=== PATIENT | female | born 1965 | race African-American/Black ===

== ENCOUNTER 2017-12-21 11:00 | Emergency (ER) | payer OTHER, SELFPAY ==
--- OUTSIDE RECORDS SUMMARY | 2017-12-21 11:02 | XMS REPORT | Clinical Summary ---
:[address] [facility] Address [address] [place] [address] Phone Care Team Providers Name Role Phone Unavailable Primary Care Provider Unavailable Allergies No Known Allergies Current Medications Prescription Sig. Disp. Refills Start Date End Date Status amLODIPine (NORVASC) Take 10 mg by Active 10 MG mouth daily. tabletIndications: hypertension losartan (COZAAR) 100 Take 100 mg by Active MG tablet mouth daily. metoprolol Take 1 tablet 720 tablet 0 07/14/2016 07/14/2017 (LOPRESSOR) 100 MG (100 mg total) tablet by mouth 2 (two) times daily. 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
[2017-12-21] MEDS ORDERED: HYDROCODONE/APAP 5/325 MG TAB ONE (12:19)
--- NOTE | 2017-12-21 13:07 | RAD REPORT ---
EXAM DESCRIPTION: VAS - Extremity Venous Uni Ltd - 12/21/2017 12:47 pm CLINICAL HISTORY: Leg swelling and edema. COMPARISON: 08/17/2015 FINDINGS: Right lower extremity venous system was interrogated with Doppler technique. Normal flow, compressibility and augmentation was noted. There is no DVT present. IMPRESSION: No evidence of right lower extremity deep venous thrombosis.
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
--- NOTE | 2017-12-21 13:32 | ER ---
Nurse's Notes [facility] Name: Cristy Price Age: 52 yrs Sex: Female : 1965 Arrival Date: 12/21/2017 Time: 11:04 Bed 10 Private MD: Sanchez Ricketts Diagnosis: Pain in right foot Presentation: 12/21 11:50 Presenting complaint:. ae1 11:50 Presenting complaint: Patient states: Patient reports pain to her right foot starting ae1 in the toes as "tingling" that radiates up to her right calf. Patient states pain started about a month ago and today she just "couldn't take the pain". Transition of care: patient was not received from another setting of care. Onset of symptoms was November 26, 2017. Risk Assessment: Do you want to hurt yourself or someone else? Patient reports no desire to harm self or others. 11:50 Method Of Arrival: Ambulatory ae1 11:50 Acuity: DACIA 4 ae1 12:30 Initial Sepsis Screen: Does the patient meet any 2 criteria? No. Patient's initial ae1 sepsis screen is negative. Does the patient have a suspected source of infection? No. Patient's initial sepsis screen is negative. Care prior to arrival: None. Triage Assessment: 11:55 General: Appears in no apparent distress. uncomfortable, well groomed, Behavior is ae1 calm, cooperative. Pain: Complains of pain in dorsum of right foot, right first toe, right second toe, right third toe, right fourth toe, Right first toenail, Right second toenail, Right third toenail, Right fourth toenail and Right fifth toenail Pain currently is 8 out of 10 on a pain scale. Neuro: Level of Consciousness is awake, alert, obeys commands, Oriented to person, place, time, situation. Respiratory: Airway is patent. Musculoskeletal: No visible injury, swelling or redness to the right foot. 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 - Social history:: Smoking status: Patient/guardian denies using tobacco. - Ebola Screening: : Patient negative for fever greater than or equal to 101.5 degrees Fahrenheit, and additional compatible Ebola Virus Disease symptoms Patient denies exposure to infectious person. Screenin:30 Abuse screen: Denies threats or abuse. Denies injuries from another. Nutritional ae1 screening: No deficits noted. Tuberculosis screening: No symptoms or risk factors identified. Fall Risk None identified. Assessment: 13:00 Reassessment: Patient appears in no apparent distress at this time. Patient and/or iw family updated on plan of care and expected duration. Pain level reassessed. Patient is alert, oriented x 3, equal unlabored respirations, skin warm/dry/pink. Vital Signs: 11:53 BP 146 / 88; Pulse 76; Resp 18; Temp 98.1(O); Pulse Ox 97% on R/A; Weight 68.49 kg (R); ae1 Pain 8/10; ED Course: 11:04 Patient arrived in ED. mr 11:04 Sanchez Ricketts MD is Private Physician. mr 11:52 Triage completed. ae1 11:54 Arm band placed on right wrist. ae1 11:59 Joseline Yan FNP-C [facility]. snw 12:00 Emiliano Hidalgo MD is Attending Physician. snw 12:03 Dotty Gonzalez, ZACARIAS is Primary Nurse. iw 12:15 Call light in reach. Patient sitting in recliner. Pulse ox on. ae1 12:33 Ultrasound completed. Patient tolerated well. sg3 12:48 US Extremity Venous Unilateral Ltd In Process Unspecified. EDMS 13:00 No provider procedures requiring assistance completed. Patient did not have IV access ae1 during this emergency room visit. 13:27 Sanchez Ricketts MD is Referral Physician. snw 13:27 Stu Jones MD is Referral Physician. snw 13:37 Referral Physician role handed off by Stu Jones MD snw 13:39 Sanchez Ricketts MD is Referral Physician. snw 14:21 Sanchez Ricketts MD is Referral Physician. snw 14:22 Sanchez Ricketts MD is Referral Physician. snw Administered Medications: 12:20 Drug: [place] 5 mg-325 mg 1 tabs Route: PO; ae1 12:29 Follow up: Response: No adverse reaction; Pain is decreased rv 12:43 Follow up: Response: Pain is decreased rv Outcome: 13:32 Discharge ordered by MD. snw 13:40 Discharge ordered by MD. snw 14:22 Discharge ordered by MD. snw 14:22 Discharge ordered by MD. snw 14:35 Discharged to home via wheelchair. ae1 14:35 Condition: stable 14:35 Discharge instructions given to patient, Instructed on discharge instructions, follow up and referral plans. Demonstrated understanding of instructions. 14:41 Patient left the ED. ae1 Signatures: Dispatcher [employer] EDMS Joseline Yan, RECREATIONAL SPORTS DIRECTOR-C RECREATIONAL SPORTS DIRECTOR-[place] Aicha Simms Irene, RN RN iw Donis Jacob RN RN ae1 Vidhi Rodríguez 3 Herman Hall RN RN rv
[2017-12-21 14:48] VITALS: BP 146/88; TEMP 98.1; O2SAT 97
== END 2017-12-21 14:41 | disposition home or self-care (01) ==
LOC: ER 11:00
DX: M79.671 Pain in right foot (principal)
CPT/HCPCS: 93971; 99283

== ENCOUNTER 2018-05-26 18:56 | Emergency (ER) | payer OTHER ==
--- OUTSIDE RECORDS SUMMARY | 2018-05-26 18:58 | XMS REPORT | Clinical Summary ---
:1965 Author Organization [facility] Address [address] [place] [address] Care Team Providers Name Role Phone Sanchez Ricketts Primary Care Provider Allergies No Known Allergies Medications Medication Sig Dispensed Refills Start Date End Date Status amLODIPine (NORVASC) Take 10 mg by 0 Active 10 MG mouth daily. tabletIndications: hypertension losartan (COZAAR) 100 Take 100 mg by 0 Active MG tablet mouth daily. metoprolol Take [...] Assigned at Date Recorded Not on file Job Start Date Occupation Industry Not on file Not on file Not on file Travel History Travel Start Travel End No recent travel history available. Last Filed Vital Signs Not on file Plan of Treatment Not on file Results Not on fileafter 05/25/2017 Insurance Payer Benefit Plan / Group Subscriber ID Type Phone Address OTHER-COMMERCIAL GENERIC COMMERCIAL xxxxxxxxx Advance Directives For more information, please contact:[address] [place], [place] [phone] Code Status Date Activated Date Inactivated Comments Full Code 07/05/2016 9:32 PM 07/14/2016 6:56 PM This code status was determined by: Patient
[2018-05-26] MEDS ORDERED: ONDANSETRON 4 MG (ODT) TAB ONE (20:00)
--- NOTE | 2018-05-26 20:48 | RAD REPORT ---
EXAM DESCRIPTION: RAD - Chest Pa And Lat (2 Views) - 05/26/2018 8:34 pm CLINICAL HISTORY: Cough and congestion COMPARISON: December 2016 TECHNIQUE: PA and lateral views of the chest were obtained. FINDINGS: The lungs are clear. Lung markings are similar to the comparison. Heart size is normal an d central vasculature is within normal limits. No pleural effusion or pneumothorax seen. No acute b anju finding noted. No aortic abnormality. IMPRESSION: No acute cardiopulmonary process. No significant interval change.
[2018-05-26 21:35] LABS: Urine Blood NEGATIVE (NEG); Urine Glucose NEGATIVE (NEG); Urine Protein NEGATIVE (NEG); Urine Specific Gravity 1.015 (1.005-1.030)
--- NOTE | 2018-05-26 21:36 | ER ---
Nurse's Notes [facility] Name: Cristy Price Age: 53 yrs Sex: Female : 1965 Arrival Date: 05/26/2018 Time: 18:59 Bed 20 Private MD: Diagnosis: Bronchitis, not specified as acute or chronic Presentation: 05/26 19:02 Presenting complaint: Patient states: cough, congestion X2 days. Transition of care: ak1 patient was not received from another setting of care. Onset of symptoms is unknown. Risk Assessment: Do you want to hurt yourself or someone else? Patient reports no desire to harm self or others. Initial Sepsis Screen: Does the patient meet any 2 criteria? No. Patient's initial sepsis screen is negative. Does the patient have a suspected source of infection? No. Patient's initial sepsis screen is negative. Care prior to arrival: None. 19:02 Method Of Arrival: Ambulatory ak1 19:02 Acuity: DACIA 3 ak1 Triage Assessment: 19:03 Headache History: The patient has had previous headaches and this one is similar to ak1 previous episodes. General: Appears uncomfortable, Behavior is calm, cooperative. Pain: Complains of pain in chest. 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 - Social history:: Smoking status: Patient/guardian denies using tobacco. - Ebola Screening: : No symptoms or risks identified at this time. Screenin:12 Abuse screen: Denies threats or abuse. Nutritional screening: No deficits noted. jb4 Tuberculosis screening: No symptoms or risk factors identified. Fall Risk None identified. Assessment: 19:12 General: Appears in no apparent distress. uncomfortable, Behavior is calm, cooperative, jb4 appropriate for age. Pain: Complains of pain in Headache. Pain does not radiate. Pain currently is 4 out of 10 on a pain scale. at worst was 8 out of 10 on a pain scale. Quality of pain is described as throbbing. Neuro: Level of Consciousness is awake, alert, obeys commands, Oriented to person, place, time, situation. Cardiovascular: Heart tones S1 S2 present Patient's skin is warm and dry. Respiratory: Airway is patent Respiratory effort is even, unlabored, Respiratory pattern is regular, symmetrical, Breath sounds are clear bilaterally. GI: Abdomen is non-distended, obese, Bowel sounds present X 4 quads. Abd is soft and non tender X 4 quads. : No signs and/or symptoms were reported regarding the genitourinary system. EENT: No signs and/or symptoms were reported regarding the EENT system. Derm: Skin is intact, Skin is dry, Skin is normal, Skin temperature is warm. Musculoskeletal: Circulation, motion, and sensation intact. 20:25 Reassessment: Patient appears in no apparent distress at this time. Patient and/or jb4 family updated on plan of care and expected duration. Pain level reassessed. Patient is alert, oriented x 3, equal unlabored respirations, skin warm/dry/pink. Pt wheeled to X-Ray. 21:29 Reassessment: Patient appears in no apparent distress at this time. Patient and/or jb4 family updated on plan of care and expected duration. Pain level reassessed. Patient is alert, oriented x 3, equal unlabored respirations, skin warm/dry/pink. Vital Signs: 19:03 BP 176 / 100; Pulse 130; Resp 18; Temp 98; Pulse Ox 99% on R/A; Weight 65.77 kg (R); ak1 Height 4 ft. 9 in. (144.78 cm); Pain 10/10; 20:00 BP 144 / 89; Pulse 93; Resp 18; Pulse Ox 98% ; jb4 21:00 BP 135 / 80; Pulse 73; Resp 18; Pulse Ox 100% on R/A; jb4 21:56 BP 154 / 84; Pulse 86; Resp 18; Pulse Ox 100% on R/A; jb4 19:03 Body Mass Index 31.38 (65.77 kg, 144.78 cm) ak1 ED Course: 18:59 Patient arrived in ED. as 19:02 Triage completed. ak1 19:03 Arm band placed on Patient placed in an exam room, on a stretcher, Patient notified of ak1 wait time. 19:08 Bryan Solorzano, RN is Primary Nurse. jb4 19:12 Patient has correct armband on for positive identification. Bed in low position. Call jb4 light in reach. Side rails up X 1. Pulse ox on. NIBP on. 19:36 Joseline Yan FNP-C is PHCP. snw 19:36 Rohan Flores MD is Attending Physician. snw 20:30 Chest Pa And Lat (2 Views) XRAY In Process Unspecified. EDMS 21:56 No provider procedures requiring assistance completed. Patient did not have IV access jb4 during this emergency room visit. Administered Medications: 19:56 Drug: Zofran 4 mg Route: PO; jb4 21:39 Follow up: Response: No adverse reaction; Nausea is decreased jb4 21:40 Drug: Tussionex Pennkinetic ER 5 ml Route: PO; jb4 21:55 Follow up: Response: No adverse reaction jb4 21:40 Drug: Decadron - Dexamethasone 10 mg Route: IVP; Site: Other; jb4 21:56 Follow up: Response: No adverse reaction jb4 Outcome: 21:36 Discharge ordered by . snw 21:56 Discharged to home ambulatory. jb4 21:56 Condition: stable 21:56 Discharge instructions given to patient, Instructed on discharge instructions, follow up and referral plans. medication usage, Demonstrated understanding of instructions, follow-up care, medications, Prescriptions given X 3. 21:57 Patient left the ED. jb4 Signatures: Dispatcher [employer] EDMT Joseline Yan FNP-C BACK SHOE OPERATOR-Macy Avina Amber, RN RN ak1 Bryan Solorzano, RN RN jb4
--- NOTE | 2018-05-26 21:36 | EDPHYS ---
Physician Documentation [facility] Name: Cristy Price Age: 53 yrs Sex: Female : 1965 Arrival Date: 05/26/2018 Time: 18:59 Bed 20 Private MD: ED Physician Rohan Flores HPI: 05/26 21:51 This 53 yrs old Black Female presents to ER via Ambulatory with complaints of snw Dizziness, Headache, Congestion. 21:51 The patient presents with feeling faint, lightheadedness. Onset: The symptoms/episode snw began/occurred suddenly, this morning. Context: just prior to the episode the patient experienced no apparent symptoms. Modifying factors: The symptoms are alleviated by nothing, the symptoms are aggravated by cough. Associated signs and symptoms: Pertinent positives: headache, nausea, cough. Severity of symptoms: At their worst the symptoms were moderate in the emergency department the symptoms are unchanged. It is unknown whether or not the patient has had similar symptoms in the past. The patient has not recently seen a physician. 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 - Social history:: Smoking status: Patient/guardian denies using tobacco. - Ebola Screening: : No symptoms or risks identified at this time. ROS: 21:51 Eyes: Negative for injury, pain, redness, and discharge, ENT: Negative for injury, snw pain, and discharge, Neck: Negative for injury, pain, and swelling, Cardiovascular: Negative for chest pain, palpitations, and edema. 21:51 Back: Negative for injury and pain, : Negative for injury, bleeding, discharge, and swelling, MS/Extremity: Negative for injury and deformity, Skin: Negative for injury, rash, and discoloration, Neuro: Negative for headache, weakness, numbness, tingling, and seizure. 21:51 Constitutional: Positive for body aches, fatigue, malaise. 21:51 Respiratory: Positive for cough. 21:51 Abdomen/GI: Positive for nausea. Exam: 21:49 Constitutional: This is a well developed, well nourished patient who is awake, alert, snw and in no acute distress. Head/Face: Normocephalic, atraumatic. Eyes: Pupils equal round and reactive to light, extra-ocular motions intact. Lids and lashes normal. Conjunctiva and sclera are non-icteric and not injected. Cornea within normal limits. Periorbital areas with no swelling, redness, or edema. ENT: Nares patent. No nasal discharge, no septal abnormalities noted. Tympanic membranes are normal and external auditory canals are clear. Oropharynx with no redness, swelling, or masses, exudates, or evidence of obstruction, uvula midline. Mucous membranes moist. Neck: Trachea midline, no thyromegaly or masses palpated, and no cervical lymphadenopathy. Supple, full range of motion without nuchal rigidity, or vertebral point tenderness. No Meningismus. Chest/axilla: Normal chest wall appearance and motion. Nontender with no deformity. No lesions are appreciated. 21:49 Abdomen/GI: Soft, non-tender, with normal bowel sounds. No distension or tympany. No guarding or rebound. No evidence of tenderness throughout. Back: No spinal tenderness. No costovertebral tenderness. Full range of motion. Skin: Warm, dry with normal turgor. Normal color with no rashes, no lesions, and no evidence of cellulitis. MS/ Extremity: Pulses equal, no cyanosis. Neurovascular intact. Full, normal range of motion. Neuro: Awake and alert, GCS 15, oriented to person, place, time, and situation. Cranial nerves II-XII grossly intact. Motor strength 5/5 in all extremities. Sensory grossly intact. Cerebellar exam normal. Normal gait. 21:49 Cardiovascular: Rate: tachycardic, Heart sounds: normal. 21:49 Respiratory: the patient does not display signs of respiratory distress, Respirations: no acute changes, Breath sounds: are clear throughout, Bronchitic cough. Vital Signs: 19:03 BP 176 / 100; Pulse 130; Resp 18; Temp 98; Pulse Ox 99% on R/A; Weight 65.77 kg (R); ak1 Height 4 ft. 9 in. (144.78 cm); Pain 10/10; 20:00 BP 144 / 89; Pulse 93; Resp 18; Pulse Ox 98% ; jb4 21:00 BP 135 / 80; Pulse 73; Resp 18; Pulse Ox 100% on R/A; jb4 21:56 BP 154 / 84; Pulse 86; Resp 18; Pulse Ox 100% on R/A; jb4 19:03 Body Mass Index 31.38 (65.77 kg, 144.78 cm) ak1 MDM: 19:38 Patient medically screened. snw 21:50 Data reviewed: vital signs, nurses notes. Data interpreted: Pulse oximetry: on room air snw is 100 %. Interpretation: normal. Counseling: I had a detailed discussion with the patient and/or guardian regarding: the historical points, exam findings, and any diagnostic results supporting the discharge/admit diagnosis, lab results, the need for outpatient follow up, to return to the emergency department if symptoms worsen or persist or if there are any questions or concerns that arise at home. Special discussion: Based on the history and exam findings, there is no indication for further emergent testing or inpatient evaluation. I discussed with the patient/guardian the need to see the primary care provider for further evaluation of the symptoms. 05/26 19:19 Order name: Flu; Complete Time: 20:39 snw 05/26 21:21 Order name: Urine Dipstick--Ancillary (enter results); Complete Time: 21:39 ds4 05/26 19:45 Order name: Chest Pa And Lat (2 Views) XRAY; Complete Time: 21:01 snw 05/26 21:10 Order name: Urine Dipstick-Ancillary (obtain specimen); Complete Time: 21:20 snw Administered Medications: 19:56 Drug: Zofran 4 mg Route: PO; jb4 21:39 Follow up: Response: No adverse reaction; Nausea is decreased jb4 21:40 Drug: Tussionex Pennkinetic ER 5 ml Route: PO; jb4 21:55 Follow up: Response: No adverse reaction jb4 21:40 Drug: Decadron - Dexamethasone 10 mg Route: IVP; Site: Other; jb4 21:56 Follow up: Response: No adverse reaction jb4 Disposition: 05/26/18 21:36 Discharged to Home. Impression: Bronchitis, not specified as acute or chronic. - Condition is Stable. - Discharge Instructions: Acute Bronchitis, Adult, Fever, Adult, Hypertension, Cool Mist Vaporizer, Rehydration, Adult. - Prescriptions for Prednisone 20 mg Oral Tablet - take 2 tablet by ORAL route once daily for 5 days; 10 tablet. Albuterol Sulfate 90 mcg/actuation - inhale 1-2 puff by INHALATION route every 4-6 hours; 1 Inhaler. Pepcid 20 mg Oral Tablet - take 1 tablet by ORAL route once daily; 20 tablet. - Work release form, Medication Reconciliation Form, Thank You Letter, Antibiotic Education, Prescription Opioid Use form. - Follow up: Private Physician; When: 2 - 3 days; Reason: Recheck today's complaints, Continuance of care, Re-evaluation by your physician. Follow up: Emergency Department; When: As needed; Reason: Worsening of condition. Addendum: 06/02/2018 11:49 Co-signature as Attending Physician, Rohan Flores MD. g s Signatures: Dispatcher [employer] EDMS Joseline Yan, DERMATOLOGIST MANAGING PARTNER-C DERMATOLOGIST MANAGING PARTNER-Csnw Shital Hope RN RN ak1 Bryan Solorzano RN RN jb4 Rohan Flores MD MD Corrections: (The following items were deleted from the chart) 05/26 21:57 21:36 05/26/2018 21:36 Discharged to Home. Impression: Bronchitis, not specified as jb4 acute or chronic. Condition is Stable. Forms are Medication Reconciliation Form, Thank You Letter, Antibiotic Education, Prescription Opioid Use. Follow up: Private Physician; When: 2 - 3 days; Reason: Recheck today's complaints, Continuance of care, Re-evaluation by your physician. Follow up: Emergency Department; When: As needed; Reason: Worsening of condition. snw
[2018-05-26] MEDS ORDERED: DEXAMETHASONE 10 MG/ML VIAL ONE (21:50)
[2018-05-26] MEDS ORDERED: HYDROCODONE/CHLORPHEN 5 ML/OSYR ONE (21:50)
[2018-05-26 22:28] VITALS: TEMP 98
[2018-05-26 22:31] VITALS: O2SAT 100
[2018-05-26 22:32] VITALS: BP 154/84
== END 2018-05-26 21:57 | disposition home or self-care (01) ==
LOC: ER 18:56
DX: J40 Bronchitis, not specified as acute or chronic (principal); I10 Essential (primary) hypertension
CPT/HCPCS: 71046; 81003; 87804; 96374; 99284; J1100

== ENCOUNTER 2018-08-14 13:41 | Inpatient (IN) | payer OTHER ==
--- OUTSIDE RECORDS SUMMARY | 2018-08-14 13:43 | XMS REPORT | Clinical Summary ---
:[address] [facility] Address [address] [place] [address] Care Team Providers Name Role Phone Sanchez Ricketts Primary Care Provider Allergies No Known Allergies Medications Medication Sig Dispensed Refills Start Date End Date Status amLODIPine (NORVASC) 10 Take 10 mg by 0 Active MG tabletIndications: mouth daily. hypertension losartan (COZAAR) 100 MG Take 100 mg by 0 Active tablet mouth daily. Active Problems Problem Noted Date Small [...] Not on file Results Not on fileafter 08/13/2017 Insurance Payer Benefit Plan / Group Subscriber ID Type Phone Address OTHER-COMMERCIAL GENERIC COMMERCIAL xxxxxxxxx Advance Directives For more information, please contact:[facility] [place], [place] [phone] Code Status Date Activated Date Inactivated Comments Full Code 07/05/2016 9:32 PM 07/14/2016 6:56 PM This code status was determined by: Patient
[2018-08-14] MEDS ORDERED: NA CHLORIDE 0.9% 1,000 ML ONE (17:07)
--- NOTE | 2018-08-14 17:31 | ER ---
Nurse's Notes [facility] Name: Cristy Price Age: 53 yrs Sex: Female : 1965 Arrival Date: 08/14/2018 Time: 13:42 Bed 14 Private MD: Sanchez Ricketts Diagnosis: Acute kidney failure, unspecified Presentation: 08/14 13:49 Presenting complaint: Patient states: "I had blood drawn here this morning, Dr. Saul hb called and told me my kidney function was down and to come to ER immediately.". Transition of care: patient was not received from another setting of care. Onset of symptoms was August 14, 2018. Risk Assessment: Do you want to hurt yourself or someone else? Patient reports no desire to harm self or others. Care prior to arrival: None. 13:49 Method Of Arrival: Ambulatory hb 13:49 Acuity: DACIA 3 hb 15:45 Initial Sepsis Screen: Does the patient meet any 2 criteria? No. Patient's initial rb1 sepsis screen is negative. Does the patient have a suspected source of infection? No. Patient's initial sepsis screen is negative. 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 - Social history:: Smoking status: Patient/guardian denies using tobacco. - Ebola Screening: : No symptoms or risks identified at this time. Screenin:45 Abuse screen: Denies threats or abuse. Nutritional screening: No deficits noted. rb1 Tuberculosis screening: No symptoms or risk factors identified. Fall Risk None identified. Assessment: 15:45 General: Appears in no apparent distress. comfortable, Behavior is calm, cooperative, rb1 Denies fever. Pain: Complains of pain in abdomen Pain currently is 7 out of 10 on a pain scale. Neuro: Level of Consciousness is awake, alert, obeys commands, Oriented to person, place, time, situation. Cardiovascular: Capillary refill < 3 seconds is brisk in bilateral fingers. Respiratory: Airway is patent Respiratory effort is even, unlabored, Respiratory pattern is regular, symmetrical. GI: Reports nausea, x 2 days. : Reports burning with urination. Derm: Skin is dry, Skin is normal, Skin temperature is warm. Musculoskeletal: Range of motion: intact in all extremities. 16:45 Reassessment: Patient appears in no apparent distress at this time. No changes from rb1 previously documented assessment. Son at bedside. 17:45 Reassessment: Patient appears in no apparent distress at this time. Patient and/or rb1 family updated on plan of care and expected duration. Pain level reassessed. Patient is alert, oriented x 3, equal unlabored respirations, skin warm/dry/pink. Pt. ambulated to the restroom without difficulty. 18:45 Reassessment: Patient appears in no apparent distress at this time. No changes from rb1 previously documented assessment. Family at bedside. 19:10 Reassessment: Patient appears in no apparent distress at this time. Patient and/or jb4 family updated on plan of care and expected duration. Pain level reassessed. Patient is alert, oriented x 3, equal unlabored respirations, skin warm/dry/pink. Attempted NG tube. Pt did not tolerate procedure. Refused further attempts. 20:00 Reassessment: Patient appears in no apparent distress at this time. Patient and/or jb4 family updated on plan of care and expected duration. Pain level reassessed. Patient is alert, oriented x 3, equal unlabored respirations, skin warm/dry/pink. Patient denies pain at this time. Vital Signs: 13:50 BP 131 / 96; Pulse 94; Resp 16; Temp 97.4; Pulse Ox 100% on R/A; Pain 7/10; hb 15:45 BP 107 / 81; Pulse 85; Resp 17; Pulse Ox 98% on R/A; rb1 16:45 BP 126 / 92; Pulse 98; Resp 16; Pulse Ox 98% on R/A; rb1 17:45 BP 139 / 92; Pulse 95; Resp 19; Pulse Ox 98% ; Pain 6/10; rb1 20:45 BP 125 / 80; Pulse 95; Resp 16; Pulse Ox 98% on R/A; jb4 ED Course: 13:42 Patient arrived in ED. rg4 13:43 Sanchez Ricketts MD is Private Physician. rg4 13:50 Triage completed. hb 13:51 Arm band placed on right wrist. hb 15:39 Joseline Yan, EDEN[facility]C [facility]. snw 15:40 Emiliano Hidalgo MD is Attending Physician. snw 15:45 Patient has correct armband on for positive identification. Bed in low position. Call rb1 light in reach. Side rails up X 1. Pulse ox on. NIBP on. Warm blanket given. 15:51 Kya Mayes RN is Primary Nurse. rb1 16:40 Inserted saline lock: 22 gauge in left antecubital area, using aseptic technique. Blood rb1 collected. 17:30 Tarik Womack MD is Hospitalizing Provider. snw 17:[address] via wheelchair. vm2 17:51 CT Abd/Pelvis - Without Cont In Process Unspecified. EDMS 18:55 Report given to ZACAIRAS Weiss. rb1 21:08 No provider procedures requiring assistance completed. Patient admitted, IV remains in jb4 place. Administered Medications: 17:00 Drug: NS 0.9% 1000 ml Route: IV; Rate: 125 ml/hr; Site: left antecubital; rb1 20:48 Follow up: Response: No adverse reaction; IV Status: Infusion continued upon admission jb4 19:56 Drug: Mefoxin 1 grams {Note: Given IVP per pharmacy protocol..} Route: IVPB; Infused jb4 Over: 30 mins; Site: left antecubital; 19:58 Follow up: Response: No adverse reaction; IV Status: Completed infusion jb4 19:59 Drug: fentaNYL (PF) 25 mcg Route: IVP; Site: left antecubital; jb4 20:47 Follow up: Response: No adverse reaction; Pain is decreased jb4 20:00 Drug: Ativan 0.5 mg Route: IVP; Site: left antecubital; jb4 20:48 Follow up: Response: No adverse reaction; Pain is decreased; Anxiety decreased jb4 20:05 Drug: Flagyl 500 mg Volume: 100 ml; Route: IVPB; Rate: 200 ml/hr; Infused Over: 30 jb4 mins; Site: left antecubital; 20:35 Follow up: Response: No adverse reaction; IV Status: Completed infusion jb4 Outcome: 17:31 Decision to Hospitalize by Provider. snw 21:08 Admitted to Med/surg accompanied by tech, via wheelchair, room 224, with chart, Report jb4 called to ZACARIAS Leyva 21:08 Condition: stable 21:08 Discharge instructions given to patient, family, Instructed on the need for admit, Demonstrated understanding of instructions. 21:10 Patient left the ED. jb4 Signatures: Dispatcher [employer] EDMS Joseline Yan, SHELLFISH SHUCKER-C SHELLFISH SHUCKER-Csnw Kya Mayes RN RN rb1 Darcy Saenz RN RN hb Garcia, [place] 4 Bryan Solorzano RN RN jb4 Teodora Astorga [facility]
--- NOTE | 2018-08-14 17:32 | EDPHYS ---
Physician Documentation [facility] Name: Cristy Price Age: 53 yrs Sex: Female : 1965 Arrival Date: 08/14/2018 Time: 13:42 Bed 14 Private MD: Sanchez Ricketts ED Physician BalEmiliano singh HPI: 08/14 17:17 This 53 yrs old Black Female presents to ER via Ambulatory with complaints of Abnormal snw Lab Results. 17:17 Pt went to PCP for abdominal dicomfort, hx of bowel obstruction at age 18yr. Pt then snw developed a hernia. Lately her abd has been hurting more frequently in central area. Saw Dr. Ricketts. Labs today indicate renal failure. sent to ED for exam. 17:33 Onset: The symptoms/episode began/occurred at an unknown time. Severity of symptoms: At snw their worst the symptoms were moderate. The patient has not experienced similar symptoms in the past. The patient has been recently seen by a physician: the patient's primary care provider, Dr. Ricketts. Pt has been seen recently for Bronchitis and has rec'd steroid courses x 2. 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 - Social history:: Smoking status: Patient/guardian denies using tobacco. - Ebola Screening: : No symptoms or risks identified at this time. ROS: 17:33 Constitutional: Negative for fever, chills, and weight loss, Eyes: Negative for injury, snw pain, redness, and discharge, ENT: Negative for injury, pain, and discharge, Neck: Negative for injury, pain, and swelling, Cardiovascular: Negative for chest pain, palpitations, and edema, Respiratory: Negative for shortness of breath, cough, wheezing, and pleuritic chest pain, Back: Negative for injury and pain, : Negative for injury, bleeding, discharge, and swelling, MS/Extremity: Negative for injury and deformity, Skin: Negative for injury, rash, and discoloration, Neuro: Negative for headache, weakness, numbness, tingling, and seizure. 17:33 Abdomen/GI: Positive for abdominal pain, denies N/V/D, fever, edema. Exam: 17:32 Constitutional: This is a well developed, well nourished patient who is awake, alert, snw and in no acute distress. Head/Face: Normocephalic, atraumatic. Eyes: Pupils equal round and reactive to light, extra-ocular motions intact. Lids and lashes normal. Conjunctiva and sclera are non-icteric and not injected. Cornea within normal limits. Periorbital areas with no swelling, redness, or edema. ENT: Nares patent. No nasal discharge, no septal abnormalities noted. Tympanic membranes are normal and external auditory canals are clear. Oropharynx with no redness, swelling, or masses, exudates, or evidence of obstruction, uvula midline. Mucous membranes moist. Neck: Trachea midline, no thyromegaly or masses palpated, and no cervical lymphadenopathy. Supple, full range of motion without nuchal rigidity, or vertebral point tenderness. No Meningismus. Chest/axilla: Normal chest wall appearance and motion. Nontender with no deformity. No lesions are appreciated. Cardiovascular: Regular rate and rhythm with a normal S1 and S2. No gallops, murmurs, or rubs. Normal PMI, no JVD. No pulse deficits. Respiratory: Lungs have equal breath sounds bilaterally, clear to auscultation and percussion. No rales, rhonchi or wheezes noted. No increased work of breathing, no retractions or nasal flaring. Back: No spinal tenderness. No costovertebral tenderness. Full range of motion. Skin: Warm, dry with normal turgor. Normal color with no rashes, no lesions, and no evidence of cellulitis. MS/ Extremity: Pulses equal, no cyanosis. Neurovascular intact. Full, normal range of motion. Neuro: Awake and alert, GCS 15, oriented to person, place, time, and situation. Cranial nerves II-XII grossly intact. Motor strength 5/5 in all extremities. Sensory grossly intact. Cerebellar exam normal. Normal gait. 17:32 Abdomen/GI: Inspection: distension, that is moderate, Bowel sounds: normal, Palpation: moderate abdominal tenderness, in the umbilical area and left upper quadrant. Vital Signs: 13:50 BP 131 / 96; Pulse 94; Resp 16; Temp 97.4; Pulse Ox 100% on R/A; Pain 7/10; hb 15:45 BP 107 / 81; Pulse 85; Resp 17; Pulse Ox 98% on R/A; rb1 16:45 BP 126 / 92; Pulse 98; Resp 16; Pulse Ox 98% on R/A; rb1 17:45 BP 139 / 92; Pulse 95; Resp 19; Pulse Ox 98% ; Pain 6/10; rb1 20:45 BP 125 / 80; Pulse 95; Resp 16; Pulse Ox 98% on R/A; jb4 MDM: 16:40 Patient medically screened. snw 17:31 Data reviewed: vital signs, nurses notes. Data interpreted: Pulse oximetry: on room air snw is 100 %. Interpretation: normal. Counseling: I had a detailed discussion with the patient and/or guardian regarding: the historical points, exam findings, and any diagnostic results supporting the discharge/admit diagnosis, lab results, the need for further work-up and treatment in the hospital. Physician consultation: Tarik Womack MD was called at 17:32, was contacted at 17:32, regarding admission, to the telemetry unit. 08/14 16:11 Order name: Phosphorus; Complete Time: 18:49 snw 08/14 16:11 Order name: LDH; Complete Time: 18:49 snw 08/14 16:11 Order name: Misc. Lab Test [facility] 08/14 16:11 Order name: Hepatitis Panel [facility] 08/14 17:12 Order name: Urine Dipstick--Ancillary (enter results); Complete Time: 19:03 [facility] 08/14 17:12 Order name: Urine Microscopic Only; Complete Time: 19:11 [facility] 08/14 15:56 Order name: CT Abd/Pelvis - Without Cont; Complete Time: 18:49 snw 08/14 17:12 Order name: Urine Culture em1 08/14 19:04 Order name: Lactate; Complete Time: 20:30 [facility] 08/14 19:04 Order name: Procalcitonin [facility] 08/14 17:12 Order name: Urine Dipstick-Ancillary (obtain specimen); Complete Time: 17:13 [facility] 08/14 19:05 Order name: Misc. Order: NG tube only prn vomiting; Complete Time: 20:09 snw 08/14 19:05 Order name: NPO; Complete Time: 19:25 snw Administered Medications: 17:00 Drug: NS 0.9% 1000 ml Route: IV; Rate: 125 ml/hr; Site: left antecubital; rb1 20:48 Follow up: Response: No adverse reaction; IV Status: Infusion continued upon admission jb4 19:56 Drug: Mefoxin 1 grams {Note: Given IVP per pharmacy protocol..} Route: IVPB; Infused jb4 Over: 30 mins; Site: left antecubital; 19:58 Follow up: Response: No adverse reaction; IV Status: Completed infusion jb4 19:59 Drug: fentaNYL (PF) 25 mcg Route: IVP; Site: left antecubital; jb4 20:47 Follow up: Response: No adverse reaction; Pain is decreased jb4 20:00 Drug: Ativan 0.5 mg Route: IVP; Site: left antecubital; jb4 20:48 Follow up: Response: No adverse reaction; Pain is decreased; Anxiety decreased jb4 20:05 Drug: Flagyl 500 mg Volume: 100 ml; Route: IVPB; Rate: 200 ml/hr; Infused Over: 30 jb4 mins; Site: left antecubital; 20:35 Follow up: Response: No adverse reaction; IV Status: Completed infusion jb4 Disposition: 08/14/18 17:31 Hospitalization ordered by Tarik Womack for Observation. Preliminary diagnosis is Acute kidney failure, unspecified. - Bed requested for Telemetry/MedSurg (observation). - Status is Observation. jb4 - Condition is Stable. - Problem is new. - Symptoms are unchanged. UTI on Admission? No Addendum: 08/21/2018 09:34 Co-signature as Attending Physician, Emiliano Hidalgo MD I agree with the assessment and k dr plan of care. Signatures: Dispatcher [employer] EDNC Sondra Moreau RN RN mw Rittger, Kevin, MD MD [facility] Joseline Yan, [facility] Mike Drake em1 Kya Mayes, RN RN rb1 Darcy Saenz RN RN Bryan Solorzano, RN RN jb4 Corrections: (The following items were deleted from the chart) 08/14 19:42 17:31 Hospitalization Ordered by Tarik Womack MD for Observation. Preliminary diagnosis mw is Acute kidney failure, unspecified. Bed requested for Telemetry/MedSurg (observation). Status is Observation. Condition is Stable. Problem is new. Symptoms are unchanged. UTI on Admission? No. snw 20:08 18:51 NG Tube ordered. [facility] jb4 21:10 19:42 08/14/2018 17:31 Hospitalization Ordered by Tarik Womack MD for Observation. jb4 Preliminary diagnosis is Acute kidney failure, unspecified. Bed requested for Telemetry/MedSurg (observation). Status is Observation. Condition is Stable. Problem is new. Symptoms are unchanged. UTI on Admission? No. mw
--- NOTE | 2018-08-14 18:18 | RAD REPORT ---
EXAM DESCRIPTION: CT - Abdomen Pelvis Wo Contrast - 08/14/2018 5:48 pm CLINICAL HISTORY: Abdominal pain COMPARISON: 2016 TECHNIQUE: Computed axial tomography of the abdomen and pelvis was obtained. IV was not requested. O ral contrast was given. Coronal reconstructions performed. All CT scans are performed using dose optimization technique as appropriate and may include automated exposure control or mA/KV adjustment according to patient size. FINDINGS: The evaluation of solid organs and vessels is limited secondary to the lack of contrast a dministration. Fatty liver Spleen, pancreas, adrenals and kidneys appear grossly normal. The abdominal mass has been resected since the prior examination. A paraumbilical hernia with a neck 4.9 centimeters contains small bowel. A ventral hernia within the upper pelvis has a neck of 4.3 centimeters and contains small bowel. A couple of additional ventral h ernias are present. Several loops of small bowel are mildly to moderately dilated. The distal small b owel is decompressed. There is no evidence of diverticulitis. IMPRESSION: Multiple ventral hernias some of which contain small bowel. There are several loops of mildly to moderately dilated small bowel. A partial small bowel obstruction is suspected. The exact s ite of obstruction is difficult to ascertain,. It may be due to an adhesion
[2018-08-14 18:37] LABS: Phosphorus 4.6 mg/dL (2.5-4.9)
[2018-08-14 18:55] LABS: Urine Blood TRACE (NEG); Urine Glucose NEGATIVE (NEG); Urine Protein NEGATIVE (NEG); Urine Specific Gravity <1.005 (1.005-1.030); Urine pH 5.5 (5.0-7.0)
[2018-08-14 19:05] LABS: Urine Bacteria 20-50 /HPF (<20); Urine Culture Reflex Order NOT NEEDED; Urine RBC <5 /HPF (NONE SEEN)
[2018-08-14] MEDS ORDERED: LORazepam 2 MG/ML VIAL ONE (19:39)
[2018-08-14] MEDS ORDERED: FENTANYL CITR 100 MCG/2 ML ONE (19:40)
[2018-08-14] MEDS ORDERED: METRONIDAZOLE 500mg IVPB 500 MG/100 ML BAG IV ONE (19:41)
[2018-08-14] MEDS ORDERED: CEFOXITIN/SWI 1gm 1 GM/10 ML SYR ONE (19:41)
[2018-08-14] MEDS ORDERED: ACETAMINOPHEN 500 MG TAB PO PRN (20:53)
[2018-08-14] MEDS ORDERED: ONDANSETRON 4 MG/2 ML VIAL IV PRN (20:53)
[2018-08-14] MEDS: NA CHLORIDE 0.9% 1,000 ML IV SCH (21:00)
[2018-08-14] MEDS ORDERED: D5 0.45 NS 1,000 ML IV SCH (21:16)
[2018-08-14] MEDS ORDERED: CEFOXITIN 1 GM in NA CHLORIDE 0.9% 100 ML IVPB SCH (21:16)
[2018-08-14] MEDS ORDERED: FENTANYL CITR 100 MCG/2 ML IV PRN (21:16)
--- NOTE | 2018-08-14 23:55 | CON ---
Date of Consultation: 08/14/2018 Reason For Consultation: Abdominal pain. History Of Present Illness: The patient is a 53-year-old female who came in with some abdominal disc omfort. However, she was referred by her PCP, Dr. Ricketts, for a sudden increase in her creatinine. She states that she is able to eat. She is having bowel movements. She is passing gas. She has occ asional nausea. She has had multiple surgeries in her abdomen for obstruction, she states, the last one being couple of years ago and first one being at the age of 18. She is known to have hernias as well. She is awake, alert, in no acute distress. Denies any blood in her stool. No dysuria or kaleb turia. No sore throat, runny nose, cough, headaches, or dizziness. No chest pain. No fever or chil ls. Review of Systems: Otherwise, unremarkable. Past Medical History: Significant for hypertension. Past Surgical History: Significant for hysterectomy, exploratory laparotomy for bowel obstruction x2 . Allergies: NO ALLERGIES. Social History: She denies using tobacco. Physical Examination: Vital signs: Stable. She is afebrile. General: She is awake, alert, and oriented x3. Head and Neck: Cranial nerves 2 through 12 are grossly within normal limits. No neck masses. No JV D. Throat is clear. Neck is supple. Chest: Clear. Heart: S1 and S2. Abdomen: Soft, nondistended. Minimal tenderness in the lower left abdomen. No rebound, rigidity, o r guarding. I can palpate bowel in the hernia and can be easily reduced. Does not appear to be inca rcerated, certainly not strangulated. Extremities: Adequately perfused. Nontender. Neurologic: Nonfocal. Diagnostic Studies: CT of the abdomen and pelvis was reviewed with Dr. Juarez and reveals repaired umbilical hernia with a 5-cm neck almost; and a ventral hernia within the upper pelvis has a neck a 4.3 cm, contains bowel. A couple of additional ventral hernias are present. Several loops of small bowel are [id number] dilated. The distal small bowel is decompressed. Laboratory Data: Shows white count 11.7. There is no left shift. As far as neutrophil percentage, absolute neutrophils are slightly elevated. Coags are normal. Chemistry reveals a potassium at 3.0, BUN of 26, and creatinine of 2.94 which is markedly elevated from her previous one. A1c is 6.1. T is 63. Assessment: A 53-year-old female with acute renal insufficiency and also with multiple ventral herni as with probably a partial bowel obstruction, intermittent in nature. Recommendations: At this time, the patient needs to be admitted for her acute renal insufficiency an d have Nephrology evaluate the patient. She does not need any acute surgical intervention. If she v omits, then we will put an NG tube in her, keep her n.p.o., IV fluids, antibiotics. Should she not n eed surgery during this admission, then we can refer her back to her surgeons in [facility] where she can get definitive treatment for hernia surgery there; and we will follow this deepti elmore while in the hospital. MAGDALENA/MODL Voice ID: [id number] Report ID: [id number]
[2018-08-15] MEDS: NA CHLORIDE 0.9% 1,000 ML IV SCH ×3 (00:06→23:52)
[2018-08-15] MEDS: HYDROMORPHONE HCL 1 MG/ML INJ IV PRN ×2 (00:30→08:31)
[2018-08-15 01:00] VITALS: BMI 31.8
[2018-08-15 01:40] LABS: Urine Protein/Creatinine Ratio 0.07 ratio (<0.15)
[2018-08-15] MEDS ORDERED: CEFOXITIN/SWI 1gm 1 GM/10 ML SYR ONE (04:06)
--- NOTE | 2018-08-15 05:21 | P.HP ---
Certification for Inpatient Patient admitted to: Inpatient With expected LOS: >2 Midnights Patient will require the following post-hospital care: None Practitioner: I am a practitioner with admitting privileges, knowledge of patient current condition, hospital course, and medical plan of care. Services: Services provided to patient in accordance with Admission requirements found in Title 42 Section 412.3 of the Code of Federal Regulations Patient History Date of Service: 08/14/18 Reason for admission: Small bowel obstruction History of Present Illness: Patient is a 53-year-old female who was admitted to the hospital with abdominal pain and distention. On CT scan it appears she has a small-bowel obstruction with multiple ventral hernias. She was given IV hydration and started on IV antibiotics in the ER. When I spoke to her she does state that she has flatus. She also has a bowel movement earlier today. I do not believe she has a small-bowel obstruction. She may have a partial small bowel obstruction which will need to evaluate. She has nausea with no appetite. She has not been eating or drinking well. This could also explain the reason for her acute on chronic kidney failure. She will be admitted to the hospital for further treatment. Allergies No Known Allergies Allergy (Unverified 08/14/18 21:24) Home Medications: Gabapentin [Neurontin*] 300 mg PO BID 08/14/18 Losartan/Hydrochlorothiazide [Losartan-Hctz 100-25 mg Tab] 1 tab PO DAILY - Past Medical/Surgical History Has patient received pneumonia vaccine in the past: No Diabetic: No -: HTN -: Bowel Obstruction -: Chronic kidney disease -: Hysterectomy - Family History Father Medical History: Diabetes Mother Medical History: Diabetes - Social History Smoking Status: Never smoker Alcohol use: Yes CD- Drugs: No Caffeine use: No Place of Residence: Home Review of Systems 10-point ROS is otherwise unremarkable Physical Examination - Vital Signs Temperature: 97.1 F Blood Pressure: 140/87 Pulse: 90 Respirations: 18 Pulse Ox (%): 97 - Physical Exam General: Alert, In no apparent distress, Oriented x3 HEENT: Atraumatic, PERRLA, Mucous membr. moist/pink, EOMI, Sclerae nonicteric Neck: Supple, 2+ carotid pulse no bruit, No LAD, Without JVD or thyroid abnormality Respiratory: Clear to auscultation bilaterally, Normal air movement Cardiovascular: Regular rate/rhythm, Normal S1 S2, No murmurs Gastrointestinal: Normal bowel sounds, Soft and benign, Non-distended, No tenderness Musculoskeletal: No clubbing, No swelling, No tenderness Integumentary: No rashes Neurological: Normal gait, Normal speech, Normal strength at 5/5 x4 extr, Normal tone, Sensation intact, Cranial nerves 3-12 intact, Normal affect Lymphatics: No axilla or inguinal lymphadenopathy - Studies Laboratory Data (last 24 hrs) 08/14/18 16:40: Phosphorus 4.6 Assessment & Plan - Problems (Diagnosis) (1) Abdominal pain Current Visit: Yes Status: Acute (2) Ventral hernia Current Visit: Yes Status: Acute (3) Acute on chronic kidney failure Current Visit: Yes Status: Acute - Plan Plan: 1. IV fluids and IV antibiotics 2. surgery consultation 3. outpatient GI consultation 4. Pain control 5. renal ultrasound and recheck renal function 6. Repeat abdominal film if pain worsens to rule out perforation 7. GI and DVT prophylaxis Discharge Plan: Home Plan to discharge in: 48 Hours - Advance Directives Does patient have a Living Will: No Does patient have a Durable POA for Healthcare: No - Code Status/Comfort Care Code Status Assessed: Yes Code Status: Full Code Critical Care: No Time Spent Managing PTS Care (In Minutes): 50
[2018-08-15 05:57] LABS: Albumin 3.1 g/dL (3.4-5.0); Bilirubin Direct 0.1 mg/dL (0-0.2); Bilirubin Total 0.3 mg/dL (0.2-1.0); Magnesium 2.4 mg/dL (1.8-2.4); Phosphorus 4.5 mg/dL (2.5-4.9); Potassium 3.4 mmol/L (3.5-5.1)
[2018-08-15] MEDS ORDERED: CEFOXITIN/SWI 1gm 1 GM/10 ML SYR IV SCH ×2 (06:00→21:00)
[2018-08-15] MEDS ORDERED: CEFOXITIN 1 GM in NA CHLORIDE 0.9% 100 ML IVPB SCH (06:00)
[2018-08-15] MEDS: KCL 20 MEQ/100 mL IVPB 20 MEQ/100 ML BAG IV SCH ×2 (06:36→11:28)
[2018-08-15] MEDS: METRONIDAZOLE 500mg IVPB 500 MG/100 ML BAG IV SCH ×2 (08:31→21:20)
[2018-08-15] MEDS: ENOXAPARIN 30 MG/0.3 ML SQ SCH (08:32)
--- NOTE | 2018-08-15 08:58 | RAD REPORT ---
EXAM DESCRIPTION: US - Renal Ultrasound-Complete - 08/15/2018 8:11 am CLINICAL HISTORY: EUSEBIO COMPARISON: No comparisons FINDINGS: Both kidneys are normal in size, shape and echotexture. The right kidney measures 9.6 x 5.2 x 4.1 cm. No hydronephrosis, focal mass or perinephric fluid. The left kidney measures 8.5 x 4.6 x 4.4 cm. No hydronephrosis, focal mass or perinephric fluid. The urinary bladder is incompletely distended without gross abnormality seen. IMPRESSION: Unremarkable renal sonogram.
--- NOTE | 2018-08-15 09:03 | RAD REPORT ---
EXAM DESCRIPTION: RAD - Abdomen Acute Series - 08/15/2018 8:16 am CLINICAL HISTORY: SBO COMPARISON: Chest Pa And Lat (2 Views) dated 05/26/2018; Chest Pa And Lat (2 Views) dated 01/17/2017; Chest Single View dated 11/17/2015; CHEST SINGLE VIEW dated 09/11/2015 FINDINGS: The lungs are clear. No subdiaphragmatic free air. Cardiac size is normal. No bowel obstruction is seen. Contrast is present in the colon. No pathologic calcifications seen. IMPRESSION: No evidence of small-bowel obstruction.
--- NOTE | 2018-08-15 10:44 | P.CNS ---
Date of Consult: 08/15/18 Reason for Consult: EUSEBIO Chief Complaint: Small bowel obstruction History of Present Illness: A 53-year-old woman with PMHx of Pre-DM on diet control, neuropathy on neurontin , HTN on Losartan and Hx of small bowel obstruction with multiple surgeries pt was sent to ER for abnormal RFT last CMP was ~1yr ago, with Cr ~1.0 , no other labs since then pt went to her PCP for F/u , was complaining ofd hand and feet tingling, some abdominal discomfort, mild nausea no vomiting, diarrhea, constipatio, chest pain denied any NSAID, herbal medication or contrast exposure Cr 2.9 at PCP office Allergies No Known Allergies Allergy (Unverified 08/14/18 21:24) Home Medications: Gabapentin [Neurontin*] 300 mg PO BID 08/14/18 Losartan/Hydrochlorothiazide [Losartan-Hctz 100-25 mg Tab] 1 tab PO DAILY - Past Medical/Surgical History Diabetic: No -: HTN -: Bowel Obstruction -: Chronic kidney disease -: Hysterectomy - Family History Father Medical History: Diabetes Mother Medical History: Diabetes - Social History Smoking Status: Unknown if ever smoked Alcohol use: Yes CD- Drugs: No Caffeine use: No Place of Residence: Home Physical Examination Temp Pulse Resp BP Pulse Ox 97.1 F 90 18 140/87 97 08/15/18 10:08 08/15/18 10:08 08/15/18 10:08 08/15/18 10:08 08/15/18 10:08 General: In no apparent distress, Oriented x3 HEENT: Atraumatic Neck: Supple, Without JVD or thyroid abnormality Respiratory: Clear to auscultation bilaterally Cardiovascular: No edema, Regular rate/rhythm, Normal S1 S2 Gastrointestinal: Normal bowel sounds, Soft and benign, Distended Integumentary: No rashes Laboratory Data (last 24 hrs) 08/14/18 16:40: Phosphorus 4.6 - Problems (1) Acute on chronic kidney failure Onset Date: 08/15/18 Current Visit: Yes Status: Acute Conclusions/Impression: A 53-year-old woman with PMHx of Pre-DM on diet control, neuropathy on neurontin , HTN on Losartan and Hx of small bowel obstruction with multiple surgeries pt was sent to ER for abnormal RFT last CMP was ~1yr ago, with Cr ~1.0 , no other labs since then pt went to her PCP for F/u , was complaining ofd hand and feet tingling, some abdominal discomfort, mild nausea no vomiting, diarrhea, constipatio, chest pain denied any NSAID, herbal medication or contrast exposure Cr 2.9 at PCP office EUSEBIO renal US : no hydro likely prerenal Cr down to 2.4 on IVF cont IVF agree to hold losartan UA trace bld, no prot, UOC 0.07 F/U hep panel will send for LIDIA, ANCA , C,C3 and urine eos Hypokalemia Mg ok replaced pt not on diuretics, denied diarrhea or vomiting will check TSH BP controlled pre-DM check A1c
--- NOTE | 2018-08-15 14:51 | PN ---
Date of Progress Note: 08/15/2018 Subjective: The patient is awake and alert, having bowel movements, passing gas. No abdominal pain. Objective: Vital Signs: Stable, afebrile. Abdomen: Soft, nondistended, and nontender. Positive bowel sounds. Laboratory Data: Reviewed. Abdominal x-ray shows no evidence of bowel obstruction. Assessment: Small bowel obstruction, partial, resolved. Recommendations: Advance diet as tolerated. We will start her on clear liquids today. Renal workup is in progress. Once they clear the patient for discharge, she can be discharged. She was advised to follow up with her surgeon that she had the recent surgery in [facility] for hernia repair . Re-consult jose elias NICHOLS/KAYLIE Voice ID: [id number] Report ID: [id number]
--- NOTE | 2018-08-15 15:39 | P.PN ---
Subjective Date of Service: 08/15/18 Chief Complaint: Small bowel obstruction Subjective: No C/O voiced, Improving Patient seen and examined at bedside. No family at bedside. Chart reviewed and case discussed with nursing staff. Review of Systems 10-point ROS is otherwise unremarkable Physical Examination - Vital Signs Temperature: 97.0 F Blood Pressure: 140/67 Pulse: 75 Respirations: 76 Pulse Ox (%): 96 - Physical Exam General: Alert, In no apparent distress, Oriented x3 HEENT: Atraumatic, PERRLA, EOMI Neck: Supple, JVD not distended Respiratory: Clear to auscultation bilaterally, Normal air movement Cardiovascular: Regular rate/rhythm, Normal S1 S2 Gastrointestinal: Normal bowel sounds, Tenderness (Mild) Musculoskeletal: No tenderness Integumentary: No rashes Neurological: Normal speech, Normal tone, Normal affect Lymphatics: No axilla or inguinal lymphadenopathy - Studies Laboratory Data (last 24 hrs) 08/14/18 16:40: Phosphorus 4.6 Assessment And Plan - Current Problems (Diagnosis) (1) Acute kidney injury Current Visit: No Status: Acute (2) Partial small bowel obstruction Current Visit: No Status: Acute (3) Abdominal pain Onset Date: 08/15/18 Current Visit: Yes Status: Resolved (4) Ventral hernia Onset Date: 08/15/18 Current Visit: Yes Status: Chronic - Plan This is a 53-year-old female with: Acute kidney injury (Acute) N17.9 improving Patient admitted for acute kidney injury. Patient with no prior history of any kidney disease. Creatinine elevated to 2.9 and primary care office, now improved to 2.46 Continue IV fluids, continue avoiding nephrotoxic drugs. Monitor via a.m. labs. Nephrology consulted, recommendations appreciated Partial small bowel obstruction (Acute) No small bowel obstruction noted on abdominal x-ray. General surgery consulted, recommendations appreciated No surgical intervention. Clear liquid diet started. Advanced as tolerated. Ventral hernia (Chronic 08/15/18) K43.9 Per surgery, patient to follow up with her surgeon who did her recent surgery in [facility] for her ventral hernia repair Hypertension, essential Stable Hold home losartan for AKA. DVT prophylaxis: Lovenox GI prophylaxis: None Diet: Renal Disposition: Pending symptomatic improvement. Will recheck creatinine levels in the morning, discharge home if normal with outpatient follow up. Time Spent Managing PTS Care (In Minutes): 35
[2018-08-15] MEDS: CEFOXITIN/SWI 1gm 1 GM/10 ML SYR IV SCH (17:13)
[2018-08-15] MEDS ORDERED: POTASSIUM CL SA 10 MEQ TAB PO ONE (21:21)
[2018-08-16] MEDS: CEFOXITIN/SWI 1gm 1 GM/10 ML SYR IV SCH (05:02)
[2018-08-16 05:51] LABS: Potassium 4.2 mmol/L (3.5-5.1)
[2018-08-16] MEDS: ENOXAPARIN 30 MG/0.3 ML SQ SCH (08:46)
[2018-08-16] MEDS: METRONIDAZOLE 500mg IVPB 500 MG/100 ML BAG IV SCH (08:46)
[2018-08-16 09:46] VITALS: O2SAT 98
[2018-08-16 09:59] VITALS: BP 135/66; TEMP 98.2
--- NOTE | 2018-08-16 15:15 | PN ---
Date of Progress Note: 08/16/2018 Chief Complaint: Acute kidney injury, small bowel obstruction. The patient developed acute kidney injury secondary to prerenal azotemia, renal hypoperfusion, compli cated by angiotensin receptor huey effect. The patient is on IV fluids. The patient is admitted for a small-bowel obstruction. She has underlying hypertension, hypertensive heart and kidney diseas e, and chronic kidney disease. Renal function had improved yesterday. The patient is hemodynamicall y stable. Review of creatinine level showed improvement from 2.94 on August 14 to 1.02 on July 29. Yesterday, creatinine was 2.46. Back in 2017, baseline creatinine level was ranging from 0.74 to 1.09. The patient is undergoing workup for possible lupus, although proteinuria screen showed 1+, rbc in th e urine less than 5 and WBC ranging from 10 to 20. Serology tests were obtained during this admissio n to rule out infected hepatitis and to screen for lupus. Pending LIDIA screen and ANCA as well as ___ . Review of Systems: Denies fever or chills. Physical Examination: Lungs: Clear to auscultation bilaterally. Heart: S1, S2. Abdomen: Soft, benign. Extremities: No edema. Impression And Plan: 1.Acute kidney injury. Renal function is improving with IV fluids, responding to hydration. 2.Small-bowel obstruction. Follow up with attending and primary team. Hypoalbuminemia. 3.Proteinuria. Workup is pending to rule out any evidence of nephritis. 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 ANANT/MODL Voice ID: [id number] Report ID: [id number]
[2018-08-20 04:26] LABS: HBsAG Nonreactive (Nonreactive); Hepatitis A IgM Antibody Nonreactive
== END 2018-08-16 12:39 | disposition home or self-care (01) | DRG 389 ==
LOC: ER 13:41 → ERHOLD 20:22 → 2ND 20:56
PROVIDERS: ADMIT Family Medicine; ATTEND Family Medicine
DX: K56.690 Other partial intestinal obstruction (principal); N17.9 Acute kidney failure, unspecified; G62.9 Polyneuropathy, unspecified; E87.6 Hypokalemia; R73.03 Prediabetes; K43.9 Ventral hernia without obstruction or gangrene; E88.09 Other disorders of plasma-protein metabolism, not elsewhere classified; R80.9 Proteinuria, unspecified; I12.9 Hypertensive chronic kidney disease with stage 1 through stage 4 chronic kidney disease, or unspecified chronic kidney disease; N18.9 Chronic kidney disease, unspecified
CPT/HCPCS: 36415; 74022; 74176; 76770; 80048; 80053; 80074; 80076; 81003; 81015; 82570; 83036; 83605; 83615; 83690; 83735; 84100; 84132; 84145; 84156; 84443; 85025; 86021; 86038; 86160; 87077; 87086; 87088; 87186; J0694; J1170; J1650; J3010; J7030

== ENCOUNTER 2018-09-03 16:53 | Emergency (ER) | payer OTHER ==
--- OUTSIDE RECORDS SUMMARY | 2018-09-03 16:56 | XMS REPORT | Clinical Summary ---
:1965 Author Organization [facility] Address [address] [place] [address] Care Team Providers Name Role Phone Sanchez [...] Not on file Results Not on fileafter 09/02/2017 Insurance Payer Benefit Plan / Group Subscriber ID Type Phone Address OTHER-COMMERCIAL GENERIC COMMERCIAL xxxxxxxxx Advance Directives For more information, please contact:[facility] [place], [place] [phone] Code Status Date Activated Date Inactivated Comments Full Code 07/05/2016 9:32 PM 07/14/2016 6:56 PM This code status was determined by: Patient
[2018-09-03 19:12] LABS: Albumin 4.1 g/dL (3.4-5.0); Bilirubin Total 0.3 mg/dL (0.2-1.0); Potassium 3.5 mmol/L (3.5-5.1); Protein, Total 8.7 g/dL (6.4-8.2)
[2018-09-03 19:16] LABS: Absolute Lymphocytes (CBC) 1.8 K/uL (0.7-4.9); Absolute Monocytes 0.4 K/uL (0.1-1.3); Absolute Neutrophil 7.4 K/uL (1.8-8.0); Basophils % 0.6 % (0-1.3); Eosinophils % 0.7 % (0-4.4); Hematocrit 39.5 % (36.0-45.0); Lymphocytes % 18.7 % (15.3-44.8); MPV 10.1 fL (7.6-11.3); Monocytes % 4.5 % (3.3-12.3); RBC Red Blood Cell Count 4.48 M/uL (3.86-4.86)
--- NOTE | 2018-09-03 19:44 | ER ---
Nurse's Notes [facility] Name: Cristy Price Age: 53 yrs Sex: Female : 1965 Arrival Date: 09/03/2018 Time: 16:56 Bed 16 Private MD: Sanchez Ricketts Diagnosis: Paresthesia of skin Presentation: 09/03 17:07 Presenting complaint: Patient states: "my creatinine was high about 2 weeks ago and my aa5 body is tingling all over since this morning so I just want to make sure my Creatinine is not high again". Pt reports she has an appointment with a academic counselor for September 24. Transition of care: patient was not received from another setting of care. Onset of symptoms was September 03, 2018. Risk Assessment: Do you want to hurt yourself or someone else? Patient reports no desire to harm self or others. Initial Sepsis Screen: Does the patient meet any 2 criteria? No. Patient's initial sepsis screen is negative. Does the patient have a suspected source of infection? No. Patient's initial sepsis screen is negative. Care prior to arrival: None. 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 - Social history:: Smoking status: Patient/guardian denies using tobacco. - Ebola Screening: : No symptoms or risks identified at this time. Screenin:37 Abuse screen: Denies threats or abuse. Denies injuries from another. Nutritional jl7 screening: No deficits noted. Tuberculosis screening: No symptoms or risk factors identified. Fall Risk IV access (20 points). Total Lawrence Fall Scale indicates No Risk (0-24 pts). Assessment: 18:37 General: Appears in no apparent distress. uncomfortable, Behavior is calm, cooperative, jl7 appropriate for age. Pain: Denies pain. Neuro: Level of Consciousness is awake, alert, obeys commands, Oriented to person, place, time, situation, Milieu Technician are equal bilaterally Moves all extremities. Full function Gait is steady, Speech is normal, Facial symmetry appears normal, Tingling in all over. Cardiovascular: Patient's skin is warm and dry. Respiratory: Airway is patent Respiratory effort is even, unlabored, Respiratory pattern is regular, symmetrical. GI: No signs and/or symptoms were reported involving the gastrointestinal system. : No signs and/or symptoms were reported regarding the genitourinary system. EENT: No signs and/or symptoms were reported regarding the EENT system. Derm: Skin is pink, warm \\T\\ dry. Musculoskeletal: No signs and/or symptoms reported regarding the musculoskeletal system. 19:28 General: Appears in no apparent distress. comfortable, Behavior is calm, cooperative, rr5 appropriate for age. Pain: Denies pain. Neuro: Level of Consciousness is awake, alert, obeys commands, Oriented to person, place, time, situation, Appropriate for age Milieu Technician are equal bilaterally Moves all extremities. Full function Gait is steady, Speech is normal, Facial symmetry appears normal, Reports tingling sensation. Cardiovascular: Capillary refill < 3 seconds Patient's skin is warm and dry. Respiratory: Airway is patent Respiratory effort is even, unlabored, Respiratory pattern is regular, symmetrical. GI: No signs and/or symptoms were reported involving the gastrointestinal system. : No signs and/or symptoms were reported regarding the genitourinary system. EENT: No signs and/or symptoms were reported regarding the EENT system. Derm: Skin is intact, Skin is pink, warm \\T\\ dry. Musculoskeletal: Capillary refill < 3 seconds, Range of motion: intact in all extremities. 20:15 Reassessment: Patient appears in no apparent distress at this time. Patient is alert, rr5 oriented x 3, equal unlabored respirations, skin warm/dry/pink. discharge instruction given and explained without complaints made. Patient denies pain at this time. Patient states feeling better. Patient states symptoms have improved. Vital Signs: 17:09 BP 176 / 105; Pulse 85; Resp 16 S; Temp 98.9(TE); Pulse Ox 100% on R/A; Weight 66.22 kg aa5 (R); Height 4 ft. 9 in. (144.78 cm) (R); Pain 0/10; 18:54 BP 186 / 96; Pulse 69; Resp 16 S; Pulse Ox 100% on R/A; jl7 19:30 BP 172 / 102; Pulse 75; Resp 16; Temp 99; Pulse Ox 98% ; Pain 0/10; rr5 20:15 BP 169 / 95; Pulse 70; Resp 17; Pulse Ox 99% ; rr5 17:09 Body Mass Index 31.59 (66.22 kg, 144.78 cm) aa5 ED Course: 16:56 Patient arrived in ED. mr 16:56 Sanchez Ricketts MD is Private Physician. mr 17:07 Arm band placed on. aa5 17:08 Triage completed. aa5 18:08 Piper Orellana, ZACARIAS is Primary Nurse. jl7 18:10 Celio Delatorre NP is PHCP. pm1 18:10 Karel Parmar MD is Attending Physician. pm1 18:37 Patient has correct armband on for positive identification. Bed in low position. Call jl7 light in reach. Side rails up X 1. Pulse ox on. NIBP on. 18:37 Warm blanket given. jl7 18:37 Initial lab(s) drawn, by me, sent to lab. Flu and/or RSV swab sent to lab. Inserted jl7 saline lock: 20 gauge in left antecubital area, using aseptic technique. Blood collected. 20:15 No provider procedures requiring assistance completed. IV discontinued, intact, rr5 bleeding controlled, No redness/swelling at site. Pressure dressing applied. Administered Medications: No medications were administered Outcome: 19:44 Discharge ordered by MD. pm1 20:15 Discharged to home ambulatory, with family. rr5 20:15 Condition: stable 20:15 Discharge instructions given to patient, Instructed on discharge instructions, follow up and referral plans. Demonstrated understanding of instructions, follow-up care. 20:16 Patient left the ED. rr5 Signatures: June Simms mr AguayoGin, RN RN aa5 Celio Delatorre, MYNOR PAYROLL LEAD pm1 Piper Orellana RN RN jl7 Mohit Hall RN RN rr5 Corrections: (The following items were deleted from the chart) 17:10 17:07 Presenting complaint: Patient states: "my creatinine was high about 2 weeks ago aa5 and my body is tingling all over since this morning so I just want to make sure my Creatinine is not high again" aa5
--- NOTE | 2018-09-03 19:45 | EDPHYS ---
Physician Documentation [facility] Name: Cristy Price Age: 53 yrs Sex: Female : 1965 Arrival Date: 09/03/2018 Time: 16:56 Bed 16 Private MD: Sanchez Ricketts ED Physician Karel Parmar HPI: 09/03 18:30 This 53 yrs old Black Female presents to ER via Ambulatory with complaints of tingling pm1 all over. 18:30 Patient presenting to the ER with complaints of tingling all over her body. Patient pm1 reports a similar sensation when her kidney function is elevated. Patient has a follow up with nephrology at he end of the month and is concerned that her kidney function might be elevated again. Onset: The symptoms/episode began/occurred today. Severity of symptoms: in the emergency department the symptoms are unchanged. The patient has experienced a previous episode, approximately 2 weeks ago. The patient has not recently seen a physician, has an appointment scheduled, with Dr. Mayes in two weeks. 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 - Social history:: Smoking status: Patient/guardian denies using tobacco. - Ebola Screening: : No symptoms or risks identified at this time. ROS: 18:30 Constitutional: Negative for fever, chills, and weight loss, Eyes: Negative for injury, pm1 pain, redness, and discharge, ENT: Negative for injury, pain, and discharge, Neck: Negative for injury, pain, and swelling, Cardiovascular: Negative for chest pain, palpitations, and edema, Respiratory: Negative for shortness of breath, cough, wheezing, and pleuritic chest pain, Abdomen/GI: Negative for abdominal pain, nausea, vomiting, diarrhea, and constipation, Back: Negative for injury and pain, : Negative for injury, bleeding, discharge, and swelling, MS/Extremity: Negative for injury and deformity, Skin: Negative for injury, rash, and discoloration. 18:30 Neuro: Positive for tingling, of the diffusely, Negative for altered mental status, dizziness, headache, weakness. Exam: 18:30 Constitutional: This is a well developed, well nourished patient who is awake, alert, pm1 and in no acute distress. Head/Face: Normocephalic, atraumatic. Eyes: Pupils equal round and reactive to light, extra-ocular motions intact. Lids and lashes normal. Conjunctiva and sclera are non-icteric and not injected. Cornea within normal limits. Periorbital areas with no swelling, redness, or edema. ENT: Nares patent. No nasal discharge, no septal abnormalities noted. Tympanic membranes are normal and external auditory canals are clear. Oropharynx with no redness, swelling, or masses, exudates, or evidence of obstruction, uvula midline. Mucous membranes moist. Neck: Trachea midline, no thyromegaly or masses palpated, and no cervical lymphadenopathy. Supple, full range of motion without nuchal rigidity, or vertebral point tenderness. No Meningismus. Chest/axilla: Normal chest wall appearance and motion. Nontender with no deformity. No lesions are appreciated. Cardiovascular: Regular rate and rhythm with a normal S1 and S2. No gallops, murmurs, or rubs. Normal PMI, no JVD. No pulse deficits. Respiratory: Lungs have equal breath sounds bilaterally, clear to auscultation and percussion. No rales, rhonchi or wheezes noted. No increased work of breathing, no retractions or nasal flaring. Abdomen/GI: Soft, non-tender, with normal bowel sounds. No distension or tympany. No guarding or rebound. No evidence of tenderness throughout. Back: No spinal tenderness. No costovertebral tenderness. Full range of motion. Skin: Warm, dry with normal turgor. Normal color with no rashes, no lesions, and no evidence of cellulitis. MS/ Extremity: Pulses equal, no cyanosis. Neurovascular intact. Full, normal range of motion. 18:30 Neuro: Orientation: is normal, Cranial nerves: CN II- XII are normal as tested, Motor: moves all fours, Sensation: is normal, no obvious gross deficits, Gait: is steady, at a normal pace, without difficulty. Vital Signs: 17:09 BP 176 / 105; Pulse 85; Resp 16 S; Temp 98.9(TE); Pulse Ox 100% on R/A; Weight 66.22 kg aa5 (R); Height 4 ft. 9 in. (144.78 cm) (R); Pain 0/10; 18:54 BP 186 / 96; Pulse 69; Resp 16 S; Pulse Ox 100% on R/A; jl7 19:30 BP 172 / 102; Pulse 75; Resp 16; Temp 99; Pulse Ox 98% ; Pain 0/10; rr5 20:15 BP 169 / 95; Pulse 70; Resp 17; Pulse Ox 99% ; rr5 17:09 Body Mass Index 31.59 (66.22 kg, 144.78 cm) aa5 MDM: 18:11 Patient medically screened. pm1 19:43 Data reviewed: vital signs. Data interpreted: Pulse oximetry: on room air is 98 %. pm1 Interpretation: normal. Counseling: I had a detailed discussion with the patient and/or guardian regarding: the historical points, exam findings, and any diagnostic results supporting the discharge/admit diagnosis, the need for outpatient follow up, to return to the emergency department if symptoms worsen or persist or if there are any questions or concerns that arise at home. 09/03 18:30 Order name: CBC with Diff; Complete Time: 19:31 pm1 09/03 18:30 Order name: CMP; Complete Time: 19:31 pm1 09/03 18:30 Order name: Flu; Complete Time: 19:31 pm1 Administered Medications: No medications were administered Disposition: 09/03/18 19:44 Discharged to Home. Impression: Paresthesia of skin. - Condition is Stable. - Discharge Instructions: Paresthesia. - Medication Reconciliation Form, Thank You Letter, Antibiotic Education, Prescription Opioid Use form. - Follow up: Emergency Department; When: As needed; Reason: Worsening of condition. Follow up: Private Physician; When: 2 - 3 days; Reason: Recheck today's complaints, Continuance of care, Re-evaluation by your physician. - Problem is new. - Symptoms have improved. Addendum: 09/06/2018 07:17 Co-signature as Attending Physician, Karel Parmar MD. r n Signatures: Dispatcher [employer] EDMS Karel Parmar MD MD rn Calderon, Audri, RN RN aa5 Celio Delatorre, MYNOR AXLE AND FRAME MECHANIC pm1 Mohit Hall RN RN rr5 Corrections: (The following items were deleted from the chart) 09/03 20:16 19:44 09/03/2018 19:44 Discharged to Home. Impression: Paresthesia of skin. Condition rr5 is Stable. Forms are Medication Reconciliation Form, Thank You Letter, Antibiotic Education, Prescription Opioid Use. Follow up: Emergency Department; When: As needed; Reason: Worsening of condition. Follow up: Private Physician; When: 2 - 3 days; Reason: Recheck today's complaints, Continuance of care, Re-evaluation by your physician. Problem is new. Symptoms have improved. pm1
[2018-09-03 21:26] VITALS: TEMP 99
[2018-09-03 21:27] VITALS: BP 169/95; O2SAT 99
== END 2018-09-03 20:16 | disposition home or self-care (01) ==
LOC: ER 16:53
DX: R20.2 Paresthesia of skin (principal); I10 Essential (primary) hypertension
CPT/HCPCS: 36415; 80053; 85025; 87804; 99284

== ENCOUNTER 2018-09-15 23:49 | Emergency (ER) | payer OTHER ==
--- OUTSIDE RECORDS SUMMARY | 2018-09-15 23:51 | XMS REPORT | Clinical Summary ---
:1965 Author Organization [facility] Address [address] [place] [address] Care Team Providers Name Role Phone Sanchez [...] Not on file Results Not on fileafter 09/14/2017 Insurance Payer Benefit Plan / Group Subscriber ID Type Phone Address OTHER-COMMERCIAL GENERIC COMMERCIAL xxxxxxxxx Advance Directives For more information, please contact:[facility] [place], [place] [phone] Code Status Date Activated Date Inactivated Comments Full Code 07/05/2016 9:32 PM 07/14/2016 6:56 PM This code status was determined by: Patient
[2018-09-16] MEDS ORDERED: METOCLOPRAMIDE 10 MG/2mL INJ ONE (00:45)
[2018-09-16] MEDS ORDERED: KETOROLAC 30 MG/ML INJ ONE (00:46)
[2018-09-16] MEDS ORDERED: NA CHLORIDE 0.9% 1,000 ML ONE (00:46)
[2018-09-16] MEDS ORDERED: DIPHENHYDRAMINE 50 MG/ML VIAL ONE ×2 (00:46→00:59)
[2018-09-16 01:01] LABS: Absolute Lymphocytes (CBC) 2.5 K/uL (0.7-4.9); Absolute Monocytes 0.4 K/uL (0.1-1.3); Absolute Neutrophil 4.8 K/uL (1.8-8.0); Basophils % 0.7 % (0-1.3); Eosinophils % 1.9 % (0-4.4); MPV 9.8 fL (7.6-11.3); Monocytes % 5.5 % (3.3-12.3); RBC Red Blood Cell Count 4.38 M/uL (3.86-4.86)
[2018-09-16 01:22] LABS: ALT/SGPT 32 U/L (12-78); AST/SGOT 24 U/L (15-37); Albumin 3.6 g/dL (3.4-5.0); Alkaline Phosphatase 61 U/L (45-117); BUN Blood Urea Nitrogen 12 mg/dL (7-18); Bicarbonate 28 mmol/L (21-32); Bilirubin Direct < 0.1 mg/dL (0-0.2); Bilirubin Total 0.2 mg/dL (0.2-1.0); Glucose Level 175 mg/dL (74-106); Lipase 125 U/L (73-393); Potassium 3.3 mmol/L (3.5-5.1); Protein, Total 7.6 g/dL (6.4-8.2); Sodium Level 141 mmol/L (136-145)
[2018-09-16 01:49] LABS: Urine Blood NEGATIVE (NEG); Urine Glucose NEGATIVE (NEG); Urine Protein NEGATIVE (NEG)
[2018-09-16] MEDS ORDERED: AZITHROMYCIN 250 MG TAB ONE ×2 (02:47→02:49)
--- NOTE | 2018-09-16 03:06 | ER ---
Nurse's Notes [facility] Name: Cristy Price Age: 53 yrs Sex: Female : 1965 Arrival Date: 09/15/2018 Time: 23:50 Bed 7 Private MD: Sanchez Ricketts Diagnosis: Pneumonia due to other specified infectious organisms Presentation: 09/16 00:06 Presenting complaint: Patient states: she is feeling dizzy and nauseous and coughing up bb phlegm started an hour ago, denies fever, vomiting, diarrhea. Transition of care: patient was not received from another setting of care. Onset of symptoms was September 16, 2018. Risk Assessment: Do you want to hurt yourself or someone else? Patient reports no desire to harm self or others. Initial Sepsis Screen: Does the patient meet any 2 criteria? No. Patient's initial sepsis screen is negative. Does the patient have a suspected source of infection? No. Patient's initial sepsis screen is negative. Care prior to arrival: None. 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 - Social history:: Smoking status: Patient/guardian denies using tobacco, Patient uses alcohol, occasionally. Patient/guardian denies using street drugs, Patient/guardian denies using alcohol, The patient lives with family. - Ebola Screening: : No symptoms or risks identified at this time. - Family history:: not pertinent. - Hospitalizations: : No recent hospitalization is reported. Screenin:20 Abuse screen: Denies threats or abuse. Denies injuries from another. Nutritional aa1 screening: No deficits noted. Tuberculosis screening: No symptoms or risk factors identified. Fall Risk None identified. Assessment: 00:20 General: Appears in no apparent distress. comfortable, Behavior is calm, cooperative, aa1 appropriate for age. Pain: Denies pain. Neuro: Level of Consciousness is awake, alert, obeys commands, Oriented to person, place, time, situation, Moves all extremities. Full function Gait is steady, Speech is normal, Facial symmetry appears normal, Reports dizziness. Cardiovascular: Heart tones S1 S2 present Rhythm is regular. Respiratory: Airway is patent Respiratory effort is even, unlabored, Respiratory pattern is regular, symmetrical, Breath sounds are clear bilaterally. GI: Abdomen is non-distended, Bowel sounds present X 4 quads. Reports nausea, Patient currently denies constipation, diarrhea, vomiting. : No signs and/or symptoms were reported regarding the genitourinary system. EENT: No signs and/or symptoms were reported regarding the EENT system. Derm: Skin is intact, is healthy with good turgor, Skin is pink, warm \T\ dry. Musculoskeletal: Circulation, motion, and sensation intact. Capillary refill < 3 seconds. 01:18 Reassessment: Patient appears in no apparent distress at this time. Patient and/or aa1 family updated on plan of care and expected duration. Pain level reassessed. Patient is alert, oriented x 3, equal unlabored respirations, skin warm/dry/pink. Pt taken to x-ray at this time. 02:04 Reassessment: Patient appears in no apparent distress at this time. Patient and/or aa1 family updated on plan of care and expected duration. Pain level reassessed. Patient is alert, oriented x 3, equal unlabored respirations, skin warm/dry/pink. Awaiting lab results. 03:28 Reassessment: Patient appears in no apparent distress at this time. Patient is alert, aa1 oriented x 3, equal unlabored respirations, skin warm/dry/pink. Discussed d/c \T\ f/u instructions with pt \T\ spouse; denies questions or concerns at this time Patient denies pain at this time. Patient states feeling better. Vital Signs: 00:08 BP 131 / 92; Pulse 120; Resp 18 S; Temp 98.8(O); Pulse Ox 100% on R/A; Weight 66.22 kg bb (R); Height 4 ft. 9 in. (144.78 cm) (R); Pain 0/10; 01:18 BP 148 / 99; Pulse 124; Resp 20; Pulse Ox 100% on R/A; aa1 02:04 BP 114 / 68; Pulse 117; Resp 18; Pulse Ox 100% on R/A; Pain 0/10; aa1 03:28 BP 116 / 71; Pulse 92; Resp 18; Temp 98.7; Pulse Ox 99% on R/A; Pain 0/10; aa1 00:08 Body Mass Index 31.59 (66.22 kg, 144.78 cm) bb ED Course: 09/15 23:50 Patient arrived in ED. es 23:51 Sanchez Ricketts MD is Private Physician. es 09/16 00:07 Triage completed. bb 00:08 Arm band placed on Patient placed in an exam room, on a stretcher, on pulse oximetry. bb Family accompanied patient. 00:11 Kelley Yeboah MD is Attending Physician. ma2 00:20 Patient has correct armband on for positive identification. Placed in gown. Bed in low aa1 position. Call light in reach. Pulse ox on. NIBP on. Warm blanket given. 00:22 Bethany Muller, RN is Primary Nurse. aa1 00:35 Urine collected: clean catch specimen, clear. aa1 00:44 Inserted saline lock: 20 gauge in right antecubital area, using aseptic technique. aa1 ,using aseptic technique. by Itzel Velasco. 01:05 EKG done, by ED staff, reviewed by Kelley Yeboah MD. aa1 01:25 Patient moved to radiology via wheelchair. kw 01:25 X-ray completed. Patient tolerated procedure well. kw 01:25 Patient moved back from radiology. kw 01:27 Chest Pa And Lat (2 Views) XRAY In Process Unspecified. EDMS 03:28 No provider procedures requiring assistance completed. IV discontinued, intact, aa1 bleeding controlled, No redness/swelling at site. Pressure dressing applied. Administered Medications: 00:45 Drug: NS 0.9% 1000 ml Route: IV; Rate: 1 bolus; Site: right antecubital; aa1 00:45 Drug: Reglan 10 mg Route: IVP; Site: right antecubital; aa1 01:45 Follow up: Response: No adverse reaction; Marked relief of symptoms aa1 00:47 Drug: TORadol 30 mg Route: IVP; Site: right antecubital; aa1 01:45 Follow up: Response: No adverse reaction; Marked relief of symptoms aa1 00:49 Drug: Benadryl 50 mg Route: IVP; Site: right antecubital; aa1 02:41 Follow up: Response: No adverse reaction; Marked relief of symptoms aa1 02:41 Drug: AZITHromycin 500 mg Route: PO; aa1 Outcome: 03:05 Discharge ordered by . [email or web address] 03:28 Discharged to home ambulatory, with significant other. aa1 03:28 Condition: good 03:28 Discharge instructions given to patient, significant other, Instructed on discharge instructions, follow up and referral plans. medication usage, Demonstrated understanding of instructions, follow-up care, medications, Prescriptions given X 1. 03:30 Patient left the ED. aa1 Signatures: Dispatcher [employer] Bethany Layton RN RN aa1 Pilar Denis Brenda, RN RN bb Whitley, Kimberlee kw Alzahri, Mohammad, MD MD ma2
--- NOTE | 2018-09-16 03:06 | EDPHYS ---
Physician Documentation [facility] Name: Cristy Price Age: 53 yrs Sex: Female : 1965 Arrival Date: 09/15/2018 Time: 23:50 Bed 7 Private MD: Sanchez Ricketts ED Physician Kelley Yeboah HPI: 09/16 00:43 This 53 yrs old Black Female presents to ER via Ambulatory with complaints of ma2 Dizziness, Cough, Nausea, Dry mouth. 00:43 Onset: The symptoms/episode began/occurred gradually, 1 day(s) ago. Associated signs ma2 and symptoms: Pertinent positives: cough, Pertinent negatives: chest pain, diaphoresis, focal weakness, seizure, syncope. Severity of symptoms: At their worst the symptoms were moderate in the emergency department the symptoms are unchanged. 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 - Social history:: Smoking status: Patient/guardian denies using tobacco, Patient uses alcohol, occasionally. Patient/guardian denies using street drugs, Patient/guardian denies using alcohol, The patient lives with family. - Ebola Screening: : No symptoms or risks identified at this time. - Family history:: not pertinent. - Hospitalizations: : No recent hospitalization is reported. ROS: 00:43 Constitutional: Negative for fever, chills, and weight loss, Respiratory: Negative for ma2 shortness of breath, cough, wheezing, and pleuritic chest pain, Abdomen/GI: Negative for abdominal pain, nausea, diarrhea, and constipation. 00:43 Constitutional: Positive for malaise, Negative for fatigue, weight loss. 00:43 All other systems are negative. Exam: 00:43 Constitutional: This is a well developed, well nourished patient who is awake, alert, ma2 and in no acute distress. Chest/axilla: Normal chest wall appearance and motion. Nontender with no deformity. No lesions are appreciated. Cardiovascular: Regular rate and rhythm with a normal S1 and S2. No gallops, murmurs, or rubs. Normal PMI, no JVD. No pulse deficits. Respiratory: Lungs have equal breath sounds bilaterally, clear to auscultation and percussion. No rales, rhonchi or wheezes noted. No increased work of breathing, no retractions or nasal flaring. Abdomen/GI: Soft, non-tender, with normal bowel sounds. No distension or tympany. No guarding or rebound. No evidence of tenderness throughout. MS/ Extremity: Pulses equal, no cyanosis. Neurovascular intact. Full, normal range of motion. Neuro: Awake and alert, GCS 15, oriented to person, place, time, and situation. Cranial nerves II-XII grossly intact. Motor strength 5/5 in all extremities. Sensory grossly intact. Cerebellar exam normal. Normal gait. Vital Signs: 00:08 BP 131 / 92; Pulse 120; Resp 18 S; Temp 98.8(O); Pulse Ox 100% on R/A; Weight 66.22 kg bb (R); Height 4 ft. 9 in. (144.78 cm) (R); Pain 0/10; 01:18 BP 148 / 99; Pulse 124; Resp 20; Pulse Ox 100% on R/A; aa1 02:04 BP 114 / 68; Pulse 117; Resp 18; Pulse Ox 100% on R/A; Pain 0/10; aa1 03:28 BP 116 / 71; Pulse 92; Resp 18; Temp 98.7; Pulse Ox 99% on R/A; Pain 0/10; aa1 00:08 Body Mass Index 31.59 (66.22 kg, 144.78 cm) MDM: 00:11 Patient medically screened. ok2 00:43 Differential diagnosis: hypovolemia, uti, pneumonia. ok2 03:01 Data reviewed: vital signs, nurses notes. Counseling: I had a detailed discussion with ma2 the patient and/or guardian regarding: the historical points, exam findings, and any diagnostic results supporting the discharge/admit diagnosis, the presence of at least one elevated blood pressure reading (>120/80) during this emergency department visit, the need for outpatient follow up. Response to treatment: the patient's symptoms have markedly improved after treatment. 03:04 ED course: pulse is normal . ok2 09/16 00:26 Order name: Basic Metabolic Panel; Complete Time: 01:52 ma09/16 00:26 Order name: CBC with Diff; Complete Time: ok09/16 00:26 Order name: Creatinine for Radiology; Complete Time: ok09/16 00:26 Order name: Hepatic Function; Complete Time: ok09/16 00:26 Order name: Lipase; Complete Time: : ok09/16 00:30 Order name: Influenza Screen (a \T\ B); Complete Time: ok09/16 00:30 Order name: Chest Pa And Lat (2 Views) XRAY [facility] 09/16 00:30 Order name: Strep; Complete Time: [facility] 09/16 00:50 Order name: Urine Dipstick--Ancillary (enter results); Complete Time: : 09/16 01:35 Order name: Throat Culture [facility] 09/16 00:26 Order name: IV Saline Lock; Complete Time: : ok09/16 00:26 Order name: Labs collected and sent; Complete Time: ok09/16 00:26 Order name: Urine Dipstick-Ancillary (obtain specimen); Complete Time: : Administered Medications: 00:45 Drug: NS 0.9% 1000 ml Route: IV; Rate: 1 bolus; Site: right antecubital; aa1 00:45 Drug: Reglan 10 mg Route: IVP; Site: right antecubital; aa1 01:45 Follow up: Response: No adverse reaction; Marked relief of symptoms aa1 00:47 Drug: TORadol 30 mg Route: IVP; Site: right antecubital; aa1 01:45 Follow up: Response: No adverse reaction; Marked relief of symptoms aa1 00:49 Drug: Benadryl 50 mg Route: IVP; Site: right antecubital; aa1 02:41 Follow up: Response: No adverse reaction; Marked relief of symptoms aa1 02:41 Drug: AZITHromycin 500 mg Route: PO; aa1 Disposition: 09/16/18 03:05 Discharged to Home. Impression: Pneumonia due to other specified infectious organisms. - Condition is Stable. - Discharge Instructions: Community-Acquired Pneumonia, Adult. - Prescriptions for Zithromax Z- Andriy 250 mg Oral Tablet - take 1 tablet by ORAL route as directed for 5 days Day 1 - take two (2) tablets one time. Day 2, 3, 4 , 5 take one (1) tablet once daily.; 6 tablet. - Medication Reconciliation Form, Thank You Letter, Antibiotic Education, Prescription Opioid Use form. - Follow up: Private Physician; When: Tomorrow; Reason: Continuance of care. Signatures: Dispatcher [employer] EDSC Bethany Muller RN RN aa1 Christie Ortega RN RN bb Kelley Yeboah MD MD ma2 Corrections: (The following items were deleted from the chart) 03:30 03:05 09/16/2018 03:05 Discharged to Home. Impression: Pneumonia due to other specified aa1 infectious organisms. Condition is Stable. Discharge Instructions: Community-Acquired Pneumonia, Adult. Prescriptions for Zithromax Z-Andriy 250 mg Oral Tablet - take 1 tablet by ORAL route as directed for 5 days Day 1 - take two (2) tablets one time. Day 2, 3, 4 , 5 take one (1) tablet once daily.; 6 tablet. and Forms are Medication Reconciliation Form, Thank You Letter, Antibiotic Education, Prescription Opioid Use. Follow up: Private Physician; When: Tomorrow; Reason: Continuance of care. ma2
[2018-09-16 03:41] VITALS: TEMP 98.8; O2SAT 100
[2018-09-16 03:44] VITALS: BP 114/68
--- NOTE | 2018-09-16 08:22 | RAD REPORT ---
EXAM DESCRIPTION: RAD - Chest Pa And Lat (2 Views) - 09/16/2018 1:28 am CLINICAL HISTORY: CONGESTION Chest pain. COMPARISON: Abdomen Acute Series dated 08/15/2018; Chest Pa And Lat (2 Views) dated 05/26/2018; Chest Pa And Lat (2 Views) dated 01/17/2017; Chest Single View dated 11/17/2015 FINDINGS: Mildly prominent interstitial markings which could indicate underlying viral pneumonitis o r bronchitis. No focal consolidation typical of pneumonia. The heart is normal in size. No displaced fractures.
--- NOTE | 2018-09-16 08:47 | EKG ---
Test Date: 2018-09-16 Test Time: 01:01:49 Superintendent Mechanical: JUDAH MEASUREMENT RESULTS: Intervals: Rate: 157 MT: 56 QRSD: 130 QT: 316 QTc: 510 [place]: P: MT: 56 QRS: 52 T: 218 INTERPRETIVE STATEMENTS: Sinus tachycardia with short MT Nonspecific intraventricular block Inferior infarct, age undetermined Anterolateral infarct, age undetermined Abnormal ECG Compared to ECG 01/17/2017 11:01:06 Short MT interval now present Myocardial infarct finding now present Sinus rhythm no longer present Electronically Signed On 09-16-18 08:45:56 FLIGHT OPERATIONS COORDINATOR by Saturnino Carson
== END 2018-09-16 03:30 | disposition home or self-care (01) ==
LOC: ER 23:49
DX: J16.8 Pneumonia due to other specified infectious organisms (principal); I10 Essential (primary) hypertension
CPT/HCPCS: 36415; 71046; 80048; 80076; 81003; 83690; 85025; 87070; 87081; 87804; 93005; 96374; 96375; 99284; J2765; J7030

== ENCOUNTER 2018-11-21 08:46 | Emergency (ER) | payer OTHER ==
--- OUTSIDE RECORDS SUMMARY | 2018-11-21 08:50 | XMS REPORT | Clinical Summary ---
:1965 Author Organization [facility] Address [address] [place] [address] Care Team Providers Name Role Phone Sanchez [...] Not on file Results Not on fileafter 11/20/2017 Insurance Payer Benefit Plan / Group Subscriber ID Type Phone Address OTHER-COMMERCIAL GENERIC COMMERCIAL xxxxxxxxx Advance Directives For more information, please contact:[facility] [place], [place] [phone] Code Status Date Activated Date Inactivated Comments Full Code 07/05/2016 9:32 PM 07/14/2016 6:56 PM This code status was determined by: Patient
[2018-11-21 09:11] LABS: Urine Blood NEGATIVE (NEG); Urine Glucose NEGATIVE (NEG); Urine Protein TRACE (NEG); Urine Specific Gravity 1.015 (1.005-1.030)
[2018-11-21] MEDS ORDERED: NA CHLORIDE 0.9% 1,000 ML ONE (09:12)
--- NOTE | 2018-11-21 09:40 | RAD REPORT ---
EXAM DESCRIPTION: CT - Stone Protocol - 11/21/2018 9:25 am CLINICAL HISTORY: Abdominal pain, right flank pain COMPARISON: CT July 2018 TECHNIQUE: Axial 5 mm thick images were obtained without oral or IV contrast. The [id number] span s the entirety of the system partially obscuring uppermost abdomen and lung bases. All CT scans are performed using dose optimization technique as appropriate and may include automated exposure control or mA/KV adjustment according to patient size. FINDINGS: No hydronephrosis is present and no obstructing ureteral calculi. No suspicious renal mass es. Isodense masses and pyelonephritis are not excluded on a stone protocol CT scan. No urinary bladd er suspicious finding. No significant adrenal finding. Uterus is absent. Ovaries are atrophic. No adn exal abnormality. Imaged portions of the liver, spleen and pancreas show no suspicious findings on non-contrast imaging . No gallbladder or biliary tree abnormality. No gastric dilatation or wall thickening. No dilated large or small bowel. No acute GI process is linda ntifiable. Patient has a large periumbilical hernia consisting of several chambers. This contains multiple loops of bowel. Hernia is approximately 12 cm in maximum dimension with a 5 centimeter neck. No congestion or edematous fat. No free air, free fluid or inflammatory stranding. No significant bony abnormality. IMPRESSION: No hydronephrosis, obstructing calculus or acute finding identifiable. Isodense masses and pyelonephritis are not excluded on stone protocol technique. No acute GI process seen. Patient has a large complex periumbilical hernia containing multiple loops of bowel. No congested or edematous bowel wall or fat. The hernia is not substantially different from the July study.
[2018-11-21 09:42] LABS: Urine Bacteria NONE SEEN /HPF (<20); Urine Culture Reflex Order NOT NEEDED; Urine RBC NONE SEEN /HPF (NONE SEEN)
[2018-11-21 09:46] LABS: Potassium 2.9 mmol/L (3.5-5.1)
[2018-11-21] MEDS ORDERED: POTASSIUM 25 MEQ EFFERV TAB ONE (10:10)
[2018-11-21 10:22] LABS: Absolute Lymphocytes (CBC) 2.2 K/uL (0.7-4.9); Absolute Monocytes 0.6 K/uL (0.1-1.3); Absolute Neutrophil 6.7 K/uL (1.8-8.0); Basophils % 0.8 % (0-1.3); Eosinophils % 1.7 % (0-4.4); Hematocrit 38.2 % (36.0-45.0); Lymphocytes % 22.5 % (15.3-44.8); MPV 9.9 fL (7.6-11.3); RBC Red Blood Cell Count 4.43 M/uL (3.86-4.86)
--- NOTE | 2018-11-21 10:59 | EDPHYS ---
Physician Documentation [facility] Name: Cristy Dixon Age: 53 yrs Sex: Female : 1965 Arrival Date: 11/21/2018 Time: 08:48 Bed 7 Private MD: ED Physician Kelley Yeboah HPI: 11/21 10:19 This 53 yrs old Black Female presents to ER via EMS with complaints of Flank Pain, Pain kb With Urination. 10:19 The patient complains of pain in the right flank. The pain radiates to the right lower kb quadrant. Modifying factors: The symptoms are alleviated by nothing. the symptoms are aggravated by palpation/percussion. 10:20 Onset: The symptoms/episode began/occurred yesterday. Associated signs and symptoms: kb Pertinent positives: urinary frequency, Pertinent negatives: diarrhea, dizziness, dysuria, fever, headache, hematuria, nausea, pain radiating to the lower extremities, vomiting. Severity of pain: At its worst the pain was moderate in the emergency department the pain is unchanged. The patient has not experienced similar symptoms in the past. The patient has not recently seen a physician. 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 - Social history:: Smoking status: Patient/guardian denies using tobacco. - Ebola Screening: : Patient negative for fever greater than or equal to 101.5 degrees Fahrenheit, and additional compatible Ebola Virus Disease symptoms Patient denies exposure to infectious person Patient denies travel to an Ebola-affected area in the 21 days before illness onset No symptoms or risks identified at this time. ROS: 09:54 Constitutional: Negative for fever, chills, and weight loss, Cardiovascular: Negative kb for chest pain, palpitations, and edema, Respiratory: Negative for shortness of breath, cough, wheezing, and pleuritic chest pain, Abdomen/GI: Negative for abdominal pain, nausea, vomiting, diarrhea, and constipation, MS/Extremity: Negative for injury and deformity, Skin: Negative for injury, rash, and discoloration, Neuro: Negative for headache, weakness, numbness, tingling, and seizure. 09:54 Back: Positive for flank pain, on the right, Negative for injury or acute deformity, decreased range of motion, pain at rest, pain with movement, radiated pain. Exam: 09:54 Constitutional: This is a well developed, well nourished patient who is awake, alert, kb and in no acute distress. Head/Face: Normocephalic, atraumatic. Chest/axilla: Normal chest wall appearance and motion. Nontender with no deformity. No lesions are appreciated. Cardiovascular: Regular rate and rhythm with a normal S1 and S2. No gallops, murmurs, or rubs. Normal PMI, no JVD. No pulse deficits. Respiratory: Lungs have equal breath sounds bilaterally, clear to auscultation and percussion. No rales, rhonchi or wheezes noted. No increased work of breathing, no retractions or nasal flaring. Abdomen/GI: Soft, non-tender, with normal bowel sounds. No distension or tympany. No guarding or rebound. No evidence of tenderness throughout. Back: No spinal tenderness. No costovertebral tenderness. Full range of motion. Skin: Warm, dry with normal turgor. Normal color with no rashes, no lesions, and no evidence of cellulitis. MS/ Extremity: Pulses equal, no cyanosis. Neurovascular intact. Full, normal range of motion. Neuro: Awake and alert, GCS 15, oriented to person, place, time, and situation. Cranial nerves II-XII grossly intact. Motor strength 5/5 in all extremities. Sensory grossly intact. Cerebellar exam normal. Normal gait. Vital Signs: 08:51 BP 179 / 96; Pulse 119; Resp 18; Temp 97.3; Pulse Ox 100% ; Weight 66.22 kg; Height 4 bp ft. 9 in. (144.78 cm); 10:04 BP 165 / 94; Pulse 105; Resp 16; Pulse Ox 100% ; bp 11:00 BP 140 / 81; Pulse 71; Resp 16; Pulse Ox 100% ; bp 08:51 Body Mass Index 31.59 (66.22 kg, 144.78 cm) bp MDM: 08:48 Patient medically screened. kb 09:54 Data reviewed: vital signs, nurses notes. Data interpreted: Pulse oximetry: on room air vicenta is 100 %. Interpretation: normal. 10:57 Counseling: I had a detailed discussion with the patient and/or guardian regarding: the kb historical points, exam findings, and any diagnostic results supporting the discharge/admit diagnosis, lab results, radiology results, the need for outpatient follow up, a family practitioner, to return to the emergency department if symptoms worsen or persist or if there are any questions or concerns that arise at home. 11/21 08:49 Order name: Urine Microscopic Only; Complete Time: 09:43 kb 11/21 08:49 Order name: CBC with Diff; Complete Time: 10:25 kb 11/21 08:49 Order name: Basic Metabolic Panel; Complete Time: 09:46 kb 11/21 08:59 Order name: CT Stone Protocol; Complete Time: 09:41 kb 11/21 09:00 Order name: Urine Dipstick--Ancillary (enter results); Complete Time: 09:17 eb 11/21 08:49 Order name: Urine Dipstick-Ancillary (obtain specimen); Complete Time: 09:05 kb 11/21 08:49 Order name: IV Start; Complete Time: 09:05 kb 11/21 09:48 Order name: Labs - recollect needed: CBC; Complete Time: 10:05 iw Administered Medications: 09:00 Drug: NS 0.9% 1000 ml Route: IV; Rate: 1000 ml; Site: right antecubital; bp 11:19 Follow up: IV Status: Completed infusion iw 10:00 Drug: Potassium Chloride 40 mEq Route: PO; bp 10:05 Follow up: Response: No adverse reaction bp Disposition: 17:15 Co-signature as Attending Physician, Kelley Yeboah MD. ma2 Disposition: 11/21/18 10:58 Discharged to Home. Impression: Lower abdominal pain, unspecified. - Condition is Stable. - Discharge Instructions: Abdominal Pain, Adult, [id number], Urinary Frequency, Adult. - Prescriptions for Diclofenac Sodium 75 mg Oral Tablet, Delayed Release (E.C.) - take 1 tablet by ORAL route 2 times per day As needed; 30 tablet. - Medication Reconciliation Form, Thank You Letter, Antibiotic Education, Prescription Opioid Use form. - Follow up: Emergency Department; When: As needed; Reason: Worsening of condition. Follow up: Private Physician; When: 2 - 3 days; Reason: Recheck today's complaints, Continuance of care, Re-evaluation by your physician. Signatures: Dispatcher [employer] EDPamela Beard, EDEN-C DIRECTOR OF GRADUATE MEDICAL EDUCATION-Dotty Bursh, RN RN Juan Car RN RN Kelley Malik MD MD ma2 Corrections: (The following items were deleted from the chart) 11:20 10:58 11/21/2018 10:58 Discharged to Home. Impression: Lower abdominal pain, iw unspecified. Condition is Stable. Forms are Medication Reconciliation Form, Thank You Letter, Antibiotic Education, Prescription Opioid Use. Follow up: Emergency Department; When: As needed; Reason: Worsening of condition. Follow up: Private Physician; When: 2 - 3 days; Reason: Recheck today's complaints, Continuance of care, Re-evaluation by your physician. kb
--- NOTE | 2018-11-21 10:59 | ER ---
Nurse's Notes [facility] Name: Cristy Dixon Age: 53 yrs Sex: Female : 1965 Arrival Date: 11/21/2018 Time: 08:48 Bed 7 Private MD: Diagnosis: Lower abdominal pain, unspecified Presentation: 11/21 08:48 Presenting complaint: EMS states: R FLANK PAIN, DYSURIA, POLYURIA SINCE LAST PM. bp Transition of care: patient was not received from another setting of care. Onset of symptoms was November 20, 2018. Risk Assessment: Do you want to hurt yourself or someone else? Patient reports no desire to harm self or others. Initial Sepsis Screen: Does the patient meet any 2 criteria? HR > 90 bpm. No. Patient's initial sepsis screen is negative. Does the patient have a suspected source of infection? Yes: Dysuria/Frequency/Urgency/UTI. Care prior to arrival: None. 08:48 Method Of Arrival: EMS: [facility] bp 08:48 Acuity: DACIA 3 bp Triage Assessment: 08:50 General: Appears in no apparent distress. comfortable, obese, Behavior is calm, bp cooperative, appropriate for age. Pain: Complains of pain in posterior aspect of right lateral abdomen and right lower quadrant. EENT: No deficits noted. Neuro: Level of Consciousness is awake, alert, obeys commands, Oriented to person, place, time, situation, Appropriate for age. Cardiovascular: No deficits noted. Respiratory: Airway is patent Respiratory effort is even, unlabored, Respiratory pattern is regular, symmetrical. GI: No signs and/or symptoms were reported involving the gastrointestinal system. : Reports burning with urination, pain in right flank(s). Derm: No deficits noted. Musculoskeletal: Circulation, motion, and sensation intact. Range of motion: intact in all extremities. 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 - Social history:: Smoking status: Patient/guardian denies using tobacco. - Ebola Screening: : Patient negative for fever greater than or equal to 101.5 degrees Fahrenheit, and additional compatible Ebola Virus Disease symptoms Patient denies exposure to infectious person Patient denies travel to an Ebola-affected area in the 21 days before illness onset No symptoms or risks identified at this time. Screenin:00 Abuse screen: Denies threats or abuse. Denies injuries from another. Nutritional bp screening: No deficits noted. Tuberculosis screening: No symptoms or risk factors identified. Fall Risk None identified. Assessment: 09:00 General: SEE TRIAGE NOTE. bp 10:06 Reassessment: ALL CURRENT ORDERS COMPLETED, IVF INFUSING. RESULTS PENDING FOR DISPO. bp 11:15 Reassessment: PT D/C HOME AMBULATORY WITH FAMILY, DX WITH UNSPECIFIC ABDOMINAL PAIN. bp Vital Signs: 08:51 BP 179 / 96; Pulse 119; Resp 18; Temp 97.3; Pulse Ox 100% ; Weight 66.22 kg; Height 4 bp ft. 9 in. (144.78 cm); 10:04 BP 165 / 94; Pulse 105; Resp 16; Pulse Ox 100% ; bp 11:00 BP 140 / 81; Pulse 71; Resp 16; Pulse Ox 100% ; bp 08:51 Body Mass Index 31.59 (66.22 kg, 144.78 cm) bp ED Course: 08:48 Patient arrived in ED. bp 08:48 Pamela Ramos FNP-C is PHCP. kb 08:48 Kelley Yeboah MD is Attending Physician. kb 08:50 Triage completed. bp 08:51 Arm band placed on. bp 09:00 Patient has correct armband on for positive identification. Bed in low position. Call bp light in reach. Side rails up X2. Adult w/ patient. 09:00 Inserted saline lock: 18 gauge in right antecubital area, using aseptic technique. bp Blood collected. 09:09 Juan Huber, ZACARIAS is Primary Nurse. bp 09:[address] kw1 09:24 CT completed. Patient tolerated procedure well. Patient moved to CT via wheelchair. sj Patient moved back from CT. 09:25 CT Stone Protocol In Process Unspecified. EDMS 10:00 IV discontinued, intact, bleeding controlled, No redness/swelling at site. Pressure bp dressing applied. 10:05 Inserted saline lock: 20 gauge in left antecubital area, using aseptic technique. Blood bp collected. 10:12 CBC with Diff Sent. ds4 11:19 No provider procedures requiring assistance completed. iw 11:19 IV discontinued, intact, bleeding controlled, No redness/swelling at site. Pressure iw dressing applied. Administered Medications: 09:00 Drug: NS 0.9% 1000 ml Route: IV; Rate: 1000 ml; Site: right antecubital; bp 11:19 Follow up: IV Status: Completed infusion iw 10:00 Drug: Potassium Chloride 40 mEq Route: PO; bp 10:05 Follow up: Response: No adverse reaction bp Outcome: 10:58 Discharge ordered by MD. kb 11:19 Discharged to home ambulatory, with family. iw 11:19 Condition: good 11:19 Discharge instructions given to patient, family, Instructed on discharge instructions, follow up and referral plans. medication usage, Demonstrated understanding of instructions, follow-up care, medications, Prescriptions given X 1. 11:20 Patient left the ED. iw Signatures: Dispatcher [employer] EDMS Pamela Ramos, BESTC EDEN-Lima Winslow Irene, ZACARIAS RN iw Giancarlo Mondragon ds4 Juan Huber RN RN bp Yoana Jimenez kw1
[2018-11-21 11:34] VITALS: TEMP 97.3; O2SAT 100
[2018-11-21 11:35] VITALS: BP 165/94
== END 2018-11-21 11:20 | disposition home or self-care (01) ==
LOC: ER 08:46
DX: R10.30 Lower abdominal pain, unspecified (principal); I10 Essential (primary) hypertension; Z88.8 Allergy status to other drugs, medicaments and biological substances
CPT/HCPCS: 36415; 74176; 76377; 80048; 81003; 81015; 85025; 96360; 96361; 99284; J7030

== ENCOUNTER 2019-01-12 23:53 | Emergency (ER) | payer OTHER ==
--- OUTSIDE RECORDS SUMMARY | 2019-01-12 23:56 | XMS REPORT | Clinical Summary ---
:1965 Author Organization [facility] Address [address] [place] [address] Care Team Providers Name Role Phone Sanchez [...] Not on file Results Not on fileafter 01/11/2018 Insurance Payer Benefit Plan / Group Subscriber ID Type Phone Address OTHER-COMMERCIAL GENERIC COMMERCIAL xxxxxxxxx Advance Directives For more information, please contact:[facility] [place], [place] [phone] Code Status Date Activated Date Inactivated Comments Full Code 07/05/2016 9:32 PM 07/14/2016 6:56 PM This code status was determined by: Patient
[2019-01-13 01:13] LABS: Protime INR 0.97
[2019-01-13 01:14] LABS: Absolute Lymphocytes (CBC) 3.4 K/uL (0.7-4.9); Basophils % 0.9 % (0-1.3); Eosinophils % 2.1 % (0-4.4); Hematocrit 34.5 % (36.0-45.0); Lymphocytes % 34.3 % (15.3-44.8); MPV 11.1 fL (7.6-11.3); Monocytes % 5.5 % (3.3-12.3)
[2019-01-13 01:26] LABS: ALT/SGPT 36 U/L (12-78); AST/SGOT 37 U/L (15-37); Albumin 3.4 g/dL (3.4-5.0); Alkaline Phosphatase 76 U/L (45-117); BUN Blood Urea Nitrogen 11 mg/dL (7-18); Bicarbonate 23 mmol/L (21-32); Bilirubin Direct < 0.1 mg/dL (0-0.2); Bilirubin Total 0.2 mg/dL (0.2-1.0); Glucose Level 137 mg/dL (74-106); Magnesium 1.8 mg/dL (1.8-2.4); NT PRO-BNP 1256 pg/mL (<125); Potassium 3.3 mmol/L (3.5-5.1); Protein, Total 7.3 g/dL (6.4-8.2); Sodium Level 140 mmol/L (136-145); Troponin (Emerg Dept Use Only) < 0.02 ng/mL (0.0-0.045)
--- NOTE | 2019-01-13 06:04 | ER ---
Nurse's Notes [facility] Name: Cristy Dixon Age: 53 yrs Sex: Female : 1965 Arrival Date: 01/12/2019 Time: 23:56 Bed 2 Private MD: Sanchez Ricketts Diagnosis: Chest pain, unspecified Presentation: 01/13 00:03 Presenting complaint: Patient states: she woke up about 2230 and CP and SOB. C/O int R aa1 upper CP 02/04. Transition of care: patient was not received from another setting of care. Onset of symptoms was January 12, 2019 at 22:30. Risk Assessment: Do you want to hurt yourself or someone else? Patient reports no desire to harm self or others. Initial Sepsis Screen: Does the patient meet any 2 criteria? No. Patient's initial sepsis screen is negative. Does the patient have a suspected source of infection? No. Patient's initial sepsis screen is negative. Care prior to arrival: None. 00:03 Method Of Arrival: Ambulatory aa1 00:03 Acuity: DACIA 2 aa1 Triage Assessment: 00:06 General: Appears in no apparent distress. comfortable, Behavior is calm, cooperative, aa1 appropriate for age. 00:21 Respiratory: Onset: The symptoms/episode began/occurred this morning, the patient has tl2 mild shortness of breath. 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 - Social history:: Smoking status: Patient/guardian denies using tobacco. - Ebola Screening: : No symptoms or risks identified at this time. Screenin:19 Abuse screen: Denies threats or abuse. Nutritional screening: No deficits noted. tl2 Tuberculosis screening: No symptoms or risk factors identified. Fall Risk None identified. Assessment: 00:19 General: Appears in no apparent distress. comfortable, Behavior is calm, cooperative, tl2 appropriate for age. Pain: Complains of pain in anterior aspect of right upper chest Pain does not radiate. Neuro: Level of Consciousness is awake, alert, obeys commands, Oriented to person, place, time, situation. Cardiovascular: Rhythm is sinus rhythm. Respiratory: Reports shortness of breath cough that is Airway is patent Respiratory effort is even, unlabored, Respiratory pattern is regular, symmetrical, Breath sounds are clear bilaterally. GI: No signs and/or symptoms were reported involving the gastrointestinal system. : No signs and/or symptoms were reported regarding the genitourinary system. Derm: Skin is pink, warm \T\ dry. 02:00 Reassessment: Patient appears in no apparent distress at this time. Patient and/or tl2 family updated on plan of care and expected duration. Pain level reassessed. Patient is alert, oriented x 3, equal unlabored respirations, skin warm/dry/pink. 03:00 Reassessment: Patient appears in no apparent distress at this time. Patient and/or tl2 family updated on plan of care and expected duration. Pain level reassessed. Patient is alert, oriented x 3, equal unlabored respirations, skin warm/dry/pink. will redraw Trop at 0430. 04:49 Reassessment: Patient appears in no apparent distress at this time. Patient and/or tl2 family updated on plan of care and expected duration. Pain level reassessed. Patient is alert, oriented x 3, equal unlabored respirations, skin warm/dry/pink. Patient states feeling better. 06:16 Reassessment: Patient appears in no apparent distress at this time. Patient and/or tl2 family updated on plan of care and expected duration. Pain level reassessed. Patient is alert, oriented x 3, equal unlabored respirations, skin warm/dry/pink. pt verbalized understanding of discharge instructions, and need for follow up. Vital Signs: 00:06 BP 174 / 92; Pulse 99; Resp 18; Temp 97.7; Pulse Ox 100% on R/A; Weight 65.77 kg; aa1 Height 4 ft. 11 in. (149.86 cm); Pain 7/10; 00:52 BP 155 / 84; Pulse 94; Resp 22; Pulse Ox 100% on R/A; tl2 01:17 BP 156 / 96; Pulse 86; Resp 20; Pulse Ox 100% on R/A; tl2 01:46 BP 161 / 95; Pulse 85; Resp 22; Pulse Ox 100% on R/A; tl2 04:48 BP 168 / 92; Pulse 74; Resp 18; Pulse Ox 100% on R/A; tl2 05:35 BP 144 / 79; Pulse 79; Resp 18; Pulse Ox 100% on R/A; tl2 00:06 Body Mass Index 29.29 (65.77 kg, 149.86 cm) aa1 ED Course: 01/12 23:56 Patient arrived in ED. es 23:56 Sanchez Ricketts MD is Private Physician. es 06 00:04 Triage completed. aa1 00:06 Arm band placed on right wrist. aa1 00:15 EKG done, by ED staff. tl2 00:18 Inserted saline lock: 20 gauge in right antecubital area, using aseptic technique. tl2 Blood collected. 00:18 Initial lab(s) drawn, by pa, sent to lab. tl2 00:21 Patient has correct armband on for positive identification. Placed in gown. Bed in low tl2 position. Call light in reach. Side rails up X2. 00:41 Michelle Silverman RN is Primary Nurse. tl2 00:41 Rohan Flores MD is Attending Physician. gs 01:02 X-ray completed. Portable x-ray completed in exam room. Patient tolerated procedure kw well. 01:05 XRAY Chest (1 view) In Process Unspecified. EDMS 06:02 Ruben Butler MD is Referral Physician. gs 06:16 No provider procedures requiring assistance completed. IV discontinued, intact, tl2 bleeding controlled, No redness/swelling at site. Pressure dressing applied. Administered Medications: No medications were administered Outcome: 06:02 Discharge ordered by . gs 06:16 Discharged to home ambulatory, with family. tl2 06:16 Condition: stable 06:16 Discharge instructions given to patient, family, Instructed on discharge instructions, follow up and referral plans. Demonstrated understanding of instructions, follow-up care. 06:18 Patient left the ED. tl2 Signatures: Dispatcher [employer] EDIN Bethany Rojo RN RN aa1 Pilar Denis Kimberlee Michelle Silverman RN RN tl2 Rohan Flores MD MD gs
--- NOTE | 2019-01-13 06:04 | EDPHYS ---
Physician Documentation [facility] Name: Crisyt Dixon Age: 53 yrs Sex: Female : 1965 Arrival Date: 01/12/2019 Time: 23:56 Bed 2 Private MD: Sanchez Ricketts ED Physician Rohan Flores REDUCER: 01/13 00:06 LMP N/A - Hysterectomy aa1 Historical: - Allergies: 00:06 Benadryl; aa1 - Home Meds: 00:06 losartan Oral [Active]; Atenolol Oral [Active]; Hydralazine Oral [Active]; aa1 - PMHx: 00:06 bowel obstruction; Hernia; Hypertension; aa1 - PSHx: 00:06 Hysterectomy; aa1 - Immunization history:: Flu vaccine is up to date. - Social history:: Smoking status: Patient/guardian denies using tobacco. - Ebola Screening: : No symptoms or risks identified at this time. Vital Signs: 00:06 BP 174 / 92; Pulse 99; Resp 18; Temp 97.7; Pulse Ox 100% on R/A; Weight 65.77 kg; aa1 Height 4 ft. 11 in. (149.86 cm); Pain 7/10; 00:52 BP 155 / 84; Pulse 94; Resp 22; Pulse Ox 100% on R/A; tl2 01:17 BP 156 / 96; Pulse 86; Resp 20; Pulse Ox 100% on R/A; tl2 01:46 BP 161 / 95; Pulse 85; Resp 22; Pulse Ox 100% on R/A; tl2 04:48 BP 168 / 92; Pulse 74; Resp 18; Pulse Ox 100% on R/A; tl2 05:35 BP 144 / 79; Pulse 79; Resp 18; Pulse Ox 100% on R/A; tl2 00:06 Body Mass Index 29.29 (65.77 kg, 149.86 cm) aa1 MDM: 00:58 Patient medically screened. 01/13 00:42 Order name: Basic Metabolic Panel; Complete Time: 04:08 01/13 00:42 Order name: CBC with Diff; Complete Time: 04:08 01/13 00:42 Order name: LFT's; Complete Time: 04:08 01/13 00:42 Order name: Magnesium; Complete Time: 04:08 01/13 00:42 Order name: NT PRO-BNP; Complete Time: 04:08 01/13 00:42 Order name: PT-INR; Complete Time: 04:08 01/13 00:42 Order name: Troponin (emerg Dept Use Only); Complete Time: 04:08 01/13 00:44 Order name: Basic Metabolic Panel tl2 01/13 00:44 Order name: CBC with Diff tl2 01/13 00:42 Order name: XRAY Chest (1 view) gs 01/13 00:42 Order name: Cardiac monitoring; Complete Time: 00:51 01/13 00:42 Order name: EKG - Nurse/Tech; Complete Time: 00:51 01/13 00:42 Order name: IV Saline Lock; Complete Time: 00:51 01/13 00:42 Order name: Labs collected and sent; Complete Time: 00:51 01/13 00:42 Order name: O2 Per Protocol; Complete Time: 00:51 01/13 00:42 Order name: O2 Sat Monitoring; Complete Time: 00:51 01/13 00:44 Order name: EKG; Complete Time: 00:54 tl2 01/13 00:44 Order name: Cardiac monitoring; Complete Time: 00:44 tl2 01/13 00:44 Order name: EKG - Nurse/Tech; Complete Time: 00:44 tl2 01/13 00:44 Order name: IV Saline Lock; Complete Time: 00:44 tl2 01/13 04:19 Order name: Troponin (emerg Dept Use Only); Complete Time: 06:02 01/13 00:44 Order name: Labs collected and sent; Complete Time: 00:44 tl2 01/13 00:44 Order name: O2 Per Protocol; Complete Time: 00:45 tl2 01/13 00:44 Order name: O2 Sat Monitoring; Complete Time: 00:45 tl2 Administered Medications: No medications were administered Disposition: 01/13/19 06:02 Discharged to Home. Impression: Chest pain, unspecified. - Condition is Stable. - Discharge Instructions: Nonspecific Chest Pain. - Medication Reconciliation Form, Thank You Letter, Antibiotic Education, Prescription Opioid Use form. - Follow up: Private Physician; When: 2 - 3 days; Reason: Re-evaluation by your physician. Follow up: Ruben Butler MD; When: 2 - 3 days; Reason: Re-evaluation by your physician. Signatures: Dispatcher [employer] [facility] Bethany Rojo, RN RN aa1 Michelle Silverman RN RN tl2 Rohan Flores MD MD Corrections: (The following items were deleted from the chart) 01:00 00:54 Chest Single View+RAD.RAD.BRZ ordered. [facility] 01:08 00:54 CBC with Automated Diff ordered. [facility] 01:08 00:54 PROTIME (+INR)+COAG.LAB.BRZ ordered. [facility] 01: 00:54 Basic Metabolic Panel ordered. [facility] 01: 00:54 HEPATIC FUNCTION+C.LAB.BRZ ordered. [facility] 01: 00:54 MAGNESIUM+C.LAB.BRZ ordered. [facility] 01: 00:54 PROBNP+C.LAB.BRZ ordered. [facility] 01: 00:54 TROPONIN (EMERG DEPT USE ONLY)+C.LAB.BRZ ordered. [facility] 06:18 06:02 01/13/2019 06:02 Discharged to Home. Impression: Chest pain, unspecified. tl2 Condition is Stable. Forms are Medication Reconciliation Form, Thank You Letter, Antibiotic Education, Prescription Opioid Use. Follow up: Private Physician; When: 2 - 3 days; Reason: Re-evaluation by your physician. Follow up: Ruben Butler; When: 2 - 3 days; Reason: Re-evaluation by your physician. gs
[2019-01-13 06:23] VITALS: TEMP 97.7; O2SAT 100
[2019-01-13 06:29] VITALS: BP 144/79
--- NOTE | 2019-01-13 08:09 | RAD REPORT ---
EXAM DESCRIPTION: RAD - Chest Single View - 01/13/2019 1:04 am CLINICAL HISTORY: Chest pain, shortness of breath COMPARISON: August 2018 TECHNIQUE: AP portable chest image was obtained 0104 hours . FINDINGS: Lungs are clear. Heart and vasculature are normal. No measurable pleural effusion and no p neumothorax. No acute bony abnormality seen. No acute aortic findings suspected. IMPRESSION: No acute cardiopulmonary process.
--- NOTE | 2019-01-13 12:11 | EKG ---
Test Date: 2019-01-13 Test Time: 00:05:00 Rubber Compounder: MELODIE MEASUREMENT RESULTS: Intervals: Rate: 96 ND: 142 QRSD: 80 QT: 374 QTc: 472 [place]: P: 38 ND: 142 QRS: 56 T: 8 INTERPRETIVE STATEMENTS: Normal sinus rhythm Nonspecific ST abnormality Abnormal ECG No previous ECG available for comparison Electronically Signed On 01-13-19 12:10:17 CDT by Saturnino Carson
== END 2019-01-13 06:18 | disposition home or self-care (01) ==
LOC: ER 23:53
DX: R07.9 Chest pain, unspecified (principal); I10 Essential (primary) hypertension
CPT/HCPCS: 36415; 71045; 80048; 80076; 83735; 83880; 84484; 85025; 85610; 93005; 99284

== ENCOUNTER 2019-02-03 08:16 | Emergency (ER) | payer OTHER ==
--- OUTSIDE RECORDS SUMMARY | 2019-02-03 08:44 | XMS REPORT | Clinical Summary ---
:1965 Author Organization [facility] Address [address] [place] [address] Care Team Providers Name Role Phone Sanchez [...] Not on file Results Not on fileafter 02/02/2018 Insurance Payer Benefit Plan / Group Subscriber ID Type Phone Address OTHER-COMMERCIAL GENERIC COMMERCIAL xxxxxxxxx Advance Directives For more information, please contact:[facility], [place] [phone] Code Status Date Activated Date Inactivated Comments Full Code 07/05/2016 9:32 PM 07/14/2016 6:56 PM This code status was determined by: Patient
--- NOTE | 2019-02-03 09:29 | RAD REPORT ---
EXAM DESCRIPTION: [place] Single View02/03/2019 9:13 am CLINICAL HISTORY: Chest pain COMPARISON: December 2018 FINDINGS: The lungs appear clear of acute infiltrate. The heart is normal size IMPRESSION: No acute abnormalities displayed
[2019-02-03] MEDS ORDERED: ASPIRIN 81 MG CHEWABLE TABLET ONE (09:42)
[2019-02-03] MEDS ORDERED: NA CHLORIDE 0.9% 1,000 ML ONE (09:42)
[2019-02-03 09:55] LABS: ALT/SGPT 27 U/L (12-78); AST/SGOT 23 U/L (15-37); Albumin 4.7 g/dL (3.4-5.0); Alkaline Phosphatase 101 U/L (45-117); BUN Blood Urea Nitrogen 16 mg/dL (7-18); Bicarbonate 25 mmol/L (21-32); Bilirubin Direct 0.1 mg/dL (0-0.2); Bilirubin Total 0.3 mg/dL (0.2-1.0); Glucose Level 101 mg/dL (74-106); Lipase 153 U/L (73-393); Magnesium 2.2 mg/dL (1.8-2.4); NT PRO-BNP 88 pg/mL (<125); Protein, Total 9.9 g/dL (6.4-8.2); Sodium Level 137 mmol/L (136-145); Troponin (Emerg Dept Use Only) < 0.02 ng/mL (0.0-0.045)
[2019-02-03 10:04] LABS: Absolute Lymphocytes (CBC) 1.8 K/uL (0.7-4.9); Basophils % 0.6 % (0-1.3); Eosinophils % 1.7 % (0-4.4); Hematocrit 40.8 % (36.0-45.0); Lymphocytes % 18.1 % (15.3-44.8); MPV 9.8 fL (7.6-11.3); Monocytes % 4.9 % (3.3-12.3); RBC Red Blood Cell Count 4.67 M/uL (3.86-4.86)
[2019-02-03] MEDS ORDERED: METOPROLOL TAR 50 MG TAB ONE (10:04)
[2019-02-03] MEDS ORDERED: NIFEdipine 10 MG CAP ONE (10:04)
[2019-02-03 10:18] LABS: Protime INR 0.95
--- NOTE | 2019-02-03 10:59 | ER ---
Nurse's Notes [facility] Name: Cristy Dixon Age: 53 yrs Sex: Female : 1965 Arrival Date: 02/03/2019 Time: 08:19 Bed 18 Private MD: Sanchez Ricketts Diagnosis: Chest pain, unspecified;Essential (primary) hypertension Presentation: 02/03 08:38 Presenting complaint: Patient states: That this morning when checking her blood tr5 pressure it was a bit elevated, despite taking her blood pressure medications. She was also having some pain in her right arm. She thought it would just be best to come in and get checked out. Transition of care: patient was not received from another setting of care. Onset of symptoms was February 03, 2019. Risk Assessment: Do you want to hurt yourself or someone else? Patient reports no desire to harm self or others. Initial Sepsis Screen: Does the patient meet any 2 criteria? HR > 90 bpm. No. Patient's initial sepsis screen is negative. Does the patient have a suspected source of infection? No. Patient's initial sepsis screen is negative. Care prior to arrival: None. 08:38 Method Of Arrival: Ambulatory tr5 08:38 Acuity: DACIA 3 tr5 Triage Assessment: 09:31 General: Appears in no apparent distress. Behavior is calm, cooperative, appropriate tr5 for age. Pain: Complains of pain in right arm Pain does not radiate. Pain currently is 5 out of 10 on a pain scale. Pain began 2 hours ago. EENT: No signs and/or symptoms were reported regarding the EENT system. Neuro: Oriented to person, place, time, Motor Coach Driver are equal bilaterally Moves all extremities. Gait is steady. Cardiovascular: Heart tones present Bruits absent Capillary refill < 3 seconds. Respiratory: Airway is patent Trachea midline Breath sounds are clear bilaterally. GI: No signs and/or symptoms were reported involving the gastrointestinal system. : No signs and/or symptoms were reported regarding the genitourinary system. Derm: Skin is intact, Skin is dry, Skin is pink, warm \T\ dry. Skin temperature is warm. Musculoskeletal: Capillary refill < 3 seconds, Range of motion: intact in all extremities. Historical: - Allergies: 09:39 Benadryl; tr5 - Home Meds: 09:39 Atenolol Oral [Active]; gabapentin Oral [Active]; Hydralazine Oral [Active]; losartan tr5 Oral [Active]; - PMHx: 09:39 Hypertension; Hernia; bowel obstruction; tr5 - Immunization history:: Adult Immunizations up to date. - Social history:: Smoking status: Patient/guardian denies using tobacco, never smoked. - Family history:: not pertinent. - Ebola Screening: : No symptoms or risks identified at this time. Screenin:00 Abuse screen: Denies threats or abuse. Nutritional screening: No deficits noted. tr5 Tuberculosis screening: No symptoms or risk factors identified. Fall Risk No fall in past 12 months (0 pts). No secondary diagnosis (0 pts). IV access (20 points). Ambulatory Aid- None/Bed Rest/Nurse Assist (0 pts). Gait- Normal/Bed Rest/Wheelchair (0 pts) Mental Status- Oriented to own ability (0 pts). Total Lawrence Fall Scale indicates No Risk (0-24 pts). Assessment: 09:00 Reassessment: Patient appears in no apparent distress at this time. Patient is alert, tr5 oriented x 3, equal unlabored respirations, skin warm/dry/pink. 10:02 Reassessment: Patient and/or family updated on plan of care and expected duration. Pain tr5 level reassessed. 11:19 Reassessment: Patient appears in no apparent distress at this time. Patient and/or tr5 family updated on plan of care and expected duration. Pain level reassessed. Patient states feeling better. 12:26 Reassessment: Patient appears in no apparent distress at this time. Patient and/or tr5 family updated on plan of care and expected duration. Pain level reassessed. Patient is alert, oriented x 3, equal unlabored respirations, skin warm/dry/pink. Vital Signs: 08:40 BP 135 / 113; Pulse 91; Resp 18; Temp 98.4; Pulse Ox 100% on R/A; tr5 09:10 BP 145 / 92; Pulse 86; Resp 18; Pulse Ox 99% on R/A; tr5 10:01 BP 136 / 86; Pulse 90; Resp 18; Pulse Ox 99% on R/A; tr5 11:19 BP 113 / 56; Pulse 67; Resp 16; Pulse Ox 100% on R/A; tr5 12:25 BP 133 / 77; Pulse 70; Resp 16; Pulse Ox 99% on R/A; tr5 ED Course: 08:19 Patient arrived in ED. as 08:20 Sanchez Ricketts MD is Private Physician. as 08:26 Stu Bynum MD is Attending Physician. [facility] 08:30 Inserted saline lock: 20 gauge in right antecubital area, using aseptic technique. [facility] 08:43 Scot Cano, RN is Primary Nurse. tr5 08:46 Triage completed. tr5 09:00 Arm band placed on left wrist. tr5 09:00 Patient has correct armband on for positive identification. Placed in gown. Bed in low tr5 position. Call light in reach. 09:11 X-ray completed. Portable x-ray completed in exam room. Patient tolerated procedure jb2 well. 09:41 Benitez Maloney MD is Hospitalizing Provider. [facility] 11:02 Chest Single View In Process Unspecified. EDOH 12:18 Lab(s) recollected, by me, sent to lab. [facility] 12:26 Awaiting lab results. tr5 12:56 Sanchez Ricketts MD is Referral Physician. [place] 12:56 Jeremy Jones MD is Referral Physician. [place] Administered Medications: 09:31 Drug: NS 0.9% 1000 ml Route: IV; Rate: 75 ml/hr; Site: right antecubital; tr5 09:31 Drug: Aspirin 162 mg Route: PO; tr5 10:00 Follow up: Response: No adverse reaction tr5 09:59 Drug: Procardia 10 mg Route: PO; tr5 11:16 Follow up: Response: No adverse reaction tr5 09:59 Drug: Lopressor (metoprolol TARTRATE) 50 mg Route: PO; tr5 11:16 Follow up: Response: No adverse reaction tr5 Outcome: 09:42 Decision to Hospitalize by Provider. [place] 12:57 Discharge ordered by . [place] 13:07 Patient left the ED. tr5 Signatures: Dispatcher [employer] EDMS Stu Bynum MD MD cha Buechter, Jesse jb2 Macy Drake Audri, RN RN 5 Shayy Aranda 3 Scot Cano RN RN tr5
--- NOTE | 2019-02-03 10:59 | EDPHYS ---
Physician Documentation [facility] Name: Cristy Dixon Age: 53 yrs Sex: Female : 1965 Arrival Date: 02/03/2019 Time: 08:19 Bed 18 Private MD: Sanchez Ricketts ED Physician Stu Bynum HPI: 02/03 08:36 This 53 yrs old Black Female presents to ER via Unassigned with complaints of High charlotet Blood Pressure, Arm Pain. 08:36 The patient has elevated blood pressure and discovered this at home. Onset: The charlotte symptoms/episode began/occurred this morning. Modifying factors: The symptoms are aggravated by activity, The symptoms are alleviated by remaining still. Associated signs and symptoms: Pertinent positives: chest pain, lightheadedness, weakness. Severity of symptoms: At its worst the blood pressure was moderate, in the emergency department the blood pressure is unchanged. The patient has not experienced similar symptoms in the past. Historical: - Allergies: 09:39 Benadryl; tr5 - Home Meds: 09:39 Atenolol Oral [Active]; gabapentin Oral [Active]; Hydralazine Oral [Active]; losartan tr5 Oral [Active]; - PMHx: 09:39 Hypertension; Hernia; bowel obstruction; tr5 - Immunization history:: Adult Immunizations up to date. - Social history:: Smoking status: Patient/guardian denies using tobacco, never smoked. - Family history:: not pertinent. - Ebola Screening: : No symptoms or risks identified at this time. ROS: 08:36 Constitutional: Negative for fever, chills, and weight loss, Eyes: Negative for injury, charlotte pain, redness, and discharge, ENT: Negative for injury, pain, and discharge, Neck: Negative for injury, pain, and swelling, Respiratory: Negative for shortness of breath, cough, wheezing, and pleuritic chest pain, Abdomen/GI: Negative for abdominal pain, nausea, vomiting, diarrhea, and constipation, Back: Negative for injury and pain, : Negative for injury, bleeding, discharge, and swelling, MS/Extremity: Negative for injury and deformity, Skin: Negative for injury, rash, and discoloration, Neuro: Negative for headache, weakness, numbness, tingling, and seizure, Psych: Negative for depression, anxiety, suicide ideation, homicidal ideation, and hallucinations, Allergy/Immunology: Negative for hives, rash, and allergies, Endocrine: Negative for neck swelling, polydipsia, polyuria, polyphagia, and marked weight changes, Hematologic/Lymphatic: Negative for swollen nodes, abnormal bleeding, and unusual bruising. 08:36 Cardiovascular: Positive for chest pain. Exam: 08:36 Constitutional: This is a well developed, well nourished patient who is awake, alert, charlotte and in no acute distress. Head/Face: Normocephalic, atraumatic. Eyes: Pupils equal round and reactive to light, extra-ocular motions intact. Lids and lashes normal. Conjunctiva and sclera are non-icteric and not injected. Cornea within normal limits. Periorbital areas with no swelling, redness, or edema. ENT: Nares patent. No nasal discharge, no septal abnormalities noted. Tympanic membranes are normal and external auditory canals are clear. Oropharynx with no redness, swelling, or masses, exudates, or evidence of obstruction, uvula midline. Mucous membranes moist. Neck: Trachea midline, no thyromegaly or masses palpated, and no cervical lymphadenopathy. Supple, full range of motion without nuchal rigidity, or vertebral point tenderness. No Meningismus. Chest/axilla: Normal chest wall appearance and motion. Nontender with no deformity. No lesions are appreciated. Cardiovascular: Regular rate and rhythm with a normal S1 and S2. No gallops, murmurs, or rubs. Normal PMI, no JVD. No pulse deficits. Respiratory: Lungs have equal breath sounds bilaterally, clear to auscultation and percussion. No rales, rhonchi or wheezes noted. No increased work of breathing, no retractions or nasal flaring. Abdomen/GI: Soft, non-tender, with normal bowel sounds. No distension or tympany. No guarding or rebound. No evidence of tenderness throughout. Back: No spinal tenderness. No costovertebral tenderness. Full range of motion. Female : Normal external genitalia. Skin: Warm, dry with normal turgor. Normal color with no rashes, no lesions, and no evidence of cellulitis. MS/ Extremity: Pulses equal, no cyanosis. Neurovascular intact. Full, normal range of motion. Neuro: Awake and alert, GCS 15, oriented to person, place, time, and situation. Cranial nerves II-XII grossly intact. Motor strength 5/5 in all extremities. Sensory grossly intact. Cerebellar exam normal. Normal gait. Psych: Awake, alert, with orientation to person, place and time. Behavior, mood, and affect are within normal limits. Vital Signs: 08:40 BP 135 / 113; Pulse 91; Resp 18; Temp 98.4; Pulse Ox 100% on R/A; tr5 09:10 BP 145 / 92; Pulse 86; Resp 18; Pulse Ox 99% on R/A; tr5 10:01 BP 136 / 86; Pulse 90; Resp 18; Pulse Ox 99% on R/A; tr5 11:19 BP 113 / 56; Pulse 67; Resp 16; Pulse Ox 100% on R/A; tr5 12:25 BP 133 / 77; Pulse 70; Resp 16; Pulse Ox 99% on R/A; tr5 MDM: 08:28 Patient medically screened. [facility] 08:38 Data reviewed: vital signs, nurses notes, lab test result(s), EKG, radiologic studies, charlotte plain films. 02/03 08:27 Order name: CBC with Diff [facility] 02/03 08:27 Order name: PT-INR [facility] 02/03 08:38 Order name: D-Dimer [facility] 02/03 09:19 Order name: Urine Dipstick--Ancillary (enter results) ok 02/03 10:49 Order name: Basic Metabolic Panel [facility] 02/03 10:49 Order name: Liver (Hepatic) Function [facility] 02/03 10:49 Order name: Troponin (Emerg Dept Use Only) [facility] 02/03 08:27 Order name: XRAY Chest (1 view) [facility] 02/03 08:27 Order name: EKG; Complete Time: 10:57 [facility] 02/03 10:49 Order name: NT PRO-BNP [facility] 02/03 10:49 Order name: Magnesium [facility] 02/03 10:49 Order name: Lipase [facility] 02/03 10:49 Order name: Thyroid Stimulating Hormone [facility] 02/03 10:52 Order name: CBC with Automated Diff [facility] 02/03 10:54 Order name: Troponin (emerg Dept Use Only); Complete Time: 12:55 [facility] 02/03 10:55 Order name: Protime (+INR) [facility] 02/03 10:55 Order name: D-Dimer [facility] 02/03 10:59 Order name: Chest Single View [facility] 02/03 11:14 Order name: Urine Dipstick-Ancillary; Complete Time: 11:42 [facility] 02/03 08:27 Order name: Cardiac monitoring; Complete Time: 08:43 [facility] 02/03 08:27 Order name: EKG - Nurse/Tech; Complete Time: 08:44 [facility] 02/03 08:27 Order name: IV Saline Lock; Complete Time: 09:14 [facility] 02/03 08:27 Order name: Labs collected and sent; Complete Time: 09:14 [facility] 02/03 08:27 Order name: O2 Per Protocol; Complete Time: 08:44 [facility] 02/03 08:27 Order name: O2 Sat Monitoring; Complete Time: 08:44 [facility] 02/03 08:27 Order name: Urine Dipstick-Ancillary (obtain specimen); Complete Time: 09:14 [facility] 02/03 09:28 Order name: Labs - recollect needed; Complete Time: 09:59 ms 02/03 11:50 Order name: Labs - recollect needed; Complete Time: 12:16 ms Administered Medications: 09:31 Drug: NS 0.9% 1000 ml Route: IV; Rate: 75 ml/hr; Site: right antecubital; tr5 09:31 Drug: Aspirin 162 mg Route: PO; tr5 10:00 Follow up: Response: No adverse reaction tr5 09:59 Drug: Procardia 10 mg Route: PO; tr5 11:16 Follow up: Response: No adverse reaction tr5 09:59 Drug: Lopressor (metoprolol TARTRATE) 50 mg Route: PO; tr5 11:16 Follow up: Response: No adverse reaction tr5 Disposition: 02/03/19 12:57 Discharged to Home. Impression: Chest pain, unspecified, Essential (primary) hypertension. - Condition is Stable. - Discharge Instructions: Nonspecific Chest Pain, Hypertension, Nonspecific Chest Pain, Sksz-xe-Bcus, Hypertension, [id number], How to Take Your Blood Pressure, [id number], Aspirin and Your Heart, Managing Your Hypertension. - Medication Reconciliation Form, Thank You Letter, Antibiotic Education, Prescription Opioid Use, Work release form form. - Follow up: Sanchez Ricketts MD; When: 2 - 3 days; Reason: Recheck today's complaints, Continuance of care, Re-evaluation by your physician. Follow up: Jeremy Jones MD; When: 1 - 2 days; Reason: Recheck today's complaints, Re-evaluation by your physician. - Problem is new. - Symptoms have improved. Signatures: Dispatcher [employer] Stu Ash MD MD cha Solis, Maria ms Rodriguez, Tommie, RN RN tr5 Corrections: (The following items were deleted from the chart) 12:56 09:42 Hospitalization Ordered by Benitez Maloney MD for Observation. Preliminary diagnosis charlotte is Chest pain, unspecified; Essential (primary) hypertension; Tachycardia, unspecified. Bed requested for Telemetry/MedSurg (observation). Status is Observation. Condition is Stable. Problem is new. Symptoms have improved. UTI on Admission? No. charlotte 13:07 12:57 02/03/2019 12:57 Discharged to Home. Impression: Chest pain, unspecified; tr5 Essential (primary) hypertension. Condition is Stable. Forms are Medication Reconciliation Form, Thank You Letter, Antibiotic Education, Prescription Opioid Use. Follow up: Sanchez Ricketts; When: 2 - 3 days; Reason: Recheck today's complaints, Continuance of care, Re-evaluation by your physician. Follow up: Jeremy Jones; When: 1 - 2 days; Reason: Recheck today's complaints, Re-evaluation by your physician. Problem is new. Symptoms have improved. charlotte
[2019-02-03 11:01] LABS: Urine Blood NEGATIVE (NEG); Urine Glucose NEGATIVE (NEG); Urine Protein NEGATIVE (NEG); Urine Specific Gravity 1.015 (1.005-1.030)
--- NOTE | 2019-02-03 11:12 | P.CNS ---
Date of Consult: 02/03/19 Reason for Consult: elevated blood pressure Primary Care Provider: Dr. Ricketts Chief Complaint: uncontrolled BP History of Present Illness: Pt is a 53 yo F w PMhx of HTN comes in with complaints of malaise. Found her BP to be elevated at 150 systolic. No chest pain, SOB, fever, chills, palpitations , or diaphoresis. Did report some nausea. Patients symptoms are constant, mild, non radiating. She reported some heaviness of her right shoulder and arm. In the ER her workup was unremarkable. Troponin negative, EKG NSR, CXR clear. Hospitalist service consulted for further eval. In the ER her BP had improved and she did not complain of any shoulder pain at the time or any chest pain. Allergies No Known Allergies Allergy (Unverified 08/14/18 21:24) Home medications list reviewed: Yes Home Medications: Gabapentin [Neurontin*] 300 mg PO BID 08/14/18 - Past Medical/Surgical History Diabetic: No -: HTN -: Bowel Obstruction -: Hysterectomy - Family History Father Medical History: Diabetes Mother Medical History: Diabetes - Social History Smoking Status: Never smoker Alcohol use: Yes CD- Drugs: No Caffeine use: No Review of Systems 10-point ROS is otherwise unremarkable Physical Examination General: Alert, In no apparent distress, Oriented x3 HEENT: Atraumatic, PERRLA, Mucous membr. moist/pink, EOMI, Sclerae nonicteric Neck: Supple, 2+ carotid pulse no bruit, No LAD, Without JVD or thyroid abnormality Respiratory: Clear to auscultation bilaterally, Normal air movement Cardiovascular: No edema, Normal pulses, Regular rate/rhythm, Normal S1 S2 Gastrointestinal: Normal bowel sounds, Soft and benign, Non-distended, No tenderness Musculoskeletal: No clubbing, No tenderness Integumentary: No rashes Neurological: Normal gait, Normal speech, Normal tone, Normal affect Laboratory Data (last 24 hrs) 02/03/19 09:54: PT 11.2, INR 0.95 02/03/19 09:54: WBC 10.0, Hgb 13.3, Hct 40.8, Plt Count 256 02/03/19 09:10: Sodium 137, Potassium 4.0, BUN 16, Creatinine 0.97, Glucose 101 , Magnesium 2.2, Total Bilirubin 0.3, AST 23, ALT 27, Alkaline Phosphatase 101, Lipase 153 02/03/19 08:27: PT Cancelled, INR Cancelled 02/03/19 08:27: WBC Cancelled, Hgb Cancelled, Hct Cancelled, Plt Count Cancelled Imagings Data: CXR clear - Problems (1) HTN (hypertension) Current Visit: Yes Status: Acute Qualifiers: Hypertension type: essential hypertension Qualified Code(s): I10 - Essential (primary) hypertension (2) Right shoulder pain Current Visit: Yes Status: Acute Qualifiers: Chronicity: acute Qualified Code(s): M25.511 - Pain in right shoulder Conclusions/Impression: Patients blood pressure more stable now with systolic in the 120s. No complaints of chest pain. Patient has her BP meds. Recommend following up with PCP in am and monitor BP closely. If greater than 160 systolic return to ER. Pt has appt scheduled with Dr. Benitez in 1 week. Return to ER for worsening condition
[2019-02-03 13:58] VITALS: TEMP 98.4
[2019-02-03 14:03] VITALS: BP 133/77; O2SAT 99
--- NOTE | 2019-02-04 09:58 | EKG ---
Test Date: 2019-02-03 Test Time: 08:40:31 Figure Refinisher And Repairer: TR MEASUREMENT RESULTS: Intervals: Rate: 97 NC: 116 QRSD: 72 QT: 370 QTc: 469 [place]: P: 53 NC: 116 QRS: 62 T: 21 INTERPRETIVE STATEMENTS: Normal sinus rhythm Nonspecific ST abnormality Abnormal ECG Compared to ECG 01/13/2019 00:05:00 No significant changes Electronically Signed On 02-04-19 09:57:40 CDT by Ruben Butler
== END 2019-02-03 13:07 | disposition home or self-care (01) ==
LOC: ER 08:16
DX: I10 Essential (primary) hypertension (principal); M25.511 Pain in right shoulder
CPT/HCPCS: 36415; 71045; 80048; 80076; 81003; 83690; 83735; 83880; 84443; 84484; 85025; 85379; 85610; 93005; 99284; J7030

== ENCOUNTER 2019-02-16 14:59 | Emergency (ER) | payer OTHER ==
--- OUTSIDE RECORDS SUMMARY | 2019-02-16 15:01 | XMS REPORT | Clinical Summary ---
:1965 Author Organization [facility] Address [address] [place] [address] Care Team Providers Name Role Phone Sanchez [...] Not on file Results Not on fileafter 02/15/2018 Insurance Payer Benefit Plan / Group Subscriber ID Type Phone Address OTHER-COMMERCIAL GENERIC COMMERCIAL xxxxxxxxx Advance Directives For more information, please contact:[facility], [place] [phone] Code Status Date Activated Date Inactivated Comments Full Code 07/05/2016 9:32 PM 07/14/2016 6:56 PM This code status was determined by: Patient
[2019-02-16 16:53] LABS: Absolute Lymphocytes (CBC) 2.1 K/uL (0.7-4.9); Basophils % 0.5 % (0-1.3); Hematocrit 36.8 % (36.0-45.0); Lymphocytes % 17.5 % (15.3-44.8); MPV 9.6 fL (7.6-11.3); RBC Red Blood Cell Count 4.24 M/uL (3.86-4.86)
--- NOTE | 2019-02-16 17:01 | RAD REPORT ---
EXAM DESCRIPTION: RAD - Chest Single View - 02/16/2019 4:53 pm CLINICAL HISTORY: CHEST PAIN Chest pain. COMPARISON: <Comparisons> FINDINGS: Portable technique limits examination quality. The lungs are grossly clear. The heart is upper limit of normal in size. No displaced fractures.
[2019-02-16 17:10] LABS: BUN Blood Urea Nitrogen 27 mg/dL (7-18); Bicarbonate 26 mmol/L (21-32); Glucose Level 93 mg/dL (74-106); Potassium 3.4 mmol/L (3.5-5.1); Sodium Level 141 mmol/L (136-145); Troponin (Emerg Dept Use Only) < 0.02 ng/mL (0.0-0.045)
[2019-02-16] MEDS ORDERED: NA CHLORIDE 0.9% 1,000 ML ONE (17:43)
--- NOTE | 2019-02-16 17:56 | ER ---
Nurse's Notes [facility] Name: Cristy Dixon Age: 53 yrs Sex: Female : 1965 Arrival Date: 02/16/2019 Time: 15:01 Bed 6 Private MD: Diagnosis: Chest pain, unspecified Presentation: 02/16 15:07 Presenting complaint: Patient states: "last Saturday I had chest pain and it lasted for aa5 3 days but then today I bent over to pick something up and the chest pain started again". Pt currently denies nausea. Transition of care: patient was not received from another setting of care. Onset of symptoms was February 16, 2019. Risk Assessment: Do you want to hurt yourself or someone else? Patient reports no desire to harm self or others. Initial Sepsis Screen: Does the patient meet any 2 criteria? No. Patient's initial sepsis screen is negative. Does the patient have a suspected source of infection? No. Patient's initial sepsis screen is negative. Care prior to arrival: None. 15:07 Acuity: DACIA 3 aa5 15:07 Method Of Arrival: Ambulatory aa5 ADOBE ARCHITECT: 15:09 LMP N/A - Hysterectomy aa5 Historical: - Allergies: 15:09 Benadryl; aa5 - PMHx: 15:09 bowel obstruction; Hernia; Hypertension; aa5 - PSHx: 15:09 Hysterectomy; bowel resection; aa5 - Immunization history:: Flu vaccine is up to date. - Social history:: Smoking status: Patient/guardian denies using tobacco. - Ebola Screening: : No symptoms or risks identified at this time. - Family history:: not pertinent. - Hospitalizations: : No recent hospitalization is reported. Screenin:47 Abuse screen: Denies threats or abuse. Denies injuries from another. Nutritional ss screening: No deficits noted. Tuberculosis screening: Never had TB. Fall Risk None identified. Assessment: 16:47 General: Appears in no apparent distress. comfortable, Behavior is calm, cooperative, ss Denies fever, feeling ill, fatigue, chills. Pain: Complains of pain in chest Pain does not radiate. Pain currently is 0 out of 10 on a pain scale. at worst was 7 out of 10 on a pain scale. Pain began 6 days ago, is intermittent. Patient reports episode that occurred yesterday when she bent down she felt pressure in her chest last lasted only a few moments. Is continuous. Neuro: Level of Consciousness is awake, alert, obeys commands, Oriented to person, place, time, situation. Cardiovascular: Heart tones S1 S2 present Capillary refill < 3 seconds is brisk in bilateral fingers Patient's skin is warm and dry. Respiratory: Airway is patent Respiratory effort is even, unlabored, Respiratory pattern is regular, symmetrical. GI: Abdomen is non-distended. : No signs and/or symptoms were reported regarding the genitourinary system. EENT: Nares are clear Oral mucosa is moist. Throat is clear. Derm: Skin is intact, is healthy with good turgor, Skin is dry, Skin is pink, warm \\T\\ dry. normal. Musculoskeletal: Circulation, motion, and sensation intact. Range of motion: intact in all extremities, Swelling absent. 17:45 Reassessment: Patient appears in no apparent distress at this time. Patient and/or ph family updated on plan of care and expected duration. Pain level reassessed. Patient is alert, oriented x 3, equal unlabored respirations, skin warm/dry/pink. 18:42 Reassessment: Patient appears in no apparent distress at this time. Patient and/or ph family updated on plan of care and expected duration. Pain level reassessed. Patient is alert, oriented x 3, equal unlabored respirations, skin warm/dry/pink. Pt d/c home w/ SO. Vital Signs: 15:09 BP 164 / 82; Pulse 64; Resp 16 S; Temp 98.4(TE); Pulse Ox 97% on R/A; Weight 63.96 kg aa5 (R); Height 4 ft. 9 in. (144.78 cm) (R); Pain 7/10; 16:30 BP 135 / 62; Pulse 64; Resp 16; Pulse Ox 98% on R/A; ph 16:30 BP 157 / 78; Pulse 67; Resp 18; Pulse Ox 99% on R/A; ph 18:44 BP 122 / 55; Pulse 65; Resp 18; Temp 97.8; Pulse Ox 99% on R/A; ph 15:09 Body Mass Index 30.51 (63.96 kg, 144.78 cm) aa5 ED Course: 15:01 Patient arrived in ED. as 15:07 Arm band placed on. aa5 15:08 Triage completed. aa5 15:11 EKG completed in triage. Results shown to MD. aa5 15:17 EKG done, by school bus technician. reviewed by Karel Parmar MD. 3 16:25 Karel Parmar MD is Attending Physician. rn 16:31 Suzanna Ramsay, ZACARIAS is Primary Nurse. ss 16:45 Inserted saline lock: 22 gauge in right antecubital area, using aseptic technique. ss Blood collected. Patient maintains SpO2 saturation greater than 95% on room air. 16:47 Patient has correct armband on for positive identification. Bed in low position. Call ss light in reach. bundler on. Pulse ox on. NIBP on. 16:55 XRAY Chest (1 view) In Process Unspecified. EDOK 17:36 Repeat EKG was done. 3 17:54 Ruben Butler MD is Referral Physician. rn 18:46 No provider procedures requiring assistance completed. IV discontinued, intact, ph bleeding controlled, No redness/swelling at site. Pressure dressing applied. Administered Medications: 17:28 Drug: NS 0.9% 1000 ml Route: IV; Rate: 1000 ml; Site: right antecubital; ss 18:47 Follow up: Response: No adverse reaction; IV Status: Completed infusion; IV Intake: ph 1000ml Intake: 18:47 IV: 1000ml; Total: 1000ml. ph Outcome: 17:54 Discharge ordered by MD. rn 18:46 Discharged to home ambulatory, with significant other. ph 18:46 Condition: good 18:46 Discharge instructions given to patient, Instructed on discharge instructions, follow up and referral plans. Demonstrated understanding of instructions, follow-up care. 18:47 Patient left the ED. ph Signatures: Dispatcher [employer] EDMS Macy Drake Roman, MD MD rn Calderon, Audri, RN RN aa5 Suzanna Ramsay RN RN Tanvi Chou RN RN Za Dozier 3 Corrections: (The following items were deleted from the chart) 15:12 15:09 BP 164 / 82; Pulse 84bpm; Resp 16bpm; Spontaneous; Pulse Ox 97% RA; Temp 98.4F aa5 Temporal; 63.96 kg Reported; Height 4 ft. 9 in. Reported; BMI: 30.5; aa5
--- NOTE | 2019-02-16 17:56 | EDPHYS ---
Physician Documentation [facility] Name: Cristy Dixon Age: 53 yrs Sex: Female : 1965 Arrival Date: 02/16/2019 Time: 15:01 Bed 6 Private MD: ED Physician Karel Parmar HPI: 02/16 16:34 This 53 yrs old Black Female presents to ER via Ambulatory with complaints of Chest rn Pain. 16:34 The patient or guardian reports chest pain that is located primarily in the anterior rn chest wall. Onset:. 16:34 Onset: 1 week(s) ago. The pain does not radiate. Associated signs and symptoms: The rn patient has no apparent associated signs or symptoms, Pertinent negatives: abdominal pain, cough, diaphoresis, dizziness, headache, lower extremity pain, lower extremity swelling, lightheadedness, nausea, near syncope, palpitations, recent travel, shortness of breath, syncope, vomiting. The chest pain is described as sharp. Duration: The patient or guardian reports multiple episodes, that are intermittent, the episodes last approximately 3 second(s). Modifying factors: The symptoms are alleviated by nothing. the symptoms are aggravated by movement, palpation of area. Severity of pain: At its worst the pain was mild in the emergency department the pain is unchanged. The patient has experienced similar episodes in the past. Reports central chest pain, began last week, went away so didn't think anything about it, returned today while bending over, no other trauma, no sob, no radiation, no vomiting/diarrhea/abd pain. Having normal bowel movements. No cough/hemoptysis.. 16:34 Has had multiple chest pain evaluations in ER, has seen Dr. Butler, has stress test rn scheduled on February 24, in approx 1 week.. 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 - Social history:: Smoking status: Patient/guardian denies using tobacco. - Ebola Screening: : No symptoms or risks identified at this time. - Family history:: not pertinent. - Hospitalizations: : No recent hospitalization is reported. ROS: 16:34 Constitutional: Negative for fever, chills, and weight loss, Eyes: Negative for injury, rn pain, redness, and discharge, Neck: Negative for injury, pain, and swelling, Cardiovascular: Negative for palpitations, and edema, Respiratory: Negative for shortness of breath, cough, wheezing Abdomen/GI: Negative for abdominal pain, nausea, vomiting, diarrhea, and constipation, Back: Negative for injury and pain, MS/Extremity: Negative for injury and deformity, Skin: Negative for injury, rash, and discoloration, Neuro: Negative for headache, weakness, numbness, tingling, and seizure. Exam: 16:34 Constitutional: This is a well developed, well nourished patient who is awake, alert, rn and in no acute distress. Head/Face: Normocephalic, atraumatic. Eyes: Pupils equal round and reactive to light, extra-ocular motions intact. Lids and lashes normal. Conjunctiva and sclera are non-icteric and not injected. Cornea within normal limits. Periorbital areas with no swelling, redness, or edema. Cardiovascular: Regular rate and rhythm. No pulse deficits. Respiratory: Lungs have equal breath sounds bilaterally, clear to auscultation. No increased work of breathing, no retractions or nasal flaring. Abdomen/GI: soft, non-tender MS/ Extremity: Pulses equal, no cyanosis. Neurovascular intact. Full, normal range of motion. Equal circumference. Neuro: Awake and alert, GCS 15, oriented to person, place, time, and situation. Cranial nerves II-XII grossly intact. Motor strength 5/5 in all extremities. Sensory grossly intact. Vital Signs: 15:09 BP 164 / 82; Pulse 64; Resp 16 S; Temp 98.4(TE); Pulse Ox 97% on R/A; Weight 63.96 kg aa5 (R); Height 4 ft. 9 in. (144.78 cm) (R); Pain 7/10; 16:30 BP 135 / 62; Pulse 64; Resp 16; Pulse Ox 98% on R/A; ph 16:30 BP 157 / 78; Pulse 67; Resp 18; Pulse Ox 99% on R/A; ph 18:44 BP 122 / 55; Pulse 65; Resp 18; Temp 97.8; Pulse Ox 99% on R/A; ph 15:09 Body Mass Index 30.51 (63.96 kg, 144.78 cm) aa5 MDM: 16:25 Patient medically screened. rn 16:33 ED course: Pt meets PERC criteria, will not obtain d-dimer, as PE effectively ruled out rn and no oxygen requirements. . 17:52 Differential diagnosis: abnormal EKG, acute myocardial infarction, acute pericarditis, rn coronary artery disease costochondritis, pleurisy, pneumothorax. Data reviewed: vital signs, nurses notes, lab test result(s), EKG, radiologic studies, plain films, and as a result, I will discharge patient. Counseling: I had a detailed discussion with the patient and/or guardian regarding: the historical points, exam findings, and any diagnostic results supporting the discharge/admit diagnosis, lab results, radiology results, the need for outpatient follow up, to return to the emergency department if symptoms worsen or persist or if there are any questions or concerns that arise at home. Response to treatment: the patient's symptoms have markedly improved after treatment, and as a result, I will discharge patient. Special discussion: Based on the patient's history, exam, and Dx evaluation, there is no indication for emergent intervention or inpatient Tx. It is understood by the patient/guardian that if the Sx's persist or worsen they need to return immediately for re-evaluation. I discussed with the patient/guardian in detail that at this point there is no indication for admission to the hospital. It is understood, however, that if the symptoms persist or worsen the patient needs to return immediately for re-evaluation. ED course: NO acute findings on w/u, + short [place] but no evidence of arrythmia or tachycardia, will dc home with return precautions, has outpt stress in 1 week. . 17:54 ED course: Patient without previous cardiac history, chest pain reproducible, lasts rn only seconds, no radiation/nausea/diaphoresis. Has outpt f/u and stress scheduled.. 02/16 16:32 Order name: CBC with Diff; Complete Time: 17:09 rn 02/16 16:32 Order name: Basic Metabolic Panel; Complete Time: 17:14 rn 02/16 16:32 Order name: Troponin (emerg Dept Use Only); Complete Time: 17:14 rn 02/16 16:32 Order name: EKG; Complete Time: 16:35 rn 02/16 16:32 Order name: XRAY Chest (1 view); Complete Time: 17:09 rn 02/16 16:32 Order name: IV Start; Complete Time: 16:51 rn 02/16 16:32 Order name: EKG - Nurse/Tech; Complete Time: 16:51 rn 02/16 18:21 Order name: EKG Electrocardiogram EDMS Administered Medications: 17:28 Drug: NS 0.9% 1000 ml Route: IV; Rate: 1000 ml; Site: right antecubital; 18:47 Follow up: Response: No adverse reaction; IV Status: Completed infusion; IV Intake: ph 1000ml Disposition: 02/16/19 17:54 Discharged to Home. Impression: Chest pain, unspecified. - Condition is Stable. - Discharge Instructions: Nonspecific Chest Pain. - Medication Reconciliation Form, Thank You Letter, Antibiotic Education, Prescription Opioid Use form. - Follow up: Ruben Butler MD; When: As needed; Reason: Recheck today's complaints, Re-evaluation by your physician. - Problem is new. - Symptoms have improved. Signatures: Dispatcher [employer] EDMS Karel Parmar MD MD rn Calderon, Audri RN RN aa5 Suzanna Ramsay RN RN ss Tanvi Chou RN RN ph Corrections: (The following items were deleted from the chart) 18:47 17:54 02/16/2019 17:54 Discharged to Home. Impression: Chest pain, unspecified. ph Condition is Stable. Forms are Medication Reconciliation Form, Thank You Letter, Antibiotic Education, Prescription Opioid Use. Follow up: Ruben Butler; When: As needed; Reason: Recheck today's complaints, Re-evaluation by your physician. Problem is new. Symptoms have improved. rn
[2019-02-16 21:26] VITALS: O2SAT 99
[2019-02-16 21:27] VITALS: BP 122/55; TEMP 97.8
--- NOTE | 2019-02-17 10:40 | EKG ---
Test Date: 2019-02-16 Test Time: 17:28:01 Professor Of Communication Arts: JOVANNY MEASUREMENT RESULTS: Intervals: Rate: 56 ID: [id number] QRSD: 74 QT: 448 QTc: 432 [place]: P: 37 ID: [id number] QRS: 74 T: 60 INTERPRETIVE STATEMENTS: Sinus bradycardia with short ID Nonspecific ST abnormality Abnormal ECG Compared to ECG 02/16/2019 15:11:57 ST (T wave) deviation now present Sinus rhythm no longer present Electronically Signed On 02-17-19 10:38:20 CDT by Saturnino Carson
--- NOTE | 2019-02-17 10:41 | EKG ---
Test Date: 2019-02-16 Test Time: 15:11:57 Learning Administrator: JOVANNY MEASUREMENT RESULTS: Intervals: Rate: 62 [place]: 102 QRSD: 78 QT: 430 QTc: 436 [place]: P: 41 KS: 102 QRS: 66 T: 56 INTERPRETIVE STATEMENTS: Sinus rhythm with short [place] Otherwise normal ECG Compared to ECG 02/03/2019 08:40:31 Short [place] interval now present ST (T wave) deviation no longer present Electronically Signed On 02-17-19 10:38:32 CDT by Saturnino Carson
== END 2019-02-16 18:47 | disposition home or self-care (01) ==
LOC: ER 14:59
DX: R07.9 Chest pain, unspecified (principal)
CPT/HCPCS: 36415; 71045; 80048; 84484; 85025; 93005; 96360; 99285; J7030

== ENCOUNTER 2019-03-04 03:12 | Emergency (ER) | payer OTHER ==
--- OUTSIDE RECORDS SUMMARY | 2019-03-04 03:15 | XMS REPORT ---
:1965 [facility] Address [address] [place] [address] Dr. Boothe [address] [place] [id number] Care Team Providers Name Role Phone Unavailable Unavailable Unavailable Problems This patient has no known problems. Allergies, Adverse Reactions, Alerts This patient has no known allergies or adverse reactions. Medications This patient has no known medications.
--- OUTSIDE RECORDS SUMMARY | 2019-03-04 03:15 | XMS REPORT | Clinical Summary ---
:1965 Author Organization [facility] Address [address] [place] [address] Care Team Providers Name Role Phone Sanchez [...] Not on file Results Not on fileafter 03/03/2018 Insurance Payer Benefit Plan / Group Subscriber ID Type Phone Address OTHER-COMMERCIAL GENERIC COMMERCIAL xxxxxxxxx Advance Directives For more information, please contact:[facility] [place], [place] [phone] Code Status Date Activated Date Inactivated Comments Full Code 07/05/2016 9:32 PM 07/14/2016 6:56 PM This code status was determined by: Patient
[2019-03-04] MEDS ORDERED: NA CHLORIDE 0.9% 1,000 ML ONE (03:48)
[2019-03-04 04:17] LABS: Basophils % 0.8 % (0-1.3); Hematocrit 36.9 % (36.0-45.0); Lymphocytes % 33.3 % (15.3-44.8); MPV 10.8 fL (7.6-11.3); RBC Red Blood Cell Count 4.28 M/uL (3.86-4.86)
[2019-03-04 05:17] LABS: ALT/SGPT 19 U/L (12-78); AST/SGOT 16 U/L (15-37); Albumin 3.3 g/dL (3.4-5.0); Alkaline Phosphatase 71 U/L (45-117); BUN Blood Urea Nitrogen 14 mg/dL (7-18); Bicarbonate 26 mmol/L (21-32); Bilirubin Direct < 0.1 mg/dL (0-0.2); Bilirubin Total 0.1 mg/dL (0.2-1.0); Glucose Level 113 mg/dL (74-106); Lipase 133 U/L (73-393); Potassium 3.8 mmol/L (3.5-5.1); Protein, Total 7.2 g/dL (6.4-8.2); Sodium Level 143 mmol/L (136-145)
[2019-03-04 07:18] LABS: Urine Blood NEGATIVE (NEG); Urine Glucose NEGATIVE (NEG); Urine Protein NEGATIVE (NEG); Urine Specific Gravity 1.015 (1.005-1.030)
--- NOTE | 2019-03-04 07:30 | ER ---
Nurse's Notes [facility] Name: Cristy Dixon Age: 53 yrs Sex: Female : 1965 Arrival Date: 03/04/2019 Time: 03:13 Bed 7 Private MD: Sanchez Ricketts Diagnosis: Abdominal tenderness;Ileus, unspecified;Constipation Presentation: 03/04 03:28 Presenting complaint: Patient states: "I've been constipated and no bowel movement cc3 since 3 days, tried laxatives but it didn't help". Transition of care: patient was not received from another setting of care. Onset of symptoms was March 01, 2019. Risk Assessment: Do you want to hurt yourself or someone else? Patient reports no desire to harm self or others. Initial Sepsis Screen: Does the patient meet any 2 criteria? No. Patient's initial sepsis screen is negative. Does the patient have a suspected source of infection? No. Patient's initial sepsis screen is negative. Care prior to arrival: None. 03:28 Method Of Arrival: Ambulatory cc3 03:28 Acuity: DACIA 3 cc3 Triage Assessment: 03:30 General: Appears in no apparent distress. uncomfortable, Behavior is calm, cooperative, cc3 appropriate for age. Pain: Denies pain. EENT: No signs and/or symptoms were reported regarding the EENT system. Neuro: Level of Consciousness is awake, alert, obeys commands, Oriented to person, place, time, situation, Appropriate for age. Cardiovascular: Denies chest pain, Capillary refill < 3 seconds Patient's skin is warm and dry. Respiratory: Airway is patent Respiratory effort is even, unlabored, Respiratory pattern is regular, symmetrical. GI: Abdomen is round obese. : No signs and/or symptoms were reported regarding the genitourinary system. Derm: Skin is intact, is healthy with good turgor, Skin is normal, black. Musculoskeletal: Circulation, motion, and sensation intact. Range of motion: intact in all extremities. 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 - Social history:: Smoking status: Patient/guardian denies using tobacco, never smoked. - Family history:: not pertinent. - Ebola Screening: : No symptoms or risks identified at this time. - Hospitalizations: : No recent hospitalization is reported. Screenin:30 Abuse screen: Denies threats or abuse. Denies injuries from another. Nutritional cc3 screening: No deficits noted. Tuberculosis screening: No symptoms or risk factors identified. Fall Risk Ambulatory Aid- None/Bed Rest/Nurse Assist (0 pts). Gait- Normal/Bed Rest/Wheelchair (0 pts) Mental Status- Oriented to own ability (0 pts). Assessment: 03:30 GI: Bowel sounds present X 4 quads. Abd is soft and non tender X 4 quads. cc3 04:06 Reassessment: Patient appears in no apparent distress at this time. Patient and/or cc3 family updated on plan of care and expected duration. Pain level reassessed. Patient is alert, oriented x 3, equal unlabored respirations, skin warm/dry/pink. 04:34 Reassessment: aviation survival technician Joanne came and was told by laboratory staff that lab cc3 works were hemolyzed and needs to be repeated but nobody called ER regarding hemolyzed samples. Called laboratory to do phlebotomy for repeat lab works and the lab courier said she'll page someone to come and do the phlebotomy for the patient. 04:50 Reassessment: staff cytotechnologist Kathya repeated lab works for the patient and sent to laboratory. cc3 05:32 Reassessment: Patient appears in no apparent distress at this time. Patient and/or cc3 family updated on plan of care and expected duration. Pain level reassessed. Patient is alert, oriented x 3, equal unlabored respirations, skin warm/dry/pink. Patient taken to CT scan department by the marine services technician by wheelchair. 06:43 Reassessment: Patient appears in no apparent distress at this time. Patient and/or cc3 family updated on plan of care and expected duration. Pain level reassessed. Patient is alert, oriented x 3, equal unlabored respirations, skin warm/dry/pink. Patient denies pain at this time. Vital Signs: 03:27 BP 144 / 87; Pulse 94; Resp 18 S; Temp 98.2(O); Pulse Ox 100% on R/A; Weight 62 kg (R); cc3 Height 4 ft. 9 in. (144.78 cm) (R); 04:06 BP 138 / 81; Pulse 85; Resp 17 S; Pulse Ox 99% on R/A; cc3 06:47 BP 129 / 77; Pulse 66; Resp 16 S; Pulse Ox 99% on R/A; cc3 07:21 BP 138 / 80; Pulse 66; Resp 16 S; Pulse Ox 100% ; sg 03:27 Body Mass Index 29.58 (62.00 kg, 144.78 cm) cc3 ED Course: 03:13 Patient arrived in ED. am2 03:14 Sanchez Ricketts MD is Private Physician. am2 03:19 Karel Parmar MD is Attending Physician. rn 03:27 Liza Ewing is Primary Nurse. cc3 03:30 Patient has correct armband on for positive identification. Placed in gown. Bed in low cc3 position. Call light in reach. Side rails up X 1. Pulse ox on. NIBP on. 03:30 Arm band placed on right wrist. Patient notified of wait time. cc3 03:31 Triage completed. cc3 03:55 Inserted saline lock: 20 gauge in left antecubital area, using aseptic technique. Blood jb5 collected. 03:58 Initial lab(s) drawn, by me, sent to lab. Missed attempt(s): 20 gauge in right ak1 antecubital area. Bleeding controlled, band aid applied, catheter tip intact. 04:17 Radiology exam delayed due to lab results not completed at this time. (BUN/Creatinine). kw1 05:01 Radiology exam delayed due to lab results not completed at this time. (BUN/Creatinine). kw1 06:06 Attending Physician role handed off by Karel Parmar MD [place] 06:06 Stu Bynum MD is Attending Physician. [place] 06:06 CT Abd/Pelvis - IV Contrast Only In Process Unspecified. EDMS 06:54 Primary Nurse role handed off by Liza Ewing sg 06:54 Kevin Pereyra, ZACARIAS is Primary Nurse. sg 07:00 Report given to ZACARIAS Brown. cc3 07:28 Sanchez Ricketts MD is Referral Physician. [place] 07:28 Johnathan King MD is Referral Physician. [place] 07:30 No provider procedures requiring assistance completed. IV discontinued, intact, sg bleeding controlled, No redness/swelling at site. Pressure dressing applied. Administered Medications: 04:00 Drug: NS 0.9% 500 ml Route: IV; Rate: bolus; Site: left antecubital; cc3 04:40 Follow up: Response: No adverse reaction; IV Status: Completed infusion; IV Intake: cc3 500ml Intake: 04:40 IV: 500ml; Total: 500ml. cc3 Outcome: 07:28 Discharge ordered by . charlotte 07:30 Discharged to home ambulatory. 07:30 Condition: good 07:30 Discharge instructions given to patient, family, Instructed on discharge instructions, follow up and referral plans. medication usage, safety practices, Demonstrated understanding of instructions, follow-up care, medications, Prescriptions given X 2. 07:38 Patient left the ED. Signatures: Dispatcher [employer] EDMS Kevin Pereyra RN RN Stu Hurtado MD MD cha Nieto, Roman, MD MD rn Smirch, Shelby, RN RN Shital Hope RN RN ak1 Brianna Nugent jb5 Carly Rausch am2 Yoana Jimenez kw1 Liza Ewing cc3 Corrections: (The following items were deleted from the chart) 04:06 03:30 GI: Abdomen is round distended, cc3 cc3
--- NOTE | 2019-03-04 07:40 | EDPHYS ---
Physician Documentation [facility] Name: Cristy Dixon Age: 53 yrs Sex: Female : 1965 Arrival Date: 03/04/2019 Time: 03:13 Bed 7 Private MD: Sanchez Ricketts ED Physician Stu Bynum HPI: 03/04 03:30 This 53 yrs old Black Female presents to ER via Unassigned with complaints of rn Constipation. 03:30 The patient presents with abdominal pain in the lower abdomen. Onset: The rn symptoms/episode began/occurred yesterday. The symptoms do not radiate. Associated signs and symptoms: Pertinent positives: constipation, nausea, Pertinent negatives: blood in stools, fever, vomiting. Modifying factors: The symptoms are alleviated by nothing, the symptoms are aggravated by nothing. Severity of pain: At its worst the pain was mild in the emergency department the pain is unchanged. The patient has experienced similar episodes in the past. Reports lower abd pain and constipation, does not feel as bad as previous bowel obstruction, + passing gas, + nausea but no vomiting, does not feel abd distension.. 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 - Social history:: Smoking status: Patient/guardian denies using tobacco, never smoked. - Family history:: not pertinent. - Ebola Screening: : No symptoms or risks identified at this time. - Hospitalizations: : No recent hospitalization is reported. ROS: 03:30 Constitutional: Negative for fever, chills, and weight loss, Eyes: Negative for injury, rn pain, redness, and discharge, Neck: Negative for injury, pain, and swelling, Cardiovascular: Negative for chest pain, palpitations, and edema, Respiratory: Negative for shortness of breath, cough, wheezing, and pleuritic chest pain, Abdomen/GI: + abd pain and constipation MS/Extremity: Negative for injury and deformity, Skin: Negative for injury, rash, and discoloration, Neuro: Negative for headache, weakness, numbness, tingling, and seizure. Exam: 03:30 Constitutional: This is a well developed, well nourished patient who is awake, alert, rn and in no acute distress. Head/Face: Normocephalic, atraumatic. Eyes: Pupils equal round and reactive to light, extra-ocular motions intact. Lids and lashes normal. Conjunctiva and sclera are non-icteric and not injected. Cornea within normal limits. Periorbital areas with no swelling, redness, or edema. ENT: MMM Respiratory: No increased work of breathing, no retractions or nasal flaring. Abdomen/GI: soft, non-tender, + bowel sounds, non-distended, no masses Skin: Warm, dry with normal turgor. Normal color with no rashes, no lesions, and no evidence of cellulitis. MS/ Extremity: Pulses equal, no cyanosis. Neurovascular intact. Full, normal range of motion. Equal circumference. Neuro: Awake and alert, GCS 15, oriented to person, place, time, and situation. Cranial nerves II-XII grossly intact. Motor strength 5/5 in all extremities. Sensory grossly intact. Cerebellar exam normal. Normal gait. Vital Signs: 03:27 BP 144 / 87; Pulse 94; Resp 18 S; Temp 98.2(O); Pulse Ox 100% on R/A; Weight 62 kg (R); cc3 Height 4 ft. 9 in. (144.78 cm) (R); 04:06 BP 138 / 81; Pulse 85; Resp 17 S; Pulse Ox 99% on R/A; cc3 06:47 BP 129 / 77; Pulse 66; Resp 16 S; Pulse Ox 99% on R/A; cc3 07:21 BP 138 / 80; Pulse 66; Resp 16 S; Pulse Ox 100% ; sg 03:27 Body Mass Index 29.58 (62.00 kg, 144.78 cm) cc3 MDM: 03:19 Patient medically screened. rn 07:20 Data reviewed: vital signs, nurses notes, lab test result(s), radiologic studies, CT [place] scan. 03/04 03:29 Order name: Creatinine for Radiology; Complete Time: 05:19 rn 03/04 03:29 Order name: Basic Metabolic Panel; Complete Time: 05:19 rn 03/04 03:29 Order name: CBC with Diff; Complete Time: 04:35 03/04 03:29 Order name: Hepatic Function; Complete Time: 05:19 03/04 03:29 Order name: Lipase; Complete Time: 05:19 rn 03/04 06:11 Order name: Urine Culture [facility] 03/04 03:29 Order name: IV Saline Lock; Complete Time: 03:58 rn 03/04 03:29 Order name: Labs collected and sent; Complete Time: 03:58 03/04 03:29 Order name: CT Abd/Pelvis - IV Contrast Only 03/04 06:11 Order name: Urine Dipstick-Ancillary (obtain specimen); Complete Time: 06:32 [facility] 03/04 06:30 Order name: Urine Dipstick--Ancillary (enter results) mw2 Administered Medications: 04:00 Drug: NS 0.9% 500 ml Route: IV; Rate: bolus; Site: left antecubital; cc3 04:40 Follow up: Response: No adverse reaction; IV Status: Completed infusion; IV Intake: cc3 500ml Disposition: 03/04/19 07:28 Discharged to Home. Impression: Abdominal tenderness, Ileus, unspecified, Constipation. - Condition is Stable. - Discharge Instructions: Abdominal Pain, Adult, Constipation, Adult, Nausea and Vomiting, Adult, Constipation, Adult, [id number], Ileus, Abdominal Pain, Adult, Cosa-yv-Famo. - Prescriptions for Bentyl 20 mg Oral Tablet - take 1 tablet by ORAL route every 6 hours As needed; 20 tablet. Pepcid 20 mg Oral Tablet - take 1 tablet by ORAL route every 12 hours for 10 days; 20 tablet. Zofran 4 mg Oral Tablet - take 1 tablet by ORAL route every 12 hours As needed; 20 tablet. Dulcolax 10 mg Rectal Suppository - insert 1 suppository by RECTAL route every 12 hours As needed; 10 suppository. - Medication Reconciliation Form, Thank You Letter, Antibiotic Education, Prescription Opioid Use form. - Work release form (03/04/19 07:45). ss - Follow up: Sanchez Ricketts; When: 2 - 3 days; Reason: Recheck today's complaints, Continuance of care, Re-evaluation by your physician. Follow up: Johnathan King; When: 2 - 3 days; Reason: Recheck today's complaints, Re-evaluation by your physician. - Problem is new. - Symptoms have improved. Signatures: Dispatcher [employer] EDStu Ramos MD MD cha Nieto, Roman, MD MD rn Smirch, Shelby, RN RN ss Cordel, Charlene cc3 Corrections: (The following items were deleted from the chart) 07:38 07:28 03/04/2019 07:28 Discharged to Home. Impression: Abdominal tenderness; Ileus, ss unspecified; Constipation. Condition is Stable. Discharge Instructions: Abdominal Pain, Adult, Constipation, Adult, Nausea and Vomiting, Adult, Constipation, Adult, Rrkh-ak-Shjb, Ileus, Abdominal Pain, Adult, Tzva-lq-Lzgy. Prescriptions for Bentyl 20 mg Oral Tablet - take 1 tablet by ORAL route every 6 hours As needed; 20 tablet, Pepcid 20 mg Oral Tablet - take 1 tablet by ORAL route every 12 hours for 10 days; 20 tablet, Zofran 4 mg Oral Tablet - take 1 tablet by ORAL route every 12 hours As needed; 20 tablet, Dulcolax 10 mg Rectal Suppository - insert 1 suppository by RECTAL route every 12 hours As needed; 10 suppository. and Forms are Medication Reconciliation Form, Thank You Letter, Antibiotic Education, Prescription Opioid Use. Follow up: Sanchez Ricketts; When: 2 - 3 days; Reason: Recheck today's complaints, Continuance of care, Re-evaluation by your physician. Follow up: Johnathan King; When: 2 - 3 days; Reason: Recheck today's complaints, Re-evaluation by your physician. Problem is new. Symptoms have improved. [place]
[2019-03-04 07:44] VITALS: TEMP 98.2
[2019-03-04 07:47] VITALS: BP 138/80; O2SAT 100
--- NOTE | 2019-03-04 10:26 | RAD REPORT ---
EXAM DESCRIPTION: CT - Abdomen Pelvis W Contrast - 03/04/2019 6:04 am CLINICAL HISTORY: Bowel obstruction. Abdominal pain. Constipation. COMPARISON: None. TECHNIQUE: Axial CT imaging of the abdomen and pelvis performed with intravenous contrast. Reformatt ed coronal and sagittal images reviewed. A dose reduction technique was utilized with automated exposure control according to patient size. FINDINGS: LOWER THORAX: Clear lung bases. Heart is normal in size. No pericardial fluid. ABDOMEN: LIVER/GALLBLADDER: Normal liver size and contour. Attenuation is normal. No biliary dilatation. Gall bladder is contracted. SPLEEN/PANCREAS: Normal spleen. Normal pancreas. KIDNEYS/ADRENAL GLANDS: Normal adrenal gland. Normal right and left kidney. No hydronephrosis. No pe rinephric edema. Normal bilateral renal enhancement. RETROPERITONEAL VESSELS/NODES: Normal caliber aorta and inferior vena cava. Mesenteric vessels appea r normal. No adenopathy. BOWEL: Normal stomach. There is a dilated fluid and debris-filled segment of bowel within the left l ower quadrant with anastomotic sutures. Normal appendix in the right lower quadrant. Unremarkable col on. MESENTERY/PERITONEUM: There several ventral midline abdominal wall hernias. AP tiny superior hernias containing fat only. There are several ventral midline abdominal wall hernias containing small bowel within the umbilical and infraumbilical region. No proximal obstruction. No evidence of incarceratio n. PELVIS: BLADDER/GENITAL ORGANS: Normal bladder. Uterus is surgically absent. Normal ovaries. PERITONEUM: No pelvic free fluid or adenopathy. BONES AND SOFT TISSUES: Normal lumbar lordotic alignment. No subluxation. Intact bony pelvis. Normal hips. Normal soft tissues. IMPRESSION: 1. Numerous ventral midline abdominal wall hernias containing small bowel loops without proximal obstruction or incarceration. 2. Focally dilated small bowel segments within the left abdomen in the region of the anastomotic sutu res just above localized ileus. Electronically signed by: Colleen Gomez DO 03/04/2019 6:53 AM CDT Due to temporary technical issues with the PACS/Fluency reporting system, reports are being signed by the in house radiologist as a courtesy to ensure prompt reporting. The interpreting radiologist is f ully responsible for the content of the report. ADDENDUM: A second opinion was requested by Dr. Bynum. The images from this examination were revi ewed and compared with June 2016 imaging. No small bowel obstruction is present. The focal bowel dilatation at a left mid abdomen anastomotic site is considered normal postoperative change and not a n acute obstructive process. The patient has complex multifocal ventral hernias which contain loops o f bowel. No wall thickening, edema or bowel dilatation. No obstructive process is felt to be present. No free fluid, free air or other emergent finding.
== END 2019-03-04 07:38 | disposition home or self-care (01) ==
LOC: ER 03:12
DX: K56.7 Ileus, unspecified (principal); K59.00 Constipation, unspecified; I10 Essential (primary) hypertension; Z88.8 Allergy status to other drugs, medicaments and biological substances
CPT/HCPCS: 87088; 85025; 87086; 80048; 36415; 80076; 81003; 83690; 74177; Q9967; J7030; 96360; 99284

== ENCOUNTER 2019-07-23 00:31 | Observation (INO) | payer OTHER ==
--- OUTSIDE RECORDS SUMMARY | 2019-07-23 00:33 | XMS REPORT ---
:1965 [facility] Address [address] [place] [address] Dr. Boothe [address] [place] [id number] Care Team Providers Name Role Phone Unavailable Unavailable Unavailable Problems This patient has no known problems. Allergies, Adverse Reactions, Alerts This patient has no known allergies or adverse reactions. Medications This patient has no known medications.
[2019-07-23] MEDS ORDERED: NA CHLORIDE 0.9% 1,000 ML ONE (01:45)
[2019-07-23 01:50] LABS: Basophils % 0.6 % (0-1.3); Hematocrit 37.6 % (36.0-45.0); Lymphocytes % 31.8 % (15.3-44.8); MPV 9.1 fL (7.6-11.3); RBC Red Blood Cell Count 4.42 M/uL (3.86-4.86)
[2019-07-23 01:51] LABS: Protime INR 0.9
[2019-07-23 02:26] LABS: ALT/SGPT 29 U/L (12-78); AST/SGOT 23 U/L (15-37); Alkaline Phosphatase 92 U/L (45-117); BUN Blood Urea Nitrogen 20 mg/dL (7-18); Bicarbonate 25 mmol/L (21-32); Bilirubin Direct 0.1 mg/dL (0-0.2); Bilirubin Total 0.2 mg/dL (0.2-1.0); Glucose Level 127 mg/dL (74-106); Magnesium 2.1 mg/dL (1.8-2.4); NT PRO-BNP 22 pg/mL (<125); Potassium 3.5 mmol/L (3.5-5.1); Protein, Total 8.5 g/dL (6.4-8.2); Sodium Level 141 mmol/L (136-145); Troponin (Emerg Dept Use Only) < 0.02 ng/mL (0.0-0.045)
[2019-07-23 02:42] LABS: Urine Blood NEGATIVE (NEG); Urine Glucose NEGATIVE (NEG); Urine Protein NEGATIVE (NEG)
--- NOTE | 2019-07-23 02:54 | ER ---
Nurse's Notes [facility] Name: Cristy Dixon Age: 54 yrs Sex: Female : 1965 Arrival Date: 07/23/2019 Time: 00:31 Bed 7 Private MD: Diagnosis: Palpitations;Dyspnea;Tachycardia, unspecified Presentation: 07/23 01:01 Presenting complaint: Patient states: I have had a cough for 3 days and then tonight I tl1 started having a racing pulse and feeling dizzy. Transition of care: patient was not received from another setting of care. Onset of symptoms was July 23, 2019. Risk Assessment: Do you want to hurt yourself or someone else? Patient reports no desire to harm self or others. Initial Sepsis Screen: Does the patient meet any 2 criteria? No. Patient's initial sepsis screen is negative. Does the patient have a suspected source of infection? No. Patient's initial sepsis screen is negative. Care prior to arrival: Medication(s) given: ASA, x 1. 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 - Social history:: Smoking status: Patient/guardian denies using tobacco, never smoked, Patient uses alcohol, on a daily basis. - Ebola Screening: : Patient negative for fever greater than or equal to 101.5 degrees Fahrenheit, and additional compatible Ebola Virus Disease symptoms Patient denies exposure to infectious person Patient denies travel to an Ebola-affected area in the 21 days before illness onset. - Family history:: not pertinent. Screenin:00 Abuse screen: Denies threats or abuse. Nutritional screening: No deficits noted. jb4 Tuberculosis screening: No symptoms or risk factors identified. Fall Risk None identified. Assessment: 02:00 General: Appears in no apparent distress. comfortable, Behavior is calm, cooperative, jb4 appropriate for age. Pain: Denies pain. Neuro: Level of Consciousness is awake, alert, obeys commands, Oriented to person, place, time, situation. Cardiovascular: Patient's skin is warm and dry. Rhythm is sinus tachycardia. Respiratory: Airway is patent Respiratory effort is even, unlabored, Respiratory pattern is regular, symmetrical. GI: No signs and/or symptoms were reported involving the gastrointestinal system. : No signs and/or symptoms were reported regarding the genitourinary system. EENT: No signs and/or symptoms were reported regarding the EENT system. Derm: Skin is intact, Skin is dry, Skin is normal, Skin temperature is warm. Musculoskeletal: Circulation, motion, and sensation intact. Range of motion: intact in all extremities. 03:00 Reassessment: Patient appears in no apparent distress at this time. Patient and/or jb4 family updated on plan of care and expected duration. Pain level reassessed. Patient is alert, oriented x 3, equal unlabored respirations, skin warm/dry/pink. 04:00 Reassessment: Patient appears in no apparent distress at this time. Patient and/or jb4 family updated on plan of care and expected duration. Pain level reassessed. Patient is alert, oriented x 3, equal unlabored respirations, skin warm/dry/pink. Vital Signs: 01:02 BP 157 / 92; Pulse 134; Resp 17; Temp 98; Pulse Ox 100% ; Weight 65.77 kg; Height 4 ft. tl1 9 in. (144.78 cm); Pain 0/10; 01:54 BP 137 / 85; Pulse 118; Resp 20; Pulse Ox 99% on R/A; Pain 0/10; aa1 03:00 BP 152 / 91; Pulse 117; Resp 16; Pulse Ox 99% on R/A; jb4 04:00 BP 155 / 97; Pulse 99; Resp 16; Pulse Ox 100% on R/A; jb4 01:02 Body Mass Index 31.38 (65.77 kg, 144.78 cm) tl1 ED Course: 00:31 Patient arrived in ED. ds1 01:02 Triage completed. tl1 01:04 Arm band placed on right wrist. tl1 01:05 Stu Bynum MD is Attending Physician. [place] 01:12 Bethany Rojo, ZACARIAS is Primary Nurse. aa1 01:29 XRAY Chest (1 view) In Process Unspecified. EDMS 02:00 Patient has correct armband on for positive identification. Placed in gown. Bed in low jb4 position. Call light in reach. Side rails up X 1. nurse monitoring on. Pulse ox on. NIBP on. 02:00 Patient maintains SpO2 saturation greater than 95% on room air. jb4 02:50 Constantine Alcocer MD is Hospitalizing Provider. [place] 04:13 No provider procedures requiring assistance completed. Patient admitted, IV remains in jb4 place. Administered Medications: 01:53 Drug: NS 0.9% 1000 ml Route: IV; Rate: 125 ml/hr; Site: left antecubital; aa1 04:14 Follow up: Response: No adverse reaction; IV Status: Infusion continued upon admission jb4 03:33 Drug: Lopressor (metoprolol TARTRATE) 50 mg Route: PO; jb4 04:15 Follow up: Response: No adverse reaction; No adverse reaction, Heart rate decreased jb4 03:34 Drug: Lovenox 1 mg/kg Route: Sub-Q; Site: right lower abdomen; jb4 04:15 Follow up: Response: No adverse reaction jb4 Outcome: 02:52 Decision to Hospitalize by Provider. [place] 04:13 Admitted to Tele accompanied by tech, via wheelchair, room 209, with chart, Report jb4 called to ZACARIAS Narvaez 04:13 Condition: stable 04:13 Discharge instructions given to patient, family, Instructed on the need for admit, Demonstrated understanding of instructions. 04:32 Patient left the ED. jb4 Signatures: Dispatcher [employer] Bethany Doran, RN RN aa1 Stu Bynum MD MD cha Sanford, Demi ds1 Tara Edward RN RN tl1 Bryan Solorzano RN RN jb4
--- NOTE | 2019-07-23 02:56 | EDPHYS ---
Physician Documentation [facility] Name: Cristy Dixon Age: 54 yrs Sex: Female : 1965 Arrival Date: 07/23/2019 Time: 00:31 Bed 7 Private MD: URBANO Physician Stu Bynum HPI: 07/23 02:47 This 54 yrs old Black Female presents to ER via Ambulatory with complaints of Irregular charlotte Pulse, Dizziness, Shortness Of Breath. 02:47 This 54 yrs old Black Female presents to ER via Ambulatory with complaints of Irregular charlotte Pulse, Dizziness, Shortness Of Breath. 02:47 The patient presents with dizziness, generalized weakness. charlotte 02:48 The patient has shortness of breath with light activity. Onset: The symptoms/episode charlotte began/occurred just prior to arrival. Duration: The symptoms are continuous, and are steadily getting worse. The patient's shortness of breath has no apparent modifying factors, is aggravated by coughing, is alleviated by elevating head. The patient presents with a history of irregular heart beat, heart racing. Context: The symptoms occur at rest. Modifying factors: The symptoms are aggravated by nothing. The symptoms are alleviated by nothing. 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 - Social history:: Smoking status: Patient/guardian denies using tobacco, never smoked, Patient uses alcohol, on a daily basis. - Ebola Screening: : Patient negative for fever greater than or equal to 101.5 degrees Fahrenheit, and additional compatible Ebola Virus Disease symptoms Patient denies exposure to infectious person Patient denies travel to an Ebola-affected area in the 21 days before illness onset. - Family history:: not pertinent. ROS: 02:48 Constitutional: Negative for fever, chills, and weight loss, Eyes: Negative for injury, charlotte pain, redness, and discharge, ENT: Negative for injury, pain, and discharge, Neck: Negative for injury, pain, and swelling, Abdomen/GI: Negative for abdominal pain, nausea, vomiting, diarrhea, and constipation, Back: Negative for injury and pain, : Negative for injury, bleeding, discharge, and swelling, MS/Extremity: Negative for injury and deformity, Skin: Negative for injury, rash, and discoloration, Neuro: Negative for headache, weakness, numbness, tingling, and seizure, Psych: Negative for depression, anxiety, suicide ideation, homicidal ideation, and hallucinations, Allergy/Immunology: Negative for hives, rash, and allergies, Endocrine: Negative for neck swelling, polydipsia, polyuria, polyphagia, and marked weight changes, Hematologic/Lymphatic: Negative for swollen nodes, abnormal bleeding, and unusual bruising. 02:48 Cardiovascular: Positive for palpitations. 02:48 Respiratory: Positive for cough, shortness of breath, at rest. Exam: 02:48 Constitutional: This is a well developed, well nourished patient who is awake, alert, charlotte and in no acute distress. Head/Face: Normocephalic, atraumatic. Eyes: Pupils equal round and reactive to light, extra-ocular motions intact. Lids and lashes normal. Conjunctiva and sclera are non-icteric and not injected. Cornea within normal limits. Periorbital areas with no swelling, redness, or edema. ENT: Nares patent. No nasal discharge, no septal abnormalities noted. Tympanic membranes are normal and external auditory canals are clear. Oropharynx with no redness, swelling, or masses, exudates, or evidence of obstruction, uvula midline. Mucous membranes moist. Neck: Trachea midline, no thyromegaly or masses palpated, and no cervical lymphadenopathy. Supple, full range of motion without nuchal rigidity, or vertebral point tenderness. No Meningismus. Chest/axilla: Normal chest wall appearance and motion. Nontender with no deformity. No lesions are appreciated. Respiratory: Lungs have equal breath sounds bilaterally, clear to auscultation and percussion. No rales, rhonchi or wheezes noted. No increased work of breathing, no retractions or nasal flaring. Abdomen/GI: Soft, non-tender, with normal bowel sounds. No distension or tympany. No guarding or rebound. No evidence of tenderness throughout. Back: No spinal tenderness. No costovertebral tenderness. Full range of motion. Female : Normal external genitalia. Skin: Warm, dry with normal turgor. Normal color with no rashes, no lesions, and no evidence of cellulitis. MS/ Extremity: Pulses equal, no cyanosis. Neurovascular intact. Full, normal range of motion. Neuro: Awake and alert, GCS 15, oriented to person, place, time, and situation. Cranial nerves II-XII grossly intact. Motor strength 5/5 in all extremities. Sensory grossly intact. Cerebellar exam normal. Normal gait. Psych: Awake, alert, with orientation to person, place and time. Behavior, mood, and affect are within normal limits. 02:48 Cardiovascular: Rate: tachycardic, Rhythm: regular, Pulses: Pulses are 4+ in bilateral radial, brachial, femoral, popliteal, posterior tibial and and dorsalis pedis arteries.. Heart sounds: normal, Edema: is not appreciated, JVD: is not appreciated. 02:50 Musculoskeletal/extremity: DVT Exam: No signs of deep vein thrombosis. no pain, no charlotte swelling, no tenderness, negative Homans' sign noted on exam, no appreciated bluish discoloration, no erythema, no increased warmth. Vital Signs: 01:02 BP 157 / 92; Pulse 134; Resp 17; Temp 98; Pulse Ox 100% ; Weight 65.77 kg; Height 4 ft. tl1 9 in. (144.78 cm); Pain 0/10; 01:54 BP 137 / 85; Pulse 118; Resp 20; Pulse Ox 99% on R/A; Pain 0/10; aa1 03:00 BP 152 / 91; Pulse 117; Resp 16; Pulse Ox 99% on R/A; jb4 04:00 BP 155 / 97; Pulse 99; Resp 16; Pulse Ox 100% on R/A; jb4 01:02 Body Mass Index 31.38 (65.77 kg, 144.78 cm) tl1 MDM: 01:05 Patient medically screened. [facility] 02:49 Data reviewed: vital signs, nurses notes, lab test result(s), EKG, radiologic studies, [facility] plain films. 07/23 01:07 Order name: Basic Metabolic Panel; Complete Time: 02:44 [facility] 07/23 01:07 Order name: CBC with Diff; Complete Time: 02:44 [facility] 07/23 01:07 Order name: LFT's; Complete Time: 02:44 [facility] 07/23 01:07 Order name: Magnesium; Complete Time: 02:44 [facility] 07/23 01:07 Order name: NT PRO-BNP; Complete Time: 02:44 [facility] 07/23 01:07 Order name: PT-INR; Complete Time: 03:54 [facility] 07/23 01:07 Order name: Troponin (emerg Dept Use Only); Complete Time: 02:44 [facility] 07/23 01:07 Order name: TSH; Complete Time: 02:44 [facility] 07/23 02:35 Order name: Urine Dipstick--Ancillary (enter results); Complete Time: 02:44 [facility] 07/23 03:07 Order name: D-Dimer; Complete Time: 03:54 [facility] 07/23 03:39 Order name: CBC with Automated Diff [facility] 07/23 03:39 Order name: CBC with Automated Diff [facility] 07/23 03:39 Order name: CKMB Creatine Kinase MB [facility] 07/23 03:39 Order name: CKMB Creatine Kinase MB [facility] 07/23 03:39 Order name: CKMB Creatine Kinase MB [facility] 07/23 03:39 Order name: CKMB Creatine Kinase MB [facility] 07/23 03:39 Order name: Comprehensive Metabolic Panel [facility] 07/23 03:39 Order name: Comprehensive Metabolic Panel [facility] 07/23 03:39 Order name: Lipid Profile [facility] 07/23 03:39 Order name: Lipid Profile [facility] 07/23 03:39 Order name: Magnesium [facility] 07/23 03:39 Order name: Magnesium [facility] 07/23 03:39 Order name: Phosphorus [facility] 07/23 03:39 Order name: Phosphorus [facility] 07/23 03:39 Order name: Troponin I [facility] 07/23 03:39 Order name: Troponin I [facility] 07/23 03:39 Order name: Troponin I [facility] 07/23 03:39 Order name: Troponin I [facility] 07/23 03:44 Order name: Group A Streptococcus Rapid Sc [facility] 07/23 01:07 Order name: XRAY Chest (1 view) [facility] 07/23 01:07 Order name: EKG; Complete Time: 01:09 [facility] 07/23 01:07 Order name: Cardiac monitoring; Complete Time: 01:13 [facility] 07/23 01:07 Order name: EKG - Nurse/Tech; Complete Time: 01:13 [facility] 07/23 01:07 Order name: IV Saline Lock; Complete Time: 01:54 [facility] 07/23 01:07 Order name: Labs collected and sent; Complete Time: 01:54 [facility] 07/23 01:07 Order name: O2 Per Protocol; Complete Time: 01:13 [facility] 07/23 01:07 Order name: O2 Sat Monitoring; Complete Time: 01:13 [facility] 07/23 01:07 Order name: Urine Dipstick-Ancillary (obtain specimen); Complete Time: 01:54 [facility] 07/23 03:39 Order name: CONS Physician Consult [facility] 07/23 03:39 Order name: Heart Healthy [facility] 07/23 03:44 Order name: Echo with Doppler [facility] 07/23 03:45 Order name: Extrem Venous W Compress Andres EDMS Administered Medications: 01:53 Drug: NS 0.9% 1000 ml Route: IV; Rate: 125 ml/hr; Site: left antecubital; aa1 04:14 Follow up: Response: No adverse reaction; IV Status: Infusion continued upon admission jb4 03:33 Drug: Lopressor (metoprolol TARTRATE) 50 mg Route: PO; jb4 04:15 Follow up: Response: No adverse reaction; No adverse reaction, Heart rate decreased jb4 03:34 Drug: Lovenox 1 mg/kg Route: Sub-Q; Site: right lower abdomen; jb4 04:15 Follow up: Response: No adverse reaction jb4 Disposition: 07/23/19 02:52 Hospitalization ordered by Constantine Alcocer for Inpatient Admission. Preliminary diagnosis are Palpitations, Dyspnea, Tachycardia, unspecified. - Bed requested for Telemetry/MedSurg (Inpatient). - Status is Inpatient Admission. jb4 - Condition is Fair. - Problem is new. - Symptoms have improved. UTI on Admission? No Signatures: Dispatcher [employer] [facility] Bethany Rojo RN RN aa1 Stu Bynum MD MD cha Lasagna, Tonya RN RN tl1 Bryan Solorzano, ZACARIAS RN jb4 Corrections: (The following items were deleted from the chart) 03:06 02:46 D-DIMER+COAG.LAB.BRZ ordered. [facility] 03:49 02:52 Hospitalization Ordered by Constantine Alcocer MD for Inpatient Admission. Preliminary tl1 diagnosis is Palpitations; Dyspnea; Tachycardia, unspecified. Bed requested for Telemetry/MedSurg (Inpatient). Status is Inpatient Admission. Condition is Fair. Problem is new. Symptoms have improved. UTI on Admission? No. [facility] 04:32 03:49 07/23/2019 02:52 Hospitalization Ordered by Constantine Alcocer MD for Inpatient jb4 Admission. Preliminary diagnosis is Palpitations; Dyspnea; Tachycardia, unspecified. Bed requested for Telemetry/MedSurg (Inpatient). Status is Inpatient Admission. Condition is Fair. Problem is new. Symptoms have improved. UTI on Admission? No. tl1
[2019-07-23] MEDS ORDERED: METOPROLOL TAR 50 MG TAB ONE (03:20)
[2019-07-23] MEDS ORDERED: ENOXAPARIN 60 MG/0.6 ML SQ ONE (03:20)
[2019-07-23] MEDS ORDERED: ONDANSETRON 4 MG/2 ML VIAL IV PRN (03:34)
[2019-07-23] MEDS ORDERED: ACETAMINOPHEN 500 MG TAB PO PRN (03:34)
--- NOTE | 2019-07-23 03:38 | P.HP ---
Certification for Inpatient Patient admitted to: Observation With expected LOS: <2 Midnights Patient will require the following post-hospital care: None Practitioner: I am a practitioner with admitting privileges, knowledge of patient current condition, hospital course, and medical plan of care. Services: Services provided to patient in accordance with Admission requirements found in Title 42 Section 412.3 of the Code of Federal Regulations Patient History Date of Service: 07/23/19 Reason for admission: SOB/palpitation History of Present Illness: 54-year-old AAF with past medical history of hypertension, history of abdominal hernia presented to the ER with shortness of breath and palpitation which started today. Patient denies any chest pain. Her symptoms started all of a sudden. denies any fever or chills. no sick contacts. Symptoms worsens with excertion . No previous history of CAD. No recent travel. Denies any abdominal pain or dysuria. Patient had a recent change in antihypertensives. She was taking Procardia and losartan previously, losartan was stopped. yet to see her primary doctor for the change of medication. Patient was assessed in the ER and was found to have tachycardia with a heart rate of more than 120 hence the patient is admitted for further monitoring and management of tachycardia and exertional dyspnea. Allergies No Known Allergies Allergy (Unverified 08/14/18 21:24) Home medications list reviewed: Yes Home Medications: Gabapentin [Neurontin*] 300 mg PO BID 08/14/18 - Past Medical/Surgical History Diabetic: No Past Medical History: Reviewed- Non-Contributory -: HTN -: Bowel Obstruction -: Chronic kidney disease Past Surgical History: Reviewed- Non-Contributory -: Hysterectomy - Family History Family History: Reviewed- Non-Contributory - Family History Father -: Diabetes Mother -: Diabetes - Social History Smoking Status: Former smoker Alcohol use: Yes CD- Drugs: No Caffeine use: No Review of Systems 10-point ROS is otherwise unremarkable General: Weakness Respiratory: Cough, Shortness of Breath Cardiovascular: Palpitations, Edema Gastrointestinal: Unremarkable Musculoskeletal: Pedal edema Physical Examination - Vital Signs Temperature: 98.1 F Blood Pressure: 158/96 Pulse: 128 Respirations: 18 Pulse Ox (%): 98 - Physical Exam General: Alert, Oriented x3, Mild distress, Obese HEENT: Atraumatic, Normocephalic Neck: Supple, 2+ carotid pulse no bruit Respiratory: Clear to auscultation bilaterally, Normal air movement Cardiovascular: Normal S1 S2, Other (Tachycardia) Capillary refill: <2 Seconds Gastrointestinal: Soft and benign, W/out hepatosplenomegaly, No tenderness Musculoskeletal: No clubbing, Swelling Integumentary: No rashes, No breakdown Neurological: Normal speech, Normal strength at 5/5 x4 extr Lymphatics: No axilla or inguinal lymphadenopathy Urinary: Other (No bladder distention) External genitalia: Deferred Rectal: Deferred - Studies Laboratory Data (last 24 hrs) 07/23/19 01:34: PT 10.7, INR 0.90 07/23/19 01:34: WBC 9.3, Hgb 12.6, Hct 37.6, Plt Count 256 07/23/19 01:34: Sodium 141, Potassium 3.5, BUN 20 H, Creatinine 1.00, Glucose 127 H, Magnesium 2.1, Total Bilirubin 0.2, AST 23, ALT 29, Alkaline Phosphatase 92 Assessment and Plan - Problems (Diagnosis) (1) Exertional dyspnea Current Visit: Yes Status: Acute (2) Sinus tachycardia Current Visit: Yes Status: Acute (3) Palpitation Current Visit: Yes Status: Acute (4) HTN (hypertension) Current Visit: No Status: Chronic Qualifiers: Hypertension type: essential hypertension Qualified Code(s): I10 - Essential (primary) hypertension (5) Ventral hernia Onset Date: 08/15/18 Current Visit: No Status: Chronic - Plan Exertional dyspnea Sinus tachycardia Dehydration Accelerated Hypertension History of ventral hernia Plan monitor closely under telemetry Will get an echocardiogram, BNP, CT of the chest DDimer is not elevated start on IV fluids Antihypertensives titrated Will get a TSH level and lipid panel Will trend cardiac enzymes Cardiology consult GI/DVT prophylaxis - Advance Directives Does patient have a Living Will: No Does patient have a Durable POA for Healthcare: No Time Spent Managing Pts Care (In Minutes): 42
[2019-07-23] MEDS ORDERED: METOPROLOL TAR 25 MG TAB PO SCH (03:41)
[2019-07-23] MEDS: NA CHLORIDE 0.9% 1,000 ML IV SCH ×2 (04:00→14:43)
[2019-07-23 04:31] VITALS: BMI 33.1
[2019-07-23 07:20] LABS: CKMB Creatine Kinase MB 1.5 ng/mL (0.3-3.6); Potassium 4.1 mmol/L (3.5-5.1); Troponin I < 0.02 ng/mL (0.0-0.045)
[2019-07-23] MEDS: IPRATROPIUM BROM 0.5MG/2.5ML NEB SCH ×3 (08:00→19:40)
--- NOTE | 2019-07-23 08:19 | RAD REPORT ---
EXAM DESCRIPTION: RAD - Chest Single View - 07/23/2019 1:28 am CLINICAL HISTORY: COUGH Chest pain. COMPARISON: Chest Single View dated 02/16/2019; Chest Single View dated 02/03/2019; Chest Single View d ated 01/13/2019; Chest Pa And Lat (2 Views) dated 09/16/2018 FINDINGS: Portable technique limits examination quality. Mild interstitial prominence is seen which could indicate mild interstitial pneumonia or interstitial pneumonitis. The heart is upper limit of normal in size. No displaced fractures.
--- NOTE | 2019-07-23 10:20 | RAD REPORT ---
EXAM DESCRIPTION: Thorax W/ Con CLINICAL HISTORY: Palpitation COMPARISON: 01/17/2015. TECHNIQUE: CT CHEST WITH IV CONTRAST on 07/23/2019 4:30 AM DIRECTOR PROPERTY. MIPS reconstructions were generated. This exam was performed according to our departmental dose-optimization program, which includes autom ated exposure control, adjustment of the mA and/or kV according to patient size and/or use of iterati ve reconstruction technique. MIP images were generated. FINDINGS: Thoracic aorta is normal in course and caliber without aneurysm or dissection. Pulmonary a rteries are adequately opacified without acute or chronic filling defects. The heart is normal in size. There is no pericardial effusion. Intrathoracic lymph nodes are not enla rged. There is no pleural effusion, pleural thickening or pneumothorax. Central airways are patent. Lungs a re clear with no consolidation, mass or interstitial lung disease. There are no acute abnormalities within the limited images of the upper abdomen. There are no acute osseous findings. No suspicious bony lesions. IMPRESSION: Clear lungs. Electronically signed by: Nilton Navarrete MD 07/23/2019 5:33 AM DIRECTOR PROPERTY Due to temporary technical issues with the PACS/Fluency reporting system, reports are being signed by the in house radiologist as a courtesy to ensure prompt reporting. The interpreting radiologist is f ully responsible for the content of the report.
[2019-07-23] MEDS ORDERED: GABAPENTIN 300 MG CAP PO PRN (11:49)
--- NOTE | 2019-07-23 11:58 | EKG ---
Test Date: 2019-07-23 Test Time: 01:08:43 [employer] Advisor: LORI MEASUREMENT RESULTS: Intervals: Rate: 123 UT: 128 QRSD: 76 QT: 336 QTc: 481 Shelby: P: 53 UT: 128 QRS: 56 T: 30 INTERPRETIVE STATEMENTS: Sinus tachycardia Otherwise normal ECG Compared to ECG 02/16/2019 17:28:01 Sinus bradycardia no longer present Short UT interval no longer present ST (T wave) deviation no longer present Electronically Signed On 07-23-19 11:57:00 GEOPHYSICAL OBSERVER by Saturnino Carson
--- NOTE | 2019-07-23 12:28 | RAD REPORT ---
EXAM DESCRIPTION: US - Extrem Venous W Compress Andres - 07/23/2019 12:22 pm CLINICAL HISTORY: to r/o DVT Bilateral leg edema and swelling. COMPARISON: Extremity Venous Uni Ltd dated 12/21/2017 TECHNIQUE: Real-time sonographic interrogation of the left and right lower extremity deep venous sys tems was performed. FINDINGS: Normal compressibility, flow augmentation, phasic flow and spontaneous flow is identified in both the left and right lower extremity deep venous systems. IMPRESSION: No sonographic evidence of left or right lower extremity deep venous thrombosis.
--- NOTE | 2019-07-23 13:25 | ECHO ---
HEIGHT: 4 ft 9 in WEIGHT: 153 lb 3.2 oz DATE OF STUDY: 07/23/[address]: Sukumar Alcocer DO 2-DIMENSIONAL: YES M.MODE: YES DOPPLER: YES COLOR FLOW: YES TDS: NO PORTABLE: NO DEFINITY: NO BUBBLE STUDY: NO DIAGNOSIS: SHORTNESS OF BREATH CARDIAC HISTORY: CATHERIZATION: NO SURGERY: NO PROSTHETIC VALVE: NO PACEMAKER: NO MEASUREMENTS (cm) DIASTOLIC (NORMALS) SYSTOLIC (NORMALS) IVSd 1.1 (0.6-1.2) LA Diam 2.4 (1.9-4.0) LVEF 60% LVIDd 3.2 (3.5-5.7) LVIDs 2.2 (2.0-3.5) %FS 31% LVPWd 1.2 (0.6-1.2) Ao Diam 2.5 (2.0-3.7) 2 DIMENSIONAL ASSESSMENT: RIGHT ATRIUM: NORMAL LEFT ATRIUM: NORMAL RIGHT VENTRICLE: NORMAL LEFT VENTRICLE: NORMAL TRICUSPID VALVE: NORMAL MITRAL VALVE: NORMAL PULMONIC VALVE: NORMAL AORTIC VALVE: NORMAL PERICARDIAL EFFUSION: NONE AORTIC ROOT: NORMAL LEFT VENTRICULAR WALL MOTION: NORMAL DOPPLER/COLOR FLOW: NORMAL COMMENTS: NORMAL 2D ECHOCARDIOGRAM WITH DOPPLER. NO WALL MOTION ABNORMALITY. NO EFFUSION. TECHNOLOGIST: Heidi CARDOZA
--- NOTE | 2019-07-23 14:22 | CON ---
Date of Consultation: 07/23/[address] Maloney service on 07/23/2019. I saw the patient on 07/23/2019. Reason For Consultation: Palpitations and hypertension. History Of Present Illness: Ms. Dixon is a 54-year-old black woman. She has seen Dr. Butler in e past and had a negative stress test, not long ago. She is a patient of Dr. Ricketts. Apparently, sh e quit taking her losartan. Because of recall, she continue to take her nifedipine and Neurontin and apparently came in with hypertension, palpitations and dizziness and some shortness of breath. She does have some what appears to be asthma type attack. She has been treated with nebulizer inhaler an d she is feeling better from that aspect. Her palpitations have resolved. Her blood pressure is imp roved after she receive some metoprolol. In the past, she has had an issues with severe bradycardia on atenolol and that was switched at that time to Procardia. She denied any chest pain. Denied any syncope. Denied any PND, orthopnea, pedal edema. Denied any fever or chills. Her blood pressure no w was 160/84. EKG shows sinus bradycardia. All her workup was otherwise negative. Past Medical History: Hypertension, hernia repair, status post bowel obstruction in the past. Allergies: TO BENADRYL. Medications: Listed earlier. Review of Systems: Negative. Social History: Negative. Family History: Negative. Physical Examination: Vital Signs: Stable. She was afebrile. HEENT: Negative. Neck: Supple with no bruit, lymphadenopathy, JVD, or thyromegaly. Chest: Clear to auscultation and percussion. Cardiac: Revealed a regular rhythm and rate. No murmurs, gallops, or rubs. Abdomen: Obese, but benign. She does have a ventral hernia. Extremities: Revealed no clubbing, cyanosis, or edema. Diagnostic Data: Listed earlier. Impression And Plan: 1.Palpitations secondary to hypertension and possible asthma. 2.History of hypertension. 3.Ventral hernia. 4.Status post bowel obstruction surgery in the past. I will continue her nifedipine. I am going to restart her losartan. She will continue her Neurontin. Apparently, she is intolerant to beta-block er and I think if her blood pressure improves and her asthma improves, I think her palpitations will go away. I think we should continue nebulized treatment, nifedipine, losartan and prescription was marley chavez to her. Give her metoprolol as needed and if she feels better, she can go home and I will see h er in the office in the next 2 weeks. KULDEEP Voice ID: [id number] Report ID: [id number]
[2019-07-23] MEDS: LOSARTAN POTASSIUM 50 MG TABLET PO SCH (14:49)
[2019-07-23] MEDS: NIFEDIPINE XL 60 MG TABLET PO SCH (14:49)
[2019-07-23 15:52] LABS: CKMB Creatine Kinase MB 1.4 ng/mL (0.3-3.6); Troponin I < 0.02 ng/mL (0.0-0.045)
--- NOTE | 2019-07-23 16:49 | PN ---
Date of Progress Note: 07/23/2019 Subjective: Patient seen and examined. Chart reviewed and case discussed with RN. at the bedside. Patient does complain of some shortness of breath. Spoke with Dr. Carson. He does not plan on any further cardiac intervention at this time. Medications: List reviewed. Physical Examination: Vital Signs: Temperature 97.6, heart rate 71, blood pressure 155/79, respirations 16, O2 100% on room air. General: Awake, alert, oriented x3, ill-appearing, obese female, in some mild distress. CV: S1, S2. Regular rate and rhythm. Peripheral pulses present. Respiratory: Somewhat diminished breath sounds. No wheezing or stridor. Gastrointestinal: Abdomen is soft, nontender, nondistended. Positive bowel sounds. Extremities: No clubbing, cyanosis, or edema. Neurologic: Nonfocal. Cranial nerves 2 through 12 intact grossly. Skin: No rashes. Normal skin turgor. Psych: Mood is okay. Affect is full. Insight and judgment are good. Laboratory Data: Sodium 141, potassium 4.1, chloride 109, CO2 of 25, BUN 20, creatinine 1, glucose 127, calcium 9.2, magnesium 2.1. Troponin less than 0.02 x2. WBC 9.3, H and H 7.6 and 28.6. Strep screen is pending. CT scan of the chest shows clear lungs, personally reviewed. Chest x-ray shows mild interstitial prominence, which could indicate mild interstitial pneumonia or interstitial pneumonitis. Doppler study is still pending. We will follow up on report. Assessment And Plan: A 54-year-old female with: 1. Exertional dyspnea. Likely asthma exacerbation. Chest x-ray did show some interstitial pneumonitis. CT chest seems to be okay. We will follow up on Doppler sonogram. We will continue with breathing treatments. We will check for flu screen and strep screen. 2. Sinus tachycardia. Appreciate Dr. Carson's input. Likely due to dehydration and acute illness, we will continue with IV fluids. 3. Palpitations. We will continue monitor on cardiac telemetry. 4. Essential hypertension, stable, not well controlled. We will continue with home medications, add hydralazine p.r.n. 5. Ventral hernia. 6. Plan; follow up on Doppler study likely discharge in a.m. SA/MODL Voice ID: [id number] Report ID: [id number] [email or web address]
[2019-07-23] MEDS: ALBUTEROL 2.5 MG/3 ML NEB SOL NEB PRN (19:40)
[2019-07-24 00:10] LABS: CKMB Creatine Kinase MB 1.2 ng/mL (0.3-3.6); Troponin I < 0.02 ng/mL (0.0-0.045)
[2019-07-24] MEDS: NA CHLORIDE 0.9% 1,000 ML IV SCH ×2 (01:39→10:00)
[2019-07-24] MEDS: IPRATROPIUM BROM 0.5MG/2.5ML NEB SCH ×2 (01:50→07:35)
[2019-07-24 06:10] LABS: Absolute Lymphocytes (CBC) 2.2 K/uL (0.7-4.9); Basophils % 0.4 % (0-1.3); Lymphocytes % 30.9 % (15.3-44.8); MPV 9.4 fL (7.6-11.3); RBC Red Blood Cell Count 4.21 M/uL (3.86-4.86)
[2019-07-24 06:24] LABS: ALT/SGPT 28 U/L (12-78); AST/SGOT 22 U/L (15-37); Albumin 3.3 g/dL (3.4-5.0); Alkaline Phosphatase 66 U/L (45-117); BUN Blood Urea Nitrogen 9 mg/dL (7-18); Bicarbonate 24 mmol/L (21-32); Bilirubin Total 0.2 mg/dL (0.2-1.0); Glucose Level 116 mg/dL (74-106); HDL Cholesterol 70 mg/dL (40-60); LDL Cholesterol, Calculated 99 (<130); Magnesium 2.2 mg/dL (1.8-2.4); Phosphorus 3.2 mg/dL (2.5-4.9); Potassium 3.5 mmol/L (3.5-5.1); Protein, Total 7.4 g/dL (6.4-8.2); Sodium Level 141 mmol/L (136-145)
[2019-07-24] MEDS: ALBUTEROL 2.5 MG/3 ML NEB SOL NEB PRN (07:35)
[2019-07-24] MEDS: LOSARTAN POTASSIUM 50 MG TABLET PO SCH (08:27)
[2019-07-24] MEDS: NIFEDIPINE XL 60 MG TABLET PO SCH (08:28)
[2019-07-24] MEDS ORDERED: POTASSIUM CL SA 10 MEQ TAB PO ONE (09:00)
[2019-07-24 13:31] VITALS: O2SAT 98
[2019-07-24 13:47] VITALS: BP 105/62; TEMP 97.5
--- NOTE | 2019-07-25 04:18 | DS ---
Date of Discharge: 07/24/2019 Consultants: Dr. Carson with Cardiology. Discharge Diagnoses: 1.Exertional dyspnea. 2.Sinus tachycardia. 3.Palpitations. 4.Essential hypertension, stable. Hospital Course: Patient is a 54-year-old female with past medical history of hypertension, abdomina l hernia, came in with shortness of breath and palpitations. Patient also has some upper respiratory tract type symptoms with exacerbation of her asthma. Patient had recently stopped her losartan due to the recall. The patient was found to be tachycardic and had some exertional dyspnea. Patient was started on supplemental oxygen. Cardiac enzymes were obtained. Patient was evaluated by Cardiology . Her cardiac enzymes were negative. She had recently been seen by Dr. Butler and had a cardiac str ess test done, which was negative. D-dimer was also negative. Workup including CT scan of the chest and Doppler sonogram were negative for any acute changes. There is no blood clot seen. The patient 's EKG did not show any acute changes. Echocardiogram was normal with an EF of 60%. The patient's p alpitations improved. Blood pressure also improved. Her breathing significantly improved with treat ment. She did not require any supplemental oxygen. Patient was then cleared for discharge. She is to avoid beta-blockers due to history of severe bradycardia. She will need to follow up with Dr. Rogers in a couple of weeks. She is to follow up with her primary care physician in 2-3 days. Return to ER for worsening condition. Diet: Heart healthy. Activity: As tolerated. Patient did not have any difficulty ambulating. No shortness of breath wit h exertion. Medications: As per medication reconciliation list. Physical Examination: General: Awake, alert, and oriented x3. No acute distress. Obese female. CV: S1, S2. Respiratory: Moving air well bilaterally. Abdomen: Abdomen is soft, nontender, nondistended. Positive bowel sounds. Extremities: No clubbing, cyanosis, or edema. Neurologic: Nonfocal. SA/MODL Voice ID: [id number] Report ID: [id number]
== END 2019-07-24 12:37 | disposition home or self-care (01) ==
LOC: ER 00:31 → INTOOBSV 03:48 → ERHOLD 03:48 → 2ND 04:13
PROVIDERS: ADMIT Family Medicine; ATTEND Family Medicine
DX: R06.00 Dyspnea, unspecified (principal); R00.0 Tachycardia, unspecified; R00.2 Palpitations; I10 Essential (primary) hypertension; K43.9 Ventral hernia without obstruction or gangrene
CPT/HCPCS: 96361; 93005; 93306; 85025 ×2; 80048; 36415 ×2; 83735 ×2; 84100; 84132; 85610; 80061; 85379; 80076; 84443; 81003; 84484 ×4; 82553 ×3; 80053; 83880; 87804 ×2; 71260; 71045; 93970; 94640 ×5; 94760 ×5; 96360; 96372; 99285; Q9967; J1650; J7030 ×3; G0378 ×3

== ENCOUNTER 2020-10-08 05:51 | Emergency (ER) | payer BC, SELFPAY ==
--- OUTSIDE RECORDS SUMMARY | 2020-10-08 05:54 | XMS REPORT | Continuity of Care Document ---
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 Social History Social Habit Start Date Stop Date Quantity Comments Source Sex Assigned At [facility] Alcohol intake 2016-07-10 2016-07-10 [facility] - 00:00:00 00:00:00 [facility] Smoking Status Start Date Stop Date Source Never smoker [facility] Medications Ordered Filled Start Stop Current Ordering Indication Dosage Frequency Signature Comments Components Source Medication Medication Date Date Medication? Clinician (SIG) Name Name amLODIPine 2015-07 Yes hypertensio 10mg QD Take [address] [facility] (NORVASC) 2-17 n by [facility] - 10 MG 16:56: daily. Medical tablet 38 Center losartan 2015-07 Yes 100mg QD Take [address] [facility] (COZAAR) 2-17 mg by [facility] - 100 MG 16:56: mouth Medical tablet 38 daily. Center Immunizations Ordered Immunization Filled Immunization Date Status Commen ts Source Name Name Pneumococcal 2016-07-[address] [facility] - Polysaccharide 00:00:00 [facility] (Pneumovax) Procedures This patient has no known procedures. Results This patient has no known results.
[2020-10-08] MEDS ORDERED: NA CHLORIDE 0.9% 1,000 ML ONE (06:44)
[2020-10-08 06:47] LABS: Absolute Lymphocytes (CBC) 2.9 K/uL (0.7-4.9); Basophils % 0.5 % (0-1.3); Hematocrit 38.9 % (36.0-45.0); Lymphocytes % 31.6 % (15.3-44.8); MPV 9.2 fL (7.6-11.3); RBC Red Blood Cell Count 4.62 M/uL (3.86-4.86)
[2020-10-08 07:11] LABS: BUN Blood Urea Nitrogen 14 mg/dL (7-18); Bicarbonate 26 mmol/L (21-32); Glucose Level 127 mg/dL (74-106); Potassium 3.5 mmol/L (3.5-5.1); Sodium Level 141 mmol/L (136-145); Troponin (Emerg Dept Use Only) < 0.02 ng/mL (0.0-0.045)
[2020-10-08 08:06] LABS: SARS-COV-2 RT PCR NEGATIVE (NEGATIVE)
[2020-10-08 09:03] LABS: Urine Blood NEGATIVE (NEG); Urine Glucose NEGATIVE (NEG); Urine Protein NEGATIVE (NEG); Urine Specific Gravity 1.025 (1.005-1.030); Urine pH 6.5 (5.0-7.0)
--- NOTE | 2020-10-08 10:29 | RAD REPORT ---
EXAM DESCRIPTION: RAD - Chest Single View - 10/08/2020 6:41 am CLINICAL HISTORY: Cough;Dyspnea Chest pain. COMPARISON: Chest Single View dated 07/23/2019; Chest Single View dated 02/16/2019; Chest Single View dated 02/03/2019; Chest Single View dated 01/13/2019 FINDINGS: Portable technique limits examination quality. Mild interstitial lung prominence is seen. This may indicate a mild viral infection. The heart is nor mal in size. Mildly tortuous thoracic aorta.
--- NOTE | 2020-10-08 10:49 | ER ---
Nurse's Notes [facility] Name: Cristy Dixon Age: 55 yrs Sex: Female : 1965 Arrival Date: 10/08/2020 Time: 05:52 Bed 15 Private MD: Diagnosis: Dizziness and giddiness;Dyspnea Presentation: 10/08 06:07 Chief complaint: Patient states: Woke up this morning with DEB, cough, nausea, vomit sf x2, headache, has been having increased FSBG last couple days, is prediabetic, does not take meds, just tracks glucose. Coronavirus screen: Client denies travel out of the [place] in the last 14 days. cough unrelated to allergies, difficulty breathing, headache, vomiting. 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 Standard/surgical mask placed on the client. Provider contacted for isolation considerations. The client reports previous COVID testing was negative. gets tested every other week due to job. Ebola Screen: Patient denies exposure to infectious person. Patient denies travel to an Ebola-affected area in the 21 days before illness onset. Patient positive for the following Ebola Virus Disease associated symptoms: vomiting. Initial Sepsis Screen: Does the patient meet any 2 criteria? HR > 90 bpm. No. Patient's initial sepsis screen is negative. Does the patient have a suspected source of infection? No. Patient's initial sepsis screen is negative. Risk Assessment: Do you want to hurt yourself or someone else? Patient reports no desire to harm self or others. Onset of symptoms was October 08, 2020 at 05:30. 06:07 Method Of Arrival: Ambulatory sf 06:07 Acuity: DACIA 3 sf Triage Assessment: 06:13 General: Appears in no apparent distress. comfortable, Behavior is calm, cooperative, sf appropriate for age. Pain: Complains of pain in head Pain does not radiate. Pain currently is 7 out of 10 on a pain scale. EENT: No signs and/or symptoms were reported regarding the EENT system. Neuro: No deficits noted. Level of Consciousness is awake, alert, Oriented to person, place, time, situation. Cardiovascular: No deficits noted. Patient's skin is warm and dry. Respiratory: Reports shortness of breath at rest cough that is non-productive, Airway is patent Respiratory effort is even, unlabored, Respiratory pattern is regular, symmetrical, Onset: The symptoms/episode began/occurred this morning, the patient has mild shortness of breath. GI: Abdomen is non-distended, Reports nausea, vomiting, Patient currently denies abdominal pain, diarrhea. : No signs and/or symptoms were reported regarding the genitourinary system. Derm: No signs and/or symptoms reported regarding the dermatologic system. Musculoskeletal: No signs and/or symptoms reported regarding the musculoskeletal system. 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 - Social history:: Smoking status: Patient denies any tobacco usage or history of. Patient/guardian denies using alcohol, street drugs, IV drugs. - Family history:: not pertinent. - Hospitalizations: : No recent hospitalization is reported. Screenin:07 Abuse screen: Denies threats or abuse. Denies injuries from another. Nutritional sf screening: No deficits noted. On no prescribed diet. Tuberculosis screening: No symptoms or risk factors identified. Never had TB. Tuberculosis screening: Possible symptoms: None Risk factors: None. Fall Risk None identified. No fall in past 12 months (0 pts). No secondary diagnosis (0 pts). IV access (20 points). Ambulatory Aid- None/Bed Rest/Nurse Assist (0 pts). Gait- Normal/Bed Rest/Wheelchair (0 pts) Mental Status- Oriented to own ability (0 pts). Total Lawrence Fall Scale indicates No Risk (0-24 pts). Assessment: 06:17 Reassessment: SEE TRIAGE NOTE. sf 07:15 Reassessment: Patient appears in no apparent distress at this time. Patient and/or hb family updated on plan of care and expected duration. Pain level reassessed. Patient is alert, oriented x 3, equal unlabored respirations, skin warm/dry/pink. 07:46 Reassessment: Pt up to bathroom without assistance. hb 08:55 Reassessment: Patient appears in no apparent distress at this time. Patient and/or hb family updated on plan of care and expected duration. Pain level reassessed. Patient is alert, oriented x 3, equal unlabored respirations, skin warm/dry/pink. 09:27 Reassessment: Patient appears in no apparent distress at this time. Patient and/or hb family updated on plan of care and expected duration. Pain level reassessed. Patient is alert, oriented x 3, equal unlabored respirations, skin warm/dry/pink. 11:13 Reassessment: Patient appears in no apparent distress at this time. Patient and/or hb family updated on plan of care and expected duration. Pain level reassessed. Patient is alert, oriented x 3, equal unlabored respirations, skin warm/dry/pink. Vital Signs: 06:07 BP 151 / 78; Pulse 118; Resp 18; Temp 98.5; Pulse Ox 100% ; Weight 68.49 kg; Height 4 sf ft. 9 in. (144.78 cm); Pain 7/10; 07:47 BP 145 / 81; Pulse 94; Resp 16; Pulse Ox 100% on R/A; hb 08:45 BP 121 / 79; Pulse 105; Resp 19; Pulse Ox 96% on R/A; hb 09:27 BP 151 / 84; Pulse 109; Resp 18; Pulse Ox 99% on R/A; hb 10:45 BP 138 / 88; Pulse 100; Resp 16; Pulse Ox 99% on R/A; hb 06:07 Body Mass Index 32.68 (68.49 kg, 144.78 cm) ED Course: 05:52 Patient arrived in ED. cl3 05:58 Karel Parmar MD is Attending Physician. rn 06:10 Triage completed. sf 06:13 Arm band placed on right wrist. sf 06:13 Patient has correct armband on for positive identification. Placed in gown. Bed in low sf position. Call light in reach. Side rails up X 1. Pulse ox on. NIBP on. Door closed. Noise minimized. Visitors limited. Lights dimmed. Warm blanket given. Verbal reassurance given. 06:20 Urine collected: clean catch specimen, clear. sf 06:30 Initial lab(s) drawn, by ED staff, sent to lab. COVID swab sent to lab. Inserted saline sf lock: 18 gauge in right antecubital area, using aseptic technique. Blood collected. 06:38 X-ray(s) taken. sf 06:40 XRAY Chest (1 view) Sent. sf 06:41 XRAY Chest (1 view) In Process Unspecified. EDMS 06:41 CT Head Brain wo Cont Sent. sf 06:41 Basic Metabolic Panel Sent. sf 06:41 CBC with Diff Sent. sf 06:41 Troponin (emerg Dept Use Only) Sent. sf 06:51 CT Head Brain wo Cont In Process Unspecified. EDMS 07:22 Darcy Saenz, RN is Primary Nurse. hb 11:14 No provider procedures requiring assistance completed. IV discontinued, intact, hb bleeding controlled, No redness/swelling at site. Administered Medications: 06:35 Drug: NS 0.9% 1000 ml Route: IV; Rate: 1000 ml; Site: right antecubital; jb4 Outcome: 10:48 Discharge ordered by . tw4 11:14 Discharged to home ambulatory. hb 11:14 Condition: stable 11:14 Discharge instructions given to patient, Instructed on discharge instructions, follow up and referral plans. medication usage, Demonstrated understanding of instructions, follow-up care, medications, Prescriptions given X 1. 11:18 Patient left the ED. hb Signatures: Dispatcher [employer] EDMS Karel Parmar MD MD rn Baxter, Heather, RN RN Bryan Morin RN RN Nish Montero MD MD tw4 Glenn Yoder cl3 Kevin Gerardo RN RN sf Corrections: (The following items were deleted from the chart) 11:14 09:27 BP 151 / 0; Pulse 109bpm; Resp 18bpm; Pulse Ox 99% RA; hb hb
--- NOTE | 2020-10-08 10:49 | EDPHYS ---
Physician Documentation [facility] Name: Cristy Dixon Age: 55 yrs Sex: Female : 1965 Arrival Date: 10/08/2020 Time: 05:52 Bed 15 Private MD: ED Physician Karel Parmar HPI: 10/08 06:20 This 55 yrs old Black Female presents to ER via Ambulatory with complaints of rn Dizziness, Breathing Difficulty. 06:20 The patient presents with dizziness, feeling faint, generalized weakness, rn lightheadedness. Onset: The symptoms/episode began/occurred this morning. Context: occurred at home, occurred while the patient was at rest. Modifying factors: The symptoms are alleviated by nothing, the symptoms are aggravated by standing up. Associated signs and symptoms: Pertinent positives: shortness of breath, cough, increased urination. Severity of symptoms: At their worst the symptoms were mild in the emergency department the symptoms are unchanged. The patient has not experienced similar symptoms in the past. The patient has not recently seen a physician. 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 - Social history:: Smoking status: Patient denies any tobacco usage or history of. Patient/guardian denies using alcohol, street drugs, IV drugs. - Family history:: not pertinent. - Hospitalizations: : No recent hospitalization is reported. ROS: 06:20 Constitutional: Negative for fever, chills, and weight loss, Eyes: Negative for injury, rn pain, redness, and discharge, Neck: Negative for injury, pain, and swelling, Cardiovascular: Negative for chest pain, palpitations, and edema, Respiratory: + sob and cough Abdomen/GI: Negative for abdominal pain, nausea, vomiting, diarrhea, and constipation, MS/Extremity: Negative for injury and deformity, Skin: Negative for injury, rash, and discoloration, Neuro: Negative for headache, numbness, tingling, and seizure. 06:20 All other systems are negative. Exam: 06:20 Constitutional: This is a well developed, well nourished patient who is awake, alert, rn and in no acute distress. Head/Face: Normocephalic, atraumatic. Eyes: Pupils equal round and reactive to light, extra-ocular motions intact. Lids and lashes normal. Conjunctiva and sclera are non-icteric and not injected. Cornea within normal limits. Periorbital areas with no swelling, redness, or edema. Neck: Trachea midline, no masses palpated, and no cervical lymphadenopathy. Supple, full range of motion without nuchal rigidity, or vertebral point tenderness. No Meningismus. Cardiovascular: Tachycardic, regular. No pulse deficits. Respiratory: No increased work of breathing, no retractions or nasal flaring. Abdomen/GI: Soft, non-tender Skin: Warm, dry MS/ Extremity: Pulses equal, no cyanosis. Neuro: Awake and alert, GCS 15, oriented to person, place, time, and situation. Cranial nerves II-XII grossly intact. Motor strength 5/5 in all extremities. Sensory grossly intact. Cerebellar exam normal. Normal gait. Vital Signs: 06:07 BP 151 / 78; Pulse 118; Resp 18; Temp 98.5; Pulse Ox 100% ; Weight 68.49 kg; Height 4 sf ft. 9 in. (144.78 cm); Pain 7/10; 07:47 BP 145 / 81; Pulse 94; Resp 16; Pulse Ox 100% on R/A; hb 08:45 BP 121 / 79; Pulse 105; Resp 19; Pulse Ox 96% on R/A; hb 09:27 BP 151 / 84; Pulse 109; Resp 18; Pulse Ox 99% on R/A; hb 10:45 BP 138 / 88; Pulse 100; Resp 16; Pulse Ox 99% on R/A; hb 06:07 Body Mass Index 32.68 (68.49 kg, 144.78 cm) sf MDM: 05:58 Patient medically screened. rn 10/08 06:20 Order name: Basic Metabolic Panel rn 10/08 06:20 Order name: CBC with Diff rn 10/08 06:20 Order name: Troponin (emerg Dept Use Only) rn 10/08 06:20 Order name: Procalcitonin; Complete Time: 10:47 rn 10/08 06:20 Order name: CT Head Brain wo Cont rn 10/08 06:20 Order name: XRAY Chest (1 view); Complete Time: 10:47 rn 10/08 06:20 Order name: Basic Metabolic Panel; Complete Time: 10:47 EDMS 10/08 06:20 Order name: CBC with Automated Diff; Complete Time: 10:47 EDMS 10/08 06:20 Order name: Troponin (Emerg Dept Use Only); Complete Time: 10:47 EDMS 10/08 06:30 Order name: Urine Dipstick--Ancillary (enter results); Complete Time: 10:47 mw2 10/08 07:02 Order name: Glucose, Ancillary Testing; Complete Time: 10:47 EDMS 10/08 08:07 Order name: COVID-19/FLU A+B; Complete Time: 10:47 EDMS 10/08 06:20 Order name: EKG; Complete Time: 06:21 rn 10/08 06:20 Order name: Cardiac monitoring; Complete Time: 07:46 rn 10/08 06:20 Order name: EKG - Nurse/Tech; Complete Time: 07:46 rn 10/08 06:20 Order name: IV Saline Lock; Complete Time: 06:41 rn 10/08 06:20 Order name: Labs collected and sent; Complete Time: 06:41 rn 10/08 06:20 Order name: O2 Per Protocol; Complete Time: 06:41 rn 10/08 06:20 Order name: O2 Sat Monitoring; Complete Time: 06:41 rn 10/08 06:20 Order name: Urine Dipstick-Ancillary (obtain specimen); Complete Time: 06:41 rn 10/08 06:20 Order name: Glucose Level; Complete Time: 07:01 rn Administered Medications: 06:35 Drug: NS 0.9% 1000 ml Route: IV; Rate: 1000 ml; Site: right antecubital; jb4 Disposition: 10/08/20 10:48 Discharged to Home. Impression: Dizziness and giddiness, Dyspnea. - Condition is Stable. - Discharge Instructions: Dizziness, Shortness of Breath. - Prescriptions for Albuterol Sulfate 90 mcg/actuation - inhale 1-2 puff by INHALATION route every 4-6 hours; 1 Inhaler. Meclizine 25 mg Oral Tablet - take 1 tablet by ORAL route every 8 hours As needed; 30 tablet. - Medication Reconciliation Form, Thank You Letter, Antibiotic Education, Prescription Opioid Use form. - Follow up: Private Physician; When: Upon discharge from the Emergency Department; Reason: Recheck today's complaints, Continuance of care, Re-evaluation by your physician. - Problem is new. - Symptoms have improved. Signatures: Dispatcher [employer] [facility] Karel Parmar MD MD rn Baxter, Heather, RN RN Bryan Solorzano RN RN jb4 Nish Gómez MD MD tw4 Kevin Gerardo RN RN sf Corrections: (The following items were deleted from the chart) 07: 06:21 CORONAVIRUS+MR.LAB.BRZ ordered. [facility] 07:27 06:21 Influenza Screen (A \\T\\ B)+BA.LAB.BRZ ordered. [facility] 11:18 10:48 10/08/2020 10:48 Discharged to Home. Impression: Dizziness and giddiness; hb Dyspnea. Condition is Stable. Forms are Medication Reconciliation Form, Thank You Letter, Antibiotic Education, Prescription Opioid Use. Follow up: Private Physician; When: Upon discharge from the Emergency Department; Reason: Recheck today's complaints, Continuance of care, Re-evaluation by your physician. Problem is new. Symptoms have improved. tw4
[2020-10-08 11:38] VITALS: TEMP 98.5
[2020-10-08 11:43] VITALS: O2SAT 99
[2020-10-08 11:44] VITALS: BP 138/88
--- NOTE | 2020-10-08 18:46 | RAD REPORT ---
EXAM DESCRIPTION: CT Head Without Intravenous Contrast CLINICAL HISTORY: The patient is 55 years old and is Female; DIZZINESS TECHNIQUE: Axial computed tomography images of the head/brain without intravenous contrast. Sagitt al and coronal reformatted images were created and reviewed. This CT exam was performed using one o r more of the following dose reduction techniques: automated exposure control, adjustment of the mA and/or kV according to patient size, and/or use of iterative reconstruction technique. COMPARISON: No relevant prior studies available. FINDINGS: Brain: Mild nonspecific white matter changes likely related to chronic microvascular isc hemic disease. No hemorrhage. Ventricles: Unremarkable. No ventriculomegaly. Bones/joints: Unremarkable. No acute fracture. Soft tissues: Unremarkable. Sinuses: Unremarkable as visualized. Mastoid air cells: Unremarkable as visualized. No mastoid effusion. IMPRESSION: No acute findings in the head/brain. Electronically signed by: Reid Mcelroy MD 10/08/2020 7:23 AM DONOR SERVICES TEAM LEADER Due to temporary technical issues with the PACS/Fluency reporting system, reports are being signed by the in house radiologists without review as a courtesy to insure prompt reporting. The interpreting radiologist is fully responsible for the content of the report.
--- NOTE | 2020-10-09 10:23 | EKG ---
Test Date: 2020-10-08 Test Time: 07:39:11 Supervisor Waterproofing: HB MEASUREMENT RESULTS: Intervals: Rate: 93 CA: 128 QRSD: 82 QT: 396 QTc: 492 [place]: P: 49 CA: 128 QRS: 50 T: 36 INTERPRETIVE STATEMENTS: Normal sinus rhythm Prolonged QT Abnormal ECG Compared to ECG 07/23/2019 01:08:43 Prolonged QT interval now present Sinus tachycardia no longer present Electronically Signed On 10-09-20 10:22:05 CDT by Saturnino Carson
== END 2020-10-08 11:18 | disposition home or self-care (01) ==
LOC: ER 05:51
DX: R06.00 Dyspnea, unspecified (principal); Z20.822 Contact with and (suspected) exposure to COVID-19; I10 Essential (primary) hypertension; Z88.8 Allergy status to other drugs, medicaments and biological substances
CPT/HCPCS: 0240U; 36415; 70450; 71045; 80048; 81003; 82947; 84145; 84484; 85025; 93005; 99284; J7030

== ENCOUNTER 2021-01-17 12:13 | Emergency (ER) | payer OTHER, SELFPAY ==
--- OUTSIDE RECORDS SUMMARY | 2021-01-17 12:17 | XMS REPORT | Continuity of Care Document ---
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 Social History Social Habit Start Date Stop Date Quantity Comments Source Sex Assigned At [facility] Alcohol intake 2016-07-10 2016-07-10 [facility] es - 00:00:00 00:00:00 [facility] Smoking Status Start Date Stop Date Source Never smoker [facility] Medications Ordered Filled Start Stop [...]
[2021-01-17 13:01] LABS: Absolute Lymphocytes (CBC) 3.6 K/uL (0.7-4.9); Basophils % 0.9 % (0-1.3); MPV 9.2 fL (7.6-11.3); RBC Red Blood Cell Count 4.59 M/uL (3.86-4.86)
[2021-01-17 13:17] LABS: ALT/SGPT 24 U/L (12-78); AST/SGOT 14 U/L (15-37); Albumin 4.3 g/dL (3.4-5.0); Alkaline Phosphatase 84 U/L (45-117); BUN Blood Urea Nitrogen 17 mg/dL (7-18); Bicarbonate 27 mmol/L (21-32); Bilirubin Direct < 0.1 mg/dL (0-0.2); Bilirubin Total 0.3 mg/dL (0.2-1.0); Glucose Level 104 mg/dL (74-106); Potassium 3.7 mmol/L (3.5-5.1); Protein, Total 8.5 g/dL (6.4-8.2); Sodium Level 140 mmol/L (136-145)
--- NOTE | 2021-01-17 13:58 | RAD REPORT ---
EXAM DESCRIPTION: CT - Abdomen Pelvis W Contrast - 01/17/2021 1:34 pm CLINICAL HISTORY: ABD PAIN Patient details intermittent abdominal and right flank pain with prior surgeries. COMPARISON: Abdomen Pelvis W Contrast dated 03/04/2019 TECHNIQUE: Biphasic, helical CT imaging of the abdomen and pelvis was performed following 100 ml non -ionic IV contrast. No oral contrast was administered. All CT scans are performed using dose optimization technique as appropriate and may include automated exposure control or mA/KV adjustment according to patient size. FINDINGS: No suspicious findings in the lung bases. Liver shows borderline to mild fatty infiltration pattern with no focal liver lesions. No hepatomegal y or portal vein abnormality. No pancreatic or splenic abnormality. The gallbladder is mostly contrac susan with no biliary tree dilatation. Appearance is similar to 2019 study. Symmetric renal function is seen with no hydronephrosis or suspicious renal mass. No pyelonephritis o r acute parenchymal process. Urinary bladder is contracted. No bladder calculi. Uterus is absent. Bot h ovaries are still present and of normal size for age. No adrenal abnormalities. No gastric dilatation or gastric wall thickening. No gastric surgical changes are present. Sigmoid co nani is redundant. No colon wall thickening or mass. Appendix is normal. Bowel surgical changes are pr esent in the anterior midline abdomen. No acute GI process identifiable. No free air, free fluid or i nflammatory stranding. No mass or bulky lymphadenopathy seen. The patient has a 6 centimeter diamete r right superior periumbilical hernia. The neck is 6 cm. Hernia contains small bowel. No acute compon ent identified. Hernia has enlarged very slightly since 2019. Patient also has a smaller left inferi or periumbilical hernia containing a loop of small bowel. The hernia defect is slightly smaller than comparison. A 5-6 centimeter midline ventral hernias present inferior to the umbilicus containing sma ll bowel. No acute bowel component. Hernia size has not changed. No suspicious bony findings. IMPRESSION: Contrast enhanced CT abdomen and pelvis showing no acute or emergent finding. Uterus is absent. 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 Multiple periumbilical and infraumbilical hernias. These contain small bowel loops but no wall thicke ronnell, edema or acute component seen.
[2021-01-17 14:24] LABS: Urine Blood Negative (Negative); Urine Glucose Negative (Negative); Urine Protein Negative (Negative); Urine Specific Gravity <=1.005 (1.005-1.030)
--- NOTE | 2021-01-17 14:32 | ER ---
Nurse's Notes [facility] Name: Cristy Dixon Age: 55 yrs Sex: Female : 1965 Arrival Date: 01/17/2021 Time: 12:20 Bed 18 Private MD: Sanchez Ricketts Diagnosis: Abdominal and pelvic pain;Dizziness and giddiness Presentation: 01/17 12:33 Chief complaint: Patient states: Dizziness on and off not resolved by meclizine. Right kg flank pain and numbness going down right leg starting yesterday. Coronavirus screen: Client denies travel out of the [place] in the last 14 days. At this time, unable to obtain information related to travel outside the [place] At this time, the client does not indicate any symptoms associated with coronavirus-19. Ebola Screen: Patient negative for fever greater than or equal to 101.5 degrees Fahrenheit, and additional compatible Ebola Virus Disease symptoms Patient denies exposure to infectious person. Patient denies travel to an Ebola-affected area in the 21 days before illness onset. No symptoms or risks identified at this time. Initial Sepsis Screen: Does the patient meet any 2 criteria? No. Patient's initial sepsis screen is negative. Does the patient have a suspected source of infection? No. Patient's initial sepsis screen is negative. Risk Assessment: Do you want to hurt yourself or someone else? Patient reports no desire to harm self or others. Onset of symptoms was January 16, 2021. 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 . - Social history:: Smoking status: Patient denies any tobacco usage or history of. Screenin:44 Abuse screen: Denies threats or abuse. Denies injuries from another. Nutritional kg screening: No deficits noted. Tuberculosis screening: No symptoms or risk factors identified. Fall Risk No fall in past 12 months (0 pts). No secondary diagnosis (0 pts). No IV (0 pts). Ambulatory Aid- None/Bed Rest/Nurse Assist (0 pts). Gait- Weak (10 pts.). Mental Status- Oriented to own ability (0 pts). Total Lawrence Fall Scale indicates Low Risk Score (25-44 pts). Fall prevention measures have been instituted. Side Rails Up X 2 Placed close to Nursing Station Frequent Obs/Assesments occuring As available Patient and Family Educated on Fall Prevention Program and strategies. Assessment: 12:38 General: Appears in no apparent distress. Behavior is calm, cooperative, appropriate kg for age, quiet. Pain: Complains of pain in Right flank, Right leg Pain radiates to right leg Pain currently is 6 out of 10 on a pain scale. at worst was 6 out of 10 on a pain scale. level that patient reports is acceptable is 2 out of 10 on a pain scale. Quality of pain is described as burning, aching, sharp, shooting, Pain began 1 day ago. 12:39 Neuro: Level of Consciousness is awake, alert, obeys commands, Oriented to person, kg place, time, situation, Appropriate for age Reports dizziness, Pt stated, "I've had dizziness on and off for a while and I have meclizine but, it isnt working.". Cardiovascular: No deficits noted. Heart tones S1 S2 Capillary refill < 3 seconds Pulses are 2+ in right radial artery and left radial artery Rhythm is regular. Respiratory: No deficits noted. Airway is patent Trachea midline Respiratory effort is even, unlabored, relaxed, Respiratory pattern is regular, symmetrical, Breath sounds are clear bilaterally. GI: No deficits noted. : No deficits noted. EENT: No deficits noted. Derm: No deficits noted. Vital Signs: 12:28 BP 122 / 72 LA Supine (auto/reg); Pulse 93; Resp 20; Pulse Ox 100% on R/A; kg 12:30 BP 124 / 77 LA Sitting (auto/reg); Pulse 99; Resp 20; kg 12:32 BP 124 / 75 LA Standing (auto/reg); Pulse 99; Pulse Ox 100% on R/A; kg 12:33 BP 127 / 81; Pulse 102; Resp 20; Temp 97.4(TE); Pulse Ox 100% ; Weight 53.52 kg (R); kg Height 4 ft. 9 in. (144.78 cm) (R); Pain 6/10; 13:00 BP 107 / 67; Pulse 87; Resp 20; Pulse Ox 100% on R/A; kg 14:00 BP 133 / 57; Pulse 62; Resp 20; Pulse Ox 96% on R/A; kg 14:30 BP 150 / 62; Pulse 60; Resp 20; Pulse Ox 97% on R/A; kg 14:48 BP 112 / 68; Pulse 88; Resp 20; Pulse Ox 100% on R/A; kg 12:33 Body Mass Index 25.53 (53.52 kg, 144.78 cm) kg ED Course: 12:20 Patient arrived in ED. am2 12:21 Sanchez Ricketts MD is Private Physician. am2 12:22 Emiliano Hidalgo MD is Attending Physician. kdr 12:33 Belem Beck RN is Primary Nurse. kg 12:36 Triage completed. kg 12:45 Arm band placed on right wrist. kg 12:45 Patient has correct armband on for positive identification. Fall risk band placed. kg Placed in gown. Bed in low position. Side rails up X2. 12:55 Inserted saline lock: 20 gauge in right antecubital area, using aseptic technique. dh4 Blood collected. 14:30 Sanchez Ricketts MD is Referral Physician. kdr 14:48 No provider procedures requiring assistance completed. IV discontinued, intact, kg bleeding controlled, No redness/swelling at site. Pressure dressing applied. Administered Medications: 14:28 Drug: TORadol - (ketorolac) 15 mg Route: IVP; Site: left antecubital; kg 14:47 Follow up: Response: No adverse reaction; Marked relief of symptoms kg Outcome: 14:31 Discharge ordered by . kdr 14:48 Discharged to home ambulatory, with significant other. kg 14:48 Condition: good 14:48 Discharge instructions given to patient, significant other, Instructed on discharge instructions, follow up and referral plans. Demonstrated understanding of instructions, follow-up care, medications, Prescriptions given X 1. 14:49 Patient left the ED. kg Signatures: Emiliano Hidalgo MD MD kdr Carly Rausch am2 Mca Jackson 4 Belem Beck, RN RN kg Corrections: (The following items were deleted from the chart) 13:02 12:28 BP 122 / 72; Pulse 93bpm; Resp 20bpm; Pulse Ox 100% RA; kg kg 13:02 12:30 BP 124 / 77; Pulse 99bpm; Resp 20bpm; kg kg 13:02 12:32 BP 124 / 75; Pulse 99bpm; Pulse Ox 100% RA; kg kg 13:57 12:37 PSHx: Joint replacement; kg kg 13:57 12:37 PSHx: Disc surgery; kg kg 13:57 12:37 PSHx: Knee surgery; kg kg 13:57 12:37 PSHx: Tonsillectomy; kg kg 13:57 12:37 PSHx: Ear Tubes; kg kg 13:57 12:37 PSHx: Hernia repair; kg kg 13:57 12:37 PSHx: Gastric Bypass; kg kg 13:57 12:37 PSHx: Tubal ligation; kg kg 13:57 12:37 PSHx: ; kg kg 13:57 12:37 PSHx: Cholecystectomy; kg kg 13:57 12:37 PSHx: Appendectomy; kg kg 13:57 12:37 PSHx: Carotid surgery; kg kg 13:57 12:37 PSHx: Heart stents; kg kg 13:57 12:37 PSHx: Angioplasty; kg kg 13:57 12:37 PSHx: Unable to obtain; kg kg 13:57 12:37 PSHx: CABG; kg kg
--- NOTE | 2021-01-17 14:33 | EDPHYS ---
Physician Documentation [facility] Name: Cristy Dixon Age: 55 yrs Sex: Female : 1965 Arrival Date: 01/17/2021 Time: 12:20 Bed 18 Private MD: Sanchez Ricketts ED Physician Emiliano Hidalgo HPI: 01/17 15:01 This 55 yrs old Black Female presents to ER via Wheelchair with complaints of kdr Dizziness, Leg Pain. 15:01 The patient has multiple c/o including dizziness which has been ongoing for several kdr weeks, is intermittent and she states somewhat different from the dizziness that she has been evaluated for previously. She also c/o right flank, RLQ and right posterior leg pain that has been ongoing, mild and progressive for the last 24-36 hours.. Severity of symptoms: At their worst the symptoms were mild in the emergency department the symptoms are unchanged. The patient has experienced similar episodes in the past, chronically, The patient has had intermittent dizziness for months and has had several prior ED visits for this c/o. The flank/abdominal pain is relatively new. The patient has not recently seen a physician. 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 . - Social history:: Smoking status: Patient denies any tobacco usage or history of. ROS: 15:01 Constitutional: Negative for fever, chills, and weight loss, Eyes: Negative for injury, kdr pain, redness, and discharge, ENT: Negative for injury, pain, and discharge, Neck: Negative for injury, pain, and swelling, Cardiovascular: Negative for chest pain, palpitations, and edema, Respiratory: Negative for shortness of breath, cough, wheezing, and pleuritic chest pain, Back: Negative for injury and pain, : Negative for injury, bleeding, discharge, and swelling, MS/Extremity: Negative for injury and deformity, Skin: Negative for injury, rash, and discoloration, Psych: Negative for depression, anxiety, suicide ideation, homicidal ideation, and hallucinations, Allergy/Immunology: Negative for hives, rash, and allergies, Endocrine: Negative for neck swelling, polydipsia, polyuria, polyphagia, and marked weight changes, Hematologic/Lymphatic: Negative for swollen nodes, abnormal bleeding, and unusual bruising. 15:01 Abdomen/GI: Positive for abdominal pain, Negative for nausea, vomiting, and diarrhea, abdominal cramps, abdominal distension, anorexia, dysphagia, hematemesis, black/tarry stool, rectal pain, rectal bleeding. 15:01 Neuro: Positive for dizziness, Negative for altered mental status, headache, hearing loss, loss of consciousness, numbness, seizure activity, speech changes, syncope, near syncope, tingling, tinnitus, tremor, visual changes, weakness. Exam: 15:01 Constitutional: This is a well developed, well nourished patient who is awake, alert, kdr and in no acute distress. Head/Face: Normocephalic, atraumatic. Eyes: Pupils equal round and reactive to light, extra-ocular motions intact. Lids and lashes normal. Conjunctiva and sclera are non-icteric and not injected. Cornea within normal limits. Periorbital areas with no swelling, redness, or edema. Neck: Trachea midline, no thyromegaly or masses palpated, and no cervical lymphadenopathy. Supple, full range of motion without nuchal rigidity, or vertebral point tenderness. No Meningismus. Chest/axilla: Normal chest wall appearance and motion. Nontender with no deformity. No lesions are appreciated. Cardiovascular: Regular rate and rhythm with a normal S1 and S2. No gallops, murmurs, or rubs. Normal PMI, no JVD. No pulse deficits. Respiratory: Lungs have equal breath sounds bilaterally, clear to auscultation and percussion. No rales, rhonchi or wheezes noted. No increased work of breathing, no retractions or nasal flaring. Abdomen/GI: Soft, non-tender, with normal bowel sounds. No distension or tympany. No guarding or rebound. No evidence of tenderness throughout. Back: No spinal tenderness. No costovertebral tenderness. Full range of motion. Skin: Warm, dry with normal turgor. Normal color with no rashes, no lesions, and no evidence of cellulitis. MS/ Extremity: Pulses equal, no cyanosis. Neurovascular intact. Full, normal range of motion. Neuro: Awake and alert, GCS 15, oriented to person, place, time, and situation. Cranial nerves II-XII grossly intact. Motor strength 5/5 in all extremities. Sensory grossly intact. Cerebellar exam normal. Normal gait. Psych: Awake, alert, with orientation to person, place and time. Behavior, mood, and affect are within normal limits. Vital Signs: 12:28 BP 122 / 72 LA Supine (auto/reg); Pulse 93; Resp 20; Pulse Ox 100% on R/A; kg 12:30 BP 124 / 77 LA Sitting (auto/reg); Pulse 99; Resp 20; kg 12:32 BP 124 / 75 LA Standing (auto/reg); Pulse 99; Pulse Ox 100% on R/A; kg 12:33 BP 127 / 81; Pulse 102; Resp 20; Temp 97.4(TE); Pulse Ox 100% ; Weight 53.52 kg (R); kg Height 4 ft. 9 in. (144.78 cm) (R); Pain 6/10; 13:00 BP 107 / 67; Pulse 87; Resp 20; Pulse Ox 100% on R/A; kg 14:00 BP 133 / 57; Pulse 62; Resp 20; Pulse Ox 96% on R/A; kg 14:30 BP 150 / 62; Pulse 60; Resp 20; Pulse Ox 97% on R/A; kg 14:48 BP 112 / 68; Pulse 88; Resp 20; Pulse Ox 100% on R/A; kg 12:33 Body Mass Index 25.53 (53.52 kg, 144.78 cm) kg MDM: 14:31 Patient medically screened. kdr 15:01 Data reviewed: vital signs, nurses notes, lab test result(s), radiologic studies. kdr Counseling: I had a detailed discussion with the patient and/or guardian regarding: the historical points, exam findings, and any diagnostic results supporting the discharge/admit diagnosis, lab results, radiology results, the need for outpatient follow up. 01/17 12:40 Order name: Basic Metabolic Panel kdr 01/17 12:40 Order name: CBC with Diff kdr 01/17 12:40 Order name: Hepatic Function kdr 01/17 13:04 Order name: CBC with Automated Diff; Complete Time: 14:10 EDMS 01/17 13:17 Order name: Basic Metabolic Panel; Complete Time: 14:10 EDOH 01/17 13:17 Order name: Liver (Hepatic) Function; Complete Time: 14:10 [facility] 01/17 12:40 Order name: CT Abd/Pelvis - IV Contrast Only [facility] 01/17 12:40 Order name: IV Saline Lock; Complete Time: 12:53 [facility] 01/17 12:40 Order name: Labs collected and sent; Complete Time: 12:53 [facility] 01/17 13:58 Order name: CT; Complete Time: 14:10 EDOH 01/17 14:21 Order name: Urine Dipstick-Ancillary (obtain specimen); Complete Time: 14:24 [facility] 01/17 14:25 Order name: Urine Dipstick-Ancillary; Complete Time: 14:30 EDMS Administered Medications: 14:28 Drug: TORadol - (ketorolac) 15 mg Route: IVP; Site: left antecubital; kg 14:47 Follow up: Response: No adverse reaction; Marked relief of symptoms kg Disposition: 01/17/21 14:31 Discharged to Home. Impression: Abdominal and pelvic pain, Dizziness and giddiness. - Condition is Stable. - Discharge Instructions: Myofascial Pain Syndrome and Fibromyalgia, Abdominal Pain, Adult, [id number], Flank Pain, [id number], Dizziness, [id number]. - Prescriptions for Tramadol 50 mg Oral Tablet - take 1 tablet by ORAL route every 8 hours as needed; 12 tablet. - Medication Reconciliation Form, Thank You Letter form. - Follow up: Sanchez Ricketts MD; When: 2 - 3 days; Reason: If symptoms return, Further diagnostic work-up, Recheck today's complaints, Continuance of care, Re-evaluation by your physician. - Problem is new. - Symptoms have improved. Signatures: Dispatcher [employer] EDMS Emiliano Hidalgo MD MD kdr Belem Beck RN RN kg Corrections: (The following items were deleted from the chart) 13:57 12:37 PSHx: Joint replacement; kg kg 13:57 12:37 PSHx: Disc surgery; kg kg 13:57 12:37 PSHx: Knee surgery; kg kg 13:57 12:37 PSHx: Tonsillectomy; kg kg 13:57 12:37 PSHx: Ear Tubes; kg kg 13:57 12:37 PSHx: Hernia repair; kg kg 13:57 12:37 PSHx: Gastric Bypass; kg kg 13:57 12:37 PSHx: Tubal ligation; kg kg 13:57 12:37 PSHx: ; kg kg 13:57 12:37 PSHx: Cholecystectomy; kg kg 13:57 12:37 PSHx: Appendectomy; kg kg 13:57 12:37 PSHx: Carotid surgery; kg kg 13:57 12:37 PSHx: Heart stents; kg kg 13:57 12:37 PSHx: Angioplasty; kg kg 13:57 12:37 PSHx: Unable to obtain; kg kg 13:57 12:37 PSHx: CABG; kg kg 14:49 14:31 01/17/2021 14:31 Discharged to Home. Impression: Abdominal and pelvic pain; kg Dizziness and giddiness. Condition is Stable. Forms are Medication Reconciliation Form, Thank You Letter, Antibiotic Education, Prescription Opioid Use. Follow up: Sanchez Ricketts; When: 2 - 3 days; Reason: If symptoms return, Further diagnostic work-up, Recheck today's complaints, Continuance of care, Re-evaluation by your physician. Problem is new. Symptoms have improved. kdr
[2021-01-17] MEDS ORDERED: KETOROLAC 30 MG/ML INJ ONE (14:47)
[2021-01-17 15:50] VITALS: TEMP 97.4
[2021-01-17 15:56] VITALS: BP 112/68; O2SAT 100
== END 2021-01-17 14:49 | disposition home or self-care (01) ==
LOC: ER 12:13
DX: R10.2 Pelvic and perineal pain (principal); I10 Essential (primary) hypertension; Z88.8 Allergy status to other drugs, medicaments and biological substances
CPT/HCPCS: 85025; 80048; 36415; 80076; 81003; 74177; Q9967; 96374; 99284

== ENCOUNTER 2021-03-03 19:19 | Emergency (ER) | payer SELFPAY ==
--- OUTSIDE RECORDS SUMMARY | 2021-03-03 19:21 | XMS REPORT | Continuity of Care Document ---
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 - s/p ex s/p ex 00:00: Medical lap, RICHELLE, lap, RICHELLE, 00 Cent er SBO SBO resection resection (10 cm), (10 cm), anastomosi anastomosi s 07/09 s 07/09 Allergies, Adverse Reactions, Alerts This patient has no known allergies or adverse reactions. Social History Social Habit Start Date Stop Date Quantity Comments Source Sex Assigned At [facility] Alcohol intake 2016-07-10 2016-07-10 [facility] es - 00:00:00 00:00:00 [facility] Smoking Status Start Date Stop Date Source Never smoker [facility] Medications Ordered Filled Start Stop [...]
[2021-03-03 22:06] LABS: Urine Blood Negative (Negative); Urine Glucose Negative (Negative); Urine Protein Negative (Negative); Urine pH 6.5 (5.0-7.0)
[2021-03-04] MEDS ORDERED: NA CHLORIDE 0.9% 1,000 ML ONE (00:41)
[2021-03-04 01:17] LABS: Magnesium 2.3 mg/dL (1.8-2.4); Troponin I < 0.02 ng/mL (0.0-0.045)
[2021-03-04 02:01] LABS: Absolute Lymphocytes (CBC) 2.2 K/uL (0.7-4.9); Basophils % 0.5 % (0-1.3); Hematocrit 41.3 % (36.0-45.0); Lymphocytes % 16.7 % (15.3-44.8); MPV 9.5 fL (7.6-11.3); RBC Red Blood Cell Count 4.92 M/uL (3.86-4.86)
[2021-03-04 02:12] LABS: ALT/SGPT 29 U/L (12-78); AST/SGOT 14 U/L (15-37); Albumin 4.1 g/dL (3.4-5.0); Alkaline Phosphatase 92 U/L (45-117); BUN Blood Urea Nitrogen 21 mg/dL (7-18); Bicarbonate 25 mmol/L (21-32); Bilirubin Direct < 0.1 mg/dL (0-0.2); Bilirubin Total 0.3 mg/dL (0.2-1.0); Glucose Level 110 mg/dL (74-106); Lipase 156 U/L (73-393); Protein, Total 9.1 g/dL (6.4-8.2); Sodium Level 138 mmol/L (136-145)
[2021-03-04 03:05] LABS: Urine Bacteria <20 /HPF (<20); Urine RBC <5 /HPF (NONE SEEN)
[2021-03-04 03:06] LABS: Urine Mucus 2+ /HPF (NONE SEEN)
--- NOTE | 2021-03-04 03:30 | EDPHYS ---
Physician Documentation [facility] Name: Cristy Dixon Age: 55 yrs Sex: Female : 1965 Arrival Date: 03/03/2021 Time: 19:23 Bed 9 Private MD: Sanchez Ricketts ED Physician Campbell Johns HPI: 03/03 23:45 This 55 yrs old Black Female presents to ER via Ambulatory with complaints of Abdominal cp Pain, Chest Pain, Body tingely. 23:45 The patient presents with abdominal pain in the periumbilical area. Onset: The cp symptoms/episode began/occurred yesterday. The symptoms do not radiate. Associated signs and symptoms: Pertinent positives: chest pain, Pertinent negatives: constipation, diarrhea, dysuria, fever, vomiting. Patient reports chest pain started today at 1000. 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 - Social history:: Smoking status: Patient denies any tobacco usage or history of. Patient uses alcohol, weekly. ROS: 23:50 Constitutional: Negative for body aches, chills, fever, poor PO intake. cp 23:50 Eyes: Negative for injury, pain, redness, and discharge. cp 23:50 ENT: Negative for ear pain, sore throat, difficulty swallowing, difficulty handling secretions. 23:50 Cardiovascular: Positive for chest pain, Negative for edema, palpitations. 23:50 Respiratory: Negative for cough, shortness of breath, wheezing. 23:50 Abdomen/GI: Positive for abdominal pain, Negative for vomiting, diarrhea, constipation, black/tarry stool, rectal bleeding. 23:50 Back: Negative for injury or acute deformity. 23:50 : Negative for urinary symptoms. 23:50 Neuro: Negative for altered mental status, headache, weakness. 23:50 All other systems are negative. Exam: 21:55 ECG was reviewed by the Attending Physician. cp 23:55 Constitutional: The patient appears in no acute distress, alert, awake, cp non-diaphoretic, non-toxic, well developed, well nourished. 23:55 Head/Face: Normocephalic, atraumatic. cp 23:55 Eyes: Periorbital structures: appear normal, Conjunctiva: normal, no exudate, no cp injection, Sclera: no appreciated abnormality, Lids and lashes: appear normal, bilaterally. 23:55 ENT: External ear(s): are unremarkable, Nose: is normal, Posterior pharynx: Airway: no evidence of obstruction, patent. 23:55 Chest/axilla: Inspection: normal. 23:55 Cardiovascular: Rate: normal, Rhythm: regular, Edema: is not appreciated, JVD: is not appreciated. 23:55 Respiratory: the patient does not display signs of respiratory distress, Respirations: cp normal, no use of accessory muscles, no retractions, labored breathing, is not present, Breath sounds: are clear throughout, no decreased breath sounds, no stridor, no wheezing. 23:55 Abdomen/GI: Inspection: abdomen appears normal, Bowel sounds: active, all quadrants, Palpation: soft, in all quadrants, moderate abdominal tenderness, in the umbilical area, rebound tenderness, is not appreciated, voluntary guarding, is elicited in the umbilical area. 23:55 Back: CVA tenderness, is absent. Vital Signs: 21:43 BP 146 / 82; Pulse 79; Resp 20; Temp 98.3(O); Pulse Ox 100% on R/A; Weight 69.22 kg kg (M); Height 4 ft. 9 in. (144.78 cm) (R); Pain 5/10; 03/04 02:00 BP 128 / 77; Pulse 81; Resp 18; Pulse Ox 98% on R/A; jb4 03:00 BP 126 / 81; Pulse 78; Resp 16; Pulse Ox 98% on R/A; jb4 03/03 21:43 Body Mass Index 33.02 (69.22 kg, 144.78 cm) kg MDM: 03/03 23:35 Patient medically screened. cp 03/04 00:00 Differential diagnosis: cholecystitis, Cholelithiasis, gastritis, pancreatitis, Peptic cp Ulcer Disease, Perf. Duodenal Ulcer, Perf. Gastric Ulcer, urinary tract infection, bowel obstruction. 02:55 Transition of care: After a detail discussion of the patient's case, care is cp transferred to Campbell Johns MD. 03:24 Data reviewed: vital signs, nurses notes, lab test result(s), EKG, radiologic studies, pkl CT scan, plain films. ED course: Patient feeling better. Discussed lab and CT Scan result with patient Advised to follow up with PCP in 2 to 3 days. To return if necessary. Patient understood instructionns. 03/03 21:55 Order name: Basic Metabolic Panel; Complete Time: 02:15 kg 03/04 02:15 Interpretation: Normal except: GLUC 110; BUN 21; GFR 83. 03/03 21:55 Order name: CBC with Diff; Complete Time: 02:15 kg 07 02:16 Interpretation: Normal except: WBC 13.00; RBC 4.92; RDW 15.9; PAUL% 78.3; NEUT A 10.2. 03/03 21:55 Order name: Hepatic Function; Complete Time: 02:15 kg 03/04 02:16 Interpretation: Normal except: AST 14; TP 9.1; GLOB 5.0; A/G 0.8. 03/03 21:55 Order name: Lipase; Complete Time: 02:15 kg 03/03 22:05 Order name: Urine Dipstick-Ancillary; Complete Time: 23:44 EDMS 08 23:44 Interpretation: Reviewed. 03/03 23:36 Order name: Troponin I; Complete Time: 02:15 03/03 21:55 Order name: IV Saline Lock; Complete Time: 00:59 kg 03/03 21:55 Order name: Labs collected and sent; Complete Time: 00:59 kg 03/03 23:36 Order name: Magnesium; Complete Time: 02:15 03/03 23:43 Order name: Urine Microscopic Only; Complete Time: 03:08 03/03 23:44 Order name: CT Abd/Pelvis - IV Contrast Only 03/04 02:17 Order name: XRAY Chest (1 view) 03/03 21:55 Order name: EKG - Nurse/Tech; Complete Time: 21:55 kg EC/06 21:55 Rate is 77 beats/min. Rhythm is regular. OK interval is normal. QRS interval is normal. cp QT interval is prolonged at 414 msec. Interpreted by me. Reviewed by me. Administered Medications: 03/04 00:40 Drug: NS 0.9% 500 ml Route: IV; Rate: bolus; Site: right antecubital; jb4 01:10 Follow up: Response: No adverse reaction; IV Status: Completed infusion; IV Intake: jb4 500ml 01:10 Drug: NS 0.9% 500 ml Route: IV; Rate: 125 ml/hr; Site: right antecubital; jb4 03:54 Follow up: Response: No adverse reaction; IV Status: Order to discontinue infusion jb4 Disposition: 03:24 Co-signature as Attending Physician, Campbell Johns MD. pkl Disposition Summary: 03/04/21 03:29 Discharge Ordered Location: Home pkl Problem: new pkl Symptoms: have improved pkl Condition: Stable pkl Diagnosis - Chest pain. Abdominal pain. Dizziness pkl Followup: pkl - With: Sanchez Ricketts MD - When: 2 - 3 days - Reason: Re-evaluation by your physician Forms: - Medication Reconciliation Form pkl - Thank You Letter pkl - Antibiotic Education pkl - Prescription Opioid Use pkl Signatures: Dispatcher [employer] EDMS Campbell Johns MD MD pkl Stu Oscar PA PA cp Bryan Solorzano RN RN jb4 Belem Beck RN RN kg Corrections: (The following items were deleted from the chart) 02:38 03/03 23:45 Patient reports chest pain started tonight at 2200. cp cp
--- NOTE | 2021-03-04 03:30 | ER ---
Nurse's Notes [facility] Name: Cristy Dixon Age: 55 yrs Sex: Female : 1965 Arrival Date: 03/03/2021 Time: 19:23 Bed 9 Private MD: Sanchez Ricketts Diagnosis: Chest pain. Abdominal pain. Dizziness Presentation: 03/03 21:43 Chief complaint: Patient states: Dizziness, chest pain starting at 10:00, abdominal kg pain starting last night. Pt stated she saw her PCP on Saturday for congestion and started Z-pack. Coronavirus screen: Client denies travel out of the [place] in the last 14 days. At this time, unable to obtain information related to travel outside the [place] At this time, the client does not indicate any symptoms associated with coronavirus-19. Ebola Screen: Patient negative for fever greater than or equal to 101.5 degrees Fahrenheit, and additional compatible Ebola Virus Disease symptoms Patient denies exposure to infectious person. Patient denies travel to an Ebola-affected area in the 21 days before illness onset. Initial Sepsis Screen: Does the patient meet any 2 criteria? No. Patient's initial sepsis screen is negative. Does the patient have a suspected source of infection? No. Patient's initial sepsis screen is negative. Risk Assessment: Do you want to hurt yourself or someone else? Patient reports no desire to harm self or others. Onset of symptoms was March 02, 2021. 21:43 Method Of Arrival: Ambulatory kg 21:43 Acuity: DACIA 3 kg Triage Assessment: 21:51 General: Appears in no apparent distress. Behavior is calm, cooperative, appropriate kg for age. Pain: Complains of pain in chest and umbilical area Pain currently is 5 out of 10 on a pain scale. at worst was 10 out of 10 on a pain scale. level that patient reports is acceptable is 3 out of 10 on a pain scale. Quality of pain is described as crampy. GI: No deficits noted. 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 - Social history:: Smoking status: Patient denies any tobacco usage or history of. Patient uses alcohol, weekly. Screenin:55 Abuse screen: Denies threats or abuse. Denies injuries from another. Nutritional kg screening: No deficits noted. Tuberculosis screening: No symptoms or risk factors identified. Fall Risk None identified. Assessment: 23:45 General: Appears in no apparent distress. comfortable, Behavior is calm, cooperative, jb4 appropriate for age. Pain: Complains of pain in chest Pain does not radiate. Pain currently is 5 out of 10 on a pain scale. Neuro: Level of Consciousness is awake, alert, obeys commands, Oriented to person, place, time, situation. Cardiovascular: Patient's skin is warm and dry. Respiratory: Airway is patent Respiratory effort is even, unlabored, Respiratory pattern is regular, symmetrical. GI: Abdomen is flat, non-distended. : No signs and/or symptoms were reported regarding the genitourinary system. EENT: No signs and/or symptoms were reported regarding the EENT system. Derm: Skin is intact, Skin is pink, warm \\T\\ dry. Musculoskeletal: Circulation, motion, and sensation intact. Range of motion: intact in all extremities. 03/04 01:00 Reassessment: Patient appears in no apparent distress at this time. Patient and/or jb4 family updated on plan of care and expected duration. Pain level reassessed. Patient is alert, oriented x 3, equal unlabored respirations, skin warm/dry/pink. 02:00 Reassessment: Patient appears in no apparent distress at this time. Patient and/or jb4 family updated on plan of care and expected duration. Pain level reassessed. Patient is alert, oriented x 3, equal unlabored respirations, skin warm/dry/pink. 03:00 Reassessment: Patient appears in no apparent distress at this time. Patient and/or jb4 family updated on plan of care and expected duration. Pain level reassessed. Patient is alert, oriented x 3, equal unlabored respirations, skin warm/dry/pink. Vital Signs: 03/03 21:43 BP 146 / 82; Pulse 79; Resp 20; Temp 98.3(O); Pulse Ox 100% on R/A; Weight 69.22 kg kg (M); Height 4 ft. 9 in. (144.78 cm) (R); Pain 5/10; 03/04 02:00 BP 128 / 77; Pulse 81; Resp 18; Pulse Ox 98% on R/A; jb4 03:00 BP 126 / 81; Pulse 78; Resp 16; Pulse Ox 98% on R/A; jb4 03/03 21:43 Body Mass Index 33.02 (69.22 kg, 144.78 cm) kg ED Course: 03/03 19:23 Patient arrived in ED. es 19:25 Sanchez Ricketts MD is Private Physician. es 21:51 Triage completed. kg 21:51 Arm band placed on right wrist. kg 21:55 Patient has correct armband on for positive identification. kg 23:30 Stu Oscar PA is PHCP. cp 23:30 Campbell Johns MD is Attending Physician. cp 03/04 00:15 Bryan Solorzano, ZACARIAS is Primary Nurse. jb4 00:40 Initial lab(s) drawn, by tx, sent to lab. Inserted saline lock: 18 gauge in right jb4 antecubital area, using aseptic technique. Blood collected. 02:37 CT Abd/Pelvis - IV Contrast Only In Process Unspecified. EDMS 03:19 XRAY Chest (1 view) In Process Unspecified. EDMS 03:28 Sanchez Ricketts MD is Referral Physician. pkl 03:50 No provider procedures requiring assistance completed. IV discontinued, intact, jb4 bleeding controlled, No redness/swelling at site. Pressure dressing applied. Administered Medications: 00:40 Drug: NS 0.9% 500 ml Route: IV; Rate: bolus; Site: right antecubital; jb4 01:10 Follow up: Response: No adverse reaction; IV Status: Completed infusion; IV Intake: jb4 500ml 01:10 Drug: NS 0.9% 500 ml Route: IV; Rate: 125 ml/hr; Site: right antecubital; jb4 03:54 Follow up: Response: No adverse reaction; IV Status: Order to discontinue infusion jb4 Intake: 01:10 IV: 500ml; Total: 500ml. jb4 Outcome: 03:29 Discharge ordered by . candace 03:53 Discharged to home ambulatory, with family. jb4 03:53 Condition: stable 03:53 Discharge instructions given to patient, Instructed on discharge instructions, follow up and referral plans. medication usage, Demonstrated understanding of instructions, follow-up care, medications, Prescriptions given X 1. 03:54 Patient left the ED. jb4 Signatures: Dispatcher [employer] Campbell Chapa MD MD pkPilar Mccray Corey, PA PA cp Bryson, James, ZACARIAS RN jb Belem Beck RN RN kg Corrections: (The following items were deleted from the chart) 03:53 00:40 Discharged to [place] [id number]
[2021-03-04 04:09] VITALS: TEMP 98.3
[2021-03-04 04:11] VITALS: O2SAT 98
[2021-03-04 04:12] VITALS: BP 126/81
--- NOTE | 2021-03-04 08:30 | RAD REPORT ---
EXAM DESCRIPTION: RAD - Chest Single View - 03/04/2021 3:19 am CLINICAL HISTORY: CHEST PAIN COMPARISON: Chest Single View dated 10/08/2020; Chest Single View dated 07/23/2019; Chest Single View dated 02/16/2019; Chest Single View dated 02/03/2019 FINDINGS: No evidence of edema or pneumonia. The heart size is within normal limits.No acute osseous abnormality. No significant pleural effusions or pneumothorax. IMPRESSION: No acute cardiopulmonary disease.
--- NOTE | 2021-03-04 21:15 | RAD REPORT ---
EXAM DESCRIPTION: CT - Abdomen Pelvis W Contrast - 03/04/2021 6:52 am COMPARISON: CT abdomen and pelvis January 17, 2021, March 04, 2019 CLINICAL HISTORY: ABD PAIN TECHNIQUE: CT of the abdomen and pelvis was acquired with IV contrast material. Coronal and sagitt al reconstructions were obtained. Automated exposure control was utilized on this examination as a dose lowering technique. FINDINGS: Lung bases: Clear. Liver: Numerous subcentimeter enhancing lesions are noted in the arterial phase likely represent perf usion anomalies or flash fill hemangiomas. These are stable from 2019. Gallbladder and biliary: Normal gallbladder. Unremarkable biliary tree. Pancreas: Normal. Spleen: Normal. Adrenal glands: Normal adrenal glands. Kidneys: Normal kidneys Stomach and Small Bowel: Normal stomach. Surgical changes of the small bowel with chronic dilatation of the anastomosis. A few loops of nonobstructed small bowel are present in the periumbilical hernias . Urinary bladder: Normal. Uterus and Adnexa: Hysterectomy. Colon and Appendix: The colon is unremarkable. No evidence of appendicitis. Retroperitoneum and lymph nodes: Normal. Vascular: Mild calcified atherosclerosis. Peritoneal cavity: No ascites or free air. Musculoskeletal and soft tissues: Multiple periumbilical hernias containing fat, fluid, and loops of nonobstructed bowel. These measure up to 4.0 cm. No aggressive bone lesions. No compression fractur e. IMPRESSION: Dilatation at the small bowel anastomosis is likely chronic, due to surgical change and less likely due to partial obstruction with transition point at a small bowel-containing periumbilica l hernia. No other acute intra-abdominal abnormality. Electronically signed by: Darien Hill MD 03/04/2021 3:01 AM CDT Due to temporary technical issues with the PACS/Fluency reporting system, reports are being signed by the in house radiologists without review as a courtesy to insure prompt reporting. The interpreting radiologist is fully responsible for the content of the report.
== END 2021-03-04 03:54 | disposition home or self-care (01) ==
LOC: ER 19:19
DX: R07.9 Chest pain, unspecified (principal); R10.9 Unspecified abdominal pain; R42 Dizziness and giddiness; I10 Essential (primary) hypertension; Z88.8 Allergy status to other drugs, medicaments and biological substances
CPT/HCPCS: 36415; 71045; 74177; 80048; 80076; 81003; 81015; 83690; 83735; 84484; 85025; 93005; 96360; 96361; 99284; J7030; Q9967

== ENCOUNTER 2021-10-02 08:47 | Emergency (ER) | payer OTHER, SELFPAY ==
--- OUTSIDE RECORDS SUMMARY | 2021-10-02 08:51 | XMS REPORT | Continuity of Care Document ---
:1965 Author Organization [facility] t Address [address] [place] [address] Dr. Boothe [address] [place] [id number] Care Team Providers Name Role Phone Unavailable Unavailable Unavailable Problems This patient has no known problems. Allergies, Adverse Reactions, Alerts This patient has no known allergies or adverse reactions. Medications This patient has no known medications. Procedures This patient has no known procedures. Results This patient has no known results.
--- NOTE | 2021-10-02 09:38 | ER ---
Nurse's Notes [facility] Name: Cristy Dixon Age: 56 yrs Sex: Female : 1965 Arrival Date: 10/02/2021 Time: 08:50 Bed 5 Private MD: Diagnosis: Toothache, dental abscess Presentation: 10/02 09:05 Chief complaint: Patient states: Woke up this morning with L sided facial swelling. Pt ss is unsure why, but states she has some bad teeth. Pt also c/o mild R elbow pain she believes may be arthritis that has been ongoing x 2 weeks. Coronavirus screen: Client denies travel out of the [place] in the last 14 days. Ebola Screen: Patient denies exposure to infectious person. Patient denies travel to an Ebola-affected area in the 21 days before illness onset. Initial Sepsis Screen: Does the patient meet any 2 criteria? No. Patient's initial sepsis screen is negative. Does the patient have a suspected source of infection? No. Patient's initial sepsis screen is negative. Risk Assessment: Do you want to hurt yourself or someone else? Patient reports no desire to harm self or others. Onset of symptoms was August 2021. 09:05 Method Of Arrival: Ambulatory ss 09:05 Acuity: DACIA 4 ss Triage Assessment: 09:41 General: Appears in no apparent distress. Behavior is calm, cooperative. 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 - Social history:: Smoking status: Patient denies any tobacco usage or history of. Screenin:39 Abuse screen: Denies threats or abuse. Denies injuries from another. Nutritional osborn screening: No deficits noted. Tuberculosis screening: No symptoms or risk factors identified. Fall Risk None identified. Assessment: 09:39 Pain: Pain: Complains of pain in right elbow and left swelling. osborn Vital Signs: 09:05 BP 162 / 93; Pulse 110; Resp 16; Temp 98.2(TE); Pulse Ox 100% on R/A; Weight 70.76 kg; Height 4 ft. 9 in. (144.78 cm); Pain 02/04; 09:05 Body Mass Index 33.76 (70.76 kg, 144.78 cm) 09:05 Pt states that she has not taken her BP medicaiton this morning ED Course: 08:50 Patient arrived in ED. rg4 09:04 Mauricio Hodges MD is Attending Physician. sp3 09:06 Triage completed. ss 09:06 Arm band placed on right wrist. ss 09:39 Patient has correct armband on for positive identification. Bed in low position. osborn 09:39 No provider procedures requiring assistance completed. Patient did not have IV access osborn during this emergency room visit. Administered Medications: No medications were administered Outcome: 09:37 Discharge ordered by . sp3 09:39 Discharged to home osborn 09:39 Condition: good 09:39 Discharge instructions given to patient, Prescriptions given X 1. 09:42 Patient left the ED. osborn Signatures: Suzanna Ramsay RN RN Yisel Rodriguez rg4 Mauricio Hodges MD MD sp3 Darcy Peraza RN RN osborn Corrections: (The following items were deleted from the chart) 09:41 09:39 Pain: osborn osborn
--- NOTE | 2021-10-02 09:38 | EDPHYS ---
Physician Documentation [facility] Name: Cristy Dixon Age: 56 yrs Sex: Female : 1965 Arrival Date: 10/02/2021 Time: 08:50 Bed 5 Private MD: ED Physician Mauricio Hodges HPI: 10/02 09:32 This 56 yrs old Black Female presents to ER via Ambulatory with complaints of Facial sp3 Swelling, Arm Pain. 09:32 56-year-old female with a history of hypertension presents with left lower mandibular sp3 pain and states that she also has some swelling in her right armpit. Patient noticed jaw swelling today and thinks that her armpit swelling has been there before. Unable to state exact time. Patient denies fever, headache, URI symptoms, neck pain, chest pain, shortness breath, abdominal pain, nausea, vomiting, diarrhea, known sick contacts, travel history, any other ROS this time. Patient does have mild toothache on the left lower side. Last time she saw dentist was 3 years ago. No unexplained weight loss or night sweats reported.. 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 - Social history:: Smoking status: Patient denies any tobacco usage or history of. ROS: 09:35 Constitutional: Negative for fever, chills, and weight loss, Eyes: Negative for injury, sp3 pain, redness, and discharge, Neck: Negative for injury, pain, and swelling, Cardiovascular: Negative for chest pain, palpitations, and edema, Respiratory: Negative for shortness of breath, cough, wheezing, and pleuritic chest pain, Abdomen/GI: Negative for abdominal pain, nausea, vomiting, diarrhea, and constipation, Back: Negative for injury and pain, MS/Extremity: Negative for injury and deformity, Skin: Negative for injury, rash, and discoloration, Neuro: Negative for headache, weakness, numbness, tingling, and seizure, Psych: Negative for depression, anxiety, suicide ideation, homicidal ideation, and hallucinations, Allergy/Immunology: Negative for hives, rash, and allergies, Endocrine: Negative for neck swelling, polydipsia, polyuria, polyphagia, and marked weight changes. 09:35 All other systems are negative. Exam: 09:35 Constitutional: This is a well developed, well nourished patient who is awake, alert, sp3 and in no acute distress. Head/Face: Normocephalic, atraumatic. Eyes: Pupils equal round and reactive to light, extra-ocular motions intact. Lids and lashes normal. Conjunctiva and sclera are non-icteric and not injected. Cornea within normal limits. Periorbital areas with no swelling, redness, or edema. Neck: Trachea midline, no thyromegaly or masses palpated, and no cervical lymphadenopathy. Supple, full range of motion without nuchal rigidity, or vertebral point tenderness. No Meningismus. Chest/axilla: Normal chest wall appearance and motion. Nontender with no deformity. No lesions are appreciated. Cardiovascular: Regular rate and rhythm with a normal S1 and S2. No gallops, murmurs, or rubs. Normal PMI, no JVD. No pulse deficits. Respiratory: Lungs have equal breath sounds bilaterally, clear to auscultation and percussion. No rales, rhonchi or wheezes noted. No increased work of breathing, no retractions or nasal flaring. Abdomen/GI: Soft, non-tender, with normal bowel sounds. No distension or tympany. No guarding or rebound. No evidence of tenderness throughout. Skin: Warm, dry with normal turgor. Normal color with no rashes, no lesions, and no evidence of cellulitis. MS/ Extremity: Pulses equal, no cyanosis. Neurovascular intact. Full, normal range of motion. Neuro: Awake and alert, GCS 15, oriented to person, place, time, and situation. Cranial nerves II-XII grossly intact. Motor strength 5/5 in all extremities. Sensory grossly intact. Cerebellar exam normal. Normal gait. Psych: Awake, alert, with orientation to person, place and time. Behavior, mood, and affect are within normal limits. 09:35 ENT: Left lower mandibular poor dentition. Mild gingival swelling noted.. Vital Signs: 09:05 BP 162 / 93; Pulse 110; Resp 16; Temp 98.2(TE); Pulse Ox 100% on R/A; Weight 70.76 kg; ss Height 4 ft. 9 in. (144.78 cm); Pain 02/04; 09:05 Body Mass Index 33.76 (70.76 kg, 144.78 cm) 09:05 Pt states that she has not taken her BP medicaiton this morning MDM: 09:32 Patient medically screened. sp3 09:36 Data reviewed: vital signs, nurses notes. ED course: 56-year-old female with left-sided sp3 mandibular facial swelling. I believe swelling is likely due to dental infection. I am not suspicious of parotid gland obstruction. There was no appreciable swelling in the right armpit or any lymphadenopathy. Both sides are equal both sides were thoroughly examined. Distal extremity exams are also normal. This time we will place patient on amoxicillin and have her follow-up with dentistry and told to return for any other worsening symptoms, weight loss, lymphadenopathy, or any other symptoms.. Administered Medications: No medications were administered Disposition Summary: 10/02/21 09:37 Discharge Ordered Location: Home sp3 Condition: Stable sp3 Diagnosis - Toothache, dental abscess sp3 Followup: sp3 - With: Private Physician - When: As needed - Reason: Recheck today's complaints Discharge Instructions: - Discharge Summary Sheet sp3 Forms: - Medication Reconciliation Form sp3 - Thank You Letter sp3 - Antibiotic Education sp3 - Prescription Opioid Use sp3 Prescriptions: - Amoxicillin 500 mg Oral Capsule - take 1 capsule by ORAL route every 8 hours for 10 days; 30 tablet; Refills: 0, sp3 Product Selection Permitted Signatures: Suzanna Ramsay RN RN Mauricio Hodges MD MD sp3
[2021-10-02 10:27] VITALS: BP 162/93; TEMP 98.2; O2SAT 100
== END 2021-10-02 09:42 | disposition home or self-care (01) ==
LOC: ER 08:47
DX: K04.7 Periapical abscess without sinus (principal); Z88.8 Allergy status to other drugs, medicaments and biological substances
CPT/HCPCS: 99282

== ENCOUNTER 2022-01-04 10:56 | Emergency (ER) | payer OTHER, SELFPAY ==
--- OUTSIDE RECORDS SUMMARY | 2022-01-04 10:58 | XMS REPORT | Continuity of Care Document ---
:1965 Author Organization [facility] t Address [address] [place] [address] Dr. Boothe [address] [place] [id number] Care Team Providers Name Role Phone Unavailable Unavailable Unavailable Problems This patient has no known problems. Allergies, Adverse Reactions, Alerts This patient has no known allergies or adverse reactions. Medications This patient has no known medications. Procedures This patient has no known procedures. Results This patient has no known results.
[2022-01-04 11:28] LABS: Absolute Lymphocytes (CBC) 4.5 K/uL (0.7-4.9); Hematocrit 37.9 % (36.0-45.0); Lymphocytes % 36.5 % (15.3-44.8); MPV 9.4 fL (7.6-11.3); RBC Red Blood Cell Count 4.51 M/uL (3.86-4.86)
[2022-01-04 11:32] LABS: Protime INR 0.95
--- NOTE | 2022-01-04 11:43 | RAD REPORT ---
EXAM DESCRIPTION: CT - Ct Stroke Brain Wo Cont - 01/04/2022 11:25 am CLINICAL HISTORY: headache, dizziness COMPARISON: Head Brain Wo Cont dated 10/08/2020 TECHNIQUE: Axial 5 millimeter thick images of the head were obtained without IV contrast. All CT scans are performed using dose optimization technique as appropriate and may include automated exposure control or mA/KV adjustment according to patient size. FINDINGS: No intracranial hemorrhage, mass, or cerebral edema. No acute cortical based infarction. N o cortical edema or sulcal effacement. No extra-axial fluid collections. Kat matter-white matter di fferentiation is preserved.No significant atrophy changes are present. There is some patchy diminishe d attenuation in the cerebral white matter. This is typically chronic ischemic change though this is more prominent than seen for this age. The pattern is similar to 2020. Visualized portions of the mastoid air cells, paranasal sinuses, and orbits are unremarkable. Findings telephoned to Pamela Ramos 11:37 a.m. IMPRESSION: No CT evidence of acute intracranial process. Mild ischemic pattern seen in the cerebral white matter. This is typically chronic ischemic change bu t is more prominent than usually seen in a patient this age. The intracranial findings are not clearl y different from comparison. Continued concerns for acute CVA can be addressed with MR imaging.
--- NOTE | 2022-01-04 11:45 | RAD REPORT ---
EXAM DESCRIPTION: RAD - Chest Single View - 01/04/2022 11:36 am CLINICAL HISTORY: COUGH COMPARISON: Portable 03/04/2021 TECHNIQUE: AP portable chest image was obtained 01/04/2022 11:36 am . FINDINGS: Lungs are clear. Interstitial pattern matches comparison. Heart and vasculature are normal . No measurable pleural effusion and no pneumothorax. No acute bony abnormality seen. No acute aortic findings suspected. IMPRESSION: No acute cardiopulmonary process.
[2022-01-04] MEDS ORDERED: NA CHLORIDE 0.9% 1,000 ML ONE (13:01)
[2022-01-04] MEDS ORDERED: MECLIZINE HCL 12.5 MG TAB ONE (14:17)
--- NOTE | 2022-01-04 14:55 | EDPHYS ---
Physician Documentation [facility] Name: Cristy Dixon Age: 56 yrs Sex: Female : 1965 Arrival Date: 01/04/2022 Time: 11:03 Bed 7 Private MD: ED Physician Eric Montero HPI: 01/04 15:04 This 56 yrs old Black Female presents to ER via EMS with complaints of Dizziness. kb 15:04 The patient presents with dizziness. Onset: The symptoms/episode began/occurred woke up kb with it . Context: occurred at home, occurred while the patient was asleep. Modifying factors: The symptoms are alleviated by nothing, the symptoms are aggravated by nothing. Associated signs and symptoms: Pertinent positives: headache. Severity of symptoms: At their worst the symptoms were moderate in the emergency department the symptoms are unchanged. Patient's baseline: Neuro: alert and fully oriented, Motor: no deficits, Ambulation: walks without assistance, Speech: normal. The patient has not experienced similar symptoms in the past. The patient has not recently seen a physician. Pt states she woke up with dizziness and a headache today. States she has had similar symptoms in the past. Pt is on steroids, antibiotics and albuterol for bronchitis. 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 - Social history:: Smoking status: Patient denies any tobacco usage or history of. ROS: 15:02 Constitutional: Negative for fever, chills, and weight loss. kb 15:02 Respiratory: Positive for cough, Negative for dyspnea on exertion, hemoptysis, orthopnea, pleurisy, shortness of breath, sputum production, wheezing. 15:02 Neuro: Positive for dizziness, headache. 15:02 All other systems are negative. Exam: 15:03 Constitutional: This is a well developed, well nourished patient who is awake, alert, kb and in no acute distress. Head/Face: Normocephalic, atraumatic. ENT: Moist Mucous membranes Cardiovascular: Regular rate and rhythm with a normal S1 and S2. No gallops, murmurs, or rubs. No pulse deficits. Respiratory: Respirations even and unlabored. No increased work of breathing. Talking in full sentences Abdomen/GI: Soft, non-tender. No distention Skin: Warm, dry with normal turgor. Normal color. MS/ Extremity: Pulses equal, no cyanosis. Neurovascular intact. Full, normal range of motion. Neuro: Awake and alert, GCS 15, oriented to person, place, time, and situation. Moves all extremities. Normal gait. Psych: Awake, alert, with orientation to person, place and time. Behavior, mood, and affect are within normal limits. Vital Signs: 11:04 BP 136 / 74; Pulse 129; Resp 18; Temp 98.4; Pulse Ox 98% on R/A; Weight 75.3 kg; Height ss 4 ft. 9 in. (144.78 cm); Pain 5/10; 12:00 BP 122 / 71; Pulse 103; Resp 16; Pulse Ox 98% on R/A; ph 12:50 BP 118 / 80 Supine; Pulse 103; Resp 20 S; Pulse Ox 98% ; jg9 12:55 BP 126 / 83 Sitting; Pulse 106; Resp 16; Pulse Ox 97% on R/A; jg9 13:00 BP 127 / 80 Standing; Pulse 104; Resp 22 S; Pulse Ox 98% on R/A; jg9 14:43 BP 116 / 75; Pulse 90; Resp 16; Pulse Ox 98% on R/A; ph 11:04 Body Mass Index 35.92 (75.30 kg, 144.78 cm) ss MDM: 11:03 Patient medically screened. kb 15:01 Data reviewed: vital signs, nurses notes. Data interpreted: Pulse oximetry: on room air kb is 98 %. Interpretation: normal. Counseling: I had a detailed discussion with the patient and/or guardian regarding: the historical points, exam findings, and any diagnostic results supporting the discharge/admit diagnosis, lab results, radiology results, the need for outpatient follow up, a family practitioner, a neurologist, to return to the emergency department if symptoms worsen or persist or if there are any questions or concerns that arise at home. 15:06 ED course: Symptoms resolved after treatment. Pt states she is ready to go home. . kb 01/04 11:05 Order name: Basic Metabolic Panel; Complete Time: 11:46 kb 01/04 11:05 Order name: CBC with Diff; Complete Time: 11:32 kb 01/04 11:05 Order name: Protime (+inr); Complete Time: 11:32 kb 01/04 11:05 Order name: Ptt, Activated; Complete Time: 11:32 kb 01/04 11:05 Order name: CT Stroke Brain w/o Contrast; Complete Time: 11:46 kb 01/04 11:05 Order name: Stroke CXR 1 View; Complete Time: 11:46 kb 01/04 11:05 Order name: EKG; Complete Time: 11:06 kb 01/04 11:05 Order name: Accucheck; Complete Time: 11:19 kb 01/04 11:05 Order name: Cardiac monitoring; Complete Time: 11:06 kb 01/04 11:05 Order name: EKG - Nurse/Tech; Complete Time: 12:55 kb 01/04 11:05 Order name: IV Saline Lock; Complete Time: 11:19 kb 01/04 11:05 Order name: Labs collected and sent; Complete Time: 11:19 kb 01/04 11:05 Order name: NPO; Complete Time: 11:06 kb 01/04 11:05 Order name: O2 Per Protocol; Complete Time: 11:06 kb 01/04 11:05 Order name: O2 Sat Monitoring; Complete Time: 11:06 kb 01/04 11:05 Order name: Stroke Swallow Screen; Complete Time: 12:55 kb 01/04 12:26 Order name: Orthostatics; Complete Time: 13:00 kb Administered Medications: 13:02 Drug: NS 0.9% 1000 ml Route: IV; Rate: 1000 ml; Site: right antecubital; jg9 15:10 Follow up: IV Status: Completed infusion; IV Intake: 1000ml jg9 14:18 Drug: Meclizine 25 mg Route: PO; jg9 14:42 Follow up: Response: No adverse reaction; Marked relief of symptoms ph Disposition: 15:18 Attestation: The patient's history, exam findings, diagnostics, and a summary of any [facility] interventions or procedures was reviewed in detail with Pamela CHIANG. Disposition Summary: 06/09/22 14:55 Discharge Ordered Location: Home kb Condition: Stable kb Diagnosis - Dizziness and giddiness kb - Headache kb Followup: kb - With: Emergency Department - When: As needed - Reason: Worsening of condition Followup: kb - With: Private Physician - When: 2 - 3 days - Reason: Recheck today's complaints, Continuance of care, Re-evaluation by your physician Discharge Instructions: - Discharge Summary Sheet kb - General Headache Without Cause, [id number] kb - Dizziness, [id number] kb Forms: - Medication Reconciliation Form kb - Thank You Letter kb - Antibiotic Education kb - Prescription Opioid Use kb Prescriptions: - Meclizine 25 mg Oral Tablet - take 1 tablet by ORAL route every 8 hours As needed; 30 tablet; Refills: 0, kb Product Selection Permitted Signatures: Dispatcher [employer] EDMS Pamela Ramos, EDEN-C EDEN-Suzanna Betancourt RN RN ss Brianna Begum RN RN jg9 Eric Montero MD MD [id number] Tanvi Chou RN ph Corrections: (The following items were deleted from the chart) 15:07 15:04 Pt states she woke up with dizziness and a headache today. States she has had kb similar symptoms in the past. kb
--- NOTE | 2022-01-04 14:55 | ER ---
Nurse's Notes [facility] Name: Cristy Dixon Age: 56 yrs Sex: Female : 1965 Arrival Date: 01/04/2022 Time: 11:03 Bed 7 Private MD: Diagnosis: Dizziness and giddiness;Headache Presentation: 01/04 11:04 Chief complaint: Patient states: Sudden onset of dizziness when walking to the bathroom. Pt reports cough and mild shortness of breath. Recently diagnosed with bronchitis. Coronavirus screen: Client denies travel out of the [place] in the last 14 days. Ebola Screen: Patient denies exposure to infectious person. Patient denies travel to an Ebola-affected area in the 21 days before illness onset. Initial Sepsis Screen: Does the patient meet any 2 criteria? No. Patient's initial sepsis screen is negative. Does the patient have a suspected source of infection? No. Patient's initial sepsis screen is negative. Risk Assessment: Do you want to hurt yourself or someone else? Patient reports no desire to harm self or others. Onset of symptoms was January 04, 2022. 11:04 Method Of Arrival: EMS: [facility] 11:04 Acuity: DACIA 3 ss 11:07 Note Pt states she self administered albuterol neb prior to arrival. Care prior to ss arrival: Glucose check: 214. 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 - Social history:: Smoking status: Patient denies any tobacco usage or history of. Screenin:19 Abuse screen: Denies threats or abuse. Denies injuries from another. Nutritional ph screening: No deficits noted. Tuberculosis screening: No symptoms or risk factors identified. Fall Risk None identified. Assessment: 11:30 General: Appears in no apparent distress. Behavior is calm, cooperative, appropriate ph for age. Pain: Denies pain. Neuro: Level of Consciousness is awake, alert, obeys commands, Oriented to person, place, time, situation, Reports dizziness. Cardiovascular: Reports fatigue, lightheadedness, shortness of breath, Denies chest pain. Respiratory: Reports shortness of breath cough that is Airway is patent Respiratory effort is even, unlabored, the patient has mild shortness of breath. GI: No signs and/or symptoms were reported involving the gastrointestinal system. Derm: Skin is intact, Skin is pink, warm \\T\\ dry. 13:00 Reassessment: Patient appears in no apparent distress at this time. Patient and/or ph family updated on plan of care and expected duration. Pain level reassessed. Patient is alert, oriented x 3, equal unlabored respirations, skin warm/dry/pink. 14:42 Reassessment: Pt ambulating to restroom, reports that dizziness has improved. ph Vital Signs: 11:04 BP 136 / 74; Pulse 129; Resp 18; Temp 98.4; Pulse Ox 98% on R/A; Weight 75.3 kg; Height ss 4 ft. 9 in. (144.78 cm); Pain 5/10; 12:00 BP 122 / 71; Pulse 103; Resp 16; Pulse Ox 98% on R/A; ph 12:50 BP 118 / 80 Supine; Pulse 103; Resp 20 S; Pulse Ox 98% ; jg9 12:55 BP 126 / 83 Sitting; Pulse 106; Resp 16; Pulse Ox 97% on R/A; jg9 13:00 BP 127 / 80 Standing; Pulse 104; Resp 22 S; Pulse Ox 98% on R/A; jg9 14:43 BP 116 / 75; Pulse 90; Resp 16; Pulse Ox 98% on R/A; ph 11:04 Body Mass Index 35.92 (75.30 kg, 144.78 cm) ED Course: 11:03 Patient arrived in ED. ss 11:03 Pam[facility]C [facility]. kb 11:03 Eric Montero MD is Attending Physician. kb 11:03 Tanvi Chou, ZACARIAS is Primary Nurse. ph 11:06 Triage completed. ss 11:06 Arm band placed on right wrist. 11:12 Initial lab(s) drawn, by nj, sent to lab. Inserted saline lock: 20 gauge in right dh3 antecubital area, using aseptic technique. Blood collected. 11:19 Patient has correct armband on for positive identification. Bed in low position. Call ph light in reach. Side rails up X 1. Client placed on continuous cardiac and pulse oximetry monitoring. NIBP monitoring applied. 11:26 CT Stroke Brain w/o Contrast In Process Unspecified. EDMS 11:38 Stroke CXR 1 View In Process Unspecified. EDMS 15:14 No provider procedures requiring assistance completed. jg9 15:15 IV discontinued. jg9 Administered Medications: 13:02 Drug: NS 0.9% 1000 ml Route: IV; Rate: 1000 ml; Site: right antecubital; jg9 15:10 Follow up: IV Status: Completed infusion; IV Intake: 1000ml jg9 14:18 Drug: Meclizine 25 mg Route: PO; jg9 14:42 Follow up: Response: No adverse reaction; Marked relief of symptoms ph Medication: 11:20 VIS not applicable for this client. ph Intake: 15:10 IV: 1000ml; Total: 1000ml. jg9 Outcome: 14:55 Discharge ordered by . kb 15:15 Discharged to home ambulatory. jg9 15:15 Condition: improved 15:15 Discharge instructions given to patient, Instructed on discharge instructions, Demonstrated understanding of instructions, follow-up care, medications, Prescriptions given X 1. 15:15 Patient left the ED. jg9 Signatures: Dispatcher [employer] EDPamela Beard, АНДРЕЙ MORFINP-Suzanna Betancourt RN RN Tanvi Chou RN RN Shayy Aranda [facility] Brianna Begum RN RN jg9 Corrections: (The following items were deleted from the chart) 13:02 12:56 BP 118 / 8; Pulse 110bpm; Resp 18bpm; Pulse Ox 99% RA; ph jg9
[2022-01-04 15:46] VITALS: TEMP 98.4
[2022-01-04 16:17] VITALS: O2SAT 98
[2022-01-04 16:18] VITALS: BP 116/75
--- NOTE | 2022-01-05 06:18 | EKG ---
Test Date: 2022-01-04 Test Time: 11:56:40 Instructor Modeling: ENMANUEL MEASUREMENT RESULTS: Intervals: Rate: 102 LA: 116 QRSD: 80 QT: 384 QTc: 500 [place]: P: 50 LA: 116 QRS: 61 T: 3 INTERPRETIVE STATEMENTS: Sinus tachycardia Nonspecific ST and T wave abnormality Abnormal ECG Compared to ECG 03/03/2021 21:47:19 ST (T wave) deviation now present Sinus rhythm no longer present Short LA interval no longer present T-wave abnormality no longer present Prolonged QT interval no longer present Electronically Signed On 01-05-22 06:16:17 CDT by Saturnino Carson
== END 2022-01-04 15:15 | disposition home or self-care (01) ==
LOC: ER 10:56
DX: R51.9 Headache, unspecified (principal); I10 Essential (primary) hypertension; Z88.8 Allergy status to other drugs, medicaments and biological substances
CPT/HCPCS: 96361; 93005; 85025; 80048; 36415; 85610; 85730; 70450; 71045; 96360; 99284; J8597; J7030

== ENCOUNTER 2022-06-16 07:56 | Emergency (ER) | payer OTHER ==
--- OUTSIDE RECORDS SUMMARY | 2022-06-16 08:00 | XMS REPORT | Continuity of Care Document ---
:[address] [facility] t Address [address] [place] [address] Care Team Providers Name Role Phone Sanchez Ricketts Primary Care Physician Problems Condition Condition Condition Status Onset Resolution Last Treating Co mments Source Name Details Category Date Date Treatment Clinician Date Small Small Disease Active 2015-[address] [facility] bowel mass bowel mass 2-08 Almita kes s/p ex s/p ex 00:00: Medical lap, RICHELLE, lap, RICHELEL, 00 [facility] SBO SBO resection resection (10 cm), (10 cm), anastomosi anastomosi s 07/09 s 07/09 Allergies, Adverse Reactions, Alerts This patient has no known allergies or adverse reactions. Social History Social Habit Start Date Stop Date Quantity Comments Source Alcohol intake 2016-07-10 2016-07-[address] [facility] 00[facility]00 [facility] Sex Assigned At [address] [facility] Almita kes 00:00:00 00:00:00 [facility] Smoking Status Start Date Stop Date Source Never smoker [facility] Medications Ordered Filled Start Stop Current Ordering Indication Dosage Frequency Signature Comments Components Source Medication Medication Date Date Medication? Clinician (SIG) Name Name amLODIPine 2015-07 Yes hypertensio 10mg QD Take [address] [facility] (NORVASC) 2-17 n by mouth [facility] 10 MG 16:56: daily. Medical tablet 38 Center losartan 2015-07 Yes 100mg QD Take [address] [facility] (COZAAR) 2-17 mg by [facility] 100 MG 16:56: mouth Medical tablet 38 daily. Center Immunizations Ordered Immunization Filled Immunization Date Status Commen ts Source Name Name Pneumococcal 2016-07-[address] [facility] Polysaccharide 00:00:00 [facility] (Pneumovax) Procedures This patient has no known procedures. Results This patient has no known results.
[2022-06-16] MEDS ORDERED: MORPHINE 4 MG/ML SYR ONE (08:13)
[2022-06-16] MEDS ORDERED: ONDANSETRON 4 MG/2 ML VIAL ONE (08:13)
[2022-06-16 08:36] LABS: Absolute Lymphocytes (CBC) 4.7 K/uL (0.7-4.9); Hematocrit 37.6 % (36.0-45.0); Lymphocytes % 38.1 % (15.3-44.8); MCV 85.2 fL (80-100); MPV 9.5 fL (7.6-11.3); RBC Red Blood Cell Count 4.41 M/uL (3.86-4.86)
[2022-06-16] MEDS ORDERED: NA CHLORIDE 0.9% 1,000 ML ONE (08:37)
[2022-06-16 08:38] LABS: Protime INR 1.02
--- NOTE | 2022-06-16 08:39 | RAD REPORT ---
EXAM DESCRIPTION: [place] Single View06/16/2022 8:22 am CLINICAL HISTORY: Shortness of breath COMPARISON: December 2021 FINDINGS: The lungs appear clear of acute infiltrate. The heart is normal size IMPRESSION: No acute abnormalities displayed
[2022-06-16 09:43] LABS: Blood Morphology Comment NOT SEEN (NOT SEEN); Platelet Estimate ADEQ; Platelets, Giant 2+; White Blood Cell Scan OK (OK)
[2022-06-16 09:59] LABS: Urine Blood Negative (Negative); Urine Glucose Negative (Negative); Urine Protein Negative (Negative); Urine pH 6.5 (5.0-7.0)
[2022-06-16 10:07] LABS: Urine RBC <5 /HPF (None Seen)
[2022-06-16 12:03] LABS: Albumin 3.5 g/dL (3.4-5.0); Bilirubin Direct 0.1 mg/dL (0-0.2); Bilirubin Total 0.2 mg/dL (0.2-1.0); Potassium 3.9 mmol/L (3.5-5.1); Protein, Total 7.7 g/dL (6.4-8.2)
--- NOTE | 2022-06-16 12:46 | RAD REPORT ---
EXAM DESCRIPTION: CTAbdomen Pelvis W Contrast - 06/16/2022 12:35 pm CLINICAL HISTORY: diffuse abd pain, hx hernia COMPARISON: Abdomen Pelvis W Contrast dated 03/04/2021; Abdomen Pelvis W Contrast dated 01/17/2021; Abdomen Pelvis W Contrast dated 03/04/2019; Abdomen Pelvis W Contrast dated 07/05/2016 TECHNIQUE: CT of the abdomen and pelvis was performed. All CT scans are performed using dose optimization technique as appropriate and may include automated exposure control or mA/KV adjustment according to patient size. FINDINGS: Lower chest: No acute abnormality. Liver: No acute abnormality or suspicious lesions. Biliary: No biliary ductal dilatation. Stomach: No significant focal abnormality. Duodenum: No significant focal abnormality. Pancreas: No significant abnormality. Spleen: No significant abnormality. Adrenal: No suspicious lesions. Kidney/ureter: No hydronephrosis. No renal calculi. Retroperitoneum: No retroperitoneal adenopathy. Vascular: No aneurysm. Bowel: Patulous bowel likely anastomosis is unchanged. Bowel containing ventral hernia. No bowel obst ruction.. Small fat containing ventral hernias as well. Peritoneum: No ascites or free air. Bladder: Grossly unremarkable. Reproductive: No adnexal masses. Hysterectomy. Bones: No acute fracture. Other: n/a IMPRESSION: No acute intra-abdominal or pelvic finding. Incidental findings as noted above. Small anthony wel containing and fat containing ventral hernias but no bowel obstruction or complicating features.
--- NOTE | 2022-06-16 12:57 | EDPHYS ---
Physician Documentation [facility] Name: Cristy Dixon Age: 57 yrs Sex: Female : 1965 Arrival Date: 06/16/2022 Time: 07:59 Bed 5 Private MD: ED Physician Rogelio Allen HPI: 06/16 08:08 This 57 yrs old Black Female presents to ER via Unassigned with complaints of Shortness jh7 Of Breath, Chest Tightness, Abdominal Pain, Back Pain. 08:08 The patient has shortness of breath at rest. Onset: The symptoms/episode began/occurred jh7 1 hour(s) ago. Duration: The symptoms are continuous. Associated signs and symptoms: Pertinent negatives: chest pain, dizziness, fever, loss of consciousness, nausea, vomiting. Patient reports sudden onset shortness of breath, chest tightness, generalized abdominal pain, and back pain starting 1 hour ago. Patient reports history of a hernia, hypertension, and diabetes. States that Dr. Sanchez is her PCP.. 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 - Social history:: Smoking status: Patient denies any tobacco usage or history of. ROS: 08:08 Constitutional: Negative for fever, chills, and weight loss, ENT: Negative for injury, jh7 pain, and discharge, Neck: Negative for injury, pain, and swelling, MS/Extremity: Negative for injury and deformity, Skin: Negative for injury, rash, and discoloration, Neuro: Negative for headache, weakness, numbness, tingling, and seizure. 08:08 Cardiovascular: Positive for Chest tightness, patient states that it is not painful, Negative for chest pain, palpitations. 08:08 Respiratory: Positive for shortness of breath, at rest. Negative for cough, wheezing. 08:08 Abdomen/GI: Positive for abdominal pain, abdominal distension, Negative for nausea, vomiting, and diarrhea, constipation. 08:08 Back: Positive for pain at rest, Negative for injury or acute deformity, decreased range of motion. 08:08 All other systems are negative. Exam: 08:08 Head/Face: Normocephalic, atraumatic. ENT: Nares patent. No nasal discharge, no jh7 septal abnormalities noted. Oropharynx with no redness, swelling, or masses, exudates, or evidence of obstruction, uvula midline. Mucous membranes moist. Neck: Trachea midline, no thyromegaly or masses palpated, and no cervical lymphadenopathy. Supple, full range of motion without nuchal rigidity, or vertebral point tenderness. No Meningismus. Cardiovascular: Regular rate and rhythm with a normal S1 and S2. No gallops, murmurs, or rubs. Normal PMI, no JVD. No pulse deficits. Respiratory: Lungs have equal breath sounds bilaterally, clear to auscultation and percussion. No rales, rhonchi or wheezes noted. No increased work of breathing, no retractions or nasal flaring. 08:08 Back: No spinal tenderness. No costovertebral tenderness. Full range of motion. Skin: Warm, dry with normal turgor. Normal color with no rashes, no lesions, and no evidence of cellulitis. MS/ Extremity: Pulses equal, no cyanosis. Neurovascular intact. Full, normal range of motion. Neuro: Awake and alert, GCS 15, oriented to person, place, time, and situation. Motor strength 5/5 in all extremities. Sensory grossly intact. Normal gait. 08:08 Constitutional: The patient appears alert, awake, anxious. 08:08 ECG was reviewed by the Attending Physician. 08:08 Abdomen/GI: Inspection: distension, that is mild, History of an abdominal hernia, Bowel sounds: normal, Palpation: soft, mild abdominal tenderness, in all quadrants. Vital Signs: 08:00 Pain 10/10; jd3 08:01 BP 161 / 93; Pulse 124; Resp 20 S; Temp 98.3(O); Pulse Ox 99% on R/A; Weight 71.67 kg aa5 (R); Height 4 ft. 9 in. (144.78 cm) (R); 08:34 BP 153 / 84; Pulse 106; Resp 17 S; Pulse Ox 100% on R/A; Pain 6/10; jd3 09:37 BP 140 / 92; Pulse 98; Resp 16 S; Pulse Ox 100% on R/A; jd3 10:37 BP 129 / 89; Pulse 88; Resp 16 S; Pulse Ox 100% on R/A; jd3 12:14 BP 114 / 68; Pulse 87; Resp 17; Pulse Ox 100% on R/A; jd3 08:01 Body Mass Index 34.19 (71.67 kg, 144.78 cm) aa5 MDM: 08:01 Patient medically screened. 7 10:09 ED course: Spoke to the patient's nurse, Franklin. He states that the patient states jh7 she is feeling much better and that her heart rate has decreased to 85. He reports that the green top was hemolyzed twice and that he just resent the blood. Patient sleeping peacefully at this time.. 13:03 Differential diagnosis: Anxiety Reaction Myocardial Infarction pneumonia, Strangulated jh7 hernia, bowel obstruction. The patient's pulmonary embolism risk score was calculated as follows: No Risks (0 Pts). Data reviewed: vital signs, nurses notes, lab test result(s), EKG, radiologic studies, CT scan, plain films. Data interpreted: Pulse oximetry: is 100 %. Interpretation: normal. Counseling: I had a detailed discussion with the patient and/or guardian regarding: the historical points, exam findings, and any diagnostic results supporting the discharge/admit diagnosis, to return to the emergency department if symptoms worsen or persist or if there are any questions or concerns that arise at home. Response to treatment: the patient's symptoms have resolved after treatment, the patient's pain is gone. 06/16 08:07 Order name: Basic Metabolic Panel; Complete Time: 12:04 [facility] 06/16 08:07 Order name: CBC with Diff; Complete Time: 09:47 [facility] 06/16 08:07 Order name: D-Dimer; Complete Time: 08:48 [facility] 06/16 08:07 Order name: LFT's; Complete Time: 12:04 [facility] 06/16 08:07 Order name: Magnesium; Complete Time: 12:04 [facility] 06/16 08:07 Order name: NT PRO-BNP; Complete Time: 12:04 [facility] 06/16 08:07 Order name: PT-INR; Complete Time: 08:48 [facility] 06/16 08:07 Order name: Troponin HS; Complete Time: 12:04 [facility] 06/16 08:07 Order name: XRAY Chest (1 view); Complete Time: 08:48 [facility] 06/16 08:07 Order name: Urine Microscopic Only; Complete Time: 10:26 [facility] 06/16 08:39 Order name: CBC Smear Scan; Complete Time: 09:47 [facility] 06/16 08:49 Order name: CT Abd/Pelvis - IV Contrast Only; Complete Time: 12:54 [facility] 06/16 09:59 Order name: Urine Dipstick-Ancillary; Complete Time: 10:07 [facility] 06/16 08:07 Order name: EKG; Complete Time: 08:08 [facility] 06/16 08:07 Order name: Cardiac monitoring; Complete Time: 08:10 [facility] 06/16 08:07 Order name: EKG - Nurse/Tech; Complete Time: 08:10 [facility] 06/16 08:07 Order name: IV Saline Lock; Complete Time: 08:18 [facility] 06/16 08:07 Order name: Labs collected and sent; Complete Time: 08:18 [facility] 06/16 08:07 Order name: O2 Per Protocol; Complete Time: 08:10 [facility] 06/16 08:07 Order name: O2 Sat Monitoring; Complete Time: 08:10 [facility] 06/16 08:07 Order name: Urine Dipstick-Ancillary (obtain specimen); Complete Time: 09:58 [facility] 06/16 08:40 Order name: Labs - recollect needed: recollect chemistries hemolyzed; Complete Time: iw 10:31 EC:08 Rate is 110 beats/min. Rhythm is regular. QRS [place] is Normal. AL interval is normal at 7 134 msec. QRS interval is normal at 80 msec. QT interval is normal at 50 msec. No Q waves. T waves are Normal. Clinical impression: NSR w/ Non-specific ST/T Changes. Administered Medications: 08:18 Drug: Zofran (Ondansetron) 4 mg Route: IVP; Site: right antecubital; jd3 09:15 Follow up: Response: No adverse reaction jd3 08:18 Drug: morphine 4 mg Route: IVP; Infused Over: 4 mins; Site: right antecubital; jd3 09:15 Follow up: Response: No adverse reaction; RASS: Alert and Calm (0) jd3 08:40 Drug: NS 0.9% 1000 ml Route: IV; Rate: 1 bolus; Site: right antecubital; jd3 13:06 Follow up: Response: No adverse reaction; IV Status: Completed infusion; IV Intake: jd3 1000ml Disposition: 15:41 Co-signature as Attending Physician, Brianna HARMON I agree with the assessment rt and plan of care. Disposition Summary: 06/16/22 12:56 Discharge Ordered Location: Home [facility] Problem: new [facility] Symptoms: have improved [facility] Condition: Stable [facility] Diagnosis - Abdominal pain, Generalized [facility] - Ventral hernia without obstruction or gangrene [facility] Followup: [facility] - With: Private Physician - When: 2 - 3 days - Reason: Recheck today's complaints Discharge Instructions: - Discharge Summary Sheet [facility] - Abdominal Pain, Adult [facility] - Hernia, Adult [facility] Forms: - Medication Reconciliation Form [facility] - Thank You Letter [facility] Signatures: Dispatcher [employer] Dotty Waldrop RN RN Gin Aguayo RN RN aa5 Babak Nguyen RN RN jd3 Hadash, Jennifer, FNP FNP [facility] Rogelio Allen MD MD rt
--- NOTE | 2022-06-16 12:57 | ER ---
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 Pt aa5 also c/o abd pain. 08:01 Coronavirus screen: shortness of breath. Ebola Screen: Patient denies travel to an [facility] Ebola-affected area in the 21 days before illness onset. Initial Sepsis Screen: Does the patient meet any 2 criteria? HR > 90 bpm. Does the patient have a suspected source of infection? No. Patient's initial sepsis screen is negative. Risk Assessment: Do you want to hurt yourself or someone else? Patient reports no desire to harm self or others. Onset of symptoms was June 16, 2022. 08:01 Method Of Arrival: Ambulatory 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 - Social history:: Smoking status: Patient denies any tobacco usage or history of. Screenin:19 Abuse screen: Denies threats or abuse. Nutritional screening: No deficits noted. jd3 Tuberculosis screening: No symptoms or risk factors identified. Fall Risk IV access (20 points). Ambulatory Aid- None/Bed Rest/Nurse Assist (0 pts). Gait- Normal/Bed Rest/Wheelchair (0 pts) Mental Status- Oriented to own ability (0 pts). Total Lawrence Fall Scale indicates No Risk (0-24 pts). Assessment: 08:19 General: Appears in no apparent distress. comfortable, Behavior is calm, cooperative, jd3 appropriate for age. Pain: Complains of pain in chest and epigastric area Quality of pain is described as pressure. Neuro: Saenz Agitation-Sedation Scale (RASS): 0 - Alert and Calm Level of Consciousness is awake, alert, obeys commands, Oriented to person, place, time, situation. Cardiovascular: Reports chest pain, Capillary refill < 3 seconds Patient's skin is warm and dry. Rhythm is sinus tachycardia. Respiratory: Reports shortness of breath Airway is patent Respiratory effort is even, unlabored, Respiratory pattern is regular, symmetrical, Denies cough, labored breathing, pain with respiration. GI: No signs and/or symptoms were reported involving the gastrointestinal system. : No signs and/or symptoms were reported regarding the genitourinary system. EENT: No signs and/or symptoms were reported regarding the EENT system. Derm: Skin is intact, Skin is dry, Skin is normal, Skin temperature is warm. Musculoskeletal: Circulation, motion, and sensation intact. Range of motion: intact in all extremities. 09:37 Reassessment: Patient appears in no apparent distress at this time. No changes from jd3 previously documented assessment. Patient and/or family updated on plan of care and expected duration. Pain level reassessed. Patient is alert, oriented x 3, equal unlabored respirations, skin warm/dry/pink. 10:37 Reassessment: Patient appears in no apparent distress at this time. Patient and/or jd3 family updated on plan of care and expected duration. Pain level reassessed. Patient is alert, oriented x 3, equal unlabored respirations, skin warm/dry/pink. awaiting lab results. 12:14 Reassessment: Patient appears in no apparent distress at this time. Patient and/or jd3 family updated on plan of care and expected duration. Pain level reassessed. Patient is alert, oriented x 3, equal unlabored respirations, skin warm/dry/pink. awaiting CT. 13:05 Reassessment: Patient appears in no apparent distress at this time. Patient and/or jd3 family updated on plan of care and expected duration. Pain level reassessed. Patient is alert, oriented x 3, equal unlabored respirations, skin warm/dry/pink. Patient states feeling better. Vital Signs: 08:00 Pain 10/10; jd3 08:01 BP 161 / 93; Pulse 124; Resp 20 S; Temp 98.3(O); Pulse Ox 99% on R/A; Weight 71.67 kg aa5 (R); Height 4 ft. 9 in. (144.78 cm) (R); 08:34 BP 153 / 84; Pulse 106; Resp 17 S; Pulse Ox 100% on R/A; Pain 6/10; jd3 09:37 BP 140 / 92; Pulse 98; Resp 16 S; Pulse Ox 100% on R/A; jd3 10:37 BP 129 / 89; Pulse 88; Resp 16 S; Pulse Ox 100% on R/A; jd3 12:14 BP 114 / 68; Pulse 87; Resp 17; Pulse Ox 100% on R/A; jd3 08:01 Body Mass Index 34.19 (71.67 kg, 144.78 cm) aa5 ED Course: 07:59 Patient arrived in ED. rg4 08:01 Babak Nguyen, ZACARIAS is Primary Nurse. jd3 08:01 Brianna Alberto FNP is PHCP. jh7 08:01 Rogelio Allen MD is Attending Physician. 7 08:01 Arm band placed on. aa5 08:10 Triage completed. aa5 08:18 Patient has correct armband on for positive identification. Placed in gown. Bed in low jd3 position. Call light in reach. Side rails up X 1. Adult w/ patient. Client placed on continuous cardiac and pulse oximetry monitoring. NIBP monitoring applied. alarm security or surveillance monitor on. Pulse ox on. NIBP on. Warm blanket given. 08:18 Inserted saline lock: 20 gauge in right antecubital area, using aseptic technique. mb9 Blood collected. 08:24 XRAY Chest (1 view) In Process Unspecified. EDMS 12:37 CT Abd/Pelvis - IV Contrast Only In Process Unspecified. EDMS 13:05 No provider procedures requiring assistance completed. IV discontinued, intact, jd3 bleeding controlled, No redness/swelling at site. Pressure dressing applied. Administered Medications: 08:18 Drug: Zofran (Ondansetron) 4 mg Route: IVP; Site: right antecubital; jd3 09:15 Follow up: Response: No adverse reaction jd3 08:18 Drug: morphine 4 mg Route: IVP; Infused Over: 4 mins; Site: right antecubital; jd3 09:15 Follow up: Response: No adverse reaction; RASS: Alert and Calm (0) jd3 08:40 Drug: NS 0.9% 1000 ml Route: IV; Rate: 1 bolus; Site: right antecubital; jd3 13:06 Follow up: Response: No adverse reaction; IV Status: Completed infusion; IV Intake: jd3 1000ml Medication: 08:19 VIS not applicable for this client. jd3 Intake: 13:06 IV: 1000ml; Total: 1000ml. jd3 Outcome: 12:56 Discharge ordered by MD. mtz 13:05 Discharged to home ambulatory, with family. jd3 13:05 Condition: stable 13:05 Discharge instructions given to patient, Instructed on discharge instructions, follow up and referral plans. Demonstrated understanding of instructions, follow-up care. 13:07 Patient left the ED. jd3 Signatures: Dispatcher [employer] EDMS Gin Aguayo, RN RN Yisel Luevano4 Babak Nguyen RN RN jd3 Brianna Alberto, COMMUNICATIONS SYSTEMS ENGINEER COMMUNICATIONS SYSTEMS ENGINEER jh7 June Willoughby, RN RN mb9 Corrections: (The following items were deleted from the chart) 08:41 08:34 BP 153 / 84; Pulse 106bpm; Resp 17bpm; Spontaneous; Pulse Ox 100% RA; jd3 jd3
[2022-06-16 13:44] VITALS: TEMP 98.3
[2022-06-16 13:45] VITALS: O2SAT 100
[2022-06-16 13:49] VITALS: BP 114/68
--- NOTE | 2022-06-18 15:35 | EKG ---
Test Date: 2022-06-16 Test Time: 08:07:55 Program Facilitator: SIENNA MEASUREMENT RESULTS: Intervals: Rate: 110 CT: 134 QRSD: 80 QT: 350 QTc: 473 [place]: P: 57 CT: 134 QRS: 81 T: 32 INTERPRETIVE STATEMENTS: Sinus tachycardia Nonspecific ST abnormality Abnormal ECG Compared to ECG 01/04/2022 11:56:40 No significant changes Electronically Signed On 06-18-22 15:30:43 LENS POLISHER by Ismael Adair
== END 2022-06-16 13:07 | disposition home or self-care (01) ==
LOC: ER 07:56
DX: K43.9 Ventral hernia without obstruction or gangrene (principal); Z88.8 Allergy status to other drugs, medicaments and biological substances
CPT/HCPCS: 96361; 93005; 85025; 80048; 36415; 83735; 85610; 85379; 80076; 84484; 83880; 74177; 71045; 96375; 96374; 99284; Q9967; J7030; J2405; 81003; 81015

== ENCOUNTER 2022-08-27 12:26 | Emergency (ER) | payer OTHER ==
--- OUTSIDE RECORDS SUMMARY | 2022-08-27 12:28 | XMS REPORT | Continuity of Care Document ---
:1965 Author Organization [facility] t Address [address] [place] [address] Care Team Providers Name Role Phone Sanchez [...] 2016-07-[address] [facility] 00[facility]00 00:00:00 [facility] Sex Assigned At [address] [facility] 00:00:00 00:00:00 [facility] Smoking Status Start Date Stop Date Source Never smoker [facility] Medications Ordered Filled Start Stop Current Ordering [...] MG 16:56: mouth Medical tablet 38 daily. [place] amLODIPine 2015-07 Yes hypertensio 10mg QD Take [address] (NORVASC) 2-17 n by [facility] 10 MG 16:56: daily. Medical tablet 38 [place] losartan 2015-07 Yes 100mg QD Take [address] (COZAAR) 2-17 mg by [facility] 100 MG 16:56: mouth Medical tablet 38 daily. Center Immunizations Ordered Immunization Filled Immunization Date Status Commen ts Source Name Name Pneumococcal 2016-07-[address] [facility] Polysaccharide 00:00:00 [facility] (Pneumovax) Pneumococcal 2016-07-[address] [facility] Polysaccharide 00:00:00 [facility] (Pneumovax) Procedures This patient has no known procedures. Results This patient has no known results.
[2022-08-27 13:29] LABS: SARS-COV-2 RT PCR NEGATIVE (NEGATIVE)
--- NOTE | 2022-08-27 13:49 | RAD REPORT ---
EXAM DESCRIPTION: [place] Single View08/27/2022 12:58 pm CLINICAL HISTORY: Cough COMPARISON: 2017 FINDINGS: The lungs appear clear of acute infiltrate. The heart is normal size IMPRESSION: No acute abnormalities displayed
--- NOTE | 2022-08-27 13:59 | ER ---
Nurse's Notes [facility] Name: Cristy Dixon Age: 57 yrs Sex: Female : 1965 Arrival Date: 08/27/2022 Time: 12:27 Bed Treatment Private MD: Sanchez Ricketts Diagnosis: Acute pharyngitis, unspecified;Cough Presentation: 08/27 12:32 Chief complaint: Patient states: CONGESTION, FEVERS, SORE THROAT X2 WEEKS. Coronavirus [facility] screen: Vaccine status: Patient reports receiving the 2nd dose of the covid vaccine. Client denies travel out of the [place] in the last 14 days. Ebola Screen: Patient negative for fever greater than or equal to 101.5 degrees Fahrenheit, and additional compatible Ebola Virus Disease symptoms Patient denies exposure to infectious person. Patient denies travel to an Ebola-affected area in the 21 days before illness onset. Initial Sepsis Screen: Does the patient meet any 2 criteria? No. Patient's initial sepsis screen is negative. Does the patient have a suspected source of infection? No. Patient's initial sepsis screen is negative. Risk Assessment: Do you want to hurt yourself or someone else? Patient reports no desire to harm self or others. 12:32 Method Of Arrival: Ambulatory [facility] 12:32 Acuity: DACIA 3 [facility] 12:37 Onset of symptoms was July 2022. [facility] Triage Assessment: 12:33 General: Appears uncomfortable, well groomed, well developed, Behavior is calm, [facility] cooperative, appropriate for age. Pain: Denies pain. GI: Reports nausea. 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 - Social history:: Smoking status: Patient denies any tobacco usage or history of. Screenin:[address] [facility] ED Fall Risk Assessment (Adult) History of falling in the last 3 months, [facility] including since admission No falls in past 3 months (0 pts). Abuse screen: Denies threats or abuse. Denies injuries from another. Nutritional screening: No deficits noted. Tuberculosis screening: No symptoms or risk factors identified. Assessment: 12:36 GI: Abdomen is flat. [facility] Vital Signs: 12:32 BP 157 / 96; Pulse 74; Resp 20; Temp 98.7; Pulse Ox 100% ; Weight 67.59 kg; Height 4 [facility] ft. 9 in. (144.78 cm); Pain 0/10; 12:32 Body Mass Index 32.24 (67.59 kg, 144.78 cm) [facility] ED Course: 12:27 Patient arrived in ED. am2 12:27 Sanchez Ricketts MD is Private Physician. am2 12:28 Simeon Gutierrez PA is PHCP. [facility] 12:28 Karel Parmar MD is Attending Physician. [facility] 12:33 Triage completed. [facility] 12:33 Arm band placed on right wrist. [facility] 12:35 Patient has correct armband on for positive identification. [facility] 12:35 No provider procedures requiring assistance completed. [facility] 12:37 Strep Sent. [facility] 12:37 COVID-19/FLU A+B Sent. [facility] 12:58 Chest Single View XRAY In Process Unspecified. EDMS 13:55 Carly Pascual, RN is Primary Nurse. ap3 14:17 Patient did not have IV access during this emergency room visit. ap3 Administered Medications: 14:00 Drug: Xopenex (levalbuterol) (3) 1.25 mg Route: Inhalation; ap3 14:16 Follow up: Response: No adverse reaction 3 Medication: 12:36 VIS not applicable for this client. [facility] Outcome: 13:59 Discharge ordered by . [facility] 14:17 Discharged to home ambulatory, with family. ap3 14:17 Condition: good 14:17 Discharge instructions given to patient, Instructed on discharge instructions, follow up and referral plans. medication usage, Demonstrated understanding of instructions, follow-up care, medications, Prescriptions given X 3. 14:17 Patient left the ED. ap3 Signatures: Dispatcher [employer] EDMS Simeon Gutierrez PA PA jmm Moreno, Amanda am2 Carly Pascual, RN RN ap3 Blanca Finley RN RN [facility]
--- NOTE | 2022-08-27 13:59 | EDPHYS ---
Physician Documentation [facility] Name: Cristy Dixon Age: 57 yrs Sex: Female : 1965 Arrival Date: 08/27/2022 Time: 12:27 Bed Treatment Private MD: Sanchez Ricketts ED Physician Karel Parmar HPI: 08/27 12:32 This 57 yrs old Black Female presents to ER via Ambulatory with complaints of Nausea, jmm Congestion. 12:32 The patient presents to the emergency department with nausea. Onset: The jmm symptoms/episode began/occurred gradually, 2 week(s) ago. Possible causes: unknown. Is a 57-year-old female with history of diabetes mellitus, hypertension the presents emerged part with complaints of sore throat, cough, vomiting symptoms initially began 2 weeks ago but patient states now having episodes of vomiting after coughing. States that she last had a fever 2 days ago. 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 - Social history:: Smoking status: Patient denies any tobacco usage or history of. ROS: 12:32 Constitutional: Positive for body aches, chills, fever. jmm 12:32 Respiratory: Positive for cough. 12:32 Abdomen/GI: Positive for vomiting. 12:32 All other systems are negative. Exam: 12:32 Constitutional: This is a well developed, well nourished patient who is awake, alert, jmm and in no acute distress. Head/Face: atraumatic. Eyes: EOMI, no conjunctival erythema appreciated ENT: Moist Mucus Membranes Neck: Trachea midline, Supple Chest/axilla: Normal chest wall appearance and motion. Cardiovascular: Regular rate and rhythm. No edema appreciated 12:32 Abdomen/GI: Non distended Back: Normal ROM Skin: General appearance color normal MS/ Extremity: Moves all extremities, no obvious deformities appreciated, no edema noted to the lower extremities Neuro: Awake and alert Psych: Behavior is normal, Mood is normal, Patient is cooperative and pleasant 12:32 ENT: Posterior pharynx: erythema, that is mild. Vital Signs: 12:32 BP 157 / 96; Pulse 74; Resp 20; Temp 98.7; Pulse Ox 100% ; Weight 67.59 kg; Height 4 jh5 ft. 9 in. (144.78 cm); Pain 0/10; 12:32 Body Mass Index 32.24 (67.59 kg, 144.78 cm) jh5 MDM: 12:32 Patient medically screened. [facility] 13:57 Data reviewed: vital signs, nurses notes. I considered the following discharge [facility] prescriptions or medication management in the emergency department Medications were administered in the Emergency Department. See MAR. Independent interpretation of the following test(s) in the Emergency Department X-Ray: My interpretation is No infiltrate appreciated. Care significantly affected by the following chronic conditions: Diabetes. Counseling: I had a detailed discussion with the patient and/or guardian regarding: the historical points, exam findings, and any diagnostic results supporting the discharge/admit diagnosis, lab results, radiology results, to return to the emergency department if symptoms worsen or persist or if there are any questions or concerns that arise at home. 08/27 12:32 Order name: COVID-19/FLU A+B; Complete Time: 13:30 [facility] 08/27 12:32 Order name: Strep; Complete Time: 13:03 [facility] 08/27 12:32 Order name: Chest Single View XRAY; Complete Time: 13:50 [facility] 08/27 13:04 Order name: Throat Culture EDMS Administered Medications: 14:00 Drug: Xopenex (levalbuterol) (3) 1.25 mg Route: Inhalation; ap3 14:16 Follow up: Response: No adverse reaction ap3 Disposition: 16:23 Co-signature as Attending Physician, Karel Parmar MD I reviewed the patient's care rn provided by the Advanced Practice Provider and agree with the diagnosis and treatment plan. Disposition Summary: 08/27/22 13:59 Discharge Ordered Location: Home [facility] Condition: Stable [facility] Diagnosis - Acute pharyngitis, unspecified jmm - Cough jmm Followup: jmm - With: Private Physician - When: 2 - 3 days - Reason: Recheck today's complaints, Continuance of care, Re-evaluation by your physician Discharge Instructions: - Discharge Summary Sheet jmm - Pharyngitis jmm - Cough, Adult jmm Forms: - Medication Reconciliation Form jmm - Thank You Letter jmm - Antibiotic Education jmm - Prescription Opioid Use [facility] Prescriptions: - promethazine-DM - take 10 milliliter by ORAL route every 4-6 hours As needed; 200 milliliter; jmm Refills: 0, Product Selection Permitted - Zithromax Z-Andriy 250 mg Oral Tablet - take 1 tablet by ORAL route as directed for 5 days Day 1 - take two (2) tablets jmm one time. Day 2, 3, 4 , 5 take one (1) tablet once daily.; 6 tablet; Refills: 0, Product Selection Permitted - albuterol sulfate 90 mcg/actuation Inhalation HFA aerosol inhaler - inhale 2 puff by INHALATION route every 4 hours; 1 Pump; Refills: 0, Product jmm Selection Permitted Signatures: Dispatcher [employer] Simeon Mishra PA PA jmm Karel Parmar MD MD rn Prokisch, Amanda, RN RN ap3 Blanca Finley RN RN jh5
[2022-08-27] MEDS ORDERED: LEVALBUTEROL 1.25 MG/3 ML NEB ONE (14:00)
[2022-08-27 14:24] VITALS: BP 157/96; TEMP 98.7; O2SAT 100
== END 2022-08-27 14:17 | disposition home or self-care (01) ==
LOC: ER 12:26
DX: J02.9 Acute pharyngitis, unspecified (principal); R05.9 Cough, unspecified; I10 Essential (primary) hypertension; E11.9 Type 2 diabetes mellitus without complications; Z20.822 Contact with and (suspected) exposure to COVID-19
CPT/HCPCS: 87070; 87081; 0240U; 71045; J7614

== ENCOUNTER 2023-04-05 07:27 | Inpatient (IN) | payer BC ==
--- OUTSIDE RECORDS SUMMARY | 2023-04-05 07:31 | XMS REPORT | Continuity of Care Document ---
:1965 Author Organization [facility] t Address [address] [place] [address] Care Team Providers Name Role Phone Sanchez [...] 2016-07-[address] [facility] 00:[facility]00 00:00:00 [facility] Center Sex Assigned At [birth year] [facility] [address] [facility] kes 00:00:00 00:00:00 [facility] Center Smoking Status Start Date Stop Date Source Never smoked tobacco [facility] Medications Ordered Filled Start Stop Current Ordering Indication Dosage Frequency Signature Comments Components Source Medication Medication Date Date Medication? Clinician (SIG) Name Name amLODIPine 2015-07 Yes hypertensio 10mg QD Take 10 mg [facility] St (NORVASC) 2-17 n by mouth [facility] 10 MG 16:56: daily. Medical tablet Center amLODIPine 2015-07 Yes hypertensio 10mg QD Take [address] [facility] [address] (NORVASC) 2-17 n by mouth [facility] 10 MG 16:56: daily. Medical tablet 38 [place] losartan 2015-07 Yes 100mg QD Take [address] [facility] (COZAAR) 2-17 mg by [facility] 100 MG 16:56: mouth Medical tablet 38 daily. [place] losartan 2015-07 Yes 100mg QD Take [address] (COZAAR) 2-17 mg by [facility] 100 MG 16:56: mouth Medical tablet 38 daily. [place] amLODIPine 2015-07 Yes hypertensio 10mg QD Take [address] (NORVASC) 2-17 n by mouth [facility] 10 MG 16:56: daily. Medical tablet 38 [place] losartan 2015-07 Yes 100mg QD Take 100 [...]
--- NOTE | 2023-04-05 08:22 | RAD REPORT ---
EXAM DESCRIPTION: RAD - Chest Pa And Lat (2 Views) - 04/05/2023 8:06 am CLINICAL HISTORY: COUGH Chest pain. COMPARISON: Chest Single View dated 08/27/2022; Chest Single View dated 06/16/2022; Chest Single View dated 01/04/2022; Chest Single View dated 03/04/2021 FINDINGS: Mild interstitial pulmonary edema is suspected. Trace pleural effusions likely present. Th e heart is mildly enlarged in size. No displaced fractures. IMPRESSION: Mild CHF.
[2023-04-05 08:33] LABS: SARS-CoV-2 Antigen Rapid Res Negative (Negative)
[2023-04-05 08:55] LABS: Absolute Lymphocytes (CBC) 4.8 K/uL (0.7-4.9); Hematocrit 33.2 % (36.0-45.0); Lymphocytes % 26.1 % (15.3-44.8); MCV 84.9 fL (80-100); MPV 8.8 fL (7.6-11.3); Platelets 263 thou/uL (152-406); RBC Red Blood Cell Count 3.91 M/uL (3.86-4.86)
--- NOTE | 2023-04-05 09:04 | RAD REPORT ---
EXAM DESCRIPTION: RAD - Chest Single View - 04/05/2023 8:58 am CLINICAL HISTORY: Congestion;Cough Chest pain. COMPARISON: Chest Pa And Lat (2 Views) dated 04/05/2023; Chest Single View dated 08/27/2022; Chest Sing le View dated 06/16/2022; Chest Single View dated 01/04/2022 FINDINGS: Portable technique limits examination quality. Mild bilateral interstitial opacities likely related to viral infection or mild interstitial pulmonar y edema. The heart is mildly enlarged in size.
[2023-04-05 09:11] LABS: Protime INR 0.99
[2023-04-05 09:20] LABS: ALT/SGPT 19 U/L (13-56); Albumin 3.2 g/dL (3.4-5.0); Alkaline Phosphatase 64 U/L (45-117); BUN Blood Urea Nitrogen 24 mg/dL (7-18); Bicarbonate 28 mEq/L (21-32); Bilirubin Total 0.2 mg/dL (0.2-1.0); Glomerular Filtration Rate 71 ml/min (=/>90); Glucose Level 115 mg/dL (74-106); NT PRO-BNP 1365 pg/mL (<125); Protein, Total 7.3 g/dL (6.4-8.2); Sodium Level 140 mEq/L (136-145); Troponin High Sensitivity 14.8 pg/mL (<58.9)
[2023-04-05 09:21] LABS: AST/SGOT 13 U/L (15-37); Bilirubin Direct < 0.1 mg/dL (0-0.2); Bilirubin Indirect, Calculated ND mg/dL (0.2-0.8); Magnesium 2.1 mg/dL (1.6-2.4); Potassium 3.8 mEq/L (3.5-5.1)
--- NOTE | 2023-04-05 09:39 | EDPHYS ---
Physician Documentation [facility] Name: Cristy Dixon Age: 58 yrs Sex: Female : 1965 Arrival Date: 04/05/2023 Time: 07:27 Bed 13 Private MD: ED Physician Stu Bynum HPI: 04/05 09:03 This 58 yrs old Black Female presents to ER via Ambulatory with complaints of [place] Congestion. 09:03 The patient has shortness of breath at rest, with light activity. Onset: The char[place] symptoms/episode began/occurred 2 day(s) ago. Duration: The symptoms are intermittent, with no pattern. The patient's shortness of breath is aggravated by coughing, supine position, walking. The patient or guardian reports cough, that is intermittent, difficulty breathing. Modifying factors: The symptoms are alleviated by changing position, elevating head, remaining still, the symptoms are aggravated by activity, lying flat. Associated signs and symptoms: Pertinent positives: productive cough. Severity of symptoms: At their worst the symptoms were mild moderate in the emergency department the symptoms have improved mildly. The patient or guardian reports flu symptoms, myalgias. Historical: - Allergies: 07:40 Benadryl ("makes me crazy"); hb - PMHx: 07:40 bowel obstruction; diabetes mellitus; Hernia; Hypertension; hb - PSHx: 07:40 Bowel sx; Total abdominal hysterectomy; hb - Immunization history:: Adult Immunizations up to date. - Social history:: Smoking status: . - Family history:: not pertinent. ROS: 09:03 Constitutional: Negative for fever, chills, and weight loss, Eyes: Negative for injury, char[place] pain, redness, and discharge, ENT: Negative for injury, pain, and discharge, Neck: Negative for injury, pain, and swelling, Cardiovascular: Negative for chest pain, palpitations, and edema, Abdomen/GI: Negative for abdominal pain, nausea, vomiting, diarrhea, and constipation, Back: Negative for injury and pain, : Negative for injury, bleeding, discharge, and swelling, MS/Extremity: Negative for injury and deformity, Skin: Negative for injury, rash, and discoloration, Neuro: Negative for headache, weakness, numbness, tingling, and seizure, Psych: Negative for depression, anxiety, suicide ideation, homicidal ideation, and hallucinations, Allergy/Immunology: Negative for hives, rash, and allergies, Endocrine: Negative for neck swelling, polydipsia, polyuria, polyphagia, and marked weight changes, Hematologic/Lymphatic: Negative for swollen nodes, abnormal bleeding, and unusual bruising. 09:03 Respiratory: Positive for cough, dyspnea on exertion, orthopnea, shortness of breath, on exertion. Exam: 09:03 Constitutional: This is a well developed, well nourished patient who is awake, alert, charlotte and in no acute distress. Head/Face: Normocephalic, atraumatic. Eyes: Pupils equal round and reactive to light, extra-ocular motions intact. Lids and lashes normal. Conjunctiva and sclera are non-icteric and not injected. Cornea within normal limits. Periorbital areas with no swelling, redness, or edema. ENT: Nares patent. No nasal discharge, no septal abnormalities noted. Tympanic membranes are normal and external auditory canals are clear. Oropharynx with no redness, swelling, or masses, exudates, or evidence of obstruction, uvula midline. Mucous membranes moist. Chest/axilla: Normal chest wall appearance and motion. Nontender with no deformity. No lesions are appreciated. Cardiovascular: Regular rate and rhythm with a normal S1 and S2. No gallops, murmurs, or rubs. Normal PMI, no JVD. No pulse deficits. Respiratory: Lungs have equal breath sounds bilaterally, clear to auscultation and percussion. No rales, rhonchi or wheezes noted. No increased work of breathing, no retractions or nasal flaring. Abdomen/GI: Soft, non-tender, with normal bowel sounds. No distension or tympany. No guarding or rebound. No evidence of tenderness throughout. Back: No spinal tenderness. No costovertebral tenderness. Full range of motion. Female : Normal external genitalia. Skin: Warm, dry with normal turgor. Normal color with no rashes, no lesions, and no evidence of cellulitis. MS/ Extremity: Pulses equal, no cyanosis. Neurovascular intact. Full, normal range of motion. Neuro: Awake and alert, GCS 15, oriented to person, place, time, and situation. Cranial nerves II-XII grossly intact. Motor strength 5/5 in all extremities. Sensory grossly intact. Cerebellar exam normal. Normal gait. Psych: Awake, alert, with orientation to person, place and time. Behavior, mood, and affect are within normal limits. 09:03 ENT: Mouth: is normal, no acute changes, Posterior pharynx: no acute changes, Tonsils: are normal in appearance, Uvula: normal, swelling, is not appreciated, erythema, is not appreciated. 09:03 Neck: Trachea: is midline with no obvious abnormalities, ROM/movement: is normal, no acute changes, Lymph nodes: no appreciated lymphadenopathy. 09:03 Cardiovascular: Rate: normal, actual rate is 81 bpm, Rhythm: regular, Pulses: Pulses are 4+ in bilateral radial, brachial, femoral, popliteal, posterior tibial and and dorsalis pedis arteries.. Heart sounds: normal, Edema: is not appreciated, JVD: is noted bilaterally, to 3 cm. Vital Signs: 07:38 BP 178 / 104; Pulse 81; Resp 24; Temp 98.7(O); Pulse Ox 98% on R/A; Weight 68.04 kg; hb Height 4 ft. 9 in. ; Pain 0/10; 10:21 BP 142 / 104; Pulse 113; Resp 22; Pulse Ox 98% on R/A; ph 12:00 BP 132 / 72; Pulse 98; Resp 16; Pulse Ox 97% on R/A; ph 13:30 BP 117 / 69; Pulse 101; Resp 18; Temp 97.4; Pulse Ox 98% on R/A; ph 14:38 BP 135 / 78; Pulse 108; Resp 20; Pulse Ox 97% on R/A; ph 07:38 Body Mass Index 32.46 (68.04 kg, 144.78 cm) hb 07:38 Pain Scale: Adult hb MDM: 07:34 Patient medically screened. [place] 09:24 Differential diagnosis: Bronchitis CHF exacerbation, bronchitis, flu, URI. Antibiotic charlotte administration: The patient is discharged and will get outpatient antibiotics, Amoxicillin. Differential Diagnosis: Bronchitis Influenza Upper Respiratory Infection Asthma Exacerbation Viral Syndrome Pneumonia. Immunization status: Influenza vaccine: within last 5 years. Data reviewed: vital signs, nurses notes, lab test result(s), EKG, radiologic studies, ultrasound. Consideration of Admission/Observation Escalation of care including admission/observation considered. I considered the following discharge prescriptions or medication management in the emergency department Medications were administered in the Emergency Department. See MAR. Test considered but Not performed: Ultrasound no 2 d echo. Historians other than the Patient: Spouse/Significant Other: informed. Care significantly affected by the following chronic conditions: Diabetes, Hypertension, Obesity. 04/05 07:37 Order name: SARS RAPID; Complete Time: 09:01 [facility] 04/05 07:37 Order name: Influenza Screen (a \\T\\ B); Complete Time: 09:01 [facility] 04/05 07:37 Order name: Strep [facility] 04/05 08:32 Order name: Basic Metabolic Panel; Complete Time: 09:28 [facility] 04/05 08:32 Order name: CBC with Diff [facility] 04/05 08:32 Order name: LFT's; Complete Time: 09:28 [facility] 04/05 08:32 Order name: Magnesium; Complete Time: 09:28 [facility] 04/05 08:32 Order name: NT PRO-BNP; Complete Time: 09:28 [facility] 04/05 08:32 Order name: PT-INR; Complete Time: 09:28 [facility] 04/05 08:32 Order name: Troponin HS; Complete Time: 09:28 [facility] 04/05 08:32 Order name: Urinalysis w/ reflexes [facility] 04/05 08:36 Order name: Throat Culture [facility] 04/05 09:31 Order name: Blood Culture Adult (2) [facility] 04/05 09:31 Order name: Lactate w/ 2H reflex if indic. [facility] 04/05 10:24 Order name: Manual Differential [facility] 04/05 12:40 Order name: NT PRO-BNP [facility] 04/05 07:37 Order name: Chest Pa And Lat (2 Views) XRAY; Complete Time: 08:30 [facility] 04/05 08:32 Order name: XRAY Chest (1 view); Complete Time: 09:28 [facility] 04/05 09:53 Order name: Echo w/ Doppler [facility] 04/05 08:32 Order name: EKG; Complete Time: 08:33 [facility] 04/05 08:32 Order name: Cardiac monitoring; Complete Time: 08:48 [facility] 04/05 08:32 Order name: EKG - Nurse/Tech; Complete Time: 08:48 [facility] 04/05 08:32 Order name: IV Saline Lock; Complete Time: 08:44 [facility] 04/05 08:32 Order name: Labs collected and sent; Complete Time: 08:44 [facility] 04/05 08:32 Order name: O2 Per Protocol; Complete Time: 08:52 [facility] 04/05 08:32 Order name: O2 Sat Monitoring; Complete Time: 08:48 [place] Administered Medications: 10:01 Drug: Rocephin IV 1 grams Route: IV; Rate: per protocol; Site: right antecubital; ph 10:21 Follow up: Response: No adverse reaction; IV Status: Completed infusion ph 10:01 Drug: Levalbuterol Inhalation 2.5 mg Route: Inhalation; ph 10:21 Follow up: Response: No adverse reaction ph 10:01 Drug: Ipratropium Inhalation Aerosol 0.5 mg Route: Inhalation; ph 10:21 Follow up: Response: No adverse reaction ph 10:02 Drug: Furosemide IVP 40 mg Route: IVP; Site: right antecubital; ph 10:20 Follow up: Response: No adverse reaction ph 10:02 Drug: MethylPrednisoLONE IVP 125 mg Route: IVP; Site: right antecubital; ph 10:20 Follow up: Response: No adverse reaction ph 10:20 Drug: Zithromax IVPB 500 mg Route: IVPB; Infused Over: 1 hrs; Site: right antecubital; ph 11:20 Follow up: Response: No adverse reaction; IV Status: Completed infusion ph Disposition Summary: 04/05/23 09:39 Hospitalization Ordered Hospitalization Status: Inpatient Admission [place] Provider: Tavo Garay cha [facility] [place] Condition: Fair [place] Problem: new char[place] Symptoms: have improved [place]lotte Bed/Room Type: Standard [place] Room Assignment: 405(04/05/23 13:38) eb Diagnosis - Elevated white blood cell count [place] - Unspecified combined systolic (congestive) and diastolic (congestive) heart failure charlotte - Pneumonia due to other specified infectious organisms - bilateral [place]lotte - Cardiomegaly char[place] - Essential (primary) hypertension [place]lotte Forms: - Medication Reconciliation Form char[place] - SBAR form [place] - Leadership Thank You Letter [place] Signatures: Dispatcher [employer] Stu Ash MD MD cha Hall, Patricia, RN RN Darcy Nielsen RN RN Veronica Majano Corrections: (The following items were deleted from the chart) 13:37 09:39 [place] eb 13:38 13:37 410 eb
--- NOTE | 2023-04-05 09:39 | ER ---
Nurse's Notes [facility] Name: Cristy Dixon Age: 58 yrs Sex: Female : 1965 Arrival Date: 04/05/2023 Time: 07:27 Bed 13 Private MD: Diagnosis: Elevated white blood cell count;Unspecified combined systolic (congestive) and diastolic (congestive) heart failure;Pneumonia due to other specified infectious organisms-bilateral;Cardiomegaly;Essential (primary) hypertension Presentation: 04/05 07:38 Chief complaint: Productive cough and sore throat x 6 days. Coronavirus screen: Client hb presents with at least one sign or symptom that may indicate coronavirus-19. Standard/surgical mask placed on the client. Provider contacted for isolation considerations. Ebola Screen: No symptoms or risks identified at this time. Resp Distress? No respiratory distress is noted at this time. Initial Sepsis Screen: Does the patient meet any 2 criteria? No. Patient's initial sepsis screen is negative. Does the patient have a suspected source of infection? No. Patient's initial sepsis screen is negative. Risk Assessment: Do you want to hurt yourself or someone else? Patient reports no desire to harm self or others. Onset of symptoms was March 30, 2023. 07:38 Method Of Arrival: Ambulatory hb 07:38 Acuity: DACIA 3 hb Historical: - Allergies: 07:40 Benadryl ("makes me crazy"); hb - PMHx: 07:40 bowel obstruction; diabetes mellitus; Hernia; Hypertension; hb - PSHx: 07:40 Bowel sx; Total abdominal hysterectomy; hb - Immunization history:: Adult Immunizations up to date. - Social history:: Smoking status: . - Family history:: not pertinent. Screenin:30 [facility] ED Fall Risk Assessment (Adult) History of falling in the last 3 months, ph including since admission No falls in past 3 months (0 pts) Confusion or Disorientation No (0 pts) Intoxicated or Sedated No (0 pts) Impaired Gait No (0 pts) Mobility Assist Device Used No (0 pt) Altered Elimination No (0 pt) Score/Fall Risk Level 0 - 2 = Low Risk Oriented to surroundings, Maintained a safe environment, Provided non-skid footwear, Hourly rounding (assess needs \\T\\ fall precautionary measures) done. Abuse screen: Denies threats or abuse. Denies injuries from another. Nutritional screening: No deficits noted. Tuberculosis screening: No symptoms or risk factors identified. Assessment: 08:00 General: Appears in no apparent distress. comfortable, well groomed, Behavior is calm, ph cooperative, appropriate for age, Reports chills for fever for. Pain: Complains of pain in chest. Neuro: Level of Consciousness is awake, alert, obeys commands, Oriented to person, place, time, situation. Cardiovascular: Reports chest pain, shortness of breath, Capillary refill < 3 seconds in bilateral fingers Patient's skin is warm and dry. Respiratory: Reports shortness of breath cough that is pain with cough Airway is patent Respiratory effort is even, unlabored, Respiratory pattern is regular, symmetrical. GI: No signs and/or symptoms were reported involving the gastrointestinal system. Derm: Skin is pink, warm \\T\\ dry. Vital Signs: 07:38 BP 178 / 104; Pulse 81; Resp 24; Temp 98.7(O); Pulse Ox 98% on R/A; Weight 68.04 kg; hb Height 4 ft. 9 in. ; Pain 0/10; 10:21 BP 142 / 104; Pulse 113; Resp 22; Pulse Ox 98% on R/A; ph 12:00 BP 132 / 72; Pulse 98; Resp 16; Pulse Ox 97% on R/A; ph 13:30 BP 117 / 69; Pulse 101; Resp 18; Temp 97.4; Pulse Ox 98% on R/A; ph 14:38 BP 135 / 78; Pulse 108; Resp 20; Pulse Ox 97% on R/A; ph 07:38 Body Mass Index 32.46 (68.04 kg, 144.78 cm) hb 07:38 Pain Scale: Adult hb ED Course: 07:29 Patient arrived in ED. rg4 07:34 Stu Bynum MD is Attending Physician. [place] 07:40 Triage completed. hb 07:40 Arm band placed on. hb 07:51 Tanvi Chou, ZACARIAS is Primary Nurse. ph 08:06 Chest Pa And Lat (2 Views) XRAY In Process Unspecified. EDMS 08:44 Initial lab(s) drawn, by me, sent to lab. Inserted saline lock: 20 gauge in right ap3 antecubital area, using aseptic technique. Blood collected. 09:00 XRAY Chest (1 view) In Process Unspecified. EDIA 09:33 Carlaterri Tavo is Hospitalizing Provider. [facility] 10:05 Patient has correct armband on for positive identification. Bed in low position. Call ph light in reach. Side rails up X 1. Pulse ox on. NIBP on. Door closed. Noise minimized. 14:42 No provider procedures requiring assistance completed. Patient admitted, IV remains in ph place. Administered Medications: 10:01 Drug: Rocephin IV 1 grams Route: IV; Rate: per protocol; Site: right antecubital; ph 10:21 Follow up: Response: No adverse reaction; IV Status: Completed infusion ph 10:01 Drug: Levalbuterol Inhalation 2.5 mg Route: Inhalation; ph 10:21 Follow up: Response: No adverse reaction ph 10:01 Drug: Ipratropium Inhalation Aerosol 0.5 mg Route: Inhalation; ph 10:21 Follow up: Response: No adverse reaction ph 10:02 Drug: Furosemide IVP 40 mg Route: IVP; Site: right antecubital; ph 10:20 Follow up: Response: No adverse reaction ph 10:02 Drug: MethylPrednisoLONE IVP 125 mg Route: IVP; Site: right antecubital; ph 10:20 Follow up: Response: No adverse reaction ph 10:20 Drug: Zithromax IVPB 500 mg Route: IVPB; Infused Over: 1 hrs; Site: right antecubital; ph 11:20 Follow up: Response: No adverse reaction; IV Status: Completed infusion ph Medication: 10:05 VIS not applicable for this client. ph Outcome: 09:39 Decision to Hospitalize by Provider. [facility] 14:42 Admitted to Med/surg accompanied by tech, family with patient, via wheelchair, with ph chart, Report called to ZACARIAS Prince 14:42 Condition: stable 14:42 Instructed on the need for admit. 14:53 Patient left the ED. ph Signatures: Dispatcher [employer] EDIA Stu Bynum MD MD cha Hall, Patricia, RN RN Darcy Saenz RN RN hb Garcia, Rubi rg4 Carly Pascual RN RN ap3 Corrections: (The following items were deleted from the chart) 09:48 07:38 Acuity: DACIA 4 hb hb
[2023-04-05] MEDS ORDERED: METHYLPREDNISOLONE 125 MG INJ ONE (09:51)
[2023-04-05] MEDS ORDERED: AZITHROMYCIN 500 MG INJ IVPB ONE (09:52)
[2023-04-05] MEDS ORDERED: LEVALBUTEROL 1.25 MG/3 ML NEB ONE (09:52)
[2023-04-05] MEDS ORDERED: CEFTRIAXONE 1000 MG/VIAL ONE (09:52)
[2023-04-05] MEDS ORDERED: NA CHLORIDE 0.9% 50 ML ONE (09:53)
[2023-04-05] MEDS ORDERED: IPRATROPIUM BROM 0.5MG/2.5ML ONE ×2 (09:53→13:40)
[2023-04-05] MEDS ORDERED: NA CHLORIDE 0.9% 250 ML ONE (09:53)
[2023-04-05] MEDS ORDERED: FUROSEMIDE 40 MG/4 ML VIAL ONE (09:54)
[2023-04-05] MEDS ORDERED: ALBUTEROL 2.5 MG/3 ML NEB SOL NEB PRN (10:09)
[2023-04-05] MEDS ORDERED: ONDANSETRON 4 MG/2 ML VIAL IV PRN (10:11)
[2023-04-05] MEDS ORDERED: ACETAMINOPHEN 500 MG TAB PO PRN (10:11)
[2023-04-05 10:13] LABS: Urine Bilirubin NEGATIVE (Negative); Urine Blood Negative (Negative); Urine Clarity Clear (Clear); Urine Color Colorless (Yellow); Urine Glucose NEGATIVE (Negative); Urine Protein NEGATIVE (Negative); Urine Urobilinogen Normal (Normal); Urine pH 7.5 (5.0-7.0)
[2023-04-05 10:24] LABS: Blood Morphology Comment NOT SEEN (NOT SEEN); Platelet Estimate ADEQ
--- NOTE | 2023-04-05 10:33 | P.HP ---
Certification for Inpatient With expected LOS: <2 Midnights Patient will require the following post-hospital care: None Practitioner: I am a practitioner with admitting privileges, knowledge of patient current condition, hospital course, and medical plan of care. Services: Services provided to patient in accordance with Admission requirements found in Title 42 Section 412.3 of the Code of Federal Regulations Patient History Date of Service: 04/05/23 Reason for admission: Shortness of breath. Cough. CHF. Pneumonia. Hypertension History of Present Illness: This is a 58-year-old black female patient with a history of diabetes mellitus, hypertension, constipation came to the ER with the complaints of congestion and shortness of breath at rest or with mild activity. Shortness of breath started over last 2 days, symptoms are intermittent with no pattern, a Patient is positive for fever and productive cough. -ER course vital signs 178/104, pulse 81, respirations 24/min, pulse ox meter 98% on room air. Lab work shows elevated WBC 18.5, BUN 24, creatinine 0.94, GFR 71. Chest x-ray shows mild bilateral interstitial opacities likely related to viral infection or mild interstitial pulmonary edema. The heart is mildly enlarged in size. 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 Allergies diphenhydramine [From Benadryl] Allergy (Verified 07/23/19 04:30) loopy, confusion Home medications list reviewed: Yes Home Medications: Gabapentin [Neurontin*] 300 mg PO DAILYPRN PRN 08/14/18 Losartan Potassium 100 mg PO DAILY 07/23/19 NIFEdipine [Nifedipine ER] 60 mg PO DAILY 07/23/19 - Past Medical/Surgical History Diabetic: Yes -: HTN -: Bowel Obstruction -: Chronic kidney disease -: Diabetic Melitus -: Hysterectomy - Family History Father -: Diabetes Mother -: Diabetes - Social History Alcohol use: Yes CD- Drugs: No Caffeine use: No Review of Systems General: Fever (For today), Weakness (For elevated) Respiratory: Cough (Protective minimum amount of sputum), Shortness of Breath (Increasing shortness of breath with mild exertion), SOB with Excertion, Sputum Cardiovascular: Unremarkable (No edema) Gastrointestinal: Constipation (Chronic) Physical Examination - Physical Exam General: Alert, Oriented x3 HEENT: Atraumatic, PERRLA Neck: 2+ carotid pulse no bruit Respiratory: Diminished (At the bases), Expiratory wheezes (Fine wheezes bilaterally) Cardiovascular: No edema Capillary refill: <2 Seconds Gastrointestinal: Normal bowel sounds, Soft and benign, Non-distended Musculoskeletal: No clubbing, No swelling, No erythema Integumentary: No rashes Neurological: Normal gait Lymphatics: No axilla or inguinal lymphadenopathy - Studies Laboratory Data (last 24 hrs) 04/05/23 04/05/23 04/05/23 08:41 08:41 08:41 WBC 18.50 H Hgb 11.1 L Hct 33.2 L Plt Count 263 PT 10.9 INR 0.99 Sodium 140 Potassium 3.8 BUN 24 H Creatinine 0.94 Glucose 115 H Magnesium 2.1 Total Bilirubin 0.2 AST 13 L ALT 19 Alkaline Phosphatase 64 Microbiology Data (last 24 hrs): 04/05/23 08:00 Nasopharnyx Influenza Type A Antigen Screen - Final 04/05/23 08:00 Nasopharnyx Influenza Type B Antigen Screen - Final 04/05/23 08:00 Throat Group A Streptococcus Rapid Screen - Final Assessment and Plan - Plan Assessment and plan Leukocytosis Pneumonia Unspecified combined systolic and diastolic congestive heart failure Hypertension Diabetes mellitus Assessment plan Leukocytosis Pneumonia -Acute complaints of congestion and shortness of breath at rest or with mild activity. Shortness of breath started over last 2 days, symptoms are intermittent with no pattern, a Patient is positive for fever and productive cough. Chest x-ray shows mild bilateral interstitial opacities likely related to viral infection -We will start antibiotics cefepime and vancomycin, started on bronchodilators -Oxygen therapy as needed to keep SPO2 above 92% -Follow-up chest x-ray -Follow-up WBCs, monitor for fever Unspecified combined systolic and diastolic congestive heart failure -Acute congestion and shortness of breath at rest or with mild activity. Shortness of breath started over last 2 days, symptoms are intermittent with no pattern, a Patient is positive for fever and productive cough. Chest x-ray shows mild pulmonary edema. --Oxygen therapy as needed to keep SPO2 above 92% -Carvedilol 6.25 mg p.o. twice daily started -Diuretic therapy started Lasix 40 mg IV twice daily -Monitor electrolytes Hypertension: Chronic, uncontrolled, medication reconciliation, resume home medication -We will continue to monitor blood pressure, GFR is 70, Diabetes mellitus -Chronic, controlled, not on any medications at this time as per patient -We will continue to monitor blood pressure blood sugar before meals and at bedtime and cover with insulin low-dose as needed. CODE STATUS-full code Diet-diabetic diet DVT prophylaxis-Lovenox - Advance Directives Does patient have a Living Will: No Does patient have a Durable POA for Healthcare: No Physician Review: Patient Assessed, Agree with Above Assessment and Plan Critical Care: No Time Spent Managing Pts Care (In Minutes): 55 (minutes)
[2023-04-05] MEDS ORDERED: NA CHLORIDE 0.9% 1,000 ML IV SCH (11:00)
[2023-04-05] MEDS ORDERED: VANCOMYCIN 1 GM in NA CHLORIDE 0.9% 250 ML IVPB SCH (11:43)
[2023-04-05] MEDS: IPRATROPIUM BROM 0.5MG/2.5ML NEB SCH ×2 (13:30→20:55)
[2023-04-05] MEDS: VANCOMYCIN 1.25 GM in NA CHLORIDE 0.9% 250 ML IVPB SCH (13:30)
[2023-04-05 15:47] VITALS: BMI 32.4
[2023-04-05] MEDS: FUROSEMIDE 40 MG/4 ML VIAL IV SCH (16:48)
[2023-04-05] MEDS ORDERED: D50W 25 GM/50 ML SYRINGE IV PRN (17:57)
[2023-04-05] MEDS ORDERED: GLUCAGON 1 MG/VIAL IM PRN (17:57)
[2023-04-05] MEDS ORDERED: D10W 125 ML IV PRN (18:02)
[2023-04-05] MEDS: carvediloL 6.25 MG TAB PO SCH (21:35)
[2023-04-05] MEDS: CEFEPIME 2 GM in NA CHLORIDE 0.9% 100 ML IV SCH (21:36)
[2023-04-05] MEDS: INSULIN REGULAR (HUMAN) 100 UNIT/ML SQ SCH (21:36)
[2023-04-06] MEDS: IPRATROPIUM BROM 0.5MG/2.5ML NEB SCH ×4 (01:45→20:00)
[2023-04-06] MEDS: guaiFENesin 100 MG/5 ML UCUP PO PRN ×3 (05:24→21:44)
[2023-04-06 06:54] LABS: Absolute Lymphocytes (CBC) 2.6 K/uL (0.7-4.9); Hematocrit 32.8 % (36.0-45.0); Lymphocytes % 12.1 % (15.3-44.8); MCV 85.7 fL (80-100); Platelets 269 thou/uL (152-406); RBC Red Blood Cell Count 3.83 M/uL (3.86-4.86)
[2023-04-06 07:11] LABS: Magnesium 2.2 mg/dL (1.6-2.4); Phosphorus 2.8 mg/dL (2.5-4.9); Potassium 3.8 mEq/L (3.5-5.1)
[2023-04-06] MEDS ORDERED: POTASSIUM 25 MEQ EFFERV TAB PO ONE (09:19)
[2023-04-06] MEDS: FUROSEMIDE 40 MG/4 ML VIAL IV SCH ×2 (09:31→17:19)
[2023-04-06] MEDS: carvediloL 6.25 MG TAB PO SCH ×2 (09:31→21:08)
[2023-04-06] MEDS: CEFEPIME 2 GM in NA CHLORIDE 0.9% 100 ML IV SCH ×2 (09:31→21:08)
[2023-04-06] MEDS: INSULIN REGULAR (HUMAN) 100 UNIT/ML SQ SCH ×4 (09:32→21:00)
[2023-04-06] MEDS: ENOXAPARIN 40 MG/0.4 ML SQ SCH (09:32)
[2023-04-06] MEDS ORDERED: ALBUTEROL 2.5 MG/3 ML NEB SOL NEB PRN (10:00)
[2023-04-06 10:35] LABS: Blood Morphology Comment NOT SEEN (NOT SEEN); Platelet Estimate ADEQ; White Blood Cell Scan OK (OK)
[2023-04-06] MEDS: VANCOMYCIN 1.25 GM in NA CHLORIDE 0.9% 250 ML IVPB SCH (12:08)
[2023-04-06 17:04] LABS: Absolute Lymphocytes (CBC) 4.7 K/uL (0.7-4.9); Hematocrit 32.7 % (36.0-45.0); MCV 86.5 fL (80-100); MPV 8.8 fL (7.6-11.3); Platelets 274 thou/uL (152-406); RBC Red Blood Cell Count 3.78 M/uL (3.86-4.86)
--- NOTE | 2023-04-06 17:16 | P.PN ---
Subjective Date of Service: 04/06/23 Chief Complaint: Shortness of breath. Cough. CHF. Pneumonia. Hypertension Patient has no new complaint. She states she feels much better. No recorded fever. Physical Examination - Vital Signs Temperature: 97.4 F Blood Pressure: 122/63 Pulse: 65 Respirations: 16 Pulse Ox (%): 97 - Studies Microbiology Data (last 24 hrs): 04/05/23 08:00 Throat Group A Streptococcus Rapid Screen - Final Assessment And Plan - Plan Physical Exam General: Alert, Oriented x3 HEENT: Atraumatic, PERRLA Neck: 2+ carotid pulse no bruit Respiratory: Diminished at the bases. No wheezes. Cardiovascular: No edema, regular rhythm, normal rate. Gastrointestinal: Normal bowel sounds, Soft and benign, Non-distended Musculoskeletal: No clubbing, No swelling, No erythema Integumentary: No rashes Neurological: Normal gait Lymphatics: No axilla or inguinal lymphadenopathy Assessment and plan Leukocytosis Pneumonia Hypertension Diabetes mellitus Assessment plan Leukocytosis Pneumonia Continue cefepime and vancomycin Bronchodilators as needed She is stable on room air Patient was given steroid in the ED. Leukocytosis is worse from yesterday. Chest x-ray reviewed and suspect atypical pneumonia. Continue vancomycin and change cefepime to Levaquin. Monitor CBC to follow leukocytosis Hypertension/flash pulmonary edema Uncontrolled blood pressure initially on presentation. Blood pressure has improved and patient is currently normotensive. Continue Coreg. Resume home antihypertensives. IV Lasix. Obtain echocardiogram. Diabetes mellitus Insulin sliding scale for glucose management. CODE STATUS-full code Diet-diabetic diet DVT prophylaxis-Lovenox
[2023-04-06 17:37] LABS: Platelet Estimate ADEQ; White Blood Cell Scan OK (OK)
[2023-04-06 17:38] LABS: Blood Morphology Comment NOT SEEN (NOT SEEN)
[2023-04-07] MEDS: IPRATROPIUM BROM 0.5MG/2.5ML NEB SCH ×3 (01:05→14:20)
[2023-04-07 05:47] LABS: Absolute Lymphocytes (CBC) 5.5 K/uL (0.7-4.9); Hematocrit 34.5 % (36.0-45.0); Lymphocytes % 33.6 % (15.3-44.8); MCV 86.6 fL (80-100); MPV 8.9 fL (7.6-11.3); Platelets 274 thou/uL (152-406); RBC Red Blood Cell Count 3.98 M/uL (3.86-4.86)
[2023-04-07 06:00] LABS: Magnesium 2.2 mg/dL (1.6-2.4); Phosphorus 3.8 mg/dL (2.5-4.9); Potassium 3.6 mEq/L (3.5-5.1)
[2023-04-07] MEDS: INSULIN REGULAR (HUMAN) 100 UNIT/ML SQ SCH ×2 (07:30→11:30)
[2023-04-07] MEDS ORDERED: POTASSIUM CL SA 10 MEQ TAB PO ONE (09:00)
[2023-04-07] MEDS ORDERED: LOSARTAN POTASSIUM 50 MG TABLET PO SCH (09:00)
[2023-04-07] MEDS ORDERED: NIFEDIPINE XL 60 MG TABLET PO SCH (09:00)
[2023-04-07] MEDS ORDERED: LEVOFLOXACIN 750MG/D5W 150 ML IV SCH (09:00)
[2023-04-07] MEDS: ENOXAPARIN 40 MG/0.4 ML SQ SCH (09:03)
[2023-04-07] MEDS: FUROSEMIDE 40 MG/4 ML VIAL IV SCH (09:06)
[2023-04-07] MEDS: carvediloL 6.25 MG TAB PO SCH (09:07)
[2023-04-07 09:08] VITALS: BP 156/76
[2023-04-07 09:25] VITALS: TEMP 97.6
[2023-04-07 10:20] VITALS: O2SAT 98
--- NOTE | 2023-04-07 11:52 | P.DS ---
Admission Date: 04/05/23 Discharge Date: 04/07/23 Disposition: ROUTINE DISCHARGE Discharge Condition: FAIR Reason for Admission: Shortness of breath. Cough. CHF. Pneumonia. Hypertension Brief History of Present Illness: This is a 58-year-old black female patient with a history of diabetes mellitus, hypertension, constipation came to the ER with the complaints of congestion and shortness of breath at rest or with mild activity. Shortness of breath started over last 2 days, symptoms are intermittent with no pattern, a Patient is positive for fever and productive cough. -ER course vital signs 178/104, pulse 81, respirations 24/min, pulse ox meter 98% on room air. Lab work shows elevated WBC 18.5, BUN 24, creatinine 0.94, GFR 71. Chest x-ray shows mild bilateral interstitial opacities likely related to viral infection or mild interstitial pulmonary edema. The heart is mildly enlarged in size. 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 Hospital Course: Assessment and plan Leukocytosis Viral Pneumonia Hypertension Diabetes mellitus Assessment plan Leukocytosis Pneumonia Patient treated briefly with IV cefepime and vancomycin. Repeat chest x-ray shows no acute cardiopulmonary disease. Initial chest x-ray infiltrate suspected to be secondary to viral pneumonia. Patient was stable on room air. Patient was given steroid in the ED. Leukocytosis has improved. We will continue oral Levaquin on discharge. Hypertension/flash pulmonary edema Uncontrolled blood pressure initially on presentation. Blood pressure has improved and patient is currently normotensive. Continue Coreg. Resumed home antihypertensives. Patient treated with IV Lasix. She has clinically improved. Patient advised to follow-up with cardiology to further evaluate with echocardiogram. Diabetes mellitus Managed with insulin sliding scale for glucose management. Vital Signs/Physical Exam: Temp Pulse Resp BP Pulse Ox 97.6 F 74 18 156/76 H 97 04/07/23 08:00 04/07/23 09:07 04/07/23 08:00 04/07/23 09:07 04/07/23 08:00 General: Alert, In no apparent distress, Oriented x3 HEENT: Mucous membr. moist/pink Neck: Supple, JVD not distended Respiratory: Clear to auscultation bilaterally, Normal air movement Cardiovascular: No edema, Regular rate/rhythm, Normal S1 S2 Gastrointestinal: Normal bowel sounds, Soft and benign, Non-distended, No tenderness Musculoskeletal: No tenderness Integumentary: No rashes, No cyanosis Neurological: Normal strength at 5/5 x4 extr Laboratory Data at Discharge: WBC 16.40 thou/uL (4.3-10.9) H 04/07/23 05:21 Hgb 11.4 g/dL (12.0-15.0) L 04/07/23 05:21 Hct 34.5 % (36.0-45.0) L 04/07/23 05:21 Plt Count 274 thou/uL (152-406) 04/07/23 05:21 PT 10.9 SECONDS (9.5-12.5) 04/05/23 08:41 INR 0.99 04/05/23 08:41 Sodium 140 mEq/L (136-145) 04/07/23 05:21 Potassium 3.6 mEq/L (3.5-5.1) 04/07/23 05:21 BUN 33 mg/dL (7-18) H 04/07/23 05:21 Creatinine 0.87 mg/dL (0.55-1.02) 04/07/23 05:21 Glucose 122 mg/dL (74-106) H 04/07/23 05:21 Phosphorus 3.8 mg/dL (2.5-4.9) 04/07/23 05:21 Magnesium 2.2 mg/dL (1.6-2.4) 04/07/23 05:21 Total Bilirubin 0.2 mg/dL (0.2-1.0) 04/05/23 08:41 AST 13 U/L (15-37) L 04/05/23 08:41 ALT 19 U/L (13-56) 04/05/23 08:41 Alkaline Phosphatase 64 U/L (45-117) 04/05/23 08:41 Home Medications: Losartan Potassium 100 mg PO DAILY 07/23/19 NIFEdipine [Nifedipine ER] 60 mg PO DAILY 07/23/19 Albuterol Sulfate [Albuterol Sulfate Hfa] 8.5 gm PO BID PRN 04/05/23 carvediloL [Coreg*] 6.25 mg PO BID #60 tab 04/07/23 guaiFENesin [Robitussin 100MG/5ML*] 10 ml PO QID PRN #237 ml 04/07/23 levoFLOXacin [Levaquin] 750 mg PO DAILY #7 tab 04/07/23 New Medications: carvediloL [Coreg*] 6.25 mg PO BID #60 tab levoFLOXacin [Levaquin] 750 mg PO DAILY #7 tab guaiFENesin [Robitussin 100MG/5ML*] 10 ml PO QID PRN #237 ml PRN Reason: Cough Physician Discharge Instructions: Echocardiogram within 1 to 2 weeks recommended. Diet: AHA Activity: Ad reymundo Followup: NONE,NONE [Primary Care Provider] - Ismael Adair MD [ACTIVE - CAN ADMIT] - (Within 2 weeks. ) Time spent managing pt's care (in minutes): 34
[2023-04-07] MEDS ORDERED: VANCOMYCIN 1.5 GM in NA CHLORIDE 0.9% 500 ML IVPB SCH (12:00)
--- NOTE | 2023-04-07 12:38 | RAD REPORT ---
EXAM DESCRIPTION: RADChest Single View04/07/2023 12:13 pm CLINICAL HISTORY: Cough with leukocytosis. COMPARISON: Chest Single View dated 04/05/2023; Chest Pa And Lat (2 Views) dated 04/05/2023; Chest Singl e View dated 08/27/2022; Chest Single View dated 06/16/2022 TECHNIQUE: Portable AP view of the chest. FINDINGS: The lungs are clear. No pneumothorax or effusion. The cardiomediastinal contours are unrem arkable. IMPRESSION: No acute cardiopulmonary process.
[2023-04-07] MEDS: guaiFENesin 100 MG/5 ML UCUP PO PRN (13:43)
--- NOTE | 2023-04-08 06:58 | ECHO ---
HEIGHT: 4 ft 9 in WEIGHT: 150 lb 0.04 oz DATE OF STUDY: 04/05/[address]: Stu Bynum MD 2-DIMENSIONAL: YES M.MODE: YES DOPPLER: YES COLOR FLOW: YES TDS: PORTABLE: YES DEFINITY: BUBBLE STUDY: DIAGNOSIS: CONGESTIVE HEART FAILURE CARDIAC HISTORY: CATHERIZATION: NO SURGERY: NO PROSTHETIC VALVE: NO PACEMAKER: NO MEASUREMENTS (cm) DIASTOLIC (NORMALS) SYSTOLIC (NORMALS) IVSd 1.1 (0.6-1.2) LA Diam 2.5 (1.9-4.0) LVEF 65% LVIDd 3.7 (3.5-5.7) LVIDs 2.4 (2.0-3.5) %FS 35% LVPWd 1.1 (0.6-1.2) Ao Diam 2.4 (2.0-3.7) 2 DIMENSIONAL ASSESSMENT: RIGHT ATRIUM: NORMAL LEFT ATRIUM: NORMAL RIGHT VENTRICLE: NORMAL LEFT VENTRICLE: NORMAL TRICUSPID VALVE: NORMAL MITRAL VALVE: NORMAL PULMONIC VALVE: NORMAL AORTIC VALVE: NORMAL PERICARDIAL EFFUSION: NONE AORTIC ROOT: NORMAL LEFT VENTRICULAR WALL MOTION: NORMAL DOPPLER/COLOR FLOW: NORMAL COMMENTS: 1. NORMAL LEFT VENTRICULAR EJECTION FRACTION 55-60% 2. NORMAL WALL MOTION 3. GRADE I DIASTOLIC DYSFUNCTION 4. POOR WINDOWS TECHNOLOGIST: JENNIFER DE LA ROSA
== END 2023-04-07 15:21 | disposition home health service (06) | DRG 194 ==
LOC: ER 07:27 → ERHOLD 10:04 → 4TH 14:37 → UNDODISIN 04-07 13:58
PROVIDERS: ADMIT Internal Medicine; ATTEND Internal Medicine
DX: J12.9 Viral pneumonia, unspecified (principal); I13.0 Hypertensive heart and chronic kidney disease with heart failure and stage 1 through stage 4 chronic kidney disease, or unspecified chronic kidney disease; I50.40 Unspecified combined systolic (congestive) and diastolic (congestive) heart failure; E11.22 Type 2 diabetes mellitus with diabetic chronic kidney disease; N18.9 Chronic kidney disease, unspecified; K59.09 Other constipation; Z20.822 Contact with and (suspected) exposure to COVID-19; Z79.899 Other long term (current) drug therapy; Z88.8 Allergy status to other drugs, medicaments and biological substances; Z90.710 Acquired absence of both cervix and uterus; Z83.3 Family history of diabetes mellitus
CPT/HCPCS: 36415; 71045; 71046; 80048; 80076; 80202; 81003; 82947; 83605; 83735; 83880; 84100; 84484; 85025; 85610; 87040; 87070; 87081; 87804; 87811; 93306; 94760; 96365; 96375; 99285; J0692; J0696; J1650; J1815; J1940; J2930; J7040; J7050; J7614; J7644

== ENCOUNTER 2023-04-20 11:05 | Emergency (ER) | payer BC ==
--- OUTSIDE RECORDS SUMMARY | 2023-04-20 11:09 | XMS REPORT | Continuity of Care Document ---
:1965 Author Organization [facility] t Address [address] [place] [address] Care Team Providers Name Role Phone Sanchez [...] 2016-07-[address] [facility] 00:00:00 00:00:00 [facility] Sex Assigned At 1965 [address] [facility] [address] [facility] kes 00:00:00 00:00:00 [facility] Smoking Status Start Date Stop Date Source Never smoked tobacco [facility] Medications Ordered Filled Start Stop Current Ordering Indication Dosage Frequency Signature Comments Components Source Medication Medication Date Date Medication? Clinician (SIG) Name Name amLODIPine 2015-07 Yes hypertensio 10mg QD Take [address] [facility] [address] ([facility]) 2-17 n by mouth [facility] 10 MG 16:56: daily. [facility] tablet 38 [facility] losartan 2015-07 Yes 100mg QD Take [address] [facility] ([facility]) 2-17 mg by [facility] 100 MG 16:56: mouth [facility] tablet 38 daily. [facility] amLODIPine 2015-07 Yes hypertensio 10mg QD Take [address] [facility] ([facility]VASC) 2-17 n by mouth [facility] 10 MG 16:56: daily. Medical tablet 38 [facility] losartan 2015-07 Yes 100mg QD Take [address] [facility] ([facility]) 2-17 mg by [facility] 100 MG 16:56: mouth [facility] tablet 38 daily. [facility] amLODIPine 2015-07 Yes hypertensio 10mg QD Take [address] [facility] ([facility]VASC) 2-17 n by mouth [facility] 10 MG 16:56: daily. Medical tablet 38 [facility] losartan 2015-07 Yes 100mg QD Take [address] [facility] [address] ([facility]) 2-17 mg by [facility] 100 MG 16:56: mouth [facility] tablet 38 daily. [facility] amLODIPine 2015-07 Yes hypertensio 10mg QD Take [address] [facility] ([facility]VASC) 2-17 n by mouth [facility] 10 MG 16:56: daily. Medical tablet 38 [facility] losartan 2015-07 Yes 100mg QD Take [address] [facility] [address] ([facility]ZA[facility]) 2-17 mg by [facility] 100 MG 16:56: mouth [facility] tablet 38 daily. Center Immunizations Ordered Immunization Filled Immunization Date Status Commen ts Source Name Name Pneumococcal 2016-07-[address] [facility] Polysaccharide 00:00:00 [facility] (Pneumovax) [facility] Pneumococcal 2016-07-[address] [facility] Polysaccharide 00:00:00 [facility] Pneumococcal 2016-07-[address] [facility] Polysaccharide 00:00:00 [facility] (Pneumovax[facility] Pneumococcal Unknown Completed [facility] Polysaccharide [facility] (Pneumovax) [facility] Procedures This patient has no known procedures. Results This patient has no known results.
[2023-04-20] MEDS ORDERED: NA CHLORIDE 0.9% 1,000 ML ONE (11:34)
[2023-04-20] MEDS ORDERED: ONDANSETRON 4 MG/2 ML VIAL ONE (11:34)
[2023-04-20 11:55] LABS: Hematocrit 35.5 % (36.0-45.0); Lymphocytes % 20.8 % (15.3-44.8); MCV 85.9 fL (80-100); MPV 9.9 fL (7.6-11.3); Platelets 155 thou/uL (152-406); RBC Red Blood Cell Count 4.14 M/uL (3.86-4.86); Specific Gravity 1.018 (1.005-1.030); Urine Bilirubin NEGATIVE (Negative); Urine Blood Negative (Negative); Urine Clarity Clear (Clear); Urine Color Light-Yellow (Yellow); Urine Glucose NEGATIVE (Negative); Urine Protein NEGATIVE (Negative); Urine Urobilinogen Normal (Normal)
--- NOTE | 2023-04-20 12:04 | RAD REPORT ---
EXAM DESCRIPTION: US - Abdomen Exam Limited - 04/20/2023 11:50 am CLINICAL HISTORY: ABD PAIN COMPARISON: <Comparisons> FINDINGS: The gallbladder demonstrates no gallstones. No pericholecystic fluid or gallbladder wall t hickening. The common bile duct is normal measuring 6-7 mm. The liver demonstrates no findings of intrahepatic biliary dilatation. IMPRESSION: Unremarkable examination.
[2023-04-20 12:22] LABS: Albumin 3.8 g/dL (3.4-5.0); Bilirubin Total 0.2 mg/dL (0.2-1.0); Protein, Total 7.8 g/dL (6.4-8.2); Troponin High Sensitivity 7.6 pg/mL (<58.9)
--- NOTE | 2023-04-20 13:40 | RAD REPORT ---
EXAM DESCRIPTION: RAD - Chest Single View - 04/20/2023 1:03 pm CLINICAL HISTORY: recent pneumonia, cough Chest pain. COMPARISON: <Comparisons> FINDINGS: Portable technique limits examination quality. The lungs are grossly clear. The heart is normal in size. No displaced fractures. IMPRESSION: No acute intrathoracic process suspected.
--- NOTE | 2023-04-20 14:33 | RAD REPORT ---
EXAM DESCRIPTION: CT - Head Brain Wo Cont - 04/20/2023 2:26 pm CLINICAL HISTORY: headache, vomiting Headache, drowsiness COMPARISON: <Comparisons> TECHNIQUE: All CT scans are performed using dose optimization technique as appropriate and may inclu de automated exposure control or mA/KV adjustment according to patient size. FINDINGS: No intracranial hemorrhage, hydrocephalus or extra-axial fluid collection.Mild generalized brain atrophy is present with mild periventricular and deep white matter chronic microvascular ische franco changes.No areas of brain edema or evidence of midline shift. The paranasal sinuses and mastoids are clear. The calvarium is intact. IMPRESSION: No acute intracranial abnormality.
--- NOTE | 2023-04-20 14:38 | RAD REPORT ---
EXAM DESCRIPTION: CT - Abdomen Pelvis Wo Contrast - 04/20/2023 2:30 pm CLINICAL HISTORY: Abdominal pain. vomiting;Abd pain COMPARISON: Abdomen Pelvis W Contrast dated 06/16/2022; Abdomen Pelvis W Contrast dated 03/04/2021 TECHNIQUE: CT imaging of the abdomen and pelvis was performed without contrast. Solid organ, bowel a nd vascular assessment is limited due to lack of IV and oral contrast. All CT scans are performed using dose optimization technique as appropriate and may include automated exposure control or mA/KV adjustment according to patient size. FINDINGS: The lower lung snider are clear.Cholecystectomy. The liver, spleen, pancreas, adrenal glands and kidneys are within normal limits for a limited non-co ntrast examination. No bowel obstruction, free air, free fluid or abscess. Postsurgical changes are seen midline upper ab domen involving small bowel. Moderate fat containing umbilical hernia is present containing small bow el loops without obstruction. Additional ventral hernia is seen along the midline inferiorly also con taining small bowel loops without obstruction. The appendix is normal. Mild sigmoid diverticulosis co li. No diverticulitis. The osseous structures are within normal limits. IMPRESSION: Moderate umbilical and inferior ventral midline hernias are present containing small bow el loops. There is no evidence of incarceration or bowel obstruction. Postsurgical changes are present involving the bowel anteriorly central abdomen, unchanged. A limited non-contrast examination was performed as detailed.
--- NOTE | 2023-04-20 14:49 | EDPHYS ---
Physician Documentation [facility] Name: Cristy Dixon Age: 58 yrs Sex: Female : 1965 Arrival Date: 04/20/2023 Time: 11:[address] Private MD: ED Physician Karel Parmar HPI: 04/20 12:16 This 58 yrs old Black Female presents to ER via EMS with complaints of Headache, rn Nausea/Vomiting. 12:16 The patient complains of pain to the top of head and forehead. The patient describes rn the headache as aching. Onset: The symptoms/episode began/occurred this morning. Associated signs and symptoms: Pertinent positives: nausea, Vertigo Pertinent negatives: vision loss. Severity of symptoms: At its worst the pain was moderate, in the emergency department the pain is unchanged. The symptoms are alleviated by nothing. the symptoms are aggravated by nothing. The patient has experienced similar episodes in the past. Patient reports called 911 because did not feel well. Patient has numerous symptoms including headache, nasal congestion, abdominal pain, nausea, dizziness, generalized malaise and fatigue. 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 Has had vertigo before and currently takes meclizine. Dizziness similar to previous episodes of vertigo. Patient states under a lot of stress. Denies any chest pain or shortness of breath.. Historical: - Allergies: 11:12 Benadryl; eh3 - Home Meds: 11:12 nifedipine 60 mg oral Tablet, Extended Release 24 hr 1 tab daily for hypertension eh3 [Active]; losartan 100 mg oral tablet daily [Active]; meclizine 25 mg Oral tablet 1 tab as needed for vertigo [Active]; - PMHx: 11:12 bowel obstruction; Hernia; Hypertension; diabetes mellitus; eh3 - PSHx: 11:12 Bowel sx; Total abdominal hysterectomy; eh3 - Immunization history:: Adult Immunizations up to date. - Social history:: Smoking status: Patient denies any tobacco usage or history of. Patient uses alcohol, on a daily basis. - Family history:: not pertinent. - Hospitalizations: : No recent hospitalization is reported. ROS: 12:16 Constitutional: Negative for fever, chills, and weight loss, Eyes: Negative for injury, rn pain, redness, and discharge, Neck: Negative for injury, pain, and swelling, Cardiovascular: Negative for chest pain, palpitations, and edema, Respiratory: Negative for shortness of breath, cough, wheezing, and pleuritic chest pain, Abdomen/GI: Positive for abdominal pain and nausea MS/Extremity: Negative for injury and deformity, Skin: Negative for injury, rash, and discoloration, Neuro: Positive for headache and generalized weakness Exam: 11:47 ECG was reviewed by the Attending Physician. rn 12:16 Constitutional: This is a well developed, well nourished patient who is awake, alert, rn and in no acute distress. Seems anxious and tearful Head/Face: Normocephalic, atraumatic. ENT: Dry mucous membranes Cardiovascular: Tachycardic, regular. No pulse deficits. Respiratory: No increased work of breathing, no retractions or nasal flaring. Abdomen/GI: Soft, mild epigastric tenderness Skin: Warm, dry MS/ Extremity: Pulses equal, no cyanosis. Neuro: Awake and alert, GCS 15, oriented to person, place, time, and situation. Cranial nerves II-XII grossly intact. Motor strength 5/5 in all extremities. Sensory grossly intact. Cerebellar exam normal. Vital Signs: 11:10 BP 124 / 67; Pulse 112; Resp 20; Temp 98.2(O); Pulse Ox 100% on R/A; Weight 72.12 kg; eh3 Height 5 ft. 4 in. ; Pain 8/10; 13:00 BP 106 / 63; Pulse 78; Resp 18; Pulse Ox 99% on R/A; eh3 11:10 Body Mass Index 27.29 (72.12 kg, 162.56 cm) [facility] 11:10 Pain Scale: Adult eh3 [place] Coma Score: 14:47 Eye Response: spontaneous(4). Motor Response: obeys commands(6). Verbal Response: rn oriented(5). Total: 15. MDM: 11:13 Patient medically screened. rn 14:47 Differential diagnosis: hypertensive headache, intracerebral hemorrhage, migraine, rn neoplasm, sinusitis, tension headache, vasomotor headache, Dehydration acute stress reaction. Data reviewed: vital signs, nurses notes, lab test result(s), EKG, radiologic studies, and as a result, I will discharge patient. Care significantly affected by the following chronic conditions: Diabetes, Hypertension. Counseling: I had a detailed discussion with the patient and/or guardian regarding the historical points, exam findings, and any diagnostic results supporting the discharge/admit diagnosis, lab results, radiology results, the need for outpatient follow up, to return to the emergency department if symptoms worsen or persist or if there are any questions or concerns that arise at home. Response to treatment: the patient's symptoms have markedly improved after treatment, and as a result, I will discharge patient. Special discussion: I discussed with the patient/guardian in detail that at this point there is no indication for admission to the hospital. It is understood, however, that if the symptoms persist or worsen the patient needs to return immediately for re-evaluation. Based on the history and exam findings, there is no indication for further emergent testing or inpatient evaluation. I discussed with the patient/guardian the need to see the primary care provider for further evaluation of the symptoms. ED course: I have personally reviewed all of the results, including but not limited to blood tests and imaging deemed necessary to safely discharge this patient at this time. All results given to and printed out for patient. I personally went over all the results with the patient and answered all questions. Patient will follow-up with PCP and or specialist as discussed. Return precautions given and understood.. 04/20 11:14 Order name: CBC with Diff; Complete Time: 12:11 04/20 11:14 Order name: CMP; Complete Time: 12:04/20 11:14 Order name: Lipase; Complete Time: 12:04/20 11:14 Order name: Urinalysis w/ reflexes; Complete Time: 12:11 04/20 11:14 Order name: SARS-COV-2 RT PCR; Complete Time: 12:34 04/20 11:14 Order name: Flu; Complete Time: 12:34 04/20 11:14 Order name: Troponin High Sensitivity; Complete Time: 12:34 04/20 11:14 Order name: CT Head Brain wo Cont; Complete Time: 14:41 04/20 11:14 Order name: US Abdomen Limited; Complete Time: 12:11 04/20 12:11 Order name: XRAY Chest (1 view); Complete Time: 13:53 04/20 14:18 Order name: Abdomen ; Complete Time: 14:41 EDMS 04/20 11:14 Order name: EKG; Complete Time: 11:15 04/20 11:14 Order name: IV Saline Lock; Complete Time: 11:45 rn 04/20 11:14 Order name: Labs collected and sent; Complete Time: 45 rn 04/20 11:14 Order name: EKG - Nurse/Tech; Complete Time: :45 rn EC:47 Rate is 101 beats/min. Rhythm is regular. QRS [place] is Normal. NE interval is normal. rn QRS interval is normal. QT interval is normal. No Q waves. T waves are Normal. No ST changes noted. Clinical impression: Sinus tachycardia. Interpreted by me. Reviewed by me. Administered Medications: 11:40 Drug: NS 0.9% IV 1000 ml IV at 1 bolus Per protocol; 1000 mL bolus Route: IV; Rate: 1 eh3 bolus; Site: left antecubital; 13:00 Follow up: IV Status: IV infiltrated; IV Intake: 250ml 3 11:40 Drug: Ondansetron IVP 4 mg IVP once; over 2 minutes Route: IVP; Site: left antecubital; eh3 13:00 Follow up: Response: No adverse reaction eh3 Disposition Summary: 04/20/23 14:49 Discharge Ordered Notes: Location: Home rn Problem: new rn Symptoms: have improved rn Condition: Stable rn Diagnosis - Headache rn - Upper abdominal pain, unspecified rn - Other malaise and fatigue rn Followup: rn - With: Private Physician - When: As needed - Reason: Recheck today's complaints, Re-evaluation by your physician Discharge Instructions: - Discharge Summary Sheet rn - Abdominal Pain, Adult rn - General Headache Without Cause rn Forms: - Medication Reconciliation Form rn - Thank You Letter rn - Antibiotic barrel turner - Prescription Opioid Use rn - Patient Portal Instructions rn - Leadership Thank You Letter rn Signatures: Dispatcher [employer] Karel Lainez MD MD rn Hall, Erin, RN RN 3 Corrections: (The following items were deleted from the chart) 12:20 12:16 Constitutional: This is a well developed, well nourished patient who is awake, rn alert, and in no acute distress. Head/Face: Normocephalic, atraumatic. ENT: Dry mucous membranes Cardiovascular: Tachycardic, regular. No pulse deficits. Respiratory: No increased work of breathing, no retractions or nasal flaring. Abdomen/GI: Soft, mild epigastric tenderness Skin: Warm, dry MS/ Extremity: Pulses equal, no cyanosis. Neuro: Awake and alert, GCS 15, oriented to person, place, time, and situation. Cranial nerves II-XII grossly intact. Motor strength 5/5 in all extremities. Sensory grossly intact. Cerebellar exam normal. rn 14:18 11:14 Abdomen Pelvis W Con+CT.RAD.BRZ ordered. EDMS EDMS
--- NOTE | 2023-04-20 14:49 | ER ---
Nurse's Notes [facility] Name: Cristy Dixon Age: 58 yrs Sex: Female : 1965 Arrival Date: 04/20/2023 Time: 11:[address] Private MD: Diagnosis: Headache;Upper abdominal pain, unspecified;Other malaise and fatigue Presentation: 04/20 11:10 Chief complaint: EMS states: toned out to home for high blood sugar, headache, n/v. Pt eh3 reported BGL over 200, EMS reports BGL 141 on scene. 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 Coronavirus screen: Vaccine status: Patient reports receiving the 2nd dose of the covid vaccine. Ebola Screen: No symptoms or risks identified at this time. Initial Sepsis Screen: Does the patient meet any 2 criteria? No. Patient's initial sepsis screen is negative. Does the patient have a suspected source of infection? No. Patient's initial sepsis screen is negative. Risk Assessment: Do you want to hurt yourself or someone else? Patient reports no desire to harm self or others. Onset of symptoms was April 20, 2023. 11:10 Method Of Arrival: EMS: [facility] 11:10 Acuity: DACIA 3 [facility] Triage Assessment: 11:12 Headache History: The patient has had previous headaches and this one is similar to [facility] previous episodes. General: Appears in no apparent distress. uncomfortable, Behavior is cooperative, appropriate for age. Pain: Complains of pain in head Pain currently is 8 out of 10 on a pain scale. Pain began suddenly, 2 hours ago. Also complains of nausea. Neuro: Level of Consciousness is awake, alert, obeys commands, Oriented to person, place, time, situation. Cardiovascular: Capillary refill < 3 seconds Patient's skin is warm and dry. Respiratory: Airway is patent Respiratory effort is even, unlabored, Respiratory pattern is regular, symmetrical. GI: Abdomen is round non-distended, Reports nausea, vomiting. Derm: Skin is pink, warm \T\ dry. Musculoskeletal: Circulation, motion, and sensation intact. Historical: - Allergies: 11:12 Benadryl; eh3 - Home Meds: 11:12 nifedipine 60 mg oral Tablet, Extended Release 24 hr 1 tab daily for hypertension 3 [Active]; losartan 100 mg oral tablet daily [Active]; meclizine 25 mg Oral tablet 1 tab as needed for vertigo [Active]; - PMHx: 11:12 bowel obstruction; Hernia; Hypertension; diabetes mellitus; eh3 - PSHx: 11:12 Bowel sx; Total abdominal hysterectomy; eh3 - Immunization history:: Adult Immunizations up to date. - Social history:: Smoking status: Patient denies any tobacco usage or history of. Patient uses alcohol, on a daily basis. - Family history:: not pertinent. - Hospitalizations: : No recent hospitalization is reported. Screenin:10 [facility] ED Fall Risk Assessment (Adult) Score/Fall Risk Level 0 - 2 = Low Risk. Abuse eh3 screen: Denies threats or abuse. Denies injuries from another. Nutritional screening: No deficits noted. Tuberculosis screening: No symptoms or risk factors identified. Assessment: 12:00 Reassessment: Patient appears in no apparent distress at this time. Patient and/or eh3 family updated on plan of care and expected duration. Pain level reassessed. Patient is alert, oriented x 3, equal unlabored respirations, skin warm/dry/pink. 12:21 Reassessment: No changes from previously documented assessment. Patient and/or family ll1 updated on plan of care and expected duration. Pain level reassessed. 13:00 Reassessment: Patient appears in no apparent distress at this time. Patient and/or eh3 family updated on plan of care and expected duration. Pain level reassessed. Patient is alert, oriented x 3, equal unlabored respirations, skin warm/dry/pink. 14:00 Reassessment: Patient appears in no apparent distress at this time. Patient and/or eh3 family updated on plan of care and expected duration. Pain level reassessed. Patient is alert, oriented x 3, equal unlabored respirations, skin warm/dry/pink. Patient states symptoms have improved. Vital Signs: 11:10 BP 124 / 67; Pulse 112; Resp 20; Temp 98.2(O); Pulse Ox 100% on R/A; Weight 72.12 kg; eh3 Height 5 ft. 4 in. ; Pain 8/10; 13:00 BP 106 / 63; Pulse 78; Resp 18; Pulse Ox 99% on R/A; eh3 11:10 Body Mass Index 27.29 (72.12 kg, 162.56 cm) eh3 11:10 Pain Scale: Adult eh3 [place] Coma Score: 14:47 Eye Response: spontaneous(4). Motor Response: obeys commands(6). Verbal Response: rn oriented(5). Total: 15. ED Course: 11:10 Patient arrived in ED. eh3 11:10 Patient has correct armband on for positive identification. Bed in low position. Call eh3 light in reach. Side rails up X2. Provided Education on: Use of call de souza. Client placed on continuous cardiac and pulse oximetry monitoring. NIBP monitoring applied. 11:12 Triage completed. eh3 11:12 Arm band placed on. eh3 11:13 Karel Parmar MD is Attending Physician. rn 11:45 Flu Sent. eh3 11:45 SARS-COV-2 RT PCR Sent. eh3 11:52 US Abdomen Limited In Process Unspecified. EDMS 12:06 Kathi Chou, ZACARIAS is Primary Nurse. eh3 13:00 IV discontinued, intact, bleeding controlled, Pressure dressing applied, heat pack eh3 applied. 13:01 Radiology exam delayed due to IV insertion attempt and/or patient not having mw3 appropriate IV at this time. pt's IV not working, RN notified. 13:05 XRAY Chest (1 view) In Process Unspecified. EDMS 14:03 Radiology exam delayed due to IV insertion attempt and/or patient not having mw3 appropriate IV at this time. 14:28 CT Head Brain wo Cont In Process Unspecified. EDMS 14:32 Abdomen In Process Unspecified. EDMS 14:56 No provider procedures requiring assistance completed. eh3 Administered Medications: 11:40 Drug: NS 0.9% IV 1000 ml IV at 1 bolus Per protocol; 1000 mL bolus Route: IV; Rate: 1 eh3 bolus; Site: left antecubital; 13:00 Follow up: IV Status: IV infiltrated; IV Intake: 250ml eh3 11:40 Drug: Ondansetron IVP 4 mg IVP once; over 2 minutes Route: IVP; Site: left antecubital; eh3 13:00 Follow up: Response: No adverse reaction eh3 Medication: 14:58 VIS not applicable for this client. eh3 Intake: 13:00 IV: 250ml; Total: 250ml. eh3 Outcome: 14:49 Discharge ordered by . rn 15:04 Patient left the ED. eh3 Signatures: Dispatcher [employer] EDKarel Mccain MD MD rn Willis, Michelle 3 Pastora Yoder RN RN 1 Kathi Chou RN RN 3 Corrections: (The following items were deleted from the chart) 11:19 11:10 BP 124 / 67; Pulse 112bpm; Resp 20bpm; Pulse Ox 100% RA; Temp 98.2F Oral; eh3 3 13:58 13:30 Reassessment: Patient appears in no apparent distress at this time. Patient eh3 and/or family updated on plan of care and expected duration. Pain level reassessed. Patient is alert, oriented x 3, equal unlabored respirations, skin warm/dry/pink. 3
[2023-04-20 15:10] VITALS: TEMP 98.2
[2023-04-20 15:11] VITALS: BP 106/63; O2SAT 99
--- NOTE | 2023-04-22 12:34 | EKG ---
Test Date: 2023-04-20 Test Time: 11:26:40 Resaw Machine Operator: JARRET MEASUREMENT RESULTS: Intervals: Rate: 101 MD: 120 QRSD: 80 QT: 366 QTc: 474 [place]: P: 40 MD: 120 QRS: 52 T: -1 INTERPRETIVE STATEMENTS: Sinus tachycardia Otherwise normal ECG Compared to ECG 06/16/2022 08:07:55 ST (T wave) deviation no longer present Electronically Signed On 04-22-23 12:30:57 CDT by Ismael Adair
== END 2023-04-20 15:04 | disposition home or self-care (01) ==
LOC: ER 11:05
DX: R51.9 Headache, unspecified (principal); R10.10 Upper abdominal pain, unspecified; R53.81 Other malaise; R53.83 Other fatigue; Z20.822 Contact with and (suspected) exposure to COVID-19; E11.9 Type 2 diabetes mellitus without complications; I10 Essential (primary) hypertension; Z88.8 Allergy status to other drugs, medicaments and biological substances
CPT/HCPCS: 96361; 85025; 36415; 81003; 84484; 83690; 80053; 87635; 87804 ×2; 70450; 74176; 71045; 76705; 96374; 99284; J2405; J7030; 93005

== ENCOUNTER 2023-07-04 15:44 | Emergency (ER) | payer BC, OTHER ==
[2023-07-04] MEDS ORDERED: ALBUTEROL 2.5 MG/3 ML NEB SOL ONE (16:23)
[2023-07-04] MEDS ORDERED: HYDROCODONE/CHLORPHEN 5 ML/OSYR ONE (16:23)
--- NOTE | 2023-07-04 16:34 | RAD REPORT ---
EXAM DESCRIPTION: RAD - Chest Pa And Lat (2 Views) - 07/04/2023 4:23 pm CLINICAL HISTORY: COUGH COMPARISON: Chest Single View dated 04/20/2023; Chest Single View dated 04/07/2023; Chest Single View dated 04/05/2023; Chest Pa And Lat (2 Views) dated 04/05/2023 TECHNIQUE: PA and lateral views of the chest were obtained. FINDINGS: The lungs are clear. Heart size is normal and central vasculature is within normal limits. No pleural effusion or pneumothorax seen. No acute bony finding noted. IMPRESSION: No acute cardiopulmonary process.
--- NOTE | 2023-07-04 17:55 | ER ---
Nurse's Notes [facility] Name: Cristy Dixon Age: 58 yrs Sex: Female : 1965 Arrival Date: 07/04/2023 Time: 15:44 Bed 5 Private MD: Diagnosis: Cough Presentation: 07/04 15:52 Chief complaint: Patient states: Painful cough, SOB, weak, LAND, fatigue for 3 days. ll1 Fever at night, some N/V. Coronavirus screen: Vaccine status: Patient reports receiving the 2nd dose of the covid vaccine. Client denies travel out of the [place] in the last 14 days. congestion, cough unrelated to allergies, fatigue, fever, headache, Client presents with at least one sign or symptom that may indicate coronavirus-19. Standard/surgical mask placed on the client. Ebola Screen: Patient denies travel to an Ebola-affected area in the 21 days before illness onset. Initial Sepsis Screen: Does the patient meet any 2 criteria? No. Patient's initial sepsis screen is negative. Does the patient have a suspected source of infection? Yes: Productive cough/pneumonia. Risk Assessment: Do you want to hurt yourself or someone else? Patient reports no desire to harm self or others. Onset of symptoms was July 02, 2023. 15:52 Method Of Arrival: Ambulatory 1 15:52 Acuity: DACIA 3 ll1 Triage Assessment: 18:31 General: Appears. Respiratory: Onset: The symptoms/episode began/occurred the patient iw has mild shortness of breath. Respiratory: Respiratory effort is even, unlabored. Historical: - Allergies: 15:48 Benadryl; ll1 - PMHx: 15:48 bowel obstruction; diabetes mellitus; Hernia; Hypertension; ll1 - PSHx: 15:48 Bowel sx; Total abdominal hysterectomy; ll1 - Immunization history:: Adult Immunizations up to date. - Social history:: Smoking status: Patient denies any tobacco usage or history of. Screenin:39 [facility] ED Fall Risk Assessment (Adult) History of falling in the last 3 months, mb9 including since admission No falls in past 3 months (0 pts) Confusion or Disorientation No (0 pts) Intoxicated or Sedated No (0 pts) Impaired Gait No (0 pts) Mobility Assist Device Used No (0 pt) Altered Elimination No (0 pt) Score/Fall Risk Level 0 - 2 = Low Risk Oriented to surroundings, Maintained a safe environment, Educated pt \T\ family on fall prevention, incl call for assistance when getting out of bed. Abuse screen: Denies threats or abuse. Nutritional screening: No deficits noted. Tuberculosis screening: No symptoms or risk factors identified. Assessment: 16:38 General: Appears in no apparent distress. Behavior is calm, cooperative. Pain: Denies mb9 pain. Neuro: Saenz Agitation-Sedation Scale (RASS): 0 - Alert and Calm Level of Consciousness is awake, alert, obeys commands, Oriented to person, place, time, situation, Appropriate for age. Cardiovascular: Patient's skin is warm and dry. Cardiovascular: Rhythm is regular. Respiratory: Reports shortness of breath cough that is Airway is patent Respiratory effort is even, unlabored, Respiratory pattern is regular, symmetrical, Breath sounds are clear bilaterally. GI: Abdomen is round non-distended, Bowel sounds present X 4 quads. Abd is soft and non tender X 4 quads. : No signs and/or symptoms were reported regarding the genitourinary system. EENT: No signs and/or symptoms were reported regarding the EENT system. Derm: Skin is pink, warm \T\ dry. Musculoskeletal: Range of motion: intact in all extremities. Vital Signs: 15:52 BP 152 / 97; Pulse 84; Resp 18; Temp 98.1; Pulse Ox 98% ; Weight 71.21 kg; Height 4 ft. ll1 9 in. ; Pain 7/10; 18:00 BP 166 / 84; Pulse 80; Resp 18; Pulse Ox 98% on R/A; mb9 15:52 Body Mass Index 33.97 (71.21 kg, 144.78 cm) ll1 15:52 Pain Scale: Adult ll1 ED Course: 15:47 Patient arrived in ED. im 15:48 Arm band placed on. ll1 15:49 Stu Oscar PA is PHCP. cp 15:49 Rick Stark MD is Attending Physician. cp 15:53 Triage completed. ll1 16:04 June Willoughby RN is Primary Nurse. mb9 16:16 Influenza Screen (a \T\ B) Sent. mb9 16:16 COVID-19 SARS RT PCR Sent. mb9 16:16 Strep Sent. mb9 16:24 XRAY Chest Pa And Lat (2 Views) In Process Unspecified. EDMS 16:39 Placed in gown. Bed in low position. Call light in reach. Side rails up X 1. Client mb9 placed on continuous cardiac and pulse oximetry monitoring. NIBP monitoring applied. 16:39 No provider procedures requiring assistance completed. mb9 18:30 Patient did not have IV access during this emergency room visit. iw Administered Medications: 16:16 Drug: Tussionex Pennkinetic ER PO Suspension 5 ml PO once Route: PO; mb9 16:16 Drug: Albuterol Inhalation 2.5 mg Inhalation once Route: Inhalation; mb9 Medication: 16:39 VIS not applicable for this client. mb9 Outcome: 17:55 Discharge ordered by MD. cp 18:30 Discharged to home ambulatory, with family, iw 18:30 Condition: good 18:30 Discharge instructions given to patient, Instructed on discharge instructions, follow up and referral plans. Demonstrated understanding of instructions, follow-up care, medications, Prescriptions given X 3, 18:31 Patient left the ED. iw Signatures: Dispatcher [employer] Dotty Waldrop, RN RN iw Stu Oscar PA PA cp Lewis, Lynsay, RN RN ll1 June Willoughby, RN RN mb9 Whitney Dumont
--- NOTE | 2023-07-04 17:55 | EDPHYS ---
Physician Documentation [facility] Name: Cristy Dixon Age: 58 yrs Sex: Female : 1965 Arrival Date: 07/04/2023 Time: 15:44 Bed 5 Private MD: ED Physician Rick Stark HPI: 07/04 16:05 This 58 yrs old Black Female presents to ER via Ambulatory with complaints of Shortness cp Of Breath, Chest Pressure, Cough. 16:05 The patient has shortness of breath with light activity. Associated signs and symptoms: cp Pertinent positives: chest pain, productive cough, Pertinent negatives: fever, vomiting. Severity of symptoms: in the emergency department the symptoms are unchanged despite home interventions. Historical: - Allergies: 15:48 Benadryl; ll1 - PMHx: 15:48 bowel obstruction; diabetes mellitus; Hernia; Hypertension; ll1 - PSHx: 15:48 Bowel sx; Total abdominal hysterectomy; ll1 - Immunization history:: Adult Immunizations up to date. - Social history:: Smoking status: Patient denies any tobacco usage or history of. ROS: 16:10 Constitutional: Positive for body aches, Negative for fever, poor PO intake, cp 16:10 Respiratory: Positive for cough, shortness of breath, Negative for wheezing, cp Exam: 16:15 Constitutional: The patient appears in no acute distress, alert, awake, cp non-diaphoretic, non-toxic, well developed, well nourished, 16:15 Head/Face: Normocephalic, atraumatic. cp 16:15 Eyes: Periorbital structures: appear normal, Conjunctiva: normal, no exudate, no injection, Sclera: no appreciated abnormality, Lids and lashes: appear normal, bilaterally, 16:15 ENT: External ear(s): are unremarkable, Ear canal(s): are normal, clear, TM's: dullness, bilaterally, Nose: is normal, Mouth: Lips: moist, Oral mucosa: pink and intact, moist, Posterior pharynx: Airway: no evidence of obstruction, patent, Tonsils: no enlargement, no erythema, no exudate, exudate, is not appreciated, 16:15 Neck: ROM/movement: is normal, is supple, no meningismus, no nuchal rigidity, 16:15 Chest/axilla: Inspection: normal, 16:15 Cardiovascular: Rate: normal, Rhythm: regular, 16:15 Respiratory: the patient does not display signs of respiratory distress, Respirations: normal, no use of accessory muscles, no retractions, labored breathing, is not present, Breath sounds: decreased breath sounds, are not appreciated, stridor, is not appreciated, + upper airway congestion. wheezing: is not appreciated, 16:15 Abdomen/GI: Inspection: abdomen appears normal, Palpation: abdomen is soft and non-tender, in all quadrants, 16:15 Back: pain, is absent, ROM is normal, Vital Signs: 15:52 BP 152 / 97; Pulse 84; Resp 18; Temp 98.1; Pulse Ox 98% ; Weight 71.21 kg; Height 4 ft. ll1 9 in. ; Pain 7/10; 18:00 BP 166 / 84; Pulse 80; Resp 18; Pulse Ox 98% on R/A; mb9 15:52 Body Mass Index 33.97 (71.21 kg, 144.78 cm) ll1 15:52 Pain Scale: Adult ll1 MDM: 15:49 Patient medically screened. cp 17:00 Differential diagnosis: Bronchitis pneumonia, influenza, strep throat, COVID-19. 17:55 Data reviewed: vital signs, nurses notes, lab test result(s), radiologic studies, plain cp films. 17:55 I considered the following discharge prescriptions or medication management in the emergency department Medications were administered in the Emergency Department. See MAR. Care significantly affected by the following chronic conditions: Diabetes, Hypertension. 07/04 16:04 Order name: Strep; Complete Time: 17:32 07/04 17:32 Interpretation: Reviewed. 07/04 16:04 Order name: COVID-19 SARS RT PCR; Complete Time: 17:32 07/04 17:32 Interpretation: Reviewed. 07/04 16:04 Order name: Influenza Screen (a \T\ B) 07/04 16:44 Order name: Throat Culture [facility] 07/04 16:04 Order name: XRAY Chest Pa And Lat (2 Views); Complete Time: 16:38 07/04 16:38 Interpretation: Report reviewed. Administered Medications: 16:16 Drug: Tussionex Pennkinetic ER PO Suspension 5 ml PO once Route: PO; mb9 16:16 Drug: Albuterol Inhalation 2.5 mg Inhalation once Route: Inhalation; mb9 Disposition Summary: 07/04/23 17:55 Discharge Ordered Notes: Location: Home cp Problem: new cp Symptoms: have improved cp Condition: Stable cp Diagnosis - Cough cp Followup: cp - With: Private Physician - When: 2 - 3 days - Reason: Worsening of condition Discharge Instructions: - Discharge Summary Sheet cp - Cough, Adult cp Forms: - Work release form iw - Medication Reconciliation Form cp - Thank You Letter cp - Antibiotic Education cp - Prescription Opioid Use cp - Patient Portal Instructions cp - Leadership Thank You Letter cp Prescriptions: - Bromfed DM 2-30-10 mg/5 mL Oral syrup - administer 10 milliliter ORAL route every 6 hours as needed for cold symptoms; cp 240 milliliter; Refills: 0, Product Selection Permitted - albuterol sulfate 90 mcg/actuation Inhalation HFA Aerosol Inhaler - inhale 1 puff INHALATION route every 4-6 hours administer via ventilator; 1 cp unit; Refills: 0, Product Selection Permitted - Zithromax Z-Andriy 250 mg Oral Tablet - take 1 tablet ORAL route as directed for 5 days Day 1 - take two (2) tablets cp one time. Day 2, 3, 4 , 5 take one (1) tablet once daily.; 6 tablet; Refills: 0, Product Selection Permitted Signatures: Dispatcher [employer] Stu Carreon PA PA cp Lewis, Lynsay, RN RN ll1 June Willoughby RN RN mb9
[2023-07-04 18:49] VITALS: TEMP 98.1; O2SAT 98
[2023-07-04 18:50] VITALS: BP 166/84
== END 2023-07-04 18:31 | disposition home or self-care (01) ==
LOC: ER 15:44
DX: R05.9 Cough, unspecified (principal); R07.9 Chest pain, unspecified; E11.9 Type 2 diabetes mellitus without complications; I10 Essential (primary) hypertension; Z11.52 Encounter for screening for COVID-19; Z88.8 Allergy status to other drugs, medicaments and biological substances
CPT/HCPCS: 87070; 87081; 87635; 87804 ×2; 71046; 99284; J7613

== ENCOUNTER 2025-04-14 16:27 | Emergency (ER) | payer OTHER ==
--- NOTE | 2025-04-14 17:01 | EDPHYS ---
Physician Documentation [facility] Name: Cristy Dixon Age: 60 yrs Sex: Female : 1965 Arrival Date: 04/14/2025 Time: 16:27 Bed 18 Private MD: ED Physician Mauricio Hodges HPI: 04/14 17:17 This 60 yrs old Black Female presents to ER via Ambulatory with complaints of Hip Pain kb - right, Leg Pain - right. 17:17 Patient is a 60-year-old female who presents for right low back pain that radiates down kb the right leg that started 2 weeks ago. Denies injury or trauma. States she lifts a lot so thought that it was due to that but the pain is not getting any better.. Historical: - Allergies: 16:39 Benadryl; hb - PMHx: 16:39 bowel obstruction; diabetes mellitus; Hernia; Hypertension; hb - PSHx: 16:39 Bowel sx; Total abdominal hysterectomy; hb ROS: 17:16 Constitutional: As per HPI kb Exam: 17:16 Constitutional: This is a well developed, well nourished patient who is awake, alert, kb and in no acute distress. Head/Face: Normocephalic, atraumatic. ENT: Moist Mucous membranes Respiratory: Respirations even and unlabored. No increased work of breathing. Talking in full sentences Abdomen/GI: Soft, non-tender. No distention Skin: Warm, dry with normal turgor. Normal color. Neuro: Awake and alert, GCS 15, oriented to person, place, time, and situation. 17:16 Back: pain, that is moderate, of the right low back, kb 17:16 Musculoskeletal/extremity: Extremities: grossly normal except: noted in the right lower back and right gluteus karen: pain, tenderness, ROM: intact in all extremities, Circulation is intact in all extremities. Sensation intact. Weight bearing: able to fully bear weight, Vital Signs: 16:37 BP 138 / 78; Pulse 66; Resp 16; Temp 97(TE); Pulse Ox 98% on R/A; Weight 71.21 kg; hb Height 4 ft. 9 in. ; Pain 10/10; 17:00 BP 146 / 81; Pulse 68; Resp 18; Pulse Ox 97% ; Pain 5/10; rg5 16:37 Body Mass Index 33.97 (71.21 kg, 144.78 cm) hb 16:37 Pain Scale: Adult hb 17:00 Pain Scale: Adult rg5 MDM: 16:29 Medical Screening Exam initiated kb 17:17 Differential diagnosis: arthritis, strain, Fracture, sciatica. Data reviewed: vital kb signs, nurses notes. Test considered but Not performed: X-ray: X-ray considered but patient has no bony tenderness. Counseling: I had a detailed discussion with the patient and/or guardian regarding the historical points, exam findings, and any diagnostic results supporting the discharge/admit diagnosis, the need for outpatient follow up, a family practitioner, to return to the emergency department if symptoms worsen or persist or if there are any questions or concerns that arise at home. Administered Medications: 17:00 Drug: Ketorolac IM 30 mg IM once Route: IM; Site: right gluteus; rg5 17:30 Follow up: Response: No adverse reaction; Pain is decreased 5 17:00 Drug: predniSONE PO 40 mg PO once Route: PO; rg5 17:30 Follow up: Response: No adverse reaction rg5 Disposition Summary: 04/14/25 17:00 Discharge Ordered Notes: Location: Home kb Condition: Stable kb Diagnosis - Sciatica, right side kb Followup: kb - With: Emergency Department - When: As needed - Reason: Worsening of condition Followup: kb - With: Private Physician - When: 2 - 3 days - Reason: Recheck today's complaints, Continuance of care, Re-evaluation by your physician Discharge Instructions: - Discharge Summary Sheet kb - Sciatica, [id number] kb - Back Exercises, [id number] kb Forms: - Medication Reconciliation Form kb - Antibiotic Education kb - Prescription Opioid Use kb - Patient Portal Instructions kb - Leadership Thank You Letter kb - Work release form rg5 Prescriptions: - Prednisone 20 mg Oral Tablet - take 1 tablet ORAL route once daily for 5 days; 5 tablet; Refills: 0, Product kb Selection Permitted - Diclofenac Sodium 75 mg Oral tablet, delayed release (enteric coated) - take 1 tablet ORAL route 2 times per day As needed; 30 tablet; Refills: 0, kb Product Selection Permitted - orphenadrine citrate 100 mg Oral Tablet Sustained Release - take 1 tablet ORAL route 2 times per day As needed; 20 tablet; Refills: 0, kb Product Selection Permitted Signatures: Pamela Ramos, CARD PROCESSING CLERK-C CARD PROCESSING CLERK-Ckb Darcy Saenz, RN RN Ta Horvath, RN RN rg5 Corrections: (The following items were deleted from the chart) 17:17 17:16 Constitutional: This is a well developed, well nourished patient who is awake, kb alert, and in no acute distress. kb
--- NOTE | 2025-04-14 17:01 | ER ---
Nurse's Notes [facility] Name: Cristy Dixon Age: 60 yrs Sex: Female : 1965 Arrival Date: 04/14/2025 Time: 16:27 Bed 18 Private MD: Diagnosis: Sciatica, right side Presentation: 04/14 16:37 Chief complaint: Right hip pain that radiates to right foot x 2 weeks. Coronavirus hb screen: At this time, the client does not indicate any symptoms associated with coronavirus-19. Ebola Screen: No symptoms or risks identified at this time. Initial Sepsis Screen: Does the patient meet any 2 criteria? No. Patient's initial sepsis screen is negative. Does the patient have a suspected source of infection? No. Patient's initial sepsis screen is negative. Risk Assessment: Do you want to hurt yourself or someone else? Patient reports no desire to harm self or others. Onset of symptoms was March 31, 2025. 16:37 Method Of Arrival: Ambulatory hb 16:37 Acuity: DACIA 4 hb Historical: - Allergies: 16:39 Benadryl; hb - PMHx: 16:39 bowel obstruction; diabetes mellitus; Hernia; Hypertension; hb - PSHx: 16:39 Bowel sx; Total abdominal hysterectomy; hb Screenin:00 [facility] ED Fall Risk Assessment (Adult) History of falling in the last 3 months, rg5 including since admission No falls in past 3 months (0 pts) Confusion or Disorientation No (0 pts) Intoxicated or Sedated No (0 pts) Impaired Gait No (0 pts) Mobility Assist Device Used No (0 pt) Altered Elimination No (0 pt) Score/Fall Risk Level 0 - 2 = Low Risk Oriented to surroundings, Maintained a safe environment. Abuse screen: Denies threats or abuse. Nutritional screening: No deficits noted. Tuberculosis screening: No symptoms or risk factors identified. Assessment: 17:00 General: Appears in no apparent distress. comfortable, Behavior is calm, cooperative, rg5 appropriate for age. 17:00 Pain: Complains of pain in right lower back Quality of pain is described as aching. rg5 Neuro: Level of Consciousness is awake, alert, obeys commands, Oriented to person, place, time, situation. Respiratory: Airway is patent Trachea midline Respiratory effort is even, unlabored, Respiratory pattern is regular, symmetrical. GI: No signs and/or symptoms were reported involving the gastrointestinal system. : No signs and/or symptoms were reported regarding the genitourinary system. EENT: No signs and/or symptoms were reported regarding the EENT system. Derm: Skin is intact, Skin is dry, Skin is normal. Musculoskeletal: Circulation, motion, and sensation intact. Range of motion:. Vital Signs: 16:37 BP 138 / 78; Pulse 66; Resp 16; Temp 97(TE); Pulse Ox 98% on R/A; Weight 71.21 kg; hb Height 4 ft. 9 in. ; Pain 10/10; 17:00 BP 146 / 81; Pulse 68; Resp 18; Pulse Ox 97% ; Pain 5/10; rg5 16:37 Body Mass Index 33.97 (71.21 kg, 144.78 cm) hb 16:37 Pain Scale: Adult hb 17:00 Pain Scale: Adult rg5 ED Course: 16:29 Patient arrived in ED. im 16:29 Pamela Ramos [facility]-C [facility]. kb 16:29 Mauricio Hodges MD is Attending Physician. kb 16:39 Triage completed. hb 16:39 Arm band placed on. hb 16:42 Ta Horvath, ZACARIAS is Primary Nurse. rg5 17:00 Patient has correct armband on for positive identification. Bed in low position. Call rg5 light in reach. 17:00 No provider procedures requiring assistance completed. Patient did not have IV access rg5 during this emergency room visit. Administered Medications: 17:00 Drug: Ketorolac IM 30 mg IM once Route: IM; Site: right gluteus; rg5 17:30 Follow up: Response: No adverse reaction; Pain is decreased rg5 17:00 Drug: predniSONE PO 40 mg PO once Route: PO; rg5 17:30 Follow up: Response: No adverse reaction rg5 Medication: 17:00 VIS not applicable for this client. rg5 Outcome: 17:00 Discharge ordered by . kb 17:37 Discharged to home ambulatory, rg5 17:37 Condition: stable rg5 17:37 Discharge instructions given to patient, Instructed on discharge instructions, follow up and referral plans. Demonstrated understanding of instructions, Prescriptions given X 3, 17:37 Patient left the ED. rg5 Signatures: Pamela Ramos FNP-C FNP-Ckb Baxter, Darcy, RN RN hb Whitney Dumont Rommel, RN RN rg5
[2025-04-14] MEDS ORDERED: KETOROLAC 30 MG/ML INJ ONE (17:04)
[2025-04-14] MEDS ORDERED: predniSONE 20 MG TAB ONE (17:04)
[2025-04-14 17:55] VITALS: TEMP 97
[2025-04-14 17:57] VITALS: BP 146/81; O2SAT 97
== END 2025-04-14 17:37 | disposition home or self-care (01) ==
LOC: ER 16:27
DX: M54.31 Sciatica, right side (principal)
CPT/HCPCS: 96372; 99284; J7512